=== PATIENT | female | born 1940 | race Caucasian/White ===

== ENCOUNTER 2019-11-01 14:00 | Emergency (ER) | payer MEDICARE, SELFPAY ==
[2019-11-01 14:19] VITALS: BP 149/77; PULSE 108; RESP 16; TEMP 36.4; O2SAT 97
--- NOTE | 2019-11-01 14:33 | ED.GENADULT ---
HPI - General Adult General Chief complaint: Urogenital-Female Stated complaint: other Time Seen by Provider: 11/01/19 14:33 Source: patient and RN notes reviewed Mode of arrival: ambulatory Limitations: no limitations History of Present Illness HPI narrative: 78-year-old female presents with urinary complaints and being fatigue for 1 day. Dysuria consist of frequency and urgency.? Mary says she urinated 6 times this morning from 02am-08am. No treatment.? Denies fever or chills. No significant pelvic pain. No vaginal discharge.? No concerns for STDs. Exacerbating factors urinating.? Denies hematuria or vaginal bleeding. Hysterectomy.? No flank pain. Denies nausea, vomiting, and abdominal pain.? Tolerating liquids well.? Remains active. The patient reports she have not been diagnosed with COVID-19. The patient reports she is not waiting for the results of a COVID-19 lab test. The patient reports she do not have fever, chills, weakness, or myalgia. The patient reports she do not have a new or worsening cough or shortness of breath. Denies chest pain. The patient reports she do not have any rhinorrhea, congestion, sore throat, and diarrhea. Tolerating po intake well. Denies concerns for COVID-19 or exposures been home with limited outdoor exposure except for essential household needs and return home. At this time, patient is not suspected of having COVID-19. Complains of LT hip-leg pain and a raised area to LT lateral-dorsal foot for the past 14 days. No treatment. Activity helps with pain. No recent injuries. Denies radiation of pain. No numbness or tingling or bleeding. No swelling. No loss of mobility. Exacerbating factor consists of sitting or lying around too long. Denies recent travel or long car rides. History of DVT or PE. No chest pain or dyspnea. Some parts of this dictation were generated by voice recognition software and may contain typographical and/or grammatical inaccuracies. Related Data Home Medications Medication Instructions Recorded Confirmed amlodipine [Norvasc] 10 mg PO DAILY 11/01/19 11/01/19 aspirin 81 mg PO DAILY 11/01/19 11/01/19 isosorbide mononitrate 30 mg PO DAILY 11/01/19 11/01/19 lorazepam [Ativan] 1 mg PO TID 11/01/19 11/01/19 omeprazole magnesium [Prilosec OTC] 20 mg PO DAILY 11/01/19 11/01/19 quinapril [Accupril] 40 mg PO DAILY 11/01/19 11/01/19 rivaroxaban [Xarelto] 20 mg PO DAILY 11/01/19 11/01/19 simvastatin [Zocor] 20 mg PO DAILY 11/01/19 11/01/19 Allergies Allergy/AdvReac Type Severity Reaction Status Date / Time Penicillins Allergy Unknown Unknown Verified 11/01/19 14:32 Review of Systems Review of Systems: Narrative: CONSTITUTIONAL: Denies fever, chills, sweats. EYES: Denies visual changes, redness, discharge. ENT: Denies rhinorrhea, congestion, sore throat, otalgia. CARDIOVASCULAR: Denies chest pain, palpitations, edema. RESPIRATORY: Denies dyspnea, wheezing, cough. GASTROINTESTINAL: Denies abdominal pain, nausea, vomiting, diarrhea. GENITOURINARY: Complains of dysuria (frequency and urgency). Denies hematuria, abnormal discharge. SKIN: Denies rash or itching. MUSCULOSKELETAL: Denies acute back pain or myalgia. Complains of LT hip-leg pain and raised area to LT dorsal-lateral foot. NEUROLOGIC: Denies numbness or focal weakness. PSYCHIATRIC: Denies anxiety or depression. All systems reviewed & are unremarkable except as noted in HPI and below. [facility] Past Medical History Medical History (Updated 11/01/19 @ 14:57 by YFN [place]) Anxiety Hypercholesteremia Hypertension UTI (urinary tract infection) Surgical History Surgical History (Updated 11/01/19 @ 14:58 by YFN [place]) History of foot surgery RT History of hernia surgery 07/12 (abdominal X5) History of hysterectomy History of knee surgery RT Family History Family History (Updated 11/01/19 @ 14:58 by YFN [place]) Mother Diabetes mellitus Hypertension
== END 2019-11-01 15:08 | disposition home or self-care (01) ==
PROVIDERS: Emergency Provider Nurse Practitioner Family; PCP Family Medicine
DX: R30.0 Dysuria (principal); I10 Essential (primary) hypertension; E78.00 Pure hypercholesterolemia, unspecified; F41.9 Anxiety disorder, unspecified; Z79.82 Long term (current) use of aspirin; Z79.01 Long term (current) use of anticoagulants
CPT/HCPCS: 81003; 87086; 87088; 99213; G0463

== ENCOUNTER 2020-10-06 22:49 | Emergency (ER) | payer MEDICARE, SELFPAY ==
[2020-10-06 23:04] VITALS: BP 167/94; PULSE 91; RESP 18; TEMP 36.3; O2SAT 97
--- NOTE | 2020-10-06 23:10 | ECG_ITS ---
Measurements Intervals [place] Rate: 92 P: MD: 0 QRS: 33 QRSD: 109 T: 34 QT: 353 QTc: 438 Interpretive Statements ATRIAL FIBRILLATION LOW QRS VOLTAGE IN PRECORDIAL LEADS INCOMPLETE RIGHT BUNDLE BRANCH BLOCK NONSPECIFIC ST & T-WAVE ABNORMALITY- LATERAL LEADS ABNORMAL ECG Electronically Signed On 10-07-2020 6:39:08 CDT by Navjot Huang D.O.
[2020-10-07 00:23] LABS: Add Urine Microscopic? YES; Appearance Urine Turbid (Clear); Bilirubin Urine Negative (Negative); Blood Urine 1+ (Negative); Color Urine Amber (Yellow); Glucose Urine UA Negative (Negative); Ketones Urine Negative (Negative); Leukocyte Esterase Ur 2+ LEU/UL (Negative); Nitrate Urine Positive (Negative); Protein Urine 2+ mg/dL (Negative); RBC Urine 21-50 /hpf (0-2); Specific Grav Ur 1.013 (1.001-1.035); Squamous Epithelial Cell Urine Many /hpf (Few); WBC Clumps Urine Present /HPF; WBC Urine >75 /hpf
[2020-10-07 00:43] VITALS: PULSE 75
[2020-10-07] MEDS: CEPHALEXIN 500 MG CAPSULE PO (00:59)
[2020-10-07 01:28] LABS: Basophils Percent Auto 0.3 % (0.2-1.2); Eosinophils Absolute Auto 0.1 K/mm3 (0-0.3); Eosinophils Percent Auto 0.5 % (0-4.4); Hematocrit 39.8 % (37.0-47.0); Hemoglobin 12.8 g/dL (12.0-15.0); Immature Granulocyte Absolute 0.06 K/mm3 (0.00-0.031); Immature Granulocyte Percent A 0.5 % (0-0.5); Lymphocytes Absolute Auto 1.49 K/mm3 (0.9-3.2); Lymphocytes Percent Auto 13.5 % (18.3-44.2); Mean Corpuscular HGB Conc 32.2 g/dl (32-36); Mean Corpuscular Hemoglobin 27.8 pg (26-34); Mean Corpuscular Volume 86.3 fl (80-100); Mean Platelet Volume 10.3 fl (7.4-10.4); Monocytes Absolute Auto 0.6 K/mm3 (0.1-0.6); Monocytes Percent Auto 5.2 % (2.6-8.5); Neutrophils Absolute Auto 8.8 K/mm3 (1.3-6.7); Platelet Count Result 316 k/mm3 (150-375); Red Blood Count 4.61 M/mm3 (4.2-5.4); Red Cell Distribution Width 14.5 % (11.5-14.5); White Blood Count 11.1 K/mm3 (4.5-10.0)
[2020-10-07 01:34] LABS: Alanine Aminotransferase 17 U/L (4-35); Anion Gap 9 mmol/L (8-16); Aspartate Amino Transferase 27 U/L (14-36); Bilirubin,Total 0.5 mg/dL (0.2-1.3); Blood Urea Nitrogen 7 mg/dL (7-17); Carbon Dioxide 24 mmol/L (22-30); Chloride 99 mmol/L (98-107); Estimated CRCL calculation 62 ml/min; Estimated Glomerular Filt Rate > 60; Glucose 133 mg/dL (65-105); Potassium 3.7 mmol/L (3.4-5.0); Sodium 132 mmol/L (137-145)
[2020-10-07 01:35] LABS: Albumin Level 4.6 g/dL (3.5-5.1); Alkaline Phosphatase 92 U/L (38-126)
[2020-10-07 01:47] LABS: Troponin I < 0.012 ng/mL (0.000-0.034)
--- NOTE | 2020-10-07 01:47 | ED.GENADULT ---
HPI - General Adult General Chief complaint: Unspecified Stated complaint: left arm pain, possible fever Time Seen by Provider: 10/07/20 00:30 History of Present Illness HPI narrative: Patient is a 79-year-old female who presents the emergency department with chief complaint of right upper extremity numbness. The patient states she had some pain in her neck and then had some paresthesias in her right arm. The patient states that subsequently improved and just has a little bit of an aching in her right side of her neck. The patient states that she also has had some dysuria and reports that it hurts whenever she urinates Related Data Home Medications Medication Instructions Recorded Confirmed amlodipine [Norvasc] 10 mg PO DAILY 11/01/19 02/28/20 aspirin 81 mg PO DAILY 11/01/19 02/28/20 isosorbide mononitrate 30 mg PO DAILY 11/01/19 02/28/20 rivaroxaban [Xarelto] 20 mg PO DAILY 11/01/19 02/28/20 simvastatin [Zocor] 20 mg PO DAILY 11/01/19 02/28/20 cholecalciferol (vitamin D3) 25 25 mcg PO DAILY 02/28/20 02/28/20 mcg (1,000 unit) tablet Allergies Allergy/AdvReac Type Severity Reaction Status Date / Time Penicillins Allergy Unknown Unknown Verified 02/28/20 14:26 [facility] Past Medical History Medical History Anxiety Hypercholesteremia Hypertension UTI (urinary tract infection) Surgical History Surgical History History of foot surgery RT History of hernia surgery 07/12 (abdominal X5) History of hysterectomy History of knee surgery RT Family History Family History Mother Diabetes mellitus Hypertension Family history of cardiovascular disease Father Family history of lung cancer Social History Social History Smoking status: Never smoker Second hand tobacco smoke exposure: No Alcohol intake: former Substance use: never Gender identity (if verbalized by the patient): Female Course Vital Signs Vital signs: Vital Signs Temperature 36.3 C L 10/06/20 23:04 Pulse Rate 91 10/06/20 23:04 Respiratory Rate 18 10/06/20 23:04 Blood Pressure 167/94 H 10/06/20 23:04 Pulse Oximetry 97 10/06/20 23:04 Temperature 36.3 C L 10/06/20 23:04 Pulse Rate 75 10/07/20 01:53 Respiratory Rate 18 10/07/20 01:53 Blood Pressure 153/85 H 10/07/20 01:53 Pulse Oximetry 100 10/07/20 01:53 Medical Decision Making Vital Signs Vital Signs: Vital Signs Temperature 36.3 C L 10/06/20 23:04 Pulse Rate 91 10/06/20 23:04 Respiratory Rate 18 10/06/20 23:04 Blood Pressure 167/94 H 10/06/20 23:04 Pulse Oximetry 97 10/06/20 23:04 Temperature 36.3 C L 10/06/20 23:04 Pulse Rate 75 10/07/20 01:53 Respiratory Rate 18 10/07/20 01:53 Blood Pressure 153/85 H 10/07/20 01:53 Pulse Oximetry 100 10/07/20 01:53 Lab Data Result diagrams: 10/07/20 01:05 10/07/20 01:08 Labs: Lab Results 10/07/20 10/07/20 10/07/20 Range/Units 00:09 01:05 01:08 WBC 11.1 H (4.5-10.0) K/mm3 RBC 4.61 (4.2-5.4) M/mm3 Hgb 12.8 (12.0-15.0) g/dL Hct 39.8 (37.0-47.0) % MCV 86.3 (80-100) fl MCH 27.8 (26-34) pg MCHC 32.2 (32-36) g/dl RDW 14.5 (11.5-14.5) % Plt Count 316 (150-375) k/mm3 MPV 10.3 (7.4-10.4) fl Immature Gran % (Auto) 0.5 (0-0.5) % Neut % (Auto) 80.0 H (45.5-73.1) % Lymph % (Auto) 13.5 L (18.3-44.2) % [place] % (Auto) 5.2 (2.6-8.5) % Eos % (Auto) 0.5 (0-4.4) % Baso % (Auto) 0.3 (0.2-1.2) % Lymph # (Auto) 1.49 (0.9-3.2) K/mm3 [place] # (Auto) 0.6 (0.1-0.6) K/mm3 Eos # (Auto) 0.1 (0-0.3) K/mm3 Baso # (Auto) 0.0 (0.0-0.1) K/mm3 Abs Immat Gran (auto) 0.06 H (0.00-0.031) K/mm3 Absolute Neuts (auto) 8.8 H
[2020-10-07 01:53] VITALS: BP 153/85; PULSE 75; RESP 18; O2SAT 100
[2020-10-07 02:13] VITALS: BP 152/97
== END 2020-10-07 02:27 | disposition home or self-care (01) ==
PROVIDERS: Emergency Provider Emergency Medicine; PCP Family Medicine
DX: N39.0 Urinary tract infection, site not specified (principal); M54.12 Radiculopathy, cervical region; E78.00 Pure hypercholesterolemia, unspecified; I10 Essential (primary) hypertension; Z79.01 Long term (current) use of anticoagulants; Z79.82 Long term (current) use of aspirin
CPT/HCPCS: 36415; 80053; 81001; 84484; 85025; 87077; 87086; 87088; 93005; 99284; A9270

== ENCOUNTER → 2020-10-24 11:38 | Outpatient (CLI) | payer MEDICARE, SELFPAY ==
--- NOTE | ~2020-10-24 | XR_ITS ---
EXAMINATION: XR cervical spine 4-5V EXAM DATE: 10/24/2020 11:57 INDICATION: M54.2 - Cervicalgia, arm pain. TECHNIQUE: Cervical spine frontal, lateral, lateral swimmers, and open-mouth odontoid projections. There is no prior study for comparison. FINDINGS: Moderate to severe disc disease C5-C6, moderate at the C4-5 and C6-7 levels. There is 2 mm anterolisthesis C3 on C4 and C4 on C5. Straightening of normal cervical lordosis could be positional or spasm. The odontoid process is intact. The lateral masses of C1 line up with C2. Prevertebral so ft tissue and pre-dens space are within normal limits. Severe mid cervical facet arthropathy and also evidence of significant lower cervical uncovertebral joint arthropathy. There is mild cervical levos coliosis. Lung apices are clear. IMPRESSION: Advanced cervical spondylosis. Reviewed, dictated and finalized at location B.
== END ==
PROVIDERS: PCP Family Medicine; Visit Provider Family Medicine
DX: M47.892 Other spondylosis, cervical region (principal)
CPT/HCPCS: 72050

== ENCOUNTER 2021-01-01 12:30 | Outpatient (RCR) | payer MEDICARE, SELFPAY ==
--- NOTE | 2020-10-29 17:24 | PTOPEVAL ---
PHYSICAL THERAPY EVALUATION AND PLAN OF CARE Thank you for referring Mary So to [facility].? The patient is scheduled to be seen for therapy? 2x/week for 4 weeks. Please review, sign, date and return this plan of care JAMES. I agree with and certify that the following plan of care is medically necessary. Referring Physician Date Attending Provider: Osiel Donald PA-C Evaluation Outpatient Past Medical History Cardiovascular History Hx Hypercholesterolemia Yes Hx Hypertension Yes Genitourinary History Hx Urinary Tract Infection Yes Reproductive History Hx Post Menopausal Yes Psychosocial History Hx Anxiety Yes Diagnosis cervical pain with right radiculopathy Onset 1 month Subjective Information Mary is here today with c/o Query Text:As Reported By Patient/ neck pain with right arm Family numbness and tingling. Worst symptoms are in the arm and go around the shoulder. She reports that prednisone helps to reduce symptoms but when her prescription of predisone is gone, the symptoms come back. The symptoms are very disrupting. Self Report Pain Assessment Right Spine, Cervical Reported Pain Level 4 Pain Description Numbness,Tingling Pain Radiation Right Arm Pain Frequency Acute,Continuous Lowest Pain Intensity 0 Greatest Pain Intensity 6 Pain Aggravating Factors Other Pain Aggravating Factors Other Pain Aggravating Factors laying on side Pain Score Pain Score 4: Self Report Interventions Used Interventions Used By Clinicians Exercise,Mobilization,Manual Therapy Techniques Pain Relief Interventions Used By Inactivity/Rest,Medication Patient Cervical and Lumbar ROM Cervical ROM Cervical Flexion (0-60) 50 Query Text:Active in Degrees Cervical Extension (0-70) 40 Query Text:Active in Degrees Cervical Rotation Right (0-90) 50 Query Text:Active in Degrees Cervical Rotation Left (0-90) 65 Query Text:Active in Degrees Upper Extremity Range of Motion General Upper Extremity Range of Motion Reason Not Measured WNL/Left,WNL/Right Upper Extremity Muscle Strength Testing Scapular/Shoulder Right Scapular Retraction - Rhomboid 3+ Fair + Scapular Retraction - Middle Trapezius 3+ Fair + Scapular Retraction - Lower Trapezius 3+ Fair + Shoulder Flexion Strength 5 Normal Shoulder Extension Strength 5 Normal Shou
--- NOTE | 2020-11-07 09:29 | PCPTNOTE ---
Patient cancelled & rescheduled today appointment for a later time.
--- NOTE | 2020-11-07 10:36 | PCPTNOTE ---
Patient called & cancelled scheduled appointment this date due to not feeling well.
--- NOTE | 2020-11-19 08:19 | PCPTNOTE ---
Patient called & cancelled scheduled appointment this date due to not feeling well.
--- NOTE | 2020-11-27 11:42 | PTOPEVAL ---
PHYSICAL THERAPY PROGRESS REPORT AND PLAN OF CARE UPDATE Thank you for referring Mary So to [facility].? The patient is scheduled to be seen for therapy? 1x/week for 4 weeks. Please review, sign, date and return this plan of care JAMES. I agree with and certify that the following plan of care is medically necessary. Referring Physician Date Attending Provider: Osiel Donald, BONIFACIO Discharge Diagnosis cervical pain with right radiculopathy Onset 2 month Subjective Information Reports that she does not have Query Text:As Reported By Patient/ the pain like she did Family although she continues to have pins and needles on occasion. Reports she is taking tylenol morning and night. Self Report Pain Assessment Right Spine, Cervical Reported Pain Level 2 Pain Description Tingling Pain Radiation Right Arm Pain Frequency Acute,Continuous Lowest Pain Intensity 0 Greatest Pain Intensity 6 Pain Aggravating Factors Other Pain Aggravating Factors Other Pain Aggravating Factors laying on side Pain Score Pain Score 2: Self Report Interventions Used Interventions Used By Clinicians Exercise,Mobilization,Manual Therapy Techniques Pain Relief Interventions Used By Inactivity/Rest,Medication Patient Cervical and Lumbar ROM Cervical ROM Cervical Flexion (0-60) 55 Query Text:Active in Degrees Cervical Extension (0-70) 45 Query Text:Active in Degrees Cervical Rotation Right (0-90) 62 Query Text:Active in Degrees Cervical Rotation Left (0-90) 65 Query Text:Active in Degrees Upper Extremity Range of Motion General Upper Extremity Range of Motion Reason Not Measured WNL/Left,WNL/Right Upper Extremity Muscle Strength Testing Scapular/Shoulder Right Scapular Retraction - Rhomboid 3+ Fair + Scapular Retraction - Middle Trapezius 3+ Fair + Scapular Retraction - Lower Trapezius 3+ Fair + Shoulder Flexion Strength 5 Normal Shoulder Extension Strength 5 Normal Shoulder Abduction Strength 5 Normal Shoulder Medial Rotation Strength 5 Normal Shoulder Lateral Rotation Strength 5 Normal Posture Posture Sitting Position Head/C-Spine Posture C-Spine Flattened Thoracic Spine Posture Increased Kyphosis Lumbar Spine Posture Flattened Shoulder Posture (L) Rounded,(R) Rounded Scapula Posture (L) Protracted,(R) Protracted Palpation Assessment Palpation Palpation improving muscle tension with decreased tenderness to
--- NOTE | 2021-01-01 13:15 | PTOPEVAL ---
PHYSICAL THERAPY DISCHARGE NOTE Thank you for referring Mary So to [facility].? Please review, sign, date and return this plan of care JAMES. I agree with and certify that the following plan of care is medically necessary. Referring Physician Date Attending Provider: Osiel Donald PA-C Discharge Diagnosis cervical pain with right radiculopathy Onset 2 month Subjective Information Reports she has had no pain Query Text:As Reported By Patient/ all week. One time there were Family a few pins and needles but she moved her hand and they went away. Pain Score 0: Self Report Cervical and Lumbar ROM Cervical ROM Cervical Flexion (0-60) 55 Query Text:Active in Degrees Cervical Extension (0-70) 45 Query Text:Active in Degrees Cervical Rotation Right (0-90) 65 Query Text:Active in Degrees Cervical Rotation Left (0-90) 65 Query Text:Active in Degrees Upper Extremity Range of Motion General Upper Extremity Range of Motion Reason Not Measured WNL/Left,WNL/Right Upper Extremity Muscle Strength Testing Scapular/Shoulder Right Scapular Retraction - Rhomboid 4- Good - Scapular Retraction - Middle Trapezius 4- Good - Scapular Retraction - Lower Trapezius 4- Good - Shoulder Flexion Strength 5 Normal Shoulder Extension Strength 5 Normal Shoulder Abduction Strength 5 Normal Shoulder Medial Rotation Strength 5 Normal Shoulder Lateral Rotation Strength 5 Normal Posture Posture Sitting Position Head/C-Spine Posture Neutral Position Thoracic Spine Posture Increased Kyphosis Lumbar Spine Posture Neutral Shoulder Posture (R) Rounded Scapula Posture (L) Protracted,(R) Protracted Palpation Assessment Palpation Palpation improving muscle tension with decreased tenderness to palpation of right cervical musculature; right upper trapezius significantly improved in tissue quality; 04/2021: normalized tissue General Exercise General Exercises Exercise Location cervical Exercise Type Active,Resistive,Stretching Exercise Description -sitting upper trapezius Query Text:Record Sets, Reps, stretch Resistance, and Position -supine serratus punches x15 -hooklying alternating shoulder flexion x15 -sitting bilateral scapular retraction red band x15
== END 2021-01-02 16:23 | disposition home or self-care (01) ==
LOC: ANHPT 12:30
PROVIDERS: PCP Family Medicine; Visit Provider Physician Assistant
DX: M54.12 Radiculopathy, cervical region (principal); M54.2 Cervicalgia
CPT/HCPCS: 97110; 97140; 97162

== ENCOUNTER → 2021-09-17 09:38 | Outpatient (CLI) | payer MEDICARE, SELFPAY ==
--- NOTE | ~2021-09-17 | XR_ITS ---
EXAMINATION: XR sacroiliac joints min 3V DATE: 09/17/2021 10:55 INDICATION: Low back pain and posterior left hip pain TECHNIQUE: AP and left and right oblique views of the sacroiliac joints were obtained. COMPARISON: Sacrum and coccyx radiographs dated 09/17/[address] abdomen and pelvis dated 04/25/2015 FINDINGS: Bone alignment is normal. Mild osteoarthritis at the bilateral hip and sacroiliac joints. No erosions to suggest inflammatory sacroiliitis. Moderate lower lumbar spondylosis. Phleboliths in the right he mipelvis. IMPRESSION: 1. Mild bilateral sacroiliac osteoarthritis. Reviewed, dictated and finalized at location B.
--- NOTE | ~2021-09-17 | XR_ITS ---
XR sacrum coccyx min 2V DATE: 09/17/2021 10:55 INDICATION: Low back pain TECHNIQUE: AP, angled AP and lateral views COMPARISON: None FINDINGS: Diffuse osteopenia. The pubic symphysis and sacroiliac joints are intact. No fracture or bone destruction of the sacrum is evident. Prominent degenerative disc disease of the lower lumbar and lumbosacral spine. Distal abdominal aortic calcification without aneurysm. IMPRESSION: Multilevel prominent degenerative disc disease of the lumbar spine Osteopenia Reviewed, dictated and finalized at location A.
== END ==
PROVIDERS: PCP Family Medicine; Visit Provider Physician Assistant Medical
DX: M25.552 Pain in left hip (principal); M53.3 Sacrococcygeal disorders, not elsewhere classified; M85.88 Other specified disorders of bone density and structure, other site; M51.36 Other intervertebral disc degeneration, lumbar region
CPT/HCPCS: 72202; 72220

== ENCOUNTER 2021-09-21 13:30 | Outpatient (RCR) | payer MEDICARE, SELFPAY ==
--- NOTE | 2021-09-01 15:42 | PTOPEVAL ---
Thank you for referring Mary So to [facility].? The patient is scheduled to be seen for therapy?2 x/week for 6 weeks. Please review, sign, date and return this plan of care JAMES. I agree with and certify that the following plan of care is medically necessary. Referring Physician Date Attending Provider: Yari Gutierrez PA-C Diagnosis neck pain with radiculopathy right UE Onset chronic Additional Evaluation Detail xray: Advanced cervical spondylosis Subjective Information Reports numbness/tingling, Query Text:As Reported By Patient/ cold from right hand, shoulder Family and neck region. Her symptoms are random and intermittent. c/o decreased endurance since her hernia surgeries 2 yrs ago. 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 She has increased symptoms with sleeping on right UE, ADL's, prolonged sitting. She c/o intermittent muscle spasms of UE's,but no spasms today. She does not perform her HEP from her previous therapy. Her hobbies consistent of going to her [employer] activities. Also c/o left LB pain. Pain Assessment Right Arm(s) Reported Pain Level 0 Pain Description Phantom,Radiating,Tightness, Tingling Pain Frequency Intermittent Lowest Pain Intensity 0 Greatest Pain Intensity 10 Pain Aggravating Factors ADL's,Exercise/Activity, Prolonged Position Cervical and Lumbar ROM Cervical ROM Cervical Flexion (0-60) 65 Degrees Cervical Extension (0-70) 65 Degrees Cervical Lateral Flexion Right (0-50) 40 Degrees Cervical Lateral Flexion Left (0-50) 30 Degrees Cervical Rotation Right (0-90) 55 Degrees Cervical Rotation Left (0-90) 60 Degrees Cervical ROM Comments slight pain with left rotation , ext and lateral flex Upper Extremity Range of Motion General Upper Extremity Range of Motion Reason Not Measured WNL/Left,WNL/Right Cervical and Lumbar Muscle Testing Cervical Muscle Testing Cervical Flexion 5 Normal Cervical Extension 5 Normal Cervical Lateral Flexion Right 5 Normal Cervical Lateral Flexion Left 5 Normal Upper Extremity Muscle Strength Testing General Upper Extremity Strength Gross
--- NOTE | 2021-09-15 15:23 | PCPTNOTE ---
Patient called & cancelled scheduled appointment this date due to low back pain & is going to the Dr tomorrow.
--- NOTE | 2021-09-21 15:14 | PTOPEVAL ---
Physical Therapy Progress Note/ Discharge Summary Thank you for referring Mary So to [facility].?She was referred to therapy due to chronic neck pain with right UE radiculopathy. She has been seen for 6 therapy from 09/01/21 to 09/21/21. As a result of skilled therapy services she reports improved UE symptoms and improve tolerance with daily activities. She reports improved tolerance with sleeping and sitting. She demonstrates improved tissue restrictions, improved scapular stability and improved UE symptoms. neck disability index: 34% impaired at eval to 10% impaired at update. Assessment:Mary has reached maximal potential with skilled therapy services at this time. She reports improved symptoms and limitations. She has met to partially met her therapy goals. She demonstrates indep and compliance with her HEP. Will DC skilled therapy services at this time. Please review, sign, date and return this discharge summary JAMES. I agree with and certify that the following plan of care is medically necessary. Referring Physician Date Attending Provider: Yari Gutierrez PA-C Diagnosis neck pain with radiculopathy right UE Onset chronic Additional Evaluation Detail xray: Advanced cervical spondylosis Subjective Information Reports improve pain anb Query Text:As Reported By Patient/ symptoms since starting Family therapy. She has intermittent numbness/tingling of right hand and UE. Her symptoms are random and intermittent. Denies any activities which increase her neck/arm symptoms. Denies any issues with sleeping. She is performs at least some part of her HEP daily. She is more aware of her posture when seated and sitting more in midline position. Pain Assessment Right Arm(s) Reported Pain Level 0 Pain Description Numbness,Radiating,Tingling Pain Frequency Continuous Lowest Pain Intensity 0 Greatest Pain Intensity 5 Cervical and Lumbar ROM Cervical ROM Cervical Flexion (0-60) 70 Degrees Cervical Extension (0-70) 65 Degrees Cervical Lateral Flexion Right (0-50) 40 Degrees Cervical Lateral Flexion Left (0-50) 35 Degrees Cervical Rotation Right (0-90) 55 Degrees Cervical Rotation Left (0-90) 60Degrees Cervical ROM 75% of Normal Cervical ROM Comments no pain with left rotation, ext and lateral flex Upper Extremity Muscle Strength Testing Gross Upper Extremity Strength Comments efe middle and lower trap stability: 2
== END 2021-09-23 08:41 | disposition home or self-care (01) ==
LOC: ANHPT 13:30
PROVIDERS: PCP Family Medicine; Visit Provider Physician Assistant
DX: M54.12 Radiculopathy, cervical region (principal); M54.2 Cervicalgia
CPT/HCPCS: 97110; 97162; 97530

== ENCOUNTER 2022-01-02 11:23 | Emergency (ER) | payer MEDICARE, SELFPAY ==
[2022-01-02 11:33] VITALS: BP 136/88; PULSE 95; RESP 20; TEMP 36.8; O2SAT 97
--- NOTE | 2022-01-02 11:34 | ED.FEMALEGU ---
HPI - Female Genitourinary General Chief complaint: Urogenital-Female Stated complaint: uti Time Seen by Provider: 01/02/22 11:34 Source: patient, RN notes reviewed and old records reviewed Mode of arrival: ambulatory Limitations: no limitations History of Present Illness HPI Narrative: 81-year-old female presents to the [facility] with complaints of urgency and burning with urination. Reports that she has a history of UTIs. When she was evaluated several months ago by her [employer] provider was told not to drink caffeine. Patient had 2 large Cokes yesterday and was up all night. Denies any fevers, nausea, vomiting. Denies chest pain or abdominal pain. MD elicited complaint: UTI Pertinent past history: recurrent UTIs Related Data Home Medications Medication Instructions Recorded Confirmed amlodipine 10 mg tablet (Norvasc) 10 mg PO DAILY 11/01/19 01/02/22 aspirin 81 mg tablet,delayed 81 mg PO DAILY 11/01/19 01/02/22 release isosorbide mononitrate 30 mg 30 mg PO DAILY 11/01/19 01/02/22 tablet,extended release 24 hr rivaroxaban 20 mg tablet (Xarelto) 20 mg PO DAILY 11/01/19 01/02/22 simvastatin 20 mg tablet (Zocor) 20 mg PO DAILY 11/01/19 01/02/22 cholecalciferol (vitamin D3) 25 25 mcg PO DAILY 02/28/20 01/02/22 mcg (1,000 unit) tablet acetaminophen 325 mg tablet 325 mg PO Q6H PRN Fever Or Pain 03/17/21 01/02/22 Allergies Allergy/AdvReac Type Severity Reaction Status Date / Time Penicillins Allergy Unknown Unknown Verified 01/02/22 11:33 Review of Systems Review of Systems: All systems reviewed & are unremarkable except as noted in HPI and below Constitutional: Constitutional: Reports no additional constitutional complaints, Denies chills and Denies fatigue Eyes: Eyes: Reports no additional eye complaints ENT: Reports system reviewed and no additional complaints, except as documented Cardiovascular: Cardiovascular: Reports no additional cardiovascular complaints Respiratory: Respiratory: Reports no additional respiratory complaints Gastrointestinal: Gastrointestinal: Reports no additional gastrointestinal complaints, Denies abdominal pain, Denies diarrhea, Denies nausea and Denies vomiting Genitourinary: Genitourinary: Reports as per HPI (Urinary frequency), Denies hematuria, Reports dysuria, Denies flank pain and Denies vaginal discharge Musculoskeletal: Musculoskeletal: Reports no additional musculoskeletal complaints and Denies back pain Integumentary/Breasts: Skin/Breast: Reports system reviewed and no additional complaints, except as docu Neurologic: Reports system reviewed and no additional complaints, except as documented Psychiatric: Psychiatric: Reports no additional psychiatric complaints Endocrine: Endocrine: Denies fatigue Allergic/Immunologic: Allergic/Immunologic: Reports no additional allergic/immunologic complaints PMFSH Past Medical History Medical History Anxiety Cervical paraspinal muscle spasm Hypercholesteremia Hypertension Left hip pain Rash Right arm pain UTI (urinary tract infection) Surgical History Surgical History History of foot surgery RT History of hernia surgery 07/12 (abdominal X5) History of hysterectomy History of knee surgery RT Family History Family History Mother Diabetes mellitus Hypertension Family history of cardiovascular disease Father Family history of lung cancer Social History Social History Second hand tobacco smoke exposure: No Alcohol intake: former Substance use: never Substance use type: does not use Gender identity (if verbalized by the patient): Female Comments At the time of my signature, I reviewed and agree with the nursing past medical, surgical, social, and family history.
[2022-01-02 11:35] VITALS: BP 136/88; PULSE 95; RESP 20; TEMP 36.8; O2SAT 97
== END 2022-01-02 12:25 | disposition home or self-care (01) ==
PROVIDERS: Emergency Provider Nurse Practitioner; PCP Family Medicine
DX: N39.0 Urinary tract infection, site not specified (principal); E78.00 Pure hypercholesterolemia, unspecified; I10 Essential (primary) hypertension; Z79.82 Long term (current) use of aspirin; F41.9 Anxiety disorder, unspecified
CPT/HCPCS: 81003; 87077; 87086; 87186; 99213; G0463

== ENCOUNTER 2022-05-14 09:18 | Inpatient (IN) | payer OTHER, SELFPAY ==
[2022-05-14] VITALS (22 sets, daily range): BP systolic 117–142; BP diastolic 55–87; PULSE 60–96; RESP 14–25; TEMP 36.6–37; O2SAT 94–100
--- NOTE | ~2022-05-14 | CT_ITS ---
CT Abdomen and Pelvis with contrast. History: Abdominal pain. Spiral CT of the abdomen and pelvis was performed after the administration of intravenous contrast. 1 00 cc of Omnipaque 350 was administered intravenously without complication. Dose reduction technique was used on this scan by utilizing automated exposure control and iterative reconstruction technique. The dose-length product (DLP) was 719.80 mGy-cm. COMPARISON: 04/25/2015 Findings: Scans through the lung bases demonstrate mild atelectatic change. Small hepatic cysts noted. The liver, spleen, pancreas, and adrenal glands are otherwise within brian l limits. Cholecystectomy clips noted. Areas of bilateral renal cortical scarring are noted. No evide nce of aortic aneurysm. No lymphadenopathy is seen. There is no evidence of bowel obstruction. There is a complex inflammatory masslike lesion in the rig ht lower quadrant measuring approximately 4.5 x 3.5 cm in extent, with surrounding inflammatory olson e. Terminal ileum is essentially unremarkable. Images through the pelvis were performed. Urinary bladder unremarkable. Small amount of pelvic ascite s is seen. Patient is post hysterectomy. Impression: 4.5 x 3.5 cm complex phlegmon versus abscess in the right lower quadrant at the expected site of the appendix. Findings most likely represent complicated acute appendicitis. No free air. Small amount of pelvic ascites. Reviewed, dictated and finalized at [facility]. [employer] Impression: 4.5 x 3.5 cm complex phlegmon versus abscess in the right lower quadrant at the expected site of the appendix. Findings most likely represent complicated acut e appendicitis. No free air. Small amount of pelvic ascites.
--- NOTE | 2022-05-14 09:43 | ED.ABDPAIN ---
HPI - Abdominal Pain General Chief Complaint: Abdominal Pain <Cat Rios PA-C - Last Filed: 05/14/22 13:23> Stated Complaint: right side pain <BONIFACIO Foss Last Filed: 05/14/22 13:23> Time Seen by Provider: 05/14/22 09:31 <Cat Rios PA-C - Last Filed: 05/14/22 13:23> Source: patient <BONIFACIO Foss Last Filed: 05/14/22 13:23> Mode of arrival: ambulatory <BONIFACIO Foss Last Filed: 05/14/22 13:23> Limitations: no limitations <BONIFACIO Foss Last Filed: 05/14/22 13:23> History of Present Illness HPI narrative: This is an 81-year-old female that presents to the emergency department for right-sided abdominal pain. Ongoing over the last 2 days. Reports the pain is dull/achy. It is intermittently sharp in nature. It is worse with movement at times. She has not taken anything for pain yet today. Reports some constipation. Denies fever, vomiting, dysuria, hematuria, or hematochezia. <Cat Rios PA-C - Last Filed: 05/14/22 13:23> Related Data Home Medications: Home Medications Medication Instructions Recorded Confirmed amlodipine 10 mg tablet (Norvasc) 10 mg PO DAILY 11/01/19 05/14/22 aspirin 81 mg tablet,delayed 81 mg PO DAILY 11/01/19 05/14/22 release isosorbide mononitrate 30 mg 30 mg PO DAILY 11/01/19 05/14/22 tablet,extended release 24 hr rivaroxaban 20 mg tablet (Xarelto) 20 mg PO QACDINNER 11/01/19 05/14/22 cholecalciferol (vitamin D3) 25 50 mcg PO DAILY 02/28/20 05/14/22 mcg (1,000 unit) tablet acetaminophen 325 mg tablet 650 mg PO Q6H PRN Fever Or Pain 03/17/21 05/14/22 lorazepam 1 mg tablet 1 mg PO TID anxiety 05/14/22 05/14/22 omeprazole 20 mg capsule,delayed 20 mg PO QAM 05/14/22 05/14/22 release quinapril 40 mg tablet 40 mg PO DAILY 05/14/22 05/14/22 simvastatin 20 mg tablet 20 mg PO HS 05/14/22 05/14/22 <Cat Rios PA-C - Last Filed: 05/14/22 13:23> Allergies/Adverse Reactions: Allergies Allergy/AdvReac Type Severity Reaction Status Date / Time nitrofurantoin Allergy Intermediate Itching Verified 05/14/22 09:29 [From Macrobid] Penicillins Allergy Unknown Unknown Verified 05/14/22 09:29 <Cat Rios PA-C - Last Filed: 05/14/22 13:23> Review of Systems Review of Systems: CONSTITUTIONAL: Denies fever GASTROINTESTINAL: Reports abdominal pain. Denies nausea, vomiting, or diarrhea. GENITOURINARY: Denies dysuria or hematuria. <Cat Rios PA-C - Last Filed: 05/14/22 13:23> All systems reviewed & are unremarkable except as noted in HPI and below <Cat Rios PA-C - Last Filed: 05/14/22 13:23> [facility] Past Medical History Medical History: Medical History (Updated 05/15/22 @ 00:24 by Connie Nj PA-C) Anxiety Chronic anticoagulation Chronic hyponatremia Granulosa cell tumor Hypercholesteremia Hypertension Paroxysmal atrial fibrillation <Cat Rios PA-C - Last Filed: 05/14/22 13:23> Surgical History Surgical History: Surgical History (Updated 05/14/22 @ 13:44 by Connie Nj PA-C) History of arthroplasty of right knee (06/2014) History of bunionectomy of right great toe History of colonoscopy with polypectomy History of hernia repair History of hysterectomy <Cat Rios PA-C - Last Filed: 05/14/22 13:23> Family History Family History: Family History Mother Diabetes mellitus Hypertension Family history of cardiovascular disease Father Family history of lung cancer <Cat Rios PA-C - Last Filed: 05/14/22 13:23> Social History Social History: Social History (Updated 05/14/22 @ 13:44 by Connie Nj PA-C) Social History: Surrogate medical decision maker: Osielmonica So, spouse. Code status: Full code. Smoking status: Never smoker Second hand tobacco smoke exposure: No Alcohol intake: former
[2022-05-14 09:50] LABS: Basophils Percent Auto 0.3 % (0.2-1.2); Hematocrit 35.9 % (37.0-47.0); Hemoglobin 10.8 g/dL (12.0-15.0); Immature Granulocyte Absolute 0.04 K/mm3 (0.00-0.031); Immature Granulocyte Percent A 0.3 % (0-0.5); Lymphocytes Percent Auto 8.7 % (18.3-44.2); Mean Corpuscular HGB Conc 30.1 g/dl (32-36); Mean Corpuscular Hemoglobin 24.3 pg (26-34); Mean Corpuscular Volume 80.9 fl (80-100); Mean Platelet Volume 10.5 fl (7.4-10.4); Monocytes Percent Auto 7.3 % (2.6-8.5); Neutrophils Absolute Auto 11.5 K/mm3 (1.3-6.7); Neutrophils Percent Auto 83.4 % (45.5-73.1); Platelet Count Result 400 k/mm3 (150-375); Red Blood Count 4.44 M/mm3 (4.2-5.4); Red Cell Distribution Width 15.7 % (11.5-14.5); White Blood Count 13.8 K/mm3 (4.5-10.0)
[2022-05-14 10:21] LABS: Alanine Aminotransferase 19 U/L (6-35); Albumin Level 4.6 g/dL (3.5-5.1); Alkaline Phosphatase 79 U/L (38-126); Anion Gap 9 mmol/L (8-16); Aspartate Amino Transferase 32 U/L (14-36); Bilirubin,Total 1.3 mg/dL (0.2-1.3); Blood Urea Nitrogen 7 mg/dL (7-17); Calcium 8.8 mg/dL (8.4-10.2); Carbon Dioxide 22 mmol/L (22-30); Chloride 99 mmol/L (98-107); Estimated Glomerular Filt Rate > 60; Glucose 152 mg/dL (65-110); Lipase 34 U/L (23-300); Potassium 4.1 mmol/L (3.4-5.0); Sodium 130 mmol/L (137-145)
--- NOTE | 2022-05-14 11:41 | PC.NURSE ---
pt. to CT, Ua not obtained yet
[2022-05-14] MEDS: metroNIDAZOLE 500 MG/ISO 100ML 500 MG/100 ML BAG 100 MG IVPB (13:53)
[2022-05-14 13:57] LABS: Add Urine Microscopic? NO; Appearance Urine Clear (Clear); Bilirubin Urine Negative (Negative); Blood Urine Negative (Negative); Color Urine Light Yellow (Yellow); Glucose Urine UA Negative (Negative); Ketones Urine Negative (Negative); Leukocyte Esterase Ur Negative LEU/UL (Negative); Nitrate Urine Negative (Negative); Protein Urine Negative (Negative); Specific Grav Ur <= 1.005 (1.001-1.035); Urobilinogen Urine 0.2 mg/dL (<2.0)
[2022-05-14 14:18] LABS: Influenza A QL RT-PCR Negative (Negative); Influenza B QL RT-PCR Negative (Negative); SARS-CoV-2 RNA PCR Negative
--- NOTE | 2022-05-14 14:18 | ADMGEN ---
This patient, Mary So, was admitted to Medical Room 342-01. Patient/family oriented to hospital policies and general routines including ID bracelet, bed and alarms, visiting hours, pain management, procedures, bathroom and other care routines, personal items, smoking policy, room service/diet, and visiting hours. Information on how to activate the Rapid Response Team has been discussed. Patient/Family are encouraged to report perceived risks to care and to ask questions if they do not understand what they are told or what they should do.
--- NOTE | 2022-05-14 21:00 | PM.IMHP ---
H&P: HPI History of Present Illness Date/Time: 05/14/22 21:00 Chief Complaint: Abdominal pain. Narrative: This is a very pleasant 81-year-old female with history of multiple hernia repairs and hysterectomy, hypertension, hyperlipidemia, and anxiety who presented to the emergency department from home for evaluation of abdominal pain. A couple of days ago she was wakened from sleep with pain in the right hip/flank area which she describes as dull and aching. Initially she thought it was due to how she was laying in bed as she typically sleeps on her right side. However since that time the pain has persisted and at times it is sharp and stabbing in nature. It has since radiated into the right lower quadrant and somewhat into the periumbilical region. It is worse with movement and palpation. She has been taking acetaminophen with perhaps a little bit of help but nothing significant. Due to ongoing issue she came in today for evaluation. White blood cell count was elevated and a CT of the abdomen and pelvis showed a 4.5 x 3.5 centimeter complex phlegmon versus abscess in the right lower quadrant at the expected site of the appendix concerning for complicated acute appendicitis. She is being admitted in this setting for IV antibiotics and surgery consultation. At the time my evaluation she is resting and reports that her pain is manageable. She denies fever, chills, sweats, nausea, and vomiting. Review of Systems Review of Systems: Twelve systems were reviewed and are negative except for as per HPI. [facility] Past Medical History Medical History (Updated 05/15/22 @ 00:24 by Connie Nj PA-C) Anxiety Chronic anticoagulation Chronic hyponatremia Granulosa cell tumor Hypercholesteremia Hypertension Paroxysmal atrial fibrillation Surgical History Surgical History (Updated 05/14/22 @ 13:44 by Connie Nj PA-C) History of arthroplasty of right knee (06/2014) History of bunionectomy of right great toe History of colonoscopy with polypectomy History of hernia repair History of hysterectomy Family History Family History Mother Diabetes mellitus Hypertension Family history of cardiovascular disease Father Family history of lung cancer Social History Social History (Updated 05/14/22 @ 13:44 by Connie Nj PA-C) Social History: Surrogate medical decision maker: Osiel So, spouse. Code status: Full code. Smoking status: Never smoker Second hand tobacco smoke exposure: No Alcohol intake: former Substance use: never Substance use type: does not use Lack of Transportation: No Lack of Food: Never True Current Housing: I Have Housing Concerned About Future Housing: No Difficulty Paying Gas/Electric Bills: No Difficulty Paying for Meds: No Currently Unemployed: No Education: Decline to Answer Difficulty w/ Childcare or Family Care: No Spiritual care concerns: No Meds Home Medications and Allergies Home Medications Medication Instructions Recorded Confirmed Type amlodipine 10 mg tablet (Norvasc) 10 mg PO DAILY 11/01/19 05/14/22 History aspirin 81 mg tablet,delayed 81 mg PO DAILY 11/01/19 05/14/22 History release isosorbide mononitrate 30 mg 30 mg PO DAILY 11/01/19 05/14/22 History tablet,extended release 24 hr rivaroxaban 20 mg tablet (Xarelto) 20 mg PO QACDINNER 11/01/19 05/14/22 History cholecalciferol (vitamin D3) 25 50 mcg PO DAILY 02/28/20 05/14/22 History mcg (1,000 unit) tablet acetaminophen 325 mg tablet 650 mg PO Q6H PRN Fever Or Pain 03/17/21 05/14/22 History lorazepam 1 mg tablet 1 mg PO TID anxiety 05/14/22 05/14/22 History omeprazole 20 mg capsule,delayed 20 mg PO QAM 05/14/22 05/14/22 History release quinapril 40 mg tablet 40 mg PO DAILY 05/14/22 05/14/22 History simvastatin 20 mg tablet 20 mg PO HS 05/14/22 05/14/22 History Allergies Allergy/AdvReac Type
[2022-05-14] MEDS: ACETAMINOPHEN 325 MG TABLET 650 MG PO (22:51)
[2022-05-15] MEDS: LORazepam (*CRX) 1 MG TABLET PO ×4 (01:40→17:47)
[2022-05-15] MEDS: SODIUM CHLORIDE 0.9% IV 1,000 ML 80 ML IV CONT ×2 (01:40→17:46)
[2022-05-15] MEDS: metroNIDAZOLE 500 MG/ISO 100ML 500 MG/100 ML BAG 100 MG IVPB ×3 (01:42→17:47)
[2022-05-15 05:36] VITALS: BP 143/65; PULSE 76; RESP 18; TEMP 36.5; O2SAT 100
[2022-05-15 06:30] LABS: Hematocrit 31.3 % (37.0-47.0); Hemoglobin 9.8 g/dL (12.0-15.0); Mean Corpuscular HGB Conc 31.3 g/dl (32-36); Mean Corpuscular Hemoglobin 25.1 pg (26-34); Mean Corpuscular Volume 80.1 fl (80-100); Mean Platelet Volume 10.7 fl (7.4-10.4); Platelet Count Result 318 k/mm3 (150-375); Red Blood Count 3.91 M/mm3 (4.2-5.4); Red Cell Distribution Width 15.7 % (11.5-14.5); White Blood Count 13.9 K/mm3 (4.5-10.0)
[2022-05-15 06:38] LABS: Anion Gap 6 mmol/L (8-16); Blood Urea Nitrogen 7 mg/dL (7-17); Calcium 8.3 mg/dL (8.4-10.2); Carbon Dioxide 23 mmol/L (22-30); Chloride 96 mmol/L (98-107); Estimated Glomerular Filt Rate > 60; Glucose 113 mg/dL (65-110); Magnesium 1.9 mg/dL (1.6-2.3); Potassium 3.7 mmol/L (3.4-5.0); Sodium 125 mmol/L (137-145)
[2022-05-15] MEDS: lisinopriL 20 MG TABLET 40 MG PO (09:25)
[2022-05-15] MEDS: PANTOPRAZOLE 40 MG TABLET PO (09:25)
[2022-05-15] MEDS: ISOSORBIDE MONONITRATE 30 MG TAB.ER.24H PO (09:25)
[2022-05-15] MEDS: amLODIPine BESYLATE 5 MG TABLET 10 MG PO (09:26)
[2022-05-15 10:00] VITALS: PULSE 81; RESP 16; O2SAT 99
--- NOTE | 2022-05-15 12:23 | PM.CNGS ---
Assessment and Plan Assessment and plan (1) Perforated appendicitis: Code(s): K35.32 - Acute appendicitis with perforation, localized peritonitis, and gangrene, without abscess Status: Acute Assessment and Plan: I have reviewed the CT and discussed the findings with the patient. I also reviewed the CT with Dr. Stark with Interventional Radiology. There are phlegmonous changes and possible early abscess development in the expected position of the appendix, but there does not appear to be an organized fluid collection that could be percutaneously drained at this time. Patient has a complex medical and surgical history that would make surgery much more difficult. She is currently on Xarelto for atrial fibrillation and would be a very high bleeding risk with surgery. Also with her prior abdominal surgeries and hernia repair, there could be extensive scar tissue which would possibly require a much longer surgery and possibly an open operation. Attempting to treat with antibiotics at this time would be reasonable giving these increased risks. She does not have any signs of peritonitis at this time and appears to be comfortable with adequate pain control. Will continue IV antibiotics and hold anticoagulation. If she is showing any worsening signs then will have to consider surgical intervention. Could also consider repeat imaging in the next couple days and percutaneous drain placement if organized abscess does develop. (2) Chronic anticoagulation: Code(s): Z79.01 - [facility] (current) use of anticoagulants Status: Acute (3) Paroxysmal atrial fibrillation: Code(s): I48.0 - Paroxysmal atrial fibrillation Status: Acute (4) Hypertension: Code(s): I10 - Essential (primary) hypertension Status: Acute History of Present Illness Consult details Consult date: 05/15/22 Reason for consult: other (Perforated appendicitis) Narrative: This is an 81-year-old woman who I am asked to see for abdominal pain with perforated appendicitis. She began experiencing some right-sided abdominal pain about 3 or 4 days ago. She denies any fevers or chills. Pain was continuing to progress, therefore she presented to the emergency department. She states that she does have some occasional abdominal pains due to her prior surgeries, but like this. 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 She was treated at [facility] for these. She also had a large hernia that was repaired with a wide piece of mesh. The prior surgical records are not available at this time. Patient has a history atrial fibrillation and is on Xarelto. She states that she received a dose of this last night. Review of Systems Review of Systems: All systems reviewed & are unremarkable except as noted in HPI and below Constitutional: Constitutional: Denies chills and Denies fever(s) Eyes: Eyes: Denies change in vision ENT: Denies hearing loss, Denies neck pain and Denies sore throat Cardiovascular: Cardiovascular: Denies chest pain and Denies dyspnea Respiratory: Respiratory: Denies cough, Denies dyspnea and Denies wheezing Gastrointestinal: Gastrointestinal: Reports as per HPI Genitourinary: Genitourinary: Denies hematuria and Denies dysuria Musculoskeletal: Musculoskeletal: Denies arthralgias, Denies joint swelling and Denies neck pain Allergic/Immunologic: Allergic/Immunologic: Denies wheezing [facility] Past Medical History Medical History (Updated 05/15/22 @ 12:26 by Choco Ríos DO) Anxiety Chronic anticoagulation Chronic hyponatremia Granulosa cell tumor Hypercholesteremia Hypertension Paroxysmal atrial fibrillation Surgical History Surgical History (Updated 05/14/22 @ 13:44 by Connie Nj PA-C) History of arthroplasty of right knee (06/2014) History of bunionectomy of right great toe History of colonoscopy with polypectomy His
--- NOTE | 2022-05-15 13:06 | PM.IMPN ---
Progress Note: A&P Assessment and Plan (1) Intra-abdominal abscess: Code(s): K65.1 - Peritoneal abscess Status: Acute Assessment and Plan: CT shows a 4.5 x 3.5 centimeter complex phlegmon in the right lower quadrant near the appendix, suspected complex acute appendicitis. Patient has been seen in consultation by General surgery. No evidence of organized abscess at this time for percutaneous drainage. No surgical intervention given use of Xarelto and history of prior abdominal surgeries. Continue with close monitoring. continue IV ceftriaxone and metronidazole. Full liquid diet. Continue IV fluids. Analgesics available as needed. Xarelto on hold in the event surgical intervention is required (2) Appendicitis: Code(s): K37 - Unspecified appendicitis Status: Acute Assessment and Plan: Plan is as detailed above. (3) Chronic hyponatremia: Code(s): E87.1 - Hypo-osmolality and hyponatremia Status: Acute Assessment and Plan: Sodium with slight decline from baseline to 125 today. Possibly related to SIADH from pain. Evaluate urine electrolytes. Consider fluid restriction based on results. Recheck sodium this afternoon (4) Hyperglycemia: Code(s): R73.9 - Hyperglycemia, unspecified Status: Acute Assessment and Plan: Blood sugars slightly elevated on presentation at 152. Hemoglobin A1c was 6.0%. No need for further monitoring. (5) Paroxysmal atrial fibrillation: Code(s): I48.0 - Paroxysmal atrial fibrillation Status: Acute Assessment and Plan: Currently in a sinus rhythm. Rate is well controlled. 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 (7) Hypertension: Code(s): I10 - Essential (primary) hypertension Status: Acute Assessment and Plan: Blood pressures were reviewed and they are stable. Continue lisinopril and amlodipine. Monitor blood pressure trends (8) Generalized anxiety disorder: Code(s): F41.1 - Generalized anxiety disorder Status: Acute Assessment and Plan: Continue lorazepam. Subjective Date/time seen: 05/15/22 13:06 Interval history: Date of service: 05/15/22 Mary So is an 81 year old female with a history of atrial fibrillation on systemic anticoagulation, chronic hyponatremia, hypertension, and anxiety who is seen in follow up for perforated appendicitis. She is feeling fairly well today. She states that her abdomen is sore but not necessarily painful. She denies cramping or bloating. She is tolerating clear liquids. She has loose yellow stool today. Denies nausea, vomiting, fever, or chills. Denies urinary symptoms. No shortness breath, cough, chest pain. Review of Systems Review of Systems: All systems reviewed & are unremarkable except as noted in HPI and below Exam Narrative: General: Well-nourished, well-appearing 81-year-old female, sitting up in bed, comfortable, NARD Neuro: awake, alert and oriented x4, speech clear, no focal neuro deficits noted HEENMT: normocephalic, atraumatic, EOMI, sclerae anicteric, moist oral mucosa Respiratory: clear to auscultation bilaterally, nonlabored breathing Cardio: regular rate, regular rhythm with S1-S2 Abdomen: nondistended, normoactive bowel sounds, soft, minimally tender to palpation of right lower quadrant Extremities: no edema, erythema, or tenderness to palpation, DP pulses 2+ bilaterally Skin: no rashes or lesions, warm and dry Psych: appropriate mood and affect, judgment and insight intact Objective Data Vital Signs Vital Signs: Vital Signs - 24 hr 05/14/22 13:19 05/14/22 13:30 05/14/22 13:31 Temperature Pulse Rate Respiratory Rate 21 H 25 H 17 Blood Pressure 133/72 Pulse Oximetry 96 96 94
[2022-05-15 13:22] LABS: Creatinine Urine 120.2 mg/dL; Sodium Urine Random 24 meq/L
[2022-05-15 14:00] VITALS: BP 143/72; PULSE 81; RESP 16; TEMP 37; O2SAT 99
[2022-05-15 14:02] LABS: Sodium 124 mmol/L (137-145)
[2022-05-15 20:44] VITALS: BP 149/61; PULSE 91; RESP 20; TEMP 36.5; O2SAT 98
[2022-05-15] MEDS: ACETAMINOPHEN 325 MG TABLET 650 MG PO (20:50)
[2022-05-15] MEDS: SIMVASTATIN 20 MG TABLET PO (20:51)
[2022-05-15 21:31] LABS: Sodium 127 mmol/L (137-145)
[2022-05-16] MEDS: metroNIDAZOLE 500 MG/ISO 100ML 500 MG/100 ML BAG 100 MG IVPB ×3 (01:35→17:13)
[2022-05-16 04:50] VITALS: BP 154/84; PULSE 71; RESP 20; TEMP 36.5; O2SAT 100
[2022-05-16 05:46] LABS: Hemoglobin 9.6 g/dL (12.0-15.0); Mean Corpuscular Hemoglobin 24.9 pg (26-34); Mean Corpuscular Volume 80.3 fl (80-100); Mean Platelet Volume 10.4 fl (7.4-10.4); Platelet Count Result 328 k/mm3 (150-375); Red Blood Count 3.86 M/mm3 (4.2-5.4)
[2022-05-16 05:55] LABS: Anion Gap 8 mmol/L (8-16); Blood Urea Nitrogen 6 mg/dL (7-17); Calcium 8.4 mg/dL (8.4-10.2); Carbon Dioxide 21 mmol/L (22-30); Chloride 98 mmol/L (98-107); Estimated Glomerular Filt Rate > 60; Glucose 112 mg/dL (65-110); Potassium 3.5 mmol/L (3.4-5.0); Sodium 127 mmol/L (137-145)
[2022-05-16] MEDS: ISOSORBIDE MONONITRATE 30 MG TAB.ER.24H PO (09:11)
[2022-05-16] MEDS: LORazepam (*CRX) 1 MG TABLET PO ×3 (09:11→17:13)
[2022-05-16] MEDS: lisinopriL 20 MG TABLET 40 MG PO (09:12)
[2022-05-16] MEDS: PANTOPRAZOLE 40 MG TABLET PO (09:12)
[2022-05-16] MEDS: amLODIPine BESYLATE 5 MG TABLET 10 MG PO (09:13)
[2022-05-16] MEDS: SODIUM CHLORIDE 0.9% IV 1,000 ML 80 ML IV CONT (09:23)
--- NOTE | 2022-05-16 14:06 | PM.PNGS ---
Progress Note: A&P Assessment and Plan (1) Perforated appendicitis: Code(s): K35.32 - Acute appendicitis with perforation, localized peritonitis, and gangrene, without abscess Status: Acute Assessment and Plan: Slowly improving. Continue IV antibiotics Advance to regular diet Possibly home tomorrow if continuing to improve (2) Chronic anticoagulation: Code(s): Z79.01 - jail (current) use of anticoagulants Status: Acute (3) Paroxysmal atrial fibrillation: Code(s): I48.0 - Paroxysmal atrial fibrillation Status: Acute Subjective Subjective Date/Time Seen: 05/16/22 14:06 Interval history: Pain improving. No fevers. Tolerating full liquids. Passing flatus. Exam GI: Inspection: non-distended GI Palp: Yes Soft to palpation, Yes Tenderness to palpation present (GI) (mild RLQ), No Guarding due to palpation present (GI) and No Rebound tenderness present Objective Data Vital Signs Vital Signs: Vital Signs - 24 hr 05/15/22 20:44 05/16/22 04:50 Temperature 36.5 C 36.5 C Pulse Rate 91 71 Respiratory Rate 20 20 Blood Pressure 149/61 H 154/84 H Pulse Oximetry 98 100 Intake/Output Intake/Output: Intake & Output 05/13/22 05/14/22 05/15/22 05/16/22 23:59 23:59 23:59 23:59 Intake Total 690 2430 1681 Output Total 300 1025 Balance 390 2430 656 Meds/Results Medications: Active Medications Generic Name Dose Route Start Last Admin Trade Name Freq PRN Reason Stop Dose Admin Acetaminophen 650 mg 05/15/22 00:16 05/15/22 20:50 Acetaminophen 325 Mg Tablet PO 650 mg Q6H PRN Administration Mild Pain (1-3) or Fever Amlodipine Besylate 10 mg 05/15/22 09:00 05/16/22 09:13 Amlodipine Besylate 5 Mg Tablet PO 10 mg DAILY UVALDO Administration Ceftriaxone Sodium/Dextrose 1 gm in 50 mls @ 100 mls/hr 05/15/22 12:00 05/16/22 11:44 Rocephin 1 Gm/D5w 50 Ml IVPB 100 mls/hr Q24H UVALDO Administration Metronidazole 500 mg in 100 mls @ 100 mls/hr 05/15/22 01:00 05/16/22 11:34 Flagyl 500 Mg/Iso Soln 100 Ml IVPB Infused Q8H UVALDO Infusion Sodium Chloride 1,000 mls @ 80 mls/hr 05/15/22 00:30 05/16/22 09:23 Normal Saline Iv IV CONT 80 mls/hr .[id number] UVALDO Administration Isosorbide Mononitrate 30 mg 05/15/22 09:00 05/16/22 09:11 Isosorbide Mononitrate 30 Mg Tab.Er.24h PO 30 mg DAILY UVALDO Administration Lisinopril 40 mg 05/15/22 09:00 05/16/22 09:12 Lisinopril 20 Mg Tablet PO 40 mg QAM UVALDO Administration Lorazepam 1 mg 05/15/22 00:20 05/16/22 12:50 Lorazepam (*Crx) 1 Mg Tablet PO 1 mg TID UVALDO Administration Pantoprazole Sodium 40 mg 05/15/22 09:00 05/16/22 09:12 Pantoprazole 40 Mg Tablet PO 40 mg QAM UVALDO Administration Simvastatin 20 mg 05/15/22 21:00 05/15/22 20:51 Simvastatin 20 Mg Tablet PO 20 mg HS UVALDO Administration Radiology Results: ITS Impressions Abdomen/Pelvis CT 05/14/22 11:33 Impression: 4.5 x 3.5 cm complex phlegmon versus abscess in the right lower quadrant at the expected site of the appendix. Findings most likely represent complicated acute appendicitis. No free air. Small amount of pelvic ascites. Labs Labs: Laboratory Results - last 24 hr 05/14/22 05/15/22 05/16/22 13:01 20:45 05:22 WBC 12.0 H RBC 3.86 L Hgb 9.6 L Hct 31.0 L MCV 80.3 MCH 24.9 L MCHC 31.0 L RDW 16.0 H Plt Count 328 MPV 10.4 PT Cancelled INR Cancelled APTT Cancelled Sodium 127 L Potassium Chloride Carbon Dioxide Anion Gap BUN Creatinine Estim Creat Clear Calc Estimated GFR Glucose Calcium 05/16/22 05:22 WBC RBC Hgb Hct MCV MCH MCHC RDW Plt Count MPV PT INR APTT Sodium 127 L Potassium 3.5 Chloride 98 Carbon Dioxide 21 L Anion Gap 8 BUN 6 L Creatinine 0.50 L Estim Creat Clear Calc Not Reportable Estimated GFR > 60 Gl
--- NOTE | 2022-05-16 15:18 | PM.IMPN ---
Progress Note: A&P Assessment and Plan (1) Intra-abdominal abscess: Code(s): K65.1 - Peritoneal abscess Status: Acute Assessment and Plan: CT shows a 4.5 x 3.5 centimeter complex phlegmon in the right lower quadrant near the appendix, suspected complex acute appendicitis. Patient has been seen in consultation by General surgery. No evidence of organized abscess at this time for percutaneous drainage. No surgical intervention given use of Xarelto and history of prior abdominal surgeries. Continue with close monitoring. continue IV ceftriaxone and metronidazole. Advanced to regular diet. Will discontinue IV fluids as patient is tolerating p.o. intake. Analgesics available as needed. Xarelto remains on hold in the event surgical intervention is required, however hopefully home tomorrow if continued improvement. (2) Appendicitis: Code(s): K37 - Unspecified appendicitis Status: Acute Assessment and Plan: Plan is as detailed above. (3) Chronic hyponatremia: Code(s): E87.1 - Hypo-osmolality and hyponatremia Status: Acute Assessment and Plan: Sodium declined from based to 124 this admission. Possibly related to SIADH from pain. Urine sodium 24. Sodium improved with fluid restriction diet to 127 today. Continue fluid restriction and monitor sodium levels closely. (4) Hyperglycemia: Code(s): R73.9 - Hyperglycemia, unspecified Status: Acute Assessment and Plan: Blood sugars slightly elevated on presentation at 152. Hemoglobin A1c was 6.0%. No need for further monitoring. (5) Paroxysmal atrial fibrillation: Code(s): I48.0 - Paroxysmal atrial fibrillation Status: Acute Assessment and Plan: Currently in a sinus rhythm. Rate is well controlled. (6) Chronic anticoagulation: Code(s): Z79.01 - half-way (current) use of anticoagulants Status: Acute Assessment and Plan: Hold Xarelto in case she requires a procedure. (7) Hypertension: Code(s): I10 - Essential (primary) hypertension Status: Acute Assessment and Plan: Blood pressures were reviewed and they are stable. Continue lisinopril and amlodipine. Monitor blood pressure trends (8) Generalized anxiety disorder: Code(s): F41.1 - Generalized anxiety disorder Status: Acute Assessment and Plan: Continue lorazepam. Subjective Date/time seen: 05/16/22 15:18 Interval history: Date of service: 05/16/22 Mary So is an 81 year old female with a history of atrial fibrillation on systemic anticoagulation, chronic hyponatremia, hypertension, and anxiety who is seen in follow up for perforated appendicitis. She is doing much better today. She states she feels ?100% better. ?. She has no abdominal pain. She is tolerating a liquid diet. Passing flatus. No bowel movement. Denies fever or chills. She is saddened about being hospitalized for [place] and missing her family gathering. Review of Systems Review of Systems: All systems reviewed & are unremarkable except as noted in HPI and below Exam Narrative: General: well-nourished, well-appearing 81-year-old female, sitting up in bed, comfortable, NARD Neuro: awake, alert and oriented x4, speech clear, no focal neuro deficits noted HEENMT: normocephalic, atraumatic, EOMI, sclerae anicteric, moist oral mucosa Respiratory: clear to auscultation bilaterally, nonlabored breathing Cardio: regular rate, regular rhythm with S1-S2 Abdomen: nondistended, normoactive bowel sounds, soft, nontender to palpation Extremities: no edema, erythema, or tenderness to palpation, DP pulses 2+ bilaterally Skin: no rashes or lesions, warm and dry Psych: appropriate mood and affect, judgment and insight intact Objective Data Vital Signs Vital Signs: Vital Signs - 24 hr 05/15/22 20:44 05/16/22 04:50 Temperature 97.7 F 97.7 F Pulse Rate 91 71 Respirator
[2022-05-16 15:20] VITALS: BP 120/60; PULSE 88; RESP 18; TEMP 36.8; O2SAT 96
[2022-05-16] MEDS: ACETAMINOPHEN 325 MG TABLET 650 MG PO (20:18)
[2022-05-16] MEDS: SIMVASTATIN 20 MG TABLET PO (20:18)
[2022-05-16 20:32] VITALS: BP 138/85; PULSE 78; RESP 20; TEMP 36.5; O2SAT 97
[2022-05-17] MEDS: metroNIDAZOLE 500 MG/ISO 100ML 500 MG/100 ML BAG 100 MG IVPB ×2 (00:06→10:35)
[2022-05-17 05:24] VITALS: BP 133/58; PULSE 90; RESP 18; TEMP 36.6; O2SAT 97
[2022-05-17 06:09] LABS: Hematocrit 28.8 % (37.0-47.0); Hemoglobin 9.1 g/dL (12.0-15.0); Mean Corpuscular HGB Conc 31.6 g/dl (32-36); Mean Corpuscular Hemoglobin 24.7 pg (26-34); Mean Corpuscular Volume 78.3 fl (80-100); Mean Platelet Volume 10.4 fl (7.4-10.4); Platelet Count Result 365 k/mm3 (150-375); Red Blood Count 3.68 M/mm3 (4.2-5.4); Red Cell Distribution Width 15.9 % (11.5-14.5); White Blood Count 10.4 K/mm3 (4.5-10.0)
[2022-05-17 06:21] LABS: Anion Gap 7 mmol/L (8-16); Blood Urea Nitrogen 6 mg/dL (7-17); Calcium 8.3 mg/dL (8.4-10.2); Carbon Dioxide 22 mmol/L (22-30); Chloride 99 mmol/L (98-107); Estimated Glomerular Filt Rate > 60; Glucose 108 mg/dL (65-110); Potassium 3.9 mmol/L (3.4-5.0); Sodium 128 mmol/L (137-145)
[2022-05-17] MEDS: PANTOPRAZOLE 40 MG TABLET PO (09:13)
[2022-05-17] MEDS: ISOSORBIDE MONONITRATE 30 MG TAB.ER.24H PO (09:13)
[2022-05-17] MEDS: amLODIPine BESYLATE 5 MG TABLET 10 MG PO (09:13)
[2022-05-17] MEDS: LORazepam (*CRX) 1 MG TABLET PO ×2 (09:13→12:43)
[2022-05-17] MEDS: lisinopriL 20 MG TABLET 40 MG PO (09:14)
--- NOTE | 2022-05-17 12:21 | PM.PNGS ---
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 No fevers. Tolerating solid diet. Bowels moving and slightly loose. Exam GI: Inspection: non-distended GI Palp: Yes Soft to palpation, No Tenderness to palpation present (GI), No Guarding due to palpation present (GI) and No Rebound tenderness present Objective Data Vital Signs Vital Signs: Vital Signs - 24 hr 05/16/22 15:20 05/16/22 20:32 05/17/22 05:24 Temperature 36.8 C 36.5 C 36.6 C Pulse Rate 88 78 90 Respiratory Rate 18 20 18 Blood Pressure 120/60 138/85 133/58 L Pulse Oximetry 96 97 97 Intake/Output Intake/Output: Intake & Output 05/14/22 05/15/22 05/16/22 05/17/22 23:59 23:59 23:59 23:59 Intake Total 690 2430 2851 830 Output Total 300 1325 700 Balance 390 2430 1526 130 Meds/Results Medications: Active Medications Generic Name Dose Route Start Last Admin Trade Name Freq PRN Reason Stop Dose Admin Acetaminophen 650 mg 05/15/22 00:16 05/16/22 20:18 Acetaminophen 325 Mg Tablet PO 650 mg Q6H PRN Administration Mild Pain (1-3) or Fever Amlodipine Besylate 10 mg 05/15/22 09:00 05/17/22 09:13 Amlodipine Besylate 5 Mg Tablet PO 10 mg DAILY UVALDO Administration Ceftriaxone Sodium/Dextrose 1 gm in 50 mls @ 100 mls/hr 05/15/22 12:00 05/16/22 12:14 Rocephin 1 Gm/D5w 50 Ml IVPB Infused Q24H UVALDO Infusion Metronidazole 500 mg in 100 mls @ 100 mls/hr 05/15/22 01:00 05/17/22 11:35 Flagyl 500 Mg/Iso Soln 100 Ml IVPB Infused Q8H UVALDO Infusion Isosorbide Mononitrate 30 mg 05/15/22 09:00 05/17/22 09:13 Isosorbide Mononitrate 30 Mg Tab.Er.24h PO 30 mg DAILY UVALDO Administration Lisinopril 40 mg 05/15/22 09:00 05/17/22 09:14 Lisinopril 20 Mg Tablet PO 40 mg QAM UVALDO Administration Lorazepam 1 mg 05/15/22 00:20 05/17/22 09:13 Lorazepam (*Crx) 1 Mg Tablet PO 1 mg TID UVALDO Administration Pantoprazole Sodium 40 mg 05/15/22 09:00 05/17/22 09:13 Pantoprazole 40 Mg Tablet PO 40 mg QAM UVALDO Administration Simvastatin 20 mg 05/15/22 21:00 05/16/22 20:18 Simvastatin 20 Mg Tablet PO 20 mg HS UVALDO Administration Radiology Results: ITS Impressions Abdomen/Pelvis CT 05/14/22 11:33 Impression: 4.5 x 3.5 cm complex phlegmon versus abscess in the right lower quadrant at the expected site of the appendix. Findings most likely represent complicated acute appendicitis. No free air. Small amount of pelvic ascites. Labs Labs: Laboratory Results - last 24 hr 05/17/22 05/17/22 05:49 05:49 WBC 10.4 H RBC 3.68 L Hgb 9.1 L Hct 28.8 L MCV 78.3 L MCH 24.7 L MCHC 31.6 L RDW 15.9 H Plt Count 365 MPV 10.4 Sodium 128 L Potassium 3.9 Chloride 99 Carbon Dioxide 22 Anion Gap 7 L BUN 6 L Creatinine 0.50 L Estim Creat Clear Calc Not Reportable Estimated GFR > 60 Glucose 108 Calcium 8.3 L
--- NOTE | 2022-05-17 14:48 | P.DS_ITS ---
DS: Admitting Diagnosis Discharge Date 05/17/2022 Admitting Diagnosis Appendicitis DS: Discharge Diagnosis Discharge Diagnosis (1) Intra-abdominal abscess: Code(s): K65.1 - Peritoneal abscess Status: Acute Assessment and Plan: CT showed a 4.5 x 3.5 centimeter complex phlegmon in the right lower quadrant near the appendix, suspected complex acute appendicitis. Patient was seen in consultation by General surgery. No evidence of organized abscess for percutaneous drainage. No surgical intervention given use of Xarelto and history of prior abdominal surgeries. Received IV ceftriaxone and metronidazole and will continue p.o. Levaquin and Flagyl for 10 days as an outpatient. Blood cultures negative. Was able to advance to a regular diet which she will continue. Will follow-up with General surgery as an outpatient in 1 week (2) Appendicitis: Code(s): K37 - Unspecified appendicitis Status: Acute Assessment and Plan: Plan is as detailed above. (3) Chronic hyponatremia: Code(s): E87.1 - Hypo-osmolality and hyponatremia Status: Acute Assessment and Plan: Acute on chronic. Sodium declined from baseline to 124 this admission. Possibly related to SIADH from pain. Urine sodium 24. Sodium improved with fluid restriction diet to 128. Continue fluid restriction diet and repeat sodium levels as an outpatient in 3 days. (4) Hyperglycemia: Code(s): R73.9 - Hyperglycemia, unspecified Status: Acute Assessment and Plan: Blood sugars slightly elevated on presentation at 152. Hemoglobin A1c was 6.0%. No need for further monitoring. (5) Paroxysmal atrial fibrillation: Code(s): I48.0 - Paroxysmal atrial fibrillation Status: Acute Assessment and Plan: Currently in a sinus rhythm. Rate remained controlled. (6) Chronic anticoagulation: Code(s): Z79.01 - intermediate (current) use of anticoagulants Status: Acute Assessment and Plan: Xarelto was held in the event surgical intervention was required. Resumed at time of discharge (7) Hypertension: Code(s): I10 - Essential (primary) hypertension Status: Acute Assessment and Plan: Blood pressures were reviewed and they were stable. Continue lisinopril and amlodipine. Monitor blood pressure trends (8) Generalized anxiety disorder: Code(s): F41.1 - Generalized anxiety disorder Status: Acute Assessment and Plan: Continue lorazepam. DS: Summary Hospital Course Hospital Course: Date of admission: 05/14/2022 Date of discharge: 05/17/2022 Mary So is an 81 year old female with a history of atrial fibrillation on systemic anticoagulation, chronic hyponatremia, hypertension, and anxiety who presented to the emergency department on 05/14/2022 with complaints of right- sided abdominal pain ongoing for 2 da
--- NOTE | 2022-05-17 14:48 | PM.DS ---
DS: Admitting Diagnosis Discharge Date 05/17/2022 Admitting Diagnosis Appendicitis DS: Discharge Diagnosis Discharge Diagnosis (1) Intra-abdominal abscess: Code(s): K65.1 - Peritoneal abscess Status: Acute Assessment and Plan: CT showed a 4.5 x 3.5 centimeter complex phlegmon in the right lower quadrant near the appendix, suspected complex acute appendicitis. Patient was seen in consultation by General surgery. No evidence of organized abscess for percutaneous drainage. No surgical intervention given use of Xarelto and history of prior abdominal surgeries. Received IV ceftriaxone and metronidazole and will continue p.o. Levaquin and Flagyl for 10 days as an outpatient. Blood cultures negative. Was able to advance to a regular diet which she will continue. Will follow-up with General surgery as an outpatient in 1 week (2) Appendicitis: Code(s): K37 - Unspecified appendicitis Status: Acute Assessment and Plan: Plan is as detailed above. (3) Chronic hyponatremia: Code(s): E87.1 - Hypo-osmolality and hyponatremia Status: Acute Assessment and Plan: Acute on chronic. Sodium declined from baseline to 124 this admission. Possibly related to SIADH from pain. Urine sodium 24. Sodium improved with fluid restriction diet to 128. Continue fluid restriction diet and repeat sodium levels as an outpatient in 3 days. (4) Hyperglycemia: Code(s): R73.9 - Hyperglycemia, unspecified Status: Acute Assessment and Plan: Blood sugars slightly elevated on presentation at 152. Hemoglobin A1c was 6.0%. No need for further monitoring. (5) Paroxysmal atrial fibrillation: Code(s): I48.0 - Paroxysmal atrial fibrillation Status: Acute Assessment and Plan: Currently in a sinus rhythm. Rate remained controlled. 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 Resumed at time of discharge (7) Hypertension: Code(s): I10 - Essential (primary) hypertension Status: Acute Assessment and Plan: Blood pressures were reviewed and they were stable. Continue lisinopril and amlodipine. Monitor blood pressure trends (8) Generalized anxiety disorder: Code(s): F41.1 - Generalized anxiety disorder Status: Acute Assessment and Plan: Continue lorazepam. DS: Summary Hospital Course Hospital Course: Date of admission: 05/14/2022 Date of discharge: 05/17/2022 Mary So is an 81 year old female with a history of atrial fibrillation on systemic anticoagulation, chronic hyponatremia, hypertension, and anxiety who presented to the emergency department on 05/14/2022 with complaints of right-sided abdominal pain ongoing for 2 days. On presentation to the ED, her vital signs were stable, she was afebrile, WBC 13.8, platelets 400, CT of the abdomen/pelvis showed 4.5x3.5 cm complex phlegmon versus abscess in the right lower quadrant at the expected site of the appendix concerning for complicated acute appendicitis. She was admitted to the hospitalist service for further evaluation and management was seen in consultation by General surgery. Decision made to manage conservatively given patient's history of multiple prior abdominal surgeries and use of chronic anticoagulation. Patient received IV antibiotics and had symptomatic improvement. Diet was slowly advanced and patient eventually able to tolerate a regular diet. She will follow-up with General surgery as an outpatient in 2 weeks and consider repeat CT of the abdomen/pelvis at that time. She will continue Levaquin and Flagyl for 10 additional days. Xarelto was resumed. Hospital stay was complicated by acute on chronic hyponatremia with sodium declined to 124 during admission. Sodium levels improv
== END 2022-05-17 15:30 | disposition home or self-care (01) | DRG 372 ==
LOC: ANHED 11:48 → ANH3MED 13:19
PROVIDERS: Physician Assistant; Surgery; Admitting Provider Internal Medicine; Emergency Provider Emergency Medicine; PCP Family Medicine; Visit Provider Physician Assistant
DX: K35.33 Acute appendicitis with perforation, localized peritonitis, and gangrene, with abscess (principal); E87.1 Hypo-osmolality and hyponatremia; R73.9 Hyperglycemia, unspecified; I48.0 Paroxysmal atrial fibrillation; Z79.01 Long term (current) use of anticoagulants; F41.1 Generalized anxiety disorder; I10 Essential (primary) hypertension; Z20.822 Contact with and (suspected) exposure to COVID-19; Z79.82 Long term (current) use of aspirin; Z79.899 Other long term (current) drug therapy; Z88.0 Allergy status to penicillin; Z82.49 Family history of ischemic heart disease and other diseases of the circulatory system; Z83.3 Family history of diabetes mellitus
CPT/HCPCS: 36415; 51701; 74177; 80048; 80053; 81003; 82570; 83036; 83690; 83735; 84295; 84300; 84443; 85025; 85027; 87040; 87636; 96361; 96365; 96366; 96375; 99285; A9270; G0378; J0131; J0696; J7030; Q9967

== ENCOUNTER 2022-05-20 11:21 | Outpatient (CLI) | payer OTHER, SELFPAY ==
[2022-05-20 12:05] LABS: Sodium 132 mmol/L (137-145)
== END 2022-05-20 11:22 | disposition home or self-care (01) ==
LOC: ANHLAB 11:22
PROVIDERS: PCP Family Medicine; Visit Provider Physician Assistant
DX: E87.1 Hypo-osmolality and hyponatremia (principal)
CPT/HCPCS: 36415; 84295

== ENCOUNTER → 2022-06-11 08:41 | Outpatient (CLI) | payer OTHER, SELFPAY ==
--- NOTE | ~2022-06-11 | CT_ITS ---
EXAMINATION: CT abdomen pelvis w con DATE: 06/11/2022 09:19 INDICATION: Acute perforated appendicitis. Evaluate appendix following antibiotic treatment TECHNIQUE: Computed tomography (CT) of the abdomen and pelvis was performed with 100 CC Omnipaque 350 intravenous contrast. Automated exposure control and iterative reconstruction technique were employe d. Exam dose: 755.38 mGy-cm total exam DLP. COMPARISON: 05/14/2022 CT abdomen pelvis FINDINGS: There is mild atelectasis at the right lung base. Cardiomegaly. No pericardial or pleural effusion. Several hepatic cysts are noted, measuring up to 1.5 cm. Normal splenic size. No pancreatic mass lesi on or calcification or ductal dilatation. Status post cholecystectomy. No bile duct dilatation. Bilateral renal scarring, likely due to chronic pyelonephritis. No renal space occupying mass lesion or urinary tract calculus or hydroureteronephrosis. There is extensive calcification but normal caliber of the abdominal aorta. No intraperitoneal or ret roperitoneal or pelvic mass lesion or adenopathy or ascites. The urinary bladder is unremarkable. Status post hysterectomy. Diverticulosis of left and right colon; no CT evidence of diverticulitis. There is an approximately 2.3 x 2.8 cm thick-walled abscess in the right lower quadrant with some emery rounding inflammatory fat stranding and shotty nonenlarged lymph nodes. There is interval resolution of mild free fluid in the right paracolic gutter, right lower quadrant a nd pelvis. Degenerative spurring of the lower thoracic spine. Prominent degenerative disc disease at L3-4 and particularly L4-5 and and L5-S1. Bilateral hip osteoa rthritis. IMPRESSION: Thick-walled approximately 2.3 x 2.8 cm abscess in the appendiceal area with mild but di minished surrounding inflammation and resolution of free fluid since 05/14/2022 Reviewed, dictated and finalized at [facility]. Reviewed, dictated and finalized at [facility]. [employer] EDITOR IMPRESSION: Thick-walled approximately 2.3 x 2.8 cm abscess in the appendiceal area with mild but diminished surrounding inflammation and resolution of free fluid since 05/14/2022
[2022-06-11 09:07] LABS: Estimated Glomerular Filt Rate > 60
== END ==
PROVIDERS: PCP Family Medicine; Visit Provider Surgery
DX: K35.32 Acute appendicitis with perforation, localized peritonitis, and gangrene, without abscess (principal)
CPT/HCPCS: 74177; Q9967

== ENCOUNTER 2022-06-27 08:11 | Observation (INO) | payer OTHER, SELFPAY ==
[2022-06-27] VITALS (26 sets, daily range): BP systolic 99–144; BP diastolic 49–78; PULSE 60–98; RESP 14–27; TEMP 36.3–36.6; O2SAT 96–100; BMI 31.0
--- NOTE | ~2022-06-27 | CT_ITS ---
EXAMINATION: CTA chest PE abdomen pel DATE: 06/27/2022 10:24 INDICATION: Shortness of breath TECHNIQUE: Computed tomography angiography (CTA) of the chest was performed with 130 mL Omnipaque-350 intravenous contrast timed to evaluate the pulmonary arteries. Subsequent postcontrast images of the abdomen and pelvis are obtained. Coronal maximum intensity projection 3D-reconstructions were create d by the technologist. The dose-length product (DLP) was 1024.10 mGy-cm. Automated exposure control a nd iterative reconstruction technique were employed. COMPARISON: 06/11/2022 FINDINGS: CTA CHEST: The pulmonary arteries are well-opacified. No pulmonary embolism is identified. There is m ild emphysema. Dependent atelectasis is noted. No pleural effusion or pneumothorax. No pathologically enlarged thoracic lymph nodes are identified. The heart size is normal. A lipoma is noted in the rig ht subscapularis muscle. There is moderate thoracic spondylosis. ABDOMEN/PELVIS CT: The gallbladder is surgically absent. Cysts of the liver measure up to 1.4 cm in t he right hepatic lobe. The spleen, pancreas, and adrenal glands are normal. There are areas of cortic al scarring in the kidneys. There is calcified atherosclerosis of the aorta and many of the other art eries. No pathologically enlarged abdominal or pelvic lymph nodes are identified. There is a 2.7 x 2. 2 cm abscess at the expected site of the appendix without significant change. No free intraperitoneal gas or evidence of bowel obstruction. There is moderate lumbar spondylosis. IMPRESSION: 1. No pulmonary embolus or acute cardiopulmonary abnormality. 2. Stable 2.7 cm abscess at the expected location of the appendix. Reviewed, dictated and finalized at location A. MAKER
--- NOTE | ~2022-06-27 | XR_ITS ---
EXAMINATION: XR chest 2V DATE: 06/27/2022 09:20 INDICATION: Weakness TECHNIQUE: PA and lateral views of the chest are obtained. COMPARISON: 03/29/2011 FINDINGS: The lungs are free of acute opacities. No pleural effusion or pneumothorax. The cardiomedia stinal silhouette is normal. There is moderate thoracic spondylosis. Surgical clips in the right uppe r quadrant are likely from prior cholecystectomy. IMPRESSION: 1. No acute cardiopulmonary abnormality. Reviewed, dictated and finalized at location A. CENTER ASSOCIATE
--- NOTE | 2022-06-27 08:37 | ECG_ITS ---
Measurements Intervals [place] Rate: 70 P: WI: 0 QRS: 33 QRSD: 105 T: 5 QT: 397 QTc: 431 Interpretive Statements ATRIAL FIBRILLATION INCOMPLETE RIGHT BUNDLE BRANCH BLOCK [90+ ms QRS DURATION, TERMINAL R IN V1/V2, 40+ ms S IN I/aVL/V4/V5/V6] NONSPECIFIC ST & T-WAVE ABNORMALITY ABNORMAL RHYTHM ECG COMPARED TO ECG 10/06/2020 23:14:54 T-WAVE ABNORMALITY NOW PRESENT Electronically Signed On 06-27-2022 11:33:48 WINDOW TRIMMER APPRENTICE by Casey Lozano M.D.
--- NOTE | 2022-06-27 08:40 | ED.GENADULT ---
HPI - General Adult General Chief complaint: Unspecified Stated complaint: multiple complaints Time Seen by Provider: 06/27/22 08:21 Source: patient and RN notes reviewed Mode of arrival: ambulatory Limitations: no limitations History of Present Illness HPI narrative: This is an 81 year old female with history of anxiety, hyponatremia, recent appendicitis with perforation who presents for evaluation of weakness, nausea, shakiness. She was found to have acute appendicits with perforation and abscess in April. She was admitted to hospital and evaluated by Dr. Ríos. She was treated with IV antibiotics and she was eventually discharged home. She has been following with Dr. Ríos as an outpatient, and she was last seen on 06/15/22. She was started on bactrim and flagyl to continue her abscess treatment. She is scheduled for another CT abdomen and pelvis to assess for resolution of her abscess at the end of June. She reports nausea, weakness, and shakiness since her diagnosis. She reports she is extremely anxious. She also reports intermittent abdominal pain . She denies fever. She states she is tired of not feeling well so she came to ER. Related Data Home Medications Medication Instructions Recorded Confirmed amlodipine 10 mg tablet (Norvasc) 10 mg PO DAILY 11/01/19 06/27/22 aspirin 81 mg tablet,delayed 81 mg PO DAILY 11/01/19 06/27/22 release isosorbide mononitrate 30 mg 30 mg PO DAILY 11/01/19 06/27/22 tablet,extended release 24 hr rivaroxaban 20 mg tablet (Xarelto) 20 mg PO QACDINNER 11/01/19 06/27/22 cholecalciferol (vitamin D3) 25 50 mcg PO DAILY 02/28/20 06/27/22 mcg (1,000 unit) tablet acetaminophen 325 mg tablet 650 mg PO Q6H PRN Fever Or Pain 03/17/21 06/27/22 simvastatin 20 mg tablet 20 mg PO HS 05/14/22 06/27/22 Bifidobacterium infantis 4 mg 4 mg PO DAILY 06/27/22 06/27/22 capsule (Align) Allergies Allergy/AdvReac Type Severity Reaction Status Date / Time nitrofurantoin Allergy Intermediate Itching Verified 06/18/22 09:31 [From Macrobid] Penicillins Allergy Unknown Unknown Verified 06/18/22 09:31 Review of Systems Constitutional: Constitutional: Reports fatigue and Reports weakness Cardiovascular: Cardiovascular: Denies syncope, Denies rapid heart rate, Denies irregular heart rhythm, Denies leg edema and Reports dyspnea on exertion Respiratory: Respiratory: Denies chest congestion, Denies hemoptysis, Denies excessive phlegm production and Reports dyspnea Gastrointestinal: Gastrointestinal: Reports abdominal pain, Denies hematochezia, Denies diarrhea, Reports nausea and Denies vomiting Genitourinary: Genitourinary: Denies hematuria and Denies dysuria Musculoskeletal: Musculoskeletal: Denies joint swelling, Denies loss of height and Denies muscle weakness Neurologic: Denies syncope, Denies focal weakness and Denies weakness PMFSH Past Medical History Medical History Anxiety Chronic anticoagulation Chronic hyponatremia Granulosa cell tumor Hypercholesteremia Hypertension Paroxysmal atrial fibrillation Surgical History Surgical History History of arthroplasty of right knee (06/2014) History of bunionectomy of right great toe History of colonoscopy with polypectomy History of hernia repair Double History of hysterectomy S/P cholecystectomy Family History Family History Mother Diabetes mellitus Hypertension Family history of cardiovascular disease Father Family history of lung cancer Social History Social History Social History: She has four children. 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 Surrogate medical decision maker: Osiel Judah, spouse. Code status: Full code. Smoking status: Never smoker Second hand tobacco
[2022-06-27 09:00] LABS: Basophils Percent Auto 0.3 % (0.2-1.2); Eosinophils Percent Auto 0.4 % (0-4.4); Hematocrit 34.1 % (37.0-47.0); Hemoglobin 10.9 g/dL (12.0-15.0); Immature Granulocyte Absolute 0.02 K/mm3 (0.00-0.031); Immature Granulocyte Percent A 0.3 % (0-0.5); Lymphocytes Absolute Auto 1.12 K/mm3 (0.9-3.2); Lymphocytes Percent Auto 15.1 % (18.3-44.2); Mean Corpuscular Hemoglobin 24.4 pg (26-34); Mean Corpuscular Volume 76.5 fl (80-100); Mean Platelet Volume 10.2 fl (7.4-10.4); Monocytes Absolute Auto 0.5 K/mm3 (0.1-0.6); Monocytes Percent Auto 6.3 % (2.6-8.5); Neutrophils Absolute Auto 5.8 K/mm3 (1.3-6.7); Neutrophils Percent Auto 77.6 % (45.5-73.1); Platelet Count Result 433 k/mm3 (150-375); Red Blood Count 4.46 M/mm3 (4.2-5.4); Red Cell Distribution Width 16.6 % (11.5-14.5); White Blood Count 7.4 K/mm3 (4.5-10.0)
[2022-06-27 09:10] LABS: INR 1.6; Prothrombin Time 18.6 Seconds (11.1-14.7)
[2022-06-27 09:11] LABS: Partial Thromboplastin Time 30.8 SECONDS (22.3-36.8)
[2022-06-27 09:13] LABS: Alanine Aminotransferase 18 U/L (6-35); Albumin Level 4.1 g/dL (3.5-5.1); Alkaline Phosphatase 85 U/L (38-126); Anion Gap 10 mmol/L (8-16); Aspartate Amino Transferase 28 U/L (14-36); Bilirubin,Total 0.5 mg/dL (0.2-1.3); Blood Urea Nitrogen 5 mg/dL (7-17); Calcium 9.1 mg/dL (8.4-10.2); Carbon Dioxide 19 mmol/L (22-30); Chloride 94 mmol/L (98-107); Estimated CRCL calculation 58 ml/min; Estimated Glomerular Filt Rate > 60; Glucose 141 mg/dL (65-110); Lipase 64 U/L (23-300); Potassium 3.9 mmol/L (3.4-5.0); Sodium 123 mmol/L (137-145)
[2022-06-27 09:21] LABS: NT Pro B Type Natriuretic Pept 595 pg/mL (19.9-100); Troponin I < 0.012 ng/mL (0.000-0.034)
[2022-06-27] MEDS: PANTOPRAZOLE SODIUM IV 40 MG VIAL IV PUSH (09:23)
[2022-06-27] MEDS: ONDANSETRON INJ 4 MG/2 ML VIAL IV PUSH (09:23)
[2022-06-27] MEDS: SODIUM CHLORIDE 0.9% IV 1,000 ML 999 ML IV CONT (09:25)
[2022-06-27 09:47] LABS: D Dimer 0.52 ug/mL (<0.48)
[2022-06-27 10:29] LABS: SARS-CoV-2 RNA PCR Negative
[2022-06-27 11:18] LABS: Appearance Urine Clear (Clear); Bilirubin Urine Negative (Negative); Blood Urine Negative (Negative); Color Urine Yellow (Yellow); Glucose Urine UA Negative (Negative); Ketones Urine Negative (Negative); Leukocyte Esterase Ur Negative LEU/UL (Negative); Nitrate Urine Negative (Negative); Protein Urine Negative (Negative); Urobilinogen Urine 0.2 mg/dL (<2.0)
[2022-06-27 11:28] LABS: Add Urine Microscopic? NO
[2022-06-27] MEDS: metroNIDAZOLE 500 MG/ISO 100ML 500 MG/100 ML BAG 100 MG IVPB ×2 (12:08→20:58)
--- NOTE | 2022-06-27 12:33 | PM.IMHP ---
H&P: HPI History of Present Illness Date/Time: 06/27/22 12:33 Chief Complaint: nausea Narrative: This is a 81-year-old female patient who had been discharged from this hospital on 05/17/2022 with a 4.5 x 3.5 cm complex phlegmon of the right lower quadrant near the appendix suspected complex acute appendicitis. She was seen by surgery at that time and no surgical intervention was needed. She was also on p.o. Levaquin and Flagyl. Her blood cultures were negative. She has since then followed up with surgery outpatient bruce. The patient stated that she still does not feel well. She has been feeling weak, fatigued, nauseated, body aches and Headaches. Last night she thought that she had a tactile fever and that her blood pressure was elevated as well. She has had a poor appetite. Although she tells me that she has been drinking lots of water as her antibiotic prescription bottle suggested that she drink plenty of water. Her sodium level was 123 today with a baseline somewhere around 127-128. Today the patient's blood pressure is 135/78 her pulse is 98. She does have a history of atrial fibrillation but she is rate controlled. O2 saturations are 98%. She is afebrile today. Her H&H is 10.9 and 34.1. D-dimer was elevated to 0.52. Chest abdominal pelvis CTA no pulmonary embolism or acute cardiopulmonary abnormality. Stable 2.7 cm abscess at the expected location of the appendix. Chest x-ray was read as no acute cardiopulmonary abnormality. The patient was given Zofran, Protonix, IV fluids and Flagyl. The patient is being admitted to observation status on the date of service of 06/27/2022. Review of Systems Review of Systems: See HPI All systems reviewed & are unremarkable except as noted in HPI and below Constitutional: Constitutional: Reports as per HPI and Reports no additional constitutional complaints Eyes: Eyes: Reports as per HPI and Reports no additional eye complaints ENT: Reports system reviewed and no additional complaints, except as documented and Reports Normal hearing present Cardiovascular: Cardiovascular: Reports no additional cardiovascular complaints Respiratory: Respiratory: Reports no additional respiratory complaints and Reports no additional respiratory complaints Gastrointestinal: Gastrointestinal: Reports as per HPI and Reports no additional gastrointestinal complaints Musculoskeletal: Musculoskeletal: Reports no additional musculoskeletal complaints Integumentary/Breasts: Skin/Breast: Reports system reviewed and no additional complaints, except as docu and Reports as per HPI Neurologic: Reports system reviewed and no additional complaints, except as documented, Reports as per HPI and Reports Normal hearing present Psychiatric: Psychiatric: Reports no additional psychiatric complaints and Reports as per HPI Endocrine: Endocrine: Reports no additional endocrine complaints Hematologic/Lymphatic: Hematologic/Lymphatic: Reports no additional hematologic/lymphatic complaints Allergic/Immunologic: Allergic/Immunologic: Reports no additional allergic/immunologic complaints PMFSH Past Medical History Medical History Anxiety Chronic anticoagulation Chronic hyponatremia Granulosa cell tumor Hypercholesteremia Hypertension Paroxysmal atrial fibrillation Surgical History Surgical History (Updated 06/27/22 @ 13:11 by Awa Tapia NP) History of arthroplasty of right knee (06/2014) History of bunionectomy of right great toe History of colonoscopy with polypectomy History of hernia repair Double History of hysterectomy S/P cholecystectomy Family History Family History Mother Diabetes mellitus Hypertension Family history of cardiovascular disease Father Family history of lung cancer Social History Social History (Updated 06/27/22 @ 13:12 by Awa Tapia,
--- NOTE | 2022-06-27 15:56 | ADMGEN ---
This patient, Mary So, was admitted to 3 Med Surg Room 302-01 @ 1340. Patient/family oriented to hospital policies and general routines including ID bracelet, bed and alarms, visiting hours, pain management, procedures, bathroom and other care routines, personal items, smoking policy, room service/diet, and visiting hours. Information on how to activate the Rapid Response Team has been discussed. Patient/Family are encouraged to report perceived risks to care and to ask questions if they do not understand what they are told or what they should do.
[2022-06-27] MEDS: LORazepam (*CRX) 1 MG TABLET PO (17:30)
[2022-06-27] MEDS: SODIUM CHLORIDE 0.9% IV 1,000 ML 125 ML IV CONT (17:43)
[2022-06-27] MEDS: RIVAROXABAN 20 MG TABLET PO (17:46)
[2022-06-27] MEDS: SIMVASTATIN 20 MG TABLET PO (20:53)
[2022-06-27] MEDS: FAMOTIDINE 20 MG/2 ML VIAL IV PUSH (20:53)
[2022-06-28] MEDS: metroNIDAZOLE 500 MG/ISO 100ML 500 MG/100 ML BAG 100 MG IVPB ×2 (05:16→13:14)
[2022-06-28] MEDS: SODIUM CHLORIDE 0.9% IV 1,000 ML 125 ML IV CONT (05:17)
[2022-06-28 05:53] VITALS: BP 141/58; PULSE 70; RESP 14; TEMP 36.4; O2SAT 97
[2022-06-28 06:30] LABS: Basophils Percent Auto 0.6 % (0.2-1.2); Eosinophils Absolute Auto 0.2 K/mm3 (0-0.3); Eosinophils Percent Auto 2.4 % (0-4.4); Hematocrit 31.8 % (37.0-47.0); Hemoglobin 9.9 g/dL (12.0-15.0); Immature Granulocyte Absolute 0.02 K/mm3 (0.00-0.031); Immature Granulocyte Percent A 0.3 % (0-0.5); Lymphocytes Absolute Auto 2.04 K/mm3 (0.9-3.2); Lymphocytes Percent Auto 28.9 % (18.3-44.2); Mean Corpuscular HGB Conc 31.1 g/dl (32-36); Mean Corpuscular Hemoglobin 24.6 pg (26-34); Mean Corpuscular Volume 78.9 fl (80-100); Mean Platelet Volume 10.7 fl (7.4-10.4); Monocytes Absolute Auto 0.6 K/mm3 (0.1-0.6); Monocytes Percent Auto 8.3 % (2.6-8.5); Neutrophils Absolute Auto 4.2 K/mm3 (1.3-6.7); Neutrophils Percent Auto 59.5 % (45.5-73.1); Platelet Count Result 368 k/mm3 (150-375); Red Blood Count 4.03 M/mm3 (4.2-5.4); Red Cell Distribution Width 17.1 % (11.5-14.5); White Blood Count 7.1 K/mm3 (4.5-10.0)
[2022-06-28 06:48] LABS: Alanine Aminotransferase 16 U/L (6-35); Albumin Level 3.8 g/dL (3.5-5.1); Alkaline Phosphatase 71 U/L (38-126); Anion Gap 7 mmol/L (8-16); Aspartate Amino Transferase 27 U/L (14-36); Bilirubin,Total 0.5 mg/dL (0.2-1.3); Blood Urea Nitrogen 4 mg/dL (7-17); Calcium 8.6 mg/dL (8.4-10.2); Carbon Dioxide 21 mmol/L (22-30); Chloride 98 mmol/L (98-107); Estimated CRCL calculation 68 ml/min; Estimated Glomerular Filt Rate > 60; Glucose 108 mg/dL (65-110); Potassium 3.9 mmol/L (3.4-5.0); Sodium 126 mmol/L (137-145)
[2022-06-28] MEDS: lisinopriL 20 MG TABLET 40 MG PO (09:04)
[2022-06-28] MEDS: busPIRone HCL 10 MG TABLET PO ×2 (09:05→12:09)
[2022-06-28] MEDS: CHOLECALCIFEROL 1,000 UNITS TABLET 2000 UNITS PO (09:05)
[2022-06-28] MEDS: amLODIPine BESYLATE 5 MG TABLET 10 MG PO (09:05)
[2022-06-28] MEDS: ISOSORBIDE MONONITRATE 30 MG TAB.ER.24H PO (09:05)
[2022-06-28] MEDS: ASPIRIN 81 MG ENTERIC TABLET PO (09:05)
[2022-06-28] MEDS: FAMOTIDINE 20 MG/2 ML VIAL IV PUSH (09:06)
[2022-06-28] MEDS: LORazepam (*CRX) 1 MG TABLET PO ×2 (09:06→12:09)
--- NOTE | 2022-06-28 13:01 | PM.CNGS ---
Assessment and Plan Assessment and plan (1) Perforated appendicitis: Code(s): K35.32 - Acute appendicitis with perforation, localized peritonitis, and gangrene, without abscess Status: Acute Assessment and Plan: I reviewed her CT and there have been no significant changes since her outpatient CT on 06/11/2022. The inflammation appears to be improving. She has a normal white blood count. She does not appear to need to be in the hospital related to her appendicitis. Reason for hospitalization is likely only related to her hyponatremia. Since the antibiotics seem to be causing the persistent nausea and possibly worsening the hyponatremia, I would recommend discontinuing antibiotics on discharge. Will plan to follow-up with patient as previously scheduled and get 1 more follow-up CT. If abscess is persisting, then it may be of benefit to plan to proceed with laparoscopic appendectomy. If abscess completely resolves, then given her other increased risks with the chronic anticoagulation and multiple abdominal surgeries, she could be watched expectantly with observation and non-operative treatment. Patient already has a follow-up CT scheduled for 07/16/2022. I will call patient with CT results and discuss further treatment from there. (2) Chronic hyponatremia: Code(s): E87.1 - Hypo-osmolality and hyponatremia Status: Acute (3) Chronic anticoagulation: Code(s): Z79.01 - assisted (current) use of anticoagulants Status: Acute (4) Paroxysmal atrial fibrillation: Code(s): I48.0 - Paroxysmal atrial fibrillation Status: Acute History of Present Illness Consult details Consult date: 06/28/22 Reason for consult: other (Appendicitis) Narrative: this is an 81-year-old woman who I have been following for acute appendicitis since late April. She presented with acute appendicitis that appeared likely perforated but she was high risk for urgent surgery given long-term anticoagulation and multiple previous abdominal surgeries. She was treated with antibiotics and improved. A follow-up CT was obtained on 06/11/2022 and this showed a 2.3 cm x 2.8 cm residual abscess in the appendiceal area. This appeared significantly improved her previous CT on 05/14/2022. She was treated with another round of antibiotics as an outpatient. Over the past week she has had increasing nausea and weakness possibly related to the 2nd round of antibiotics. She was also having increasing anxiety and decided to come to the emergency department yesterday. A CT chest/ abdomen /pelvis was obtained which showed stable 2.7 cm abscess in the expected location of the appendix. She was noted to be significantly hyponatremic and was admitted for further medical treatment. She has no abdominal pain and denies any fevers. She states that her nausea has significantly improved since coming into the emergency department. She is tolerating a regular diet. Review of Systems Review of Systems: All systems reviewed & are unremarkable except as noted in HPI and below Constitutional: Constitutional: Denies chills and Denies fever(s) Eyes: Eyes: Denies change in vision ENT: Denies hearing loss, Denies neck pain and Denies sore throat Cardiovascular: Cardiovascular: Denies chest pain and Denies dyspnea Respiratory: Respiratory: Denies cough, Denies dyspnea and Denies wheezing Gastrointestinal: Gastrointestinal: Reports as per HPI Genitourinary: Genitourinary: Denies hematuria and Denies dysuria Musculoskeletal: Musculoskeletal: Denies arthralgias, Denies joint swelling and Denies neck pain Allergic/Immunologic: Allergic/Immunologic: Denies wheezing [facility] Past Medical History Medical History Anxiety Chronic anticoagulation Chronic hyponatremia Granulosa cell tumor Hypercholesteremia Hypertension Paroxysmal atrial fibrillation Surgical History Surgical History (Rev
[2022-06-28 14:00] VITALS: BP 136/54; PULSE 86; RESP 16; TEMP 36.4; O2SAT 97
[2022-06-28 14:13] LABS: Sodium 131 mmol/L (137-145)
--- NOTE | 2022-06-28 15:08 | PM.DS ---
DS: Admitting Diagnosis Discharge Date 06/28/2022 Admitting Diagnosis hyponatremia DS: Discharge Diagnosis Discharge Diagnosis (1) Perforated appendicitis: Code(s): K35.32 - Acute appendicitis with perforation, localized peritonitis, and gangrene, without abscess Status: Acute Assessment and Plan: Patient was hospitalized in April appendiceal abscess for which she has been managed by General surgery on outpatient antibiotics, most currently on Bactrim and Flagyl. CT scan with no significant changes from outpatient CT on 06/11/2022. She was evaluated by General surgery this admission and her oral antibiotics have been discontinued. She will continue with outpatient follow-up and she has a repeat CT scan scheduled for 07/16/2022. (2) Hyponatremia: Code(s): E87.1 - Hypo-osmolality and hyponatremia Status: Acute Assessment and Plan: Acute on chronic. Sodium 123 on admission. Improved at appropriate rate with implementation of fluid restriction diet. Sodium 131 at time of discharge. Patient will continue with fluid restriction and have repeat sodium levels in 3 days. (3) Paroxysmal atrial fibrillation: Code(s): I48.0 - Paroxysmal atrial fibrillation Status: Acute Assessment and Plan: Rate controlled. Continue Xarelto for stroke prophylaxis (4) Benign hypertension: Code(s): I10 - Essential (primary) hypertension Status: Acute Assessment and Plan: Blood pressures remained stable. Continue home lisinopril and amlodipine (5) Generalized anxiety disorder: Code(s): F41.1 - Generalized anxiety disorder Status: Acute Assessment and Plan: Continue home lorazepam and buspirone DS: Summary Hospital Course Hospital Course: date of admission: 06/27/2022 date of discharge: 06/28/2022 Mary So is an 81-year-old female with a history of paroxysmal atrial fibrillation on chronic anticoagulation, chronic hyponatremia, hypertension, hypercholesterolemia, anxiety, and appendicitis managed on oral antibiotics who presented to the emergency department on 06/27/2022 with complaints of nausea and shakiness. She was recently started on Bactrim and Flagyl for continue management of appendicitis and felt that she did not tolerate these medications. Upon presentation to the ED, her vital signs were stable, she was afebrile, white blood cell count was 7.4, sodium 123, additional laboratory workup unremarkable, and CT of the abdomen/ pelvis showed stable appearing 2.7 cm abscess of the appendix. she was admitted to the hospitalist service for further evaluation and management and was seen in consultation by General surgery. Please see above for further details. Her sodium levels improved with a fluid restriction diet which the patient will continue as an outpatient. She will repeat sodium levels outpatient in 3 days to ensure resolution. Her antibiotics were discontinued per General surgery recommendations as her CT was unchanged with improved appearance of inflammation inpatient in no signs/ symptoms of acute infection. It was felt that her Bactrim could be worsening her sodium levels, therefore antibiotics were discontinued. She will follow-up with General surgery as an outpatient and she has a CT scan scheduled for 07/16/2022. patient was discharged in hemodynamically stable condition on 06/28/2022. She will follow-up with Dr. Ríos as an outpatient as well as her primary care provider. Time Spent with Patient Time attestation: Total time spent providing and/or coordinating discharge services: 45 minutes Time spent: Greater than 30 minutes Exam Narrative: General: well-nourished, well-appearing 81-year-old female, sitting up in bed, comfortable, NARD Neuro: awake, alert and oriented x4, speech clear, no focal neuro deficits noted HEENMT: normocephalic, atraumatic, EOMI, sclerae anicteric, moist oral mucosa Respiratory:
== END 2022-06-28 16:00 | disposition home or self-care (01) ==
LOC: ANHED 09:06 → ANH3MEDSUR 13:18
PROVIDERS: Admitting Provider Family Medicine; Emergency Provider General Practice; PCP Family Medicine; Visit Provider Physician Assistant
DX: K35.32 Acute appendicitis with perforation, localized peritonitis, and gangrene, without abscess (principal); E87.1 Hypo-osmolality and hyponatremia; I48.0 Paroxysmal atrial fibrillation; I10 Essential (primary) hypertension; F41.1 Generalized anxiety disorder; E78.5 Hyperlipidemia, unspecified; K21.9 Gastro-esophageal reflux disease without esophagitis; R53.1 Weakness; R10.9 Unspecified abdominal pain; R41.9 Unspecified symptoms and signs involving cognitive functions and awareness; R06.02 Shortness of breath; Z20.822 Contact with and (suspected) exposure to COVID-19; R94.31 Abnormal electrocardiogram [ECG] [EKG]; I45.10 Unspecified right bundle-branch block; Z79.82 Long term (current) use of aspirin; Z79.01 Long term (current) use of anticoagulants; Z79.1 Long term (current) use of non-steroidal anti-inflammatories (NSAID); Z79.899 Other long term (current) drug therapy; Z82.49 Family history of ischemic heart disease and other diseases of the circulatory system
CPT/HCPCS: 36415; 71046; 71275; 74177; 80053; 81003; 83690; 83880; 84295; 84484; 85025; 85380; 85610; 85730; 93005; 96361; 96365; 96366; 96367; 96375; 96376; 99285; A9270; C9113; G0378; J0696; J2405; J7030; Q9967; U0003; U0005

== ENCOUNTER 2022-07-01 10:24 | Outpatient (CLI) | payer OTHER, SELFPAY ==
[2022-07-01 11:03] LABS: Sodium 129 mmol/L (137-145)
== END 2022-07-01 10:25 | disposition home or self-care (01) ==
PROVIDERS: PCP Family Medicine; Referring Provider Surgery; Visit Provider Physician Assistant
DX: E87.1 Hypo-osmolality and hyponatremia (principal)
CPT/HCPCS: 36415; 84295

== ENCOUNTER 2022-07-09 10:28 | Outpatient (CLI) | payer OTHER, SELFPAY ==
[2022-07-09 12:14] LABS: Basophils Absolute Auto 0.1 K/mm3 (0.0-0.1); Basophils Percent Auto 0.8 % (0.2-1.2); Eosinophils Absolute Auto 0.2 K/mm3 (0-0.3); Eosinophils Percent Auto 2.3 % (0-4.4); Hematocrit 35.3 % (37.0-47.0); Hemoglobin 10.9 g/dL (12.0-15.0); Immature Granulocyte Absolute 0.04 K/mm3 (0.00-0.031); Immature Granulocyte Percent A 0.4 % (0-0.5); Lymphocytes Absolute Auto 2.07 K/mm3 (0.9-3.2); Lymphocytes Percent Auto 22.5 % (18.3-44.2); Mean Corpuscular HGB Conc 30.9 g/dl (32-36); Mean Corpuscular Hemoglobin 24.4 pg (26-34); Mean Platelet Volume 11.2 fl (7.4-10.4); Monocytes Absolute Auto 0.7 K/mm3 (0.1-0.6); Monocytes Percent Auto 7.8 % (2.6-8.5); Neutrophils Absolute Auto 6.1 K/mm3 (1.3-6.7); Neutrophils Percent Auto 66.2 % (45.5-73.1); Platelet Count Result 298 k/mm3 (150-375); Red Blood Count 4.47 M/mm3 (4.2-5.4); White Blood Count 9.2 K/mm3 (4.5-10.0)
[2022-07-09 12:32] LABS: Potassium 3.9 mmol/L (3.4-5.0)
[2022-07-09 12:34] LABS: Alanine Aminotransferase 17 U/L (6-35); Albumin Level 4.5 g/dL (3.5-5.1); Alkaline Phosphatase 77 U/L (38-126); Anion Gap 11 mmol/L (8-16); Aspartate Amino Transferase 28 U/L (14-36); Bilirubin,Total 0.6 mg/dL (0.2-1.3); Blood Urea Nitrogen 10 mg/dL (7-17); Calcium 9.2 mg/dL (8.4-10.2); Carbon Dioxide 21 mmol/L (22-30); Chloride 100 mmol/L (98-107); Estimated Glomerular Filt Rate > 60; Glucose 116 mg/dL (65-110); Sodium 132 mmol/L (137-145)
== END 2022-07-09 10:29 | disposition home or self-care (01) ==
LOC: ANHLAB 10:29
PROVIDERS: PCP Family Medicine; Visit Provider Physician Assistant Medical
DX: E78.2 Mixed hyperlipidemia (principal); K65.1 Peritoneal abscess
CPT/HCPCS: 36415; 80053; 85025

== ENCOUNTER → 2022-07-16 09:13 | Outpatient (CLI) | payer OTHER, SELFPAY ==
--- NOTE | ~2022-07-16 | CT_ITS ---
EXAMINATION: CT abdomen pelvis w con DATE: 07/16/2022 09:46 INDICATION: Acute appendicitis with perforation TECHNIQUE: Computed tomography (CT) of the abdomen and pelvis was performed with 100 mL Omnipaque-350 intravenous contrast. Automated exposure control and iterative reconstruction technique were employe d. The dose-length product was 739.71 mGy-cm. COMPARISON: 06/27/2022 FINDINGS: Eventration of the right hemidiaphragm with mild right basilar atelectasis. Borderline heart size wit h biatrial enlargement. Atherosclerotic coronary artery calcifications and aortic valve calcification . No pericardial or pleural effusion. Again seen are a few hepatic cysts the largest measuring 1.7 cm . 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 7 mm nodular excrescence along the lateral surface of the right hepatic lobe which is unchan ged since 05/14/2022. Gallbladder is nonvisualized and likely surgically absent. 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 Spleen is normal. Pancreas and bilateral adrenal glands are normal. Small region of cortical scarring at both kidneys likely sequela of prior infection or in farction. Decrease in size of a previously 2.8 x 2.3 cm, currently 1.6 x 1.5 cm loculated fluid colle ction along side the tip the cecum consistent with improving abscess related to an earlier ruptured a ppendicitis. The amount of associated inflammatory stranding, now relatively mild, has also decreased since the prior study. There is moderate colonic diverticulosis with a sigmoid predominance. There is no adjacent inflammatory change to suggest diverticulitis. No bowel obstruction. Postoperative ch blossom along the anterior abdominal wall. Bladder is normal. The uterus and bilateral ovaries are not i dentified and have likely been surgically resected. Minimal ascites without peripheral enhancement in the deep pelvis. No free intraperitoneal gas. No pathologically enlarged abdominal or pelvic lymphad enopathy. Mild lumbar dextrocurvature with moderate to severe spondylosis. Moderate left and mild to moderate right hip osteoarthritis. IMPRESSION: 1. Interval decrease in size and decrease in associated inflammatory stranding of a previously 2.8 x 2.3, currently 1.6 x 1.5 cm paracecal abscess at the site of a prior ruptured appendicitis. 2. Indeterminate 7 mm nodular soft tissue density along the capsule of the right hepatic lobe which r aises some concern for peritoneal metastatic disease given reported prior treated hepatic metastasis of ovarian origin. 3. Diverticulosis. Reviewed, dictated and finalized at location A. NG ASSOCIATE IMPRESSION: 1. Interval decrease in size and decrease in associated inflammatory stranding of a previously 2.8 x 2.3, currently 1.6 x 1.5 cm paracecal abscess at the site of a prior ruptured appendicitis. 2. Indeterminate 7 mm nodular soft tissue density along the capsule of the righ t hepatic lobe which raises some concern for peritoneal metastatic disease give n reported prior treated hepatic metastasis of ovarian origin. 3. Diverticulosis.
[2022-07-16 09:30] LABS: Estimated Glomerular Filt Rate > 60
== END ==
PROVIDERS: PCP Family Medicine; Visit Provider Surgery
DX: K35.32 Acute appendicitis with perforation, localized peritonitis, and gangrene, without abscess (principal); K57.30 Diverticulosis of large intestine without perforation or abscess without bleeding
CPT/HCPCS: 74177; Q9967

== ENCOUNTER 2022-07-21 13:46 | Outpatient (CLI) | payer OTHER, SELFPAY ==
[2022-07-21 14:20] LABS: Anion Gap 10 mmol/L (8-16); Blood Urea Nitrogen 9 mg/dL (7-17); Calcium 9.6 mg/dL (8.4-10.2); Carbon Dioxide 23 mmol/L (22-30); Chloride 99 mmol/L (98-107); Estimated Glomerular Filt Rate > 60; Glucose 107 mg/dL (65-110); Potassium 3.8 mmol/L (3.4-5.0); Sodium 132 mmol/L (137-145)
== END 2022-07-21 13:47 | disposition home or self-care (01) ==
LOC: ANHLAB 13:47
PROVIDERS: PCP Family Medicine; Visit Provider Physician Assistant Medical
DX: E87.1 Hypo-osmolality and hyponatremia (principal)
CPT/HCPCS: 36415; 80048

== ENCOUNTER 2022-07-28 13:14 | Outpatient (CLI) | payer OTHER, SELFPAY ==
[2022-07-28 13:46] LABS: Anion Gap 11 mmol/L (8-16); Blood Urea Nitrogen 9 mg/dL (7-17); Calcium 9.4 mg/dL (8.4-10.2); Carbon Dioxide 22 mmol/L (22-30); Chloride 101 mmol/L (98-107); Estimated Glomerular Filt Rate > 60; Glucose 124 mg/dL (65-110); Potassium 4.7 mmol/L (3.4-5.0); Sodium 134 mmol/L (137-145)
== END 2022-07-28 13:15 | disposition home or self-care (01) ==
LOC: ANHLAB 13:15
PROVIDERS: PCP Family Medicine; Visit Provider Physician Assistant Medical
DX: E87.1 Hypo-osmolality and hyponatremia (principal)
CPT/HCPCS: 36415; 80048

== ENCOUNTER 2022-09-03 13:41 | Outpatient (CLI) | payer OTHER, SELFPAY ==
[2022-09-03 14:15] LABS: Anion Gap 10 mmol/L (8-16); Blood Urea Nitrogen 13 mg/dL (7-17); Calcium 9.1 mg/dL (8.4-10.2); Carbon Dioxide 22 mmol/L (22-30); Chloride 101 mmol/L (98-107); Estimated Glomerular Filt Rate > 60; Glucose 113 mg/dL (65-110); Potassium 4.1 mmol/L (3.4-5.0); Sodium 133 mmol/L (137-145)
== END 2022-09-03 13:42 | disposition home or self-care (01) ==
PROVIDERS: PCP Family Medicine; Visit Provider Family Medicine
DX: E87.1 Hypo-osmolality and hyponatremia (principal)
CPT/HCPCS: 36415; 80048

== ENCOUNTER → 2022-10-21 10:39 | Outpatient (CLI) | payer OTHER, SELFPAY ==
--- NOTE | ~2022-10-21 | MR_ITS ---
MRI of the cervical spine Clinical History: Spondylosis Technique: Axial T2-weighted and gradient images, and sagittal T1-weighted, T2-weighted, and STIR tayla ges were acquired. Findings: No fracture identified. There is mild reversal of the normal cervical lordosis. There is 3 mm anterolisthesis of C4 over C5. There is advanced degenerative disc narrowing at C4-C5, C5-C6, and C6-C7. No suspicious bone marrow signal abnormality seen. At C2-C3, there is no disc bulge or herniation. No spinal canal stenosis or cord compression. There i s right neural foraminal narrowing, related to right facet arthropathy. Left neural foramen preserved . At C3-C4, there is no disc bulge or herniation. No spinal canal stenosis or cord compression. There i s bilateral facet arthropathy with bilateral neural foraminal narrowing. At C4-C5, there is disc osteophyte complex resulting in mild canal stenosis and mild ventral cord com pression. There is right neural foraminal narrowing. Right facet arthropathy. Left neural foramen is probably preserved. At C5-C6, disc osteophyte complex results in moderate to severe canal stenosis and cord compression. There is bilateral neural foraminal narrowing. At C6-C7, disc osteophyte complex results in moderate canal stenosis and cord compression. There is s evere bilateral neural foraminal narrowing. No abnormal signal seen in the spinal cord. Paravertebral soft tissues are unremarkable. 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 There is severe bilateral neural foraminal narrowing at these level s as well. Mild canal stenosis and cord compression at C4-C5, related to disc osteophyte complex. 3 mm anterolisthesis of C4 over C5. Reviewed, dictated and finalized at [facility]. Impression: Moderate to severe canal stenosis and cord compression at C5-C6 and C6-C7, rela taryn to large disc osteophyte complexes at these levels. There is severe bilater al neural foraminal narrowing at these levels as well. Mild canal stenosis and cord compression at C4-C5, related to disc osteophyte c omplex. 3 mm anterolisthesis of C4 over C5.
== END ==
PROVIDERS: PCP Family Medicine; Visit Provider Family Medicine
DX: M47.812 Spondylosis without myelopathy or radiculopathy, cervical region (principal)
CPT/HCPCS: 72141

== ENCOUNTER 2023-02-04 11:29 | Emergency (ER) | payer OTHER, SELFPAY ==
[2023-02-04 11:41] VITALS: BP 137/78; PULSE 76; RESP 16; TEMP 36.4; O2SAT 98
--- NOTE | 2023-02-04 12:02 | ED.FEMALEGU ---
HPI - Female Genitourinary General Chief complaint: Urogenital-Female Stated complaint: UTI SYMPTOMS Time Seen by Provider: 02/04/23 12:02 Source: patient, RN notes reviewed and old records reviewed Mode of arrival: ambulatory Limitations: no limitations History of Present Illness HPI Narrative: 82 year old female presents to [facility] care with complaints of urinary urgency and frequency through the night symptoms started. Patient reports that she voided probably 10 times during the night but has no burning with urination Patient reports that she does have history of previous UTI's. Patient has not taken any OTC medications for her symptoms. MD elicited complaint: dysuria and UTI Pertinent past history: other (past UTI's) Onset (ago): day(s) (last night) Location of symptoms: low back (right) Severity scale (1-10): 3 Quality of pain: dull Vaginal discharge: none Vaginal bleeding: none Related Data Home Medications Medication Instructions Recorded Confirmed amlodipine 10 mg tablet (Norvasc) 10 mg PO DAILY 11/01/19 02/04/23 aspirin 81 mg tablet,delayed 81 mg PO DAILY 11/01/19 02/04/23 release isosorbide mononitrate 30 mg 30 mg PO DAILY 11/01/19 02/04/23 tablet,extended release 24 hr rivaroxaban 20 mg tablet (Xarelto) 20 mg PO QACDINNER 11/01/19 02/04/23 cholecalciferol (vitamin D3) 25 50 mcg PO DAILY 02/28/20 02/04/23 mcg (1,000 unit) tablet acetaminophen 325 mg tablet 650 mg PO Q6H PRN Fever Or Pain 03/17/21 02/04/23 simvastatin 20 mg tablet 20 mg PO HS 05/14/22 02/04/23 Bifidobacterium infantis 4 mg 4 mg PO DAILY 06/27/22 02/04/23 capsule (Align) Allergies Allergy/AdvReac Type Severity Reaction Status Date / Time nitrofurantoin Allergy Intermediate Itching Verified 02/04/23 11:35 [From Macrobid] Penicillins Allergy Unknown Unknown Verified 02/04/23 11:35 Review of Systems Review of Systems: CONSTITUTIONAL: Denies fever, chills, or sweats. CARDIOVASCULAR: Denies chest pain, palpitations, or edema. RESPIRATORY: Denies cough or dyspnea. GASTROINTESTINAL: Denies abdominal pain, nausea, vomiting, or diarrhea. GENITOURINARY: Reports no burning with urination but frequency, urgency. Denies flank pain or hematuria, states some right lower back pain SKIN: Denies rash or itching. MUSCULOSKELETAL: right lower back pain or myalgia. 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 Kamille Rico, [facility] Paroxysmal atrial fibrillation Surgical History Surgical History History of arthroplasty of right knee (06/2014) History of bunionectomy of right great toe History of colonoscopy with polypectomy History of hernia repair Double History of hysterectomy S/P cholecystectomy Family History Family History Mother Diabetes mellitus Hypertension Family history of cardiovascular disease Father Family history of lung cancer Social History Social History Social History: She has four children. 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 Surrogate medical decision maker: Osiel So, spouse. Code status: Full code. Smoking status: Never smoker Second hand tobacco smoke exposure: No Alcohol intake: never Substance use: never Substance use type: does not use Lack of Transportation: No Lack of Food: Never True Current Housing: I Have Housing Concerned About Future Housing: No Difficulty Paying Gas/Electric Bills: No Difficulty Paying for Meds: No Curre
== END 2023-02-04 12:16 | disposition home or self-care (01) ==
PROVIDERS: Emergency Provider Registered Nurse; PCP Family Medicine
DX: N39.0 Urinary tract infection, site not specified (principal); M47.812 Spondylosis without myelopathy or radiculopathy, cervical region; E78.00 Pure hypercholesterolemia, unspecified; I10 Essential (primary) hypertension; I48.0 Paroxysmal atrial fibrillation; Z86.16 Personal history of COVID-19; Z79.01 Long term (current) use of anticoagulants; Z79.82 Long term (current) use of aspirin
CPT/HCPCS: 81003; 87077; 87086; 87186; 99213; G0463

== ENCOUNTER 2023-04-29 10:14 | Inpatient (IN) | payer OTHER, SELFPAY ==
[2023-04-29] VITALS (20 sets, daily range): BP systolic 110–133; BP diastolic 50–68; PULSE 67–91; RESP 14–29; TEMP 35.9–36.7; O2SAT 95–100; BMI 28.2
--- NOTE | ~2023-04-29 | US_ITS ---
EXAMINATION: US biopsy abd retroperitoneal DATE: 05/02/2023 15:35 INDICATION: Right lower quadrant peritoneal mass. TECHNIQUE: The procedure including the risks, benefits, and alternatives was discussed with the patie nt. Risks discussed included bleeding and infection. The patient understood the risks and agreed to p roceed. The skin overlying the right lower quadrant of the abdomen was prepped and draped in usual st erile fashion. Anesthetic was administered with 1% lidocaine subcutaneously. An 18 gauge core biops y needle was then used to obtain 4 core biopsy specimens under continuous sonographic guidance. The e ntry site was cleaned and dressed. There were no immediate complications. FINDINGS: Ultrasound images demonstrate the needle in a 6 cm mass in right lower quadrant.. IMPRESSION: 1. Ultrasound-guided core needle biopsy of a 6 cm right lower quadrant peritoneal mass. Reviewed, dictated and finalized at location A. CAL EQUIPMENT REPAIR TECHNICIAN IMPRESSION: 1. Ultrasound-guided core needle biopsy of a 6 cm right lower quadrant peritone al mass.
--- NOTE | ~2023-04-29 | CT_ITS ---
CT of the Abdomen and Pelvis: Indication: Abdominal pain Technique: 2.5 mm axial scans were obtained through the abdomen and pelvis following intravenous adm inistration of 100 cc of Omnipaque 350. Dose reduction technique was used on this scan by utilizing a utomated exposure control and iterative reconstruction technique. The dose-length product (DLP) was 4 61.89 mGy-cm. COMPARISON: 07/16/2022 Findings: Scans through the lung bases are unremarkable. There is an ill-defined hypodense lesion in the upper right hepatic lobe measuring approximately 3.4 cm in diameter (axial image 26). There is a smaller, similar lesion more posteriorly, measuring 2.4 c m in diameter (axial image 28). There is a question of tiny hypodense lesion in the left hepatic lobe (axial image 47). There is a simple cyst at the inferior right hepatic lobe. The spleen, pancreas, and adrenal glands are within normal limits. Cortical scarring of the right low er pole of the kidney noted. Small left renal angiomyolipoma and left renal cortical scarring noted. Gallbladder absent. There are atherosclerotic calcifications of the aorta. No lymphadenopathy. There is a large, somewhat inflammatory appearing masslike lesion in the right lower quadrant, measur ing approximately 8.3 x 7.2 cm in extent. There is extending surrounding inflammatory change with ass ociated reactive thickening of the adjacent ascending colon and terminal ileum. No flower bowel obstru ction identified. There is small amount of fluid extending along the right paracolic gutter to the in frahepatic region. Images through the pelvis were performed. Urinary bladder unremarkable. Small amount of mildly hyperd ense pelvic free fluid present. No adnexal mass evident. Impression: 8.3 x 7.2 cm somewhat inflammatory masslike lesion in the right lower quadrant. Diagnostic considerat ions include a large phlegmon related to underlying infectious/inflammatory process (such as appendic itis), versus neoplastic lesion. Process appears to be separate from the terminal ileum, although the re is reactive wall thickening of the terminal ileum and ascending colon. Subtle, ill-defined hypodense lesions in the upper right hepatic lobe, and possible tiny lesion left hepatic lobe. Diagnostic considerations include abscess versus neoplasm/metastatic disease. Small amount of mildly hyperdense free fluid in the pelvis. Correlate for hemorrhagic ascites. Reviewed, dictated and finalized at location M. DATA SOFTWARE ENGINEER Impression: 8.3 x 7.2 cm somewhat inflammatory masslike lesion in the right lower quadrant. Diagnostic considerations include a large phlegmon related to underlying infec tious/inflammatory process (such as appendicitis), versus neoplastic lesion. Pr ocess appears to be separate from the terminal ileum, although there is reactiv e wall thickening of the terminal ileum and ascending colon. Subtle, ill-defined hypodense lesions in the upper right hepatic lobe, and poss ible tiny lesion left hepatic lobe. Diagnostic considerations include abscess v ersus neoplasm/metastatic disease. Small amount of mildly hyperdense free fluid in the pelvis. Correlate for hemor rhagic ascites.
[2023-04-29 11:38] LABS: Basophils Percent Auto 0.1 % (0.2-1.2); Hematocrit 33.3 % (37.0-47.0); Hemoglobin 9.9 g/dL (12.0-15.0); Immature Granulocyte Absolute 0.08 K/mm3 (0.00-0.031); Immature Granulocyte Percent A 0.5 % (0-0.5); Lymphocytes Absolute Auto 1.27 K/mm3 (0.9-3.2); Lymphocytes Percent Auto 7.8 % (18.3-44.2); Mean Corpuscular HGB Conc 29.7 g/dl (32-36); Mean Corpuscular Hemoglobin 22.9 pg (26-34); Mean Corpuscular Volume 76.9 fl (80-100); Mean Platelet Volume 10.2 fl (7.4-10.4); Monocytes Absolute Auto 1.4 K/mm3 (0.1-0.6); Monocytes Percent Auto 8.4 % (2.6-8.5); Neutrophils Absolute Auto 13.5 K/mm3 (1.3-6.7); Neutrophils Percent Auto 83.2 % (45.5-73.1); Platelet Count Result 326 k/mm3 (150-375); Red Blood Count 4.33 M/mm3 (4.2-5.4); White Blood Count 16.3 K/mm3 (4.5-10.0)
[2023-04-29 11:49] LABS: Alanine Aminotransferase 14 U/L (6-35); Albumin Level 4.1 g/dL (3.5-5.1); Alkaline Phosphatase 83 U/L (38-126); Anion Gap 8 mmol/L (8-16); Aspartate Amino Transferase 23 U/L (14-36); Bilirubin,Total 1.4 mg/dL (0.2-1.3); Blood Urea Nitrogen 10 mg/dL (7-17); Carbon Dioxide 24 mmol/L (22-30); Chloride 96 mmol/L (98-107); Estimated CRCL calculation 47 ml/min; Estimated Glomerular Filt Rate > 60; Glucose 134 mg/dL (65-110); Lipase 29 U/L (23-300); Potassium 4.3 mmol/L (3.4-5.0); Sodium 128 mmol/L (137-145)
--- NOTE | 2023-04-29 12:01 | ED.GENADULT ---
HPI - General Adult General Chief complaint: Abdominal Pain Stated complaint: abd pain Time Seen by Provider: 04/29/23 11:29 History of Present Illness HPI narrative: 82-year-old female presents to the emergency department for evaluation of right lower quadrant pain. Patient reports last year she had appendicitis that was treated medically without surgery. Patient states this pain feels similar to that. Patient states the pain began worsening over last 2 days and has been disturbing her sleep. Patient declined any medications for pain control in the ED. Related Data Home Medications Medication Instructions Recorded Confirmed amlodipine 10 mg tablet (Norvasc) 10 mg PO DAILY 11/01/19 04/29/23 aspirin 81 mg tablet,delayed 81 mg PO HS 11/01/19 04/29/23 release isosorbide mononitrate 30 mg 30 mg PO DAILY 11/01/19 04/29/23 tablet,extended release 24 hr rivaroxaban 20 mg tablet (Xarelto) 20 mg PO QACDINNER 11/01/19 04/29/23 cholecalciferol (vitamin D3) 25 50 mcg PO DAILY 02/28/20 04/29/23 mcg (1,000 unit) tablet simvastatin 20 mg tablet 20 mg PO HS 05/14/22 04/29/23 lorazepam 1 mg tablet 1 mg PO Q8H anxiety 04/29/23 04/29/23 Allergies Allergy/AdvReac Type Severity Reaction Status Date / Time nitrofurantoin Allergy Intermediate Itching Verified 04/29/23 16:46 [From Macrobid] Penicillins Allergy Unknown Unknown Verified 04/29/23 16:46 Review of Systems Review of Systems: All systems reviewed & are unremarkable except as noted in HPI and below PMFSH Past Medical History Medical History Anxiety Cervical spondylosis Chronic anticoagulation Chronic hyponatremia COVID-19 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 Kamille Rico, [facility] Paroxysmal atrial fibrillation Surgical History Surgical History History of arthroplasty of right knee (06/2014) History of bunionectomy of right great toe History of colonoscopy with polypectomy History of hernia repair Double History of hysterectomy S/P cholecystectomy Family History Family History Mother Diabetes mellitus Hypertension Family history of cardiovascular disease Father Family history of lung cancer Social History Social History Social History: She has four children. 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 Surrogate medical decision maker: Osiel oS, spouse. Code status: Full code. Smoking status: Never smoker Second hand tobacco smoke exposure: No Alcohol intake: never Substance use: never Substance use type: does not use Lack of Transportation: No Lack of Food: Never True Current Housing: I Have Housing Concerned About Future Housing: No Difficulty Paying Gas/Electric Bills: No Difficulty Paying for Meds: No Currently Unemployed: No Education: Decline to Answer Difficulty w/ Childcare or Family Care: No Living arrangements: with family Occupation/Education: retired Spiritual care concerns: No Exam Narrative: APPEARANCE: Well appearing, no pain, no distress, well-nourished. HEAD: normocephalic, atraumatic. EYES: PERRLA/EOMI, conjunctivae clear. NOSE: Normal no drainage EARS:TMS clear with good light reflex. THROAT: Pharynx clear, no exudate. NECK: Supple. No adenopathy, no masses. RESPIRATORY: Airway patent, respirations nonlabored. Clear to auscultation bilaterally, no rales, rhonchi, wheezing. CARDIOVASCULAR: Regular rate and rhythm without murmurs rubs or gallops. ABDOMINAL: right lower quadrant tenderness to palpation MUSCULOSKELETAL: Moves all extremities. Strength/ROM intact, No edema, No calf tenderness. NEURO: Alert. Cranial nerves II through XII intact. grossly intact
[2023-04-29] MEDS: metroNIDAZOLE 500 MG/ISO 100ML 500 MG/100 ML BAG 100 MG IVPB ×2 (13:54→23:12)
[2023-04-29] MEDS: levoFLOXacin 750 MG/D5W 150 ML 750 MG/150 ML BAG 100 MG IVPB (14:48)
--- NOTE | 2023-04-29 14:55 | PC.NURSE ---
patient requesting home medications to be restarted. spoke with JONG Spann and new orders received
[2023-04-29] MEDS: LORazepam (*CRX) 1 MG TABLET PO ×2 (14:58→23:09)
[2023-04-29 15:40] LABS: Appearance Urine Cloudy (Clear); Bacteria Urine 1+ /hpf; Bilirubin Urine Negative (Negative); Blood Urine Negative (Negative); Color Urine Dark Yellow (Yellow); Glucose Urine UA Negative (Negative); Ketones Urine 1+ mg/dL (Negative); Leukocyte Esterase Ur Negative LEU/UL (Negative); Need Manual Microscopic Reviewed; Nitrate Urine Negative (Negative); Non Pathogenic Casts 0-2; Protein Urine 1+ mg/dL (Negative); Squamous Epithelial Cell Urine Many /hpf (Few); WBC Urine 21-50 /hpf
[2023-04-29 15:53] LABS: Add Urine Microscopic? YES
--- NOTE | 2023-04-29 16:45 | ADMGEN ---
This patient, Mary So, was admitted to Virtual Bed 3rd Floor-2. Patient/family oriented to hospital policies and general routines including ID bracelet, bed and alarms, visiting hours, pain management, procedures, bathroom and other care routines, personal items, smoking policy, room service/diet, and visiting hours. Information on how to activate the Rapid Response Team has been discussed. Patient/Family are encouraged to report perceived risks to care and to ask questions if they do not understand what they are told or what they should do.
[2023-04-29] MEDS: SODIUM CHLORIDE 0.9% IV 1,000 ML 125 ML IV CONT (17:06)
--- NOTE | 2023-04-29 20:19 | PM.IMHP ---
H&P: HPI History of Present Illness Date/Time: 04/29/23 20:19 Chief Complaint: RLQ pain Narrative: This is an 82-year-old female with past medical history significant for hypertension, paroxysmal atrial fibrillation rate controlled anticoagulated, dyslipidemia, chronic hyponatremia. Patient was unable to contribute to history taking. Patient presents to the emergency room due to right lower quadrant pain. A CT abdomen and pelvis concerning for phlegmon. A urinalysis showed numerous WBCs. CT of the Abdomen and Pelvis: Indication: Abdominal pain Technique:? 2.5 mm axial scans were obtained through the abdomen and pelvis following intravenous administration of 100 cc of Omnipaque 350. Dose reduction technique was used on this scan by utilizing automated exposure control and iterative reconstruction technique. The dose-length product (DLP) was 461.89 mGy-cm. COMPARISON: 07/16/2022 Findings:? Scans through the lung bases are unremarkable. There is an ill-defined hypodense lesion in the upper right hepatic lobe measuring approximately 3.4 cm in diameter (axial image 26). There is a smaller, similar lesion more posteriorly, measuring 2.4 cm in diameter (axial image 28). There is a question of tiny hypodense lesion in the left hepatic lobe (axial image 47). There is a simple cyst at the inferior right hepatic lobe. The spleen, pancreas, and adrenal glands are within normal limits. Cortical scarring of the right lower pole of the kidney noted. Small left renal angiomyolipoma and left renal cortical scarring noted. Gallbladder absent. There are atherosclerotic calcifications of the aorta.? No lymphadenopathy. There is a large, somewhat inflammatory appearing masslike lesion in the right lower quadrant, measuring approximately 8.3 x 7.2 cm in extent. There is extending surrounding inflammatory change with associated reactive thickening of the adjacent ascending colon and terminal ileum. No flower bowel obstruction identified. There is small amount of fluid extending along the right paracolic gutter to the infrahepatic region. Images through the pelvis were performed. Urinary bladder unremarkable. Small amount of mildly hyperdense pelvic free fluid present. No adnexal mass evident. Impression: 8.3 x 7.2 cm somewhat inflammatory masslike lesion in the right lower quadrant. Diagnostic considerations include a large phlegmon related to underlying infectious/inflammatory process (such as appendicitis), versus neoplastic lesion. Process appears to be separate from the terminal ileum, although there is reactive wall thickening of the terminal ileum and ascending colon. Subtle, ill-defined hypodense lesions in the upper right hepatic lobe, and possible tiny lesion left hepatic lobe. Diagnostic considerations include abscess versus neoplasm/metastatic disease. Small amount of mildly hyperdense free fluid in the pelvis. Correlate for hemorrhagic ascites. 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 Kamille Rico, [facility] Paroxysmal atrial fibrillation Surgical History Surgical History History of arthroplasty of right knee (06/2014) History of bunionectomy of right great toe History of colonoscopy with polypectomy History of hernia repair Double History of hysterectomy S/P cholecystectomy Family History Family History Mother Diabetes mellitus Hypertension Family history of cardiovascular disease Father Family history of lung cancer Social Hist
[2023-04-29] MEDS: ASPIRIN 81 MG ENTERIC TABLET PO (23:09)
[2023-04-29] MEDS: SIMVASTATIN 20 MG TABLET PO (23:10)
[2023-04-30] MEDS: SODIUM CHLORIDE 0.9% IV 1,000 ML 125 ML IV CONT (01:33)
[2023-04-30] MEDS: metroNIDAZOLE 500 MG/ISO 100ML 500 MG/100 ML BAG 100 MG IVPB ×4 (04:42→21:13)
[2023-04-30 05:30] VITALS: BP 147/79; PULSE 81; RESP 16; TEMP 35.8; O2SAT 95
[2023-04-30 07:38] LABS: Hematocrit 27.5 % (37.0-47.0); Hemoglobin 8.3 g/dL (12.0-15.0); Mean Corpuscular HGB Conc 30.2 g/dl (32-36); Mean Corpuscular Hemoglobin 23.2 pg (26-34); Mean Platelet Volume 10.9 fl (7.4-10.4); Platelet Count Result 288 k/mm3 (150-375); Red Blood Count 3.57 M/mm3 (4.2-5.4); Red Cell Distribution Width 15.9 % (11.5-14.5); White Blood Count 13.1 K/mm3 (4.5-10.0)
[2023-04-30] MEDS: LORazepam (*CRX) 1 MG TABLET PO ×3 (07:48→21:14)
[2023-04-30 07:53] LABS: INR 1.7; Prothrombin Time 20.7 Seconds (11.1-14.7)
[2023-04-30 08:00] LABS: Anion Gap 8 mmol/L (8-16); Blood Urea Nitrogen 12 mg/dL (7-17); Calcium 8.2 mg/dL (8.4-10.2); Carbon Dioxide 18 mmol/L (22-30); Chloride 102 mmol/L (98-107); Estimated CRCL calculation 64 ml/min; Estimated Glomerular Filt Rate > 60; Glucose 113 mg/dL (65-110); Potassium 3.8 mmol/L (3.4-5.0); Sodium 128 mmol/L (137-145)
[2023-04-30 08:09] LABS: Partial Thromboplastin Time 35.8 SECONDS (22.3-36.8)
[2023-04-30] MEDS: ISOSORBIDE MONONITRATE 30 MG TAB.ER.24H PO (08:35)
[2023-04-30] MEDS: PANTOPRAZOLE 40 MG TABLET PO (08:35)
[2023-04-30] MEDS: lisinopriL 20 MG TABLET 40 MG PO (08:35)
[2023-04-30] MEDS: amLODIPine BESYLATE 5 MG TABLET 10 MG PO (08:35)
[2023-04-30] MEDS: CHOLECALCIFEROL 1,000 UNITS TABLET 2000 UNITS PO (08:35)
--- NOTE | 2023-04-30 12:05 | PM.CNGS ---
Assessment and Plan Assessment and plan (1) Right lower quadrant abdominal mass: Code(s): R19.03 - Right lower quadrant abdominal swelling, mass and lump Status: Acute Assessment and Plan: I reviewed the CT with Dr. Calderon in Radiology. The patient has a complex mass in the right lower quadrant. There may be some fluid component to this and maybe some soft tissue densities as well. Is difficult to tell from this imaging whether this is infectious, inflammatory, or malignant in nature. Patient does have to areas on the liver that could be infectious or malignant in nature as well. Will continue IV antibiotics at this time. Patient is on long-term anticoagulation and this is being held at this time. Will re-evaluate CT with Interventional Radiology on Tuesday and determine if ultrasound-guided biopsy or drain placement could be attempted. The patient is not showing any signs of obstruction or perforation at this time therefore emergent surgery does not appear to be necessary. Will continue to follow closely with any change in abdominal exam status. Clear liquids will be ordered at this time and then she will be NPO Tuesday for possible IR procedure. (2) Abnormal CT of the abdomen: Code(s): R93.5 - Abnormal findings on diagnostic imaging of other abdominal regions, including retroperitoneum Status: Acute (3) Chronic anticoagulation: Code(s): Z79.01 - senior care (current) use of anticoagulants Status: Acute Assessment and Plan: Xarelto on hold. Monitor PT/INR. (4) Hypertension: Code(s): I10 - Essential (primary) hypertension Status: Acute (5) Atrial fibrillation and flutter: Code(s): I48.91 - Unspecified atrial fibrillation; I48.92 - Unspecified atrial flutter Status: Acute (6) History of malignant neoplasm of ovary: Code(s): Z85.43 - Personal history of malignant neoplasm of ovary Status: Acute History of Present Illness Consult details Consult date: 04/30/23 Reason for consult: other (Right lower quadrant abdominal pain) Requesting physician: Ron Cifuentes MD Narrative: This is an 82-year-old woman who I am asked to see for possible appendicitis verses right lower quadrant mass. She presented to the emergency department with worsening right lower quadrant pain for the past 3 days. She has a history of similar symptoms about 1 year ago and was admitted for acute appendicitis. She has had multiple major abdominal surgeries and is on chronic anticoagulation, therefore the appendicitis was treated with antibiotics initially. She improved with antibiotic treatment and did not require surgery. She had been doing well since then up until 3 days ago. She states that she started having worsening constant pain in the right side of her abdomen. She denies any fevers or chills. She denies any change in bowel habits. In the emergency department she was noted to have an elevated white blood count and CT showed an 8.3 x 7.2 cm inflammatory masslike lesion in the right lower quadrant. Patient has an extensive past abdominal surgical history and most of the treatment has been done at outside facilities. She has had a history of granulosa cell tumor that required laparotomy, extensive adhesiolysis, and removal of pelvic mass with debulking in 2017 at [facility] in [place]. The patient believes she had another major abdominal surgery at [facility] a couple years after that. She has been following her surgical oncologist at [facility] since but does not recall the last time she saw him. Review of Systems Review of Systems: All systems reviewed & are unremarkable except as noted in HPI and below Constitutional: Constitutional: Denies chills, Denies fever(s) and Denies weight loss Eyes: Eyes: Denies change in vision ENT: Denies hearing loss, Denies neck pain and Denies sore throat Cardiov
[2023-04-30] MEDS: SODIUM CHLORIDE 0.9% IV 1,000 ML 100 ML IV CONT (12:21)
--- NOTE | 2023-04-30 12:49 | PM.IMPN ---
Progress Note: A&P Assessment and Plan (1) Intraperitoneal abscess: Code(s): K65.1 - Peritoneal abscess Status: Acute Assessment and Plan: patient presented to the hospital with abdominal pain. CT abdomen pelvis showed a 8.3 x 7.27 inflammatory masslike lesion in the right lower quadrant. Inflammatory versus infection versus neoplasm. There also lesions in the right upper hepatic lobe. Started on IV Levaquin and Flagyl. General surgery consulted. General surgery going to re-evaluate in 2 days for possible IR biopsy and or drain placement. Patient started on clear liquids. Will be NPO on Tuesday (2) UTI (urinary tract infection): Code(s): N39.0 - Urinary tract infection, site not specified Status: Acute Assessment and Plan: UA showing 3-5 rbc's, 21-50 wbc's, 1+ bacteria and many squamous epithelial cells. Continue antibiotics Await cultures (3) Chronic anticoagulation: Code(s): Z79.01 - buttermaker (current) use of anticoagulants Status: Acute Assessment and Plan: Hold apixaban for possible surgery (4) Paroxysmal atrial fibrillation: Code(s): I48.0 - Paroxysmal atrial fibrillation Status: Acute Assessment and Plan: Rate controlled (5) YOKO (generalized anxiety disorder): Code(s): F41.1 - Generalized anxiety disorder Status: Acute Assessment and Plan: Stable. She takes lorazepam 3 times daily at home. (6) GERD without esophagitis: Code(s): K21.9 - Gastro-esophageal reflux disease without esophagitis Status: Acute Assessment and Plan: PPI Subjective Date/time seen: 04/30/23 12:49 Interval history: Patient doing well today. She has a lot of anxiety right now about possible surgery. answered all patient's questions the best my ability. She still has some mild right lower quadrant abdominal pain. She denies any nausea vomiting, changes in bowel habits such is diarrhea, constipation or changes in stool caliber, no melena or hematochezia. Patient going to be re-evaluated in 2 days for possible biopsy and/or drain placement. Exam Narrative: GENERAL: Comfortable, no acute distress HENMT: moist mucous membranes EYES: EOM intact b/l NECK: no lymphadenopathy RESPIRATORY: clear to auscultation CARDIO: RRR GI: soft, Right lower quadrant mild tenderness, bowel sounds present SKIN: no rashes EXTREMITIES: no edema, redness or tenderness Objective Data Vital Signs Vital Signs: Vital Signs - 24 hr 04/29/23 12:50 04/29/23 13:07 04/29/23 13:15 Temperature Pulse Rate 77 72 Respiratory Rate 17 23 H Blood Pressure Pulse Oximetry 100 96 98 Oxygen Delivery 04/29/23 13:30 04/29/23 13:49 04/29/23 13:56 Temperature Pulse Rate 71 73 75 Respiratory Rate 24 H 15 24 H Blood Pressure 123/63 Pulse Oximetry 98 96 96 Oxygen Delivery 04/29/23 14:00 04/29/23 14:01 04/29/23 14:15 Temperature Pulse Rate 74 77 71 Respiratory Rate 25 H 27 H 20 Blood Pressure 119/53 L Pulse Oximetry 96 95 95 Oxygen Delivery 04/29/23 14:16 04/29/23 14:48 04/29/23 15:00 Temperature Pulse Rate 70 76 77 Respiratory Rate 25 H 19 23 H Blood Pressure 121/68 Pulse Oximetry 95 97 99 Oxygen Delivery 04/29/23 15:17 04/29/23 15:30 04/29/23 15:47 Temperature Pulse Rate 90 67 71 Respiratory Rate 25 H 26 H 26 H Blood Pressure Pulse Oximetry 98 97 Oxygen Delivery 04/29/23 16:04 04/29/23 17:55 04/29/23 16:35 Temperature 96.6 F L Pulse Rate 73 89 Respiratory Rate 29 H 14 Blood Pressure 110/50 L 133/62 Pulse Oximetry 97 99 Oxygen Delivery Room Air 04/29/23 20:30 04/29/23 21:12 04/30/23 05:30 Temperature 97.4 F L 96.4 F L Pulse Rate 76 81 Respiratory Rate 16 16 Blood Pressure 127/64 147/79 H Pulse Oximetry 95 95 Oxygen Delivery Room Air 04/30/23 08:00 Temperature Pulse Rate
[2023-04-30 14:00] VITALS: BP 126/59; PULSE 77; RESP 16; TEMP 36.5; O2SAT 95
[2023-04-30] MEDS: ASPIRIN 81 MG ENTERIC TABLET PO (21:13)
[2023-04-30] MEDS: SIMVASTATIN 20 MG TABLET PO (21:14)
[2023-04-30 22:00] VITALS: BP 162/87; PULSE 80; RESP 18; TEMP 36.9; O2SAT 96
[2023-05-01] MEDS: SODIUM CHLORIDE 0.9% IV 1,000 ML 100 ML IV CONT ×2 (00:36→23:48)
[2023-05-01] MEDS: metroNIDAZOLE 500 MG/ISO 100ML 500 MG/100 ML BAG 100 MG IVPB ×3 (02:45→23:49)
[2023-05-01 05:10] VITALS: BP 161/93; PULSE 87; RESP 16; TEMP 36.1; O2SAT 98
[2023-05-01 07:01] LABS: Hematocrit 26.9 % (37.0-47.0); Hemoglobin 8.2 g/dL (12.0-15.0); Mean Corpuscular HGB Conc 30.5 g/dl (32-36); Mean Corpuscular Hemoglobin 23.3 pg (26-34); Mean Corpuscular Volume 76.4 fl (80-100); Mean Platelet Volume 10.6 fl (7.4-10.4); Platelet Count Result 291 k/mm3 (150-375); Red Blood Count 3.52 M/mm3 (4.2-5.4); Red Cell Distribution Width 16.2 % (11.5-14.5); White Blood Count 9.2 K/mm3 (4.5-10.0)
[2023-05-01 07:11] LABS: Anion Gap 7 mmol/L (8-16); Blood Urea Nitrogen 9 mg/dL (7-17); Calcium 8.2 mg/dL (8.4-10.2); Carbon Dioxide 18 mmol/L (22-30); Chloride 103 mmol/L (98-107); Estimated CRCL calculation 67 ml/min; Estimated Glomerular Filt Rate > 60; Glucose 110 mg/dL (65-110); Potassium 3.4 mmol/L (3.4-5.0); Sodium 128 mmol/L (137-145)
[2023-05-01 07:15] LABS: INR 1.5; Prothrombin Time 18.7 Seconds (11.1-14.7)
[2023-05-01 07:16] LABS: Partial Thromboplastin Time 37.9 SECONDS (22.3-36.8)
[2023-05-01] MEDS: LORazepam (*CRX) 1 MG TABLET PO ×3 (08:54→21:25)
[2023-05-01] MEDS: amLODIPine BESYLATE 5 MG TABLET 10 MG PO (08:54)
[2023-05-01] MEDS: CHOLECALCIFEROL 1,000 UNITS TABLET 2000 UNITS PO (08:54)
[2023-05-01] MEDS: ISOSORBIDE MONONITRATE 30 MG TAB.ER.24H PO (08:54)
[2023-05-01] MEDS: PANTOPRAZOLE 40 MG TABLET PO (08:55)
[2023-05-01] MEDS: lisinopriL 20 MG TABLET 40 MG PO (08:55)
--- NOTE | 2023-05-01 11:54 | PM.IMPN ---
Progress Note: A&P Assessment and Plan (1) Intraperitoneal abscess: Code(s): K65.1 - Peritoneal abscess Status: Acute Assessment and Plan: patient presented to the hospital with abdominal pain. CT abdomen pelvis showed a 8.3 x 7.27 inflammatory masslike lesion in the right lower quadrant. Inflammatory versus infection versus neoplasm. There also lesions in the right upper hepatic lobe. Started on IV Levaquin and Flagyl. General surgery consulted. General surgery going to re-evaluate on Tuesday for possible IR biopsy and or drain placement. Patient started on clear liquids. Will be NPO on Tuesday (2) UTI (urinary tract infection): Code(s): N39.0 - Urinary tract infection, site not specified Status: Acute Assessment and Plan: UA showing 3-5 rbc's, 21-50 wbc's, 1+ bacteria and many squamous epithelial cells. Urine culture with no growth. Antibiotics continued for intraperitoneal abscess. (3) Chronic anticoagulation: Code(s): Z79.01 - correction (current) use of anticoagulants Status: Acute Assessment and Plan: Hold apixaban for possible surgery (4) Paroxysmal atrial fibrillation: Code(s): I48.0 - Paroxysmal atrial fibrillation Status: Acute Assessment and Plan: Rate controlled (5) YOKO (generalized anxiety disorder): Code(s): F41.1 - Generalized anxiety disorder Status: Acute Assessment and Plan: Stable. She takes lorazepam 3 times daily at home. (6) GERD without esophagitis: Code(s): K21.9 - Gastro-esophageal reflux disease without esophagitis Status: Acute Assessment and Plan: PPI Subjective Date/time seen: 05/01/23 11:54 Interval history: Patient doing well today. She did have an episode last night where she was confused and did know where she was. patient likely had issue with hospital-acquired psychosis. She is alert orient x4 today. Her abdominal pain is improved. Mild tenderness to palpation. She denies any nausea vomiting. Requested for advancing her diet but will let surgeon decide diet for the patient. Exam Narrative: GENERAL: Comfortable, no acute distress HENMT: moist mucous membranes EYES: EOM intact b/l NECK: no lymphadenopathy RESPIRATORY: clear to auscultation CARDIO: RRR GI: soft, Right lower quadrant mild tenderness, bowel sounds present SKIN: no rashes EXTREMITIES: no edema, redness or tenderness Objective Data Vital Signs Vital Signs: Vital Signs - 24 hr 04/30/23 14:00 04/30/23 22:00 04/30/23 20:00 Temperature 97.7 F 98.4 F Pulse Rate 77 80 Respiratory Rate 16 18 Blood Pressure 126/59 L 162/87 H Pulse Oximetry 95 96 Oxygen Delivery Room Air 05/01/23 05:10 Temperature 96.9 F L Pulse Rate 87 Respiratory Rate 16 Blood Pressure 161/93 H Pulse Oximetry 98 Oxygen Delivery Intake/Output Intake/Output: Intake & Output 04/28/23 04/29/23 04/30/23 05/01/23 23:59 23:59 23:59 23:59 Intake Total 250 3740 780 Balance 250 3740 780 Meds/Results Medications: Active Medications Generic Name Dose Route Start Last Admin Trade Name Freq PRN Reason Stop Dose Admin Acetaminophen 650 mg 04/29/23 13:41 Acetaminophen 325 Mg Tablet PO Q4H PRN Mild Pain (1-3) or Fever Amlodipine Besylate 10 mg 04/30/23 09:00 05/01/23 08:54 Amlodipine Besylate 5 Mg Tablet PO 10 mg DAILY UVALDO Administration Aspirin 81 mg 04/30/23 21:00 04/30/23 21:13 Aspirin 81 Mg Enteric Tablet PO 81 mg HS UVALDO Administration Levofloxacin/Dextrose 750 mg in 150 mls @ 100 mls/hr 05/01/23 12:00 Levaquin 750 Mg/D5w 150 Ml IVPB Q48H UVALDO Metronidazole 500 mg in 100 mls @ 100 mls/hr 04/29/23 21:00 05/01/23 03:45 Flagyl 500 Mg/Iso Soln 100 Ml IVPB Infused Q6H UVALDO Infusion Sodium Chloride 1,000 mls @ 100 mls/hr 04/29/23 13:45 05/01/23 06:21 Normal Saline I
--- NOTE | 2023-05-01 12:13 | PM.PNGS ---
Progress Note: A&P Assessment and Plan (1) Right lower quadrant abdominal mass: Code(s): R19.03 - Right lower quadrant abdominal swelling, mass and lump Status: Acute Assessment and Plan: Continuing to improve with IV antibiotics and clear liquid diet. Xarelto being held. Will discuss with Interventional Radiology tomorrow about possible image guided drain placement or biopsy. 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 Confused overnight but otherwise no issues. Passing flatus. No fevers. Exam GI: Inspection: non-distended GI Palp: Yes Soft to palpation, Yes Tenderness to palpation present (GI) (mild RLQ), No Guarding due to palpation present (GI) and Yes Palpable mass present (RLQ) Objective Data Vital Signs Vital Signs: Vital Signs - 24 hr 04/30/23 14:00 04/30/23 22:00 04/30/23 20:00 Temperature 36.5 C 36.9 C Pulse Rate 77 80 Respiratory Rate 16 18 Blood Pressure 126/59 L 162/87 H Pulse Oximetry 95 96 Oxygen Delivery Room Air 05/01/23 05:10 Temperature 36.1 C L Pulse Rate 87 Respiratory Rate 16 Blood Pressure 161/93 H Pulse Oximetry 98 Oxygen Delivery Intake/Output Intake/Output: Intake & Output 04/28/23 04/29/23 04/30/23 05/01/23 23:59 23:59 23:59 23:59 Intake Total 250 3740 780 Balance 250 3740 780 Meds/Results Medications: Active Medications Generic Name Dose Route Start Last Admin Trade Name Freq PRN Reason Stop Dose Admin Acetaminophen 650 mg 04/29/23 13:41 Acetaminophen 325 Mg Tablet PO Q4H PRN Mild Pain (1-3) or Fever Amlodipine Besylate 10 mg 04/30/23 09:00 05/01/23 08:54 Amlodipine Besylate 5 Mg Tablet PO 10 mg DAILY UVALDO Administration Aspirin 81 mg 04/30/23 21:00 04/30/23 21:13 Aspirin 81 Mg Enteric Tablet PO 81 mg HS UVALDO Administration Levofloxacin/Dextrose 750 mg in 150 mls @ 100 mls/hr 05/01/23 12:00 Levaquin 750 Mg/D5w 150 Ml IVPB Q48H UVALDO Metronidazole 500 mg in 100 mls @ 100 mls/hr 04/29/23 21:00 05/01/23 03:45 Flagyl 500 Mg/Iso Soln 100 Ml IVPB Infused Q6H UVALDO Infusion Sodium Chloride 1,000 mls @ 100 mls/hr 04/29/23 13:45 05/01/23 06:21 Normal Saline Iv IV CONT Not Given .Q10H VUALDO Isosorbide Mononitrate 30 mg 04/30/23 09:00 05/01/23 08:54 Isosorbide Mononitrate 30 Mg Tab.Er.24h PO 30 mg DAILY UVALDO Administration Lisinopril 40 mg 04/30/23 09:00 05/01/23 08:55 Lisinopril 20 Mg Tablet PO 40 mg DAILY UVALDO Administration Lorazepam 1 mg 04/30/23 06:00 05/01/23 08:54 Lorazepam (*Crx) 1 Mg Tablet PO 1 mg Q8HR UVALDO Administration Pantoprazole Sodium 40 mg 04/30/23 09:00 05/01/23 08:55 Pantoprazole 40 Mg Tablet PO 05/30/23 08:59 40 mg QAM UVALDO Administration Simvastatin 20 mg 04/30/23 21:00 04/30/23 21:14 Simvastatin 20 Mg Tablet PO 20 mg HS UVALDO Administration Vitamin D 2,000 units 04/30/23 09:00 05/01/23 08:54 Cholecalciferol 1,000 Units Tablet PO 2,000 units DAILY UVALDO Administration Radiology Results: ITS Impressions Abdomen/Pelvis CT 04/29/23 13:07 Impression: 8.3 x 7.2 cm somewhat inflammatory masslike lesion in the right lower quadrant. Diagnostic considerations include a large phlegmon related to underlying infectious/inflammatory process (such as appendicitis), versus neoplastic lesion. Process appears to be separate from the terminal ileum, although there is reactive wall thickening of the terminal ileum and ascending co
[2023-05-01 14:00] VITALS: BP 118/62; PULSE 78; RESP 20; TEMP 36.4; O2SAT 98
[2023-05-01] MEDS: levoFLOXacin 750 MG/D5W 150 ML 750 MG/150 ML BAG 100 MG IVPB (16:06)
--- NOTE | 2023-05-01 17:10 | PC.NURSE ---
Pt had IV access in LAC. Pt lt arm became edematous overnight. Site not reddened, but pt c/o pain to LFA/LH. Pulled IV and notified PA. Multiple RNs looked for access, but unable to obtain. Notified PA who gave order for midline. When midline placed, notified pharmacy to adjust IV abx. Adjusted pt ativan to her request of with PA approval.
[2023-05-01 21:05] VITALS: BP 171/75; PULSE 83; RESP 20; TEMP 36.3; O2SAT 96
[2023-05-01] MEDS: ASPIRIN 81 MG ENTERIC TABLET PO (21:25)
[2023-05-01] MEDS: SALINE LOCK FLUSH 10 ML IV PUSH (21:25)
[2023-05-01] MEDS: SIMVASTATIN 20 MG TABLET PO (21:25)
[2023-05-02 04:45] VITALS: BP 178/81; PULSE 75; RESP 24; TEMP 35.8; O2SAT 96
[2023-05-02] MEDS: metroNIDAZOLE 500 MG/ISO 100ML 500 MG/100 ML BAG 100 MG IVPB ×4 (05:46→23:56)
[2023-05-02] MEDS: SALINE LOCK FLUSH 10 ML IV PUSH ×3 (05:47→23:57)
[2023-05-02] MEDS: levoFLOXacin 750 MG/D5W 150 ML 750 MG/150 ML BAG 100 MG IVPB (08:45)
[2023-05-02] MEDS: LORazepam (*CRX) 1 MG TABLET PO ×3 (08:50→20:56)
[2023-05-02] MEDS: lisinopriL 20 MG TABLET 40 MG PO (08:51)
[2023-05-02] MEDS: ISOSORBIDE MONONITRATE 30 MG TAB.ER.24H PO (08:51)
[2023-05-02] MEDS: amLODIPine BESYLATE 5 MG TABLET 10 MG PO (08:51)
[2023-05-02] MEDS: CHOLECALCIFEROL 1,000 UNITS TABLET 2000 UNITS PO (08:52)
[2023-05-02] MEDS: PANTOPRAZOLE 40 MG TABLET PO (08:52)
--- NOTE | 2023-05-02 10:57 | PM.PNGS ---
Progress Note: A&P Assessment and Plan (1) Right lower quadrant abdominal mass: Code(s): R19.03 - Right lower quadrant abdominal swelling, mass and lump Status: Acute Assessment and Plan: I discussed imaging with Dr. Hardwick in Radiology. RLQ area appears to be mostly mass and not abscess. This, along with hx of ovarian neoplasm and CT findings in liver, are concerning for malignancy which may secondarily be leading to appendicitis. Her WBC and symptoms have improved with antibiotics. She ultimately needs to be seen by Surg/Onc or ELECTION CLERK/Onc to have this further evaluated. Could consider biopsy here, but will need to discuss with specialist first. Patient has been following Dr. Rico at [facility], call has been placed but waiting to hear back. 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 No fevers. Exam GI: Inspection: non-distended GI Palp: Yes Soft to palpation, Yes Tenderness to palpation present (GI) (mild RLQ), No Guarding due to palpation present (GI) and Yes Palpable mass present (RLQ) Objective Data Vital Signs Vital Signs: Vital Signs - 24 hr 05/01/23 14:00 05/01/23 20:00 05/01/23 21:05 Temperature 36.4 C L 36.3 C L Pulse Rate 78 83 Respiratory Rate 20 20 Blood Pressure 118/62 171/75 H Pulse Oximetry 98 96 Oxygen Delivery Room Air 05/02/23 04:45 Temperature 35.8 C L Pulse Rate 75 Respiratory Rate 24 H Blood Pressure 178/81 H Pulse Oximetry 96 Oxygen Delivery Intake/Output Intake/Output: Intake & Output 04/29/23 04/30/23 05/01/23 05/02/23 23:59 23:59 23:59 23:59 Intake Total 250 3740 2990 400 Balance 250 3740 2990 400 Meds/Results Medications: Active Medications Generic Name Dose Route Start Last Admin Trade Name Freq PRN Reason Stop Dose Admin Acetaminophen 650 mg 04/29/23 13:41 Acetaminophen 325 Mg Tablet PO Q4H PRN Mild Pain (1-3) or Fever Amlodipine Besylate 10 mg 04/30/23 09:00 05/02/23 08:51 Amlodipine Besylate 5 Mg Tablet PO 10 mg DAILY UVALDO Administration Aspirin 81 mg 04/30/23 21:00 05/01/23 21:25 Aspirin 81 Mg Enteric Tablet PO 81 mg HS UVALDO Administration Levofloxacin/Dextrose 750 mg in 150 mls @ 100 mls/hr 05/01/23 15:40 05/01/23 17:36 Levaquin 750 Mg/D5w 150 Ml IVPB Infused QAM UVALDO Infusion Metronidazole 500 mg in 100 mls @ 100 mls/hr 05/01/23 18:00 05/02/23 06:46 Flagyl 500 Mg/Iso Soln 100 Ml IVPB Infused Q6H UVALDO Infusion Isosorbide Mononitrate 30 mg 04/30/23 09:00 05/02/23 08:51 Isosorbide Mononitrate 30 Mg Tab.Er.24h PO 30 mg DAILY UVALDO Administration Lisinopril 40 mg 04/30/23 09:00 05/02/23 08:51 Lisinopril 20 Mg Tablet PO 40 mg DAILY UVALDO Administration Lorazepam 1 mg 05/01/23 21:00 05/02/23 08:50 Lorazepam (*Crx) 1 Mg Tablet PO 1 mg 08,14,21 UVALDO Administration Pantoprazole Sodium 40 mg 04/30/23 09:00 05/02/23 08:52 Pantoprazole 40 Mg Tablet PO 05/30/23 08:59 40 mg QAM UVALDO Administration Simvastatin 20 mg 04/30/23 21:00 05/01/23 21:25 Simvastatin 20 Mg Tablet PO 20 mg HS UVALDO Administration Sodium Chloride 10 ml 05/01/23 22:00 05/02/23 05:47 Saline Lock Flush IV PUSH 10 ml Q8HR UVALDO Administration Sodium Chloride 10 ml 05/01/23 16:03 Saline Lock Flush IV PUSH PRN PRN Flush Sodium Chloride 20 ml 05/01/23 16:03 Saline Lock Flush IV PUSH PRN PRN after blood draws Vitamin D 2,000 units 04/30/23 09:00 05/02/23 08:52 C
[2023-05-02 12:51] VITALS: BMI 31.0
--- NOTE | 2023-05-02 13:48 | PM.IMPN ---
Progress Note: A&P Assessment and Plan (1) Intraperitoneal abscess: Code(s): K65.1 - Peritoneal abscess Status: Acute Assessment and Plan: patient presented to the hospital with abdominal pain. CT abdomen pelvis showed a 8.3 x 7.27 inflammatory masslike lesion in the right lower quadrant. Inflammatory versus infection versus neoplasm. There also lesions in the right upper hepatic lobe. Started on IV Levaquin and Flagyl. General surgery consulted. General surgery going to re-evaluate on Tuesday for possible IR biopsy and or drain placement. Patient underwent percutaneous biopsy today and plan to follow-up with specialist at [facility] that she has seen in the past for her ovarian cancer. Diet advanced following procedure. Blood culture with Gram-positive cocci in 1 bottle. Suspect it is contaminant. (2) UTI (urinary tract infection): Code(s): N39.0 - Urinary tract infection, site not specified Status: Acute Assessment and Plan: UA showing 3-5 rbc's, 21-50 wbc's, 1+ bacteria and many squamous epithelial cells. Urine culture with no growth. Antibiotics continued for intraperitoneal abscess. 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 She takes lorazepam 3 times daily at home. (6) GERD without esophagitis: Code(s): K21.9 - Gastro-esophageal reflux disease without esophagitis Status: Acute Assessment and Plan: PPI Subjective Date/time seen: 05/02/23 13:48 Interval history: Patient very anxious today. patient is to undergo biopsy today. Per General surgery the plan is to follow-up with outpatient entrepreneurial finance professor Onc with biopsy results. Patient's diet will be advanced after procedure. Patient does not complain of much pain but does have some discomfort when palpating on the right lower quadrant. States that she is very anxious. Exam Narrative: GENERAL: Comfortable, no acute distress HENMT: moist mucous membranes EYES: EOM intact b/l NECK: no lymphadenopathy RESPIRATORY: clear to auscultation CARDIO: RRR GI: soft, Right lower quadrant mild tenderness, bowel sounds present SKIN: no rashes EXTREMITIES: no edema, redness or tenderness Objective Data Vital Signs Vital Signs: Vital Signs - 24 hr 05/01/23 14:00 05/01/23 20:00 05/01/23 21:05 Temperature 97.5 F L 97.3 F L Pulse Rate 78 83 Respiratory Rate 20 20 Blood Pressure 118/62 171/75 H Pulse Oximetry 98 96 Oxygen Delivery Room Air 05/02/23 04:45 Temperature 96.5 F L Pulse Rate 75 Respiratory Rate 24 H Blood Pressure 178/81 H Pulse Oximetry 96 Oxygen Delivery Intake/Output Intake/Output: Intake & Output 04/29/23 04/30/23 05/01/23 05/02/23 23:59 23:59 23:59 23:59 Intake Total 250 3740 2990 550 Balance 250 3740 2990 550 Meds/Results Medications: Active Medications Generic Name Dose Route Start Last Admin Trade Name Freq PRN Reason Stop Dose Admin Acetaminophen 650 mg 04/29/23 13:41 Acetaminophen 325 Mg Tablet PO Q4H PRN Mild Pain (1-3) or Fever Amlodipine Besylate 10 mg 04/30/23 09:00 05/02/23 08:51 Amlodipine Besylate 5 Mg Tablet PO 10 mg DAILY UVALDO Administration Aspirin 81 mg 04/30/23 21:00 05/01/23 21:25 Aspirin 81 Mg Enteric Tablet PO 81 mg HS UVALDO Administration Levofloxacin/Dextrose 750 mg in 150 mls @ 100 mls/hr 05/01/23 15:40 05/02/23 10:15 Levaquin 750 Mg/D5w 150 Ml IVPB Infused QAM UVALDO Infusion Metronidazole 500 mg in 10
[2023-05-02 14:00] VITALS: BP 137/63; PULSE 74; RESP 20; TEMP 36.4; O2SAT 98
[2023-05-02 20:51] VITALS: BP 125/80; PULSE 76; RESP 16; TEMP 36.7; O2SAT 97
[2023-05-02] MEDS: SIMVASTATIN 20 MG TABLET PO (20:56)
[2023-05-02] MEDS: ASPIRIN 81 MG ENTERIC TABLET PO (20:56)
[2023-05-03] MEDS: metroNIDAZOLE 500 MG/ISO 100ML 500 MG/100 ML BAG 100 MG IVPB ×2 (05:44→12:17)
[2023-05-03] MEDS: SALINE LOCK FLUSH 10 ML IV PUSH (05:45)
[2023-05-03 05:55] VITALS: BP 151/82; PULSE 78; RESP 28; TEMP 36; O2SAT 94
[2023-05-03 06:05] LABS: Hematocrit 27.1 % (37.0-47.0); Hemoglobin 8.2 g/dL (12.0-15.0); Mean Corpuscular HGB Conc 30.3 g/dl (32-36); Mean Corpuscular Hemoglobin 23.3 pg (26-34); Mean Platelet Volume 10.1 fl (7.4-10.4); Platelet Count Result 341 k/mm3 (150-375); Red Blood Count 3.52 M/mm3 (4.2-5.4); Red Cell Distribution Width 16.4 % (11.5-14.5); White Blood Count 7.3 K/mm3 (4.5-10.0)
[2023-05-03 06:17] LABS: INR 1.3; Prothrombin Time 16.7 Seconds (11.1-14.7)
[2023-05-03 06:18] LABS: Partial Thromboplastin Time 33.9 SECONDS (22.3-36.8)
[2023-05-03 06:32] LABS: Anion Gap 7 mmol/L (8-16); Blood Urea Nitrogen 5 mg/dL (7-17); Calcium 8.5 mg/dL (8.4-10.2); Carbon Dioxide 20 mmol/L (22-30); Chloride 102 mmol/L (98-107); Estimated CRCL calculation 67 ml/min; Estimated Glomerular Filt Rate > 60; Glucose 106 mg/dL (65-110); Potassium 3.6 mmol/L (3.4-5.0); Sodium 129 mmol/L (137-145)
[2023-05-03] MEDS: levoFLOXacin 750 MG/D5W 150 ML 750 MG/150 ML BAG 100 MG IVPB (09:42)
[2023-05-03] MEDS: CHOLECALCIFEROL 1,000 UNITS TABLET 2000 UNITS PO (09:43)
[2023-05-03] MEDS: lisinopriL 20 MG TABLET 40 MG PO (09:43)
[2023-05-03] MEDS: ISOSORBIDE MONONITRATE 30 MG TAB.ER.24H PO (09:43)
[2023-05-03] MEDS: amLODIPine BESYLATE 5 MG TABLET 10 MG PO (09:43)
[2023-05-03] MEDS: LORazepam (*CRX) 1 MG TABLET PO ×2 (09:43→13:30)
[2023-05-03] MEDS: ACETAMINOPHEN 325 MG TABLET 650 MG PO (09:44)
[2023-05-03] MEDS: PANTOPRAZOLE 40 MG TABLET PO (09:44)
--- NOTE | 2023-05-03 12:07 | PM.PNGS ---
Progress Note: A&P Assessment and Plan (1) Right lower quadrant abdominal mass: Code(s): R19.03 - Right lower quadrant abdominal swelling, mass and lump Status: Acute Assessment and Plan: s/p percutaneous biopsy of RLQ mass 05/02/2023. Will determine if referral to Dr. Rico is necessary based on results. OK to discharge home today. Resume Xarelto tomorrow. Will send on Levaquin and Flagyl for 10 more days. Will call patient with biopsy results. (2) Abnormal CT of the abdomen: Code(s): R93.5 - Abnormal findings on diagnostic imaging of other abdominal regions, including retroperitoneum Status: Acute (3) History of malignant neoplasm of ovary: Code(s): Z85.43 - Personal history of malignant neoplasm of ovary Status: Acute (4) Chronic anticoagulation: Code(s): Z79.01 - group home (current) use of anticoagulants Status: Acute Subjective Subjective Date/Time Seen: 05/03/23 12:07 Interval history: Tolerated procedure yesterday. Tolerating diet. Minimal pain. Exam GI: Inspection: non-distended GI Palp: Yes Soft to palpation, Yes Tenderness to palpation present (GI) (mild RLQ), No Guarding due to palpation present (GI) and Yes Palpable mass present (RLQ) Objective Data Vital Signs Vital Signs: Vital Signs - 24 hr 05/02/23 14:00 05/02/23 20:51 05/03/23 05:55 Temperature 36.4 C 36.7 C 36.0 C L Pulse Rate 74 76 78 Respiratory Rate 20 16 28 H Blood Pressure 137/63 125/80 151/82 H Pulse Oximetry 98 97 94 Intake/Output Intake/Output: Intake & Output 04/30/23 05/01/23 05/02/23 05/03/23 23:59 23:59 23:59 23:59 Intake Total 3740 2990 990 398 Balance 3740 2990 990 398 Meds/Results Medications: Active Medications Generic Name Dose Route Start Last Admin Trade Name Freq PRN Reason Stop Dose Admin Acetaminophen 650 mg 04/29/23 13:41 05/03/23 09:44 Acetaminophen 325 Mg Tablet PO 650 mg Q4H PRN Administration Mild Pain (1-3) or Fever Amlodipine Besylate 10 mg 04/30/23 09:00 05/03/23 09:43 Amlodipine Besylate 5 Mg Tablet PO 10 mg DAILY UVALDO Administration Aspirin 81 mg 04/30/23 21:00 05/02/23 20:56 Aspirin 81 Mg Enteric Tablet PO 81 mg HS UVALDO Administration Levofloxacin/Dextrose 750 mg in 150 mls @ 100 mls/hr 05/01/23 15:40 05/03/23 11:12 Levaquin 750 Mg/D5w 150 Ml IVPB Infused QAM UVALDO Infusion Metronidazole 500 mg in 100 mls @ 100 mls/hr 05/01/23 18:00 05/03/23 05:44 Flagyl 500 Mg/Iso Soln 100 Ml IVPB 100 mls/hr Q6H UVALDO Administration Isosorbide Mononitrate 30 mg 04/30/23 09:00 05/03/23 09:43 Isosorbide Mononitrate 30 Mg Tab.Er.24h PO 30 mg DAILY UVALDO Administration Lisinopril 40 mg 04/30/23 09:00 05/03/23 09:43 Lisinopril 20 Mg Tablet PO 40 mg DAILY UVALDO Administration Lorazepam 1 mg 05/01/23 21:00 05/03/23 09:43 Lorazepam (*Crx) 1 Mg Tablet PO 1 mg 08,14,21 UVALDO Administration Pantoprazole Sodium 40 mg 04/30/23 09:00 05/03/23 09:44 Pantoprazole 40 Mg Tablet PO 05/30/23 08:59 40 mg QAM UVALDO Administration Simvastatin 20 mg 04/30/23 21:00 05/02/23 20:56 Simvastatin 20 Mg Tablet PO 20 mg HS UVALDO Administration Sodium Chloride 10 ml 05/01/23 22:00 05/03/23 05:45 Saline Lock Flush IV PUSH 10 ml Q8HR UVALDO Administration Sodium Chloride 10 ml 05/01/23 16:03 Saline Lock Flush IV PUSH PRN PRN Flush Sodium Chloride 20 ml 05/01/23 16:03 Saline Lock Flush IV PUSH PRN PRN after blood draws Vitamin D 2,000 units 04/30/23 09:00 05/03/23 09:43 Cholecalciferol 1,000 Units Tablet PO 2,000 units DAILY UVALDO Administration Radiology Results: ITS Impressions Abdomen/Pelvis CT 04/29/23 13:07 Impression: 8.3 x 7.2 cm somewhat inflammatory masslike lesion in the right lower quadrant. Diagnostic considerations include a large phlegmon related to underlying infectious/inflammatory process
--- NOTE | 2023-05-03 12:33 | PM.DS ---
DS: Admitting Diagnosis Discharge Date 05/03/23 Admitting Diagnosis Right lower quadrant pain, abdominal mass versus infection versus inflammation. DS: Discharge Diagnosis Discharge Diagnosis (1) Intraperitoneal abscess: Code(s): K65.1 - Peritoneal abscess Status: Acute (2) UTI (urinary tract infection): Code(s): N39.0 - Urinary tract infection, site not specified Status: Acute (3) Chronic anticoagulation: Code(s): Z79.01 - assisted (current) use of anticoagulants Status: Acute (4) Paroxysmal atrial fibrillation: Code(s): I48.0 - Paroxysmal atrial fibrillation Status: Acute (5) YOKO (generalized anxiety disorder): Code(s): F41.1 - Generalized anxiety disorder Status: Acute (6) GERD without esophagitis: Code(s): K21.9 - Gastro-esophageal reflux disease without esophagitis Status: Acute DS: Summary Hospital Course Hospital Course: This is an 82-year-old female with past medical history of hypertension, AFib rate controlled, hyperlipidemia, chronic hyponatremia and history of several abdominal surgeries that presents to the ED on 04/29/2023 due to right lower quadrant pain. CT abdomen pelvis revealing an 8.3 x 7.2 cm somewhat inflammatory masslike lesion in the right lower quadrant underlying infectious/ inflammatory process such as appendicitis versus neoplastic lesion, ill-defined hypodense lesions in the upper right hepatic lobe consider abscess versus neoplasm/ metastatic disease. General surgery consulted. General surgery did evaluation and planned to review imaging with IR then make a plan for either drain placement or biopsy. She was started on IV antibiotics to cover for possible abdominal infections. Patient's white blood cell count and pain improved with treatment. On 05/02/2023 General surgery met with IR and it was believed that imaging likely showed mass rather than abscess. Patient underwent percutaneous biopsy on 05/02/2023. Patient's diet was advanced and she tolerated it well. On 05/03/2023 patient stated that she had very little pain and was tolerating her diet well. She had normal bowel movement that morning. Her labs and vital signs are stable and she is medically clear for discharge at this time. Time Spent with Patient Time attestation: Total time spent providing and/or coordinating discharge services: Exam Narrative: GENERAL: Comfortable, no acute distress HENMT: moist mucous membranes EYES: EOM intact b/l NECK: no lymphadenopathy RESPIRATORY: clear to auscultation CARDIO: RRR GI: soft, nontender, bowel sounds present SKIN: no rashes EXTREMITIES: no edema, redness or tenderness DS: Data Data Completed and Pending Pending studies at discharge: Pending at discharge 05/02/23 15:32 Surgical [PTH] Routine Labs on day of discharge: Labs from last 24 hours 05/03/23 05:59 WBC 7.3 RBC 3.52 L Hgb 8.2 L Hct 27.1 L MCV 77.0 L MCH 23.3 L MCHC 30.3 L RDW 16.4 H Plt Count 341 MPV 10.1 PT 16.7 H INR 1.3 APTT 33.9 Sodium 129 L Potassium 3.6 Chloride 102 Carbon Dioxide 20 L Anion Gap 7 L BUN 5 L Creatinine 0.50 L Estim Creat Clear Calc 67 Estimated GFR > 60 Glucose 106 Calcium 8.5 Preliminary micro results at discharge 04/29/23 13:52 Blood Culture - Preliminary Blood Gram positive cocci cluster is 04/29/23 13:52 Blood Culture - Preliminary Blood Discharge Plan Discharge Attending physician on discharge: Julio Ruano Consulting providers: Choco Ríos Discharging Clinician: Fang Ureña Patient Disposition: Home, Self-Care Activity: unlimited Diet: as tolerated and regular Discharge Instructions: Follow-up with General surgery regarding biopsy results. They will contact you if referral is needed to Dr. Rico at [facility]. Levaquin and metronidazole antibiotic for 10 days. Can resume Xarelto tomorrow. Tylenol p.r.n. for
== END 2023-05-03 14:44 | disposition home or self-care (01) | DRG 358 ==
LOC: ANHED 11:35 → ANH3MEDSUR 15:15
PROVIDERS: Admitting Provider Internal Medicine; Emergency Provider Emergency Medicine; PCP Surgery; Visit Provider Internal Medicine Critical Care Medicine
DX: K65.1 Peritoneal abscess (principal); E78.5 Hyperlipidemia, unspecified; F41.1 Generalized anxiety disorder; I48.0 Paroxysmal atrial fibrillation; I10 Essential (primary) hypertension; K21.9 Gastro-esophageal reflux disease without esophagitis; R41.0 Disorientation, unspecified; Z79.82 Long term (current) use of aspirin; Z79.01 Long term (current) use of anticoagulants; Z88.0 Allergy status to penicillin; Z86.16 Personal history of COVID-19; Z96.651 Presence of right artificial knee joint; Z90.49 Acquired absence of other specified parts of digestive tract; Z90.710 Acquired absence of both cervix and uterus; Z85.43 Personal history of malignant neoplasm of ovary
CPT/HCPCS: 36415; 36569; 49180; 74177; 76942; 80048; 80053; 81001; 83690; 85025; 85027; 85610; 85730; 87040; 87086; 87147; 87181; 87186; 88305; 88342; 96361; 96365; 96366; 96367; 99285; A9270; C1751; G0378; J1836; J1956; J7030; Q9967

== ENCOUNTER 2023-06-01 09:01 | Outpatient (CLI) | payer OTHER, SELFPAY ==
--- NOTE | ~2023-06-01 | CT_ITS ---
EXAMINATION: CT abdomen pelvis w con DATE: 06/01/2023 09:30 INDICATION: Acute appendicitis with perforation TECHNIQUE: Computed tomography (CT) of the abdomen and pelvis was performed with 100 CC Omnipaque 350 intravenous contrast. Automated exposure control and iterative reconstruction technique were employe d. Exam dose: 454.35 mGy-cm total exam DLP. COMPARISON: 04/29/2023 CT abdomen pelvis FINDINGS: Minimal atelectasis at the right lung base. Cardiomegaly. No pericardial or pleural effusio n. 7 mm and 15 mm lower right hepatic cysts. 6 mm hepatic dome probable cyst. There are multiple incompletely circumscribed space occupying mass lesions of the liver as large as 3 .7 cm or greater dimension, raising suspicion of hepatic metastatic disease. Normal splenic size. No splenic space-occupying mass lesion. No pancreatic mass lesion, calcification or ductal dilatation. The gallbladder is absent. No bile duct dilatation is detected. Normal morphology of the adrenal glands. Bilateral renal scarring likely due to chronic bilateral pyelonephritis. No urinary tract calculus or hydroureteronephrosis. There is prominent atherosclerotic calcification but normal caliber of the abdominal aorta. No intrap eritoneal or retroperitoneal or pelvic mass lesion or adenopathy or ascites is noted. There is considerably diminished inflammatory change and hypoattenuating mass density in the right lo wer quadrant since 04/29/2023, with approximately 2.4 x 3.1 cm residual cystic appearing area Diverticulosis of left and right colon. No bowel obstruction or intraperitoneal free air is detected. Status post hysterectomy. Degenerative changes of the thoracic and lumbar spine and bilateral hip osteoarthritis. No suspicious osteolytic or osteoblastic lesions. IMPRESSION: Interval improvement of right lower quadrant inflammatory changes since 04/29/2023 Multiple indeterminate hepatic masses, raising concern for possible metastasis Hepatic cysts Bilateral chronic pyelonephritis Diverticulosis of the colon Status post cholecystectomy Status post hysterectomy Reviewed, dictated and finalized at [facility]. Reviewed, dictated and finalized at [facility]. [employer]
== END 2023-06-01 09:02 | disposition home or self-care (01) ==
LOC: ANHIMG 09:04
PROVIDERS: PCP Family Medicine; Visit Provider Surgery
DX: K35.32 Acute appendicitis with perforation, localized peritonitis, and gangrene, without abscess (principal); Z90.49 Acquired absence of other specified parts of digestive tract; K57.30 Diverticulosis of large intestine without perforation or abscess without bleeding; K76.89 Other specified diseases of liver
CPT/HCPCS: 74177; Q9967

== ENCOUNTER 2023-06-17 06:15 | Outpatient (CLI) | payer OTHER, SELFPAY ==
[2023-06-10 09:23] VITALS: BMI 28.6
--- NOTE | 2023-06-10 09:36 | PC.NURSE ---
Pre Radiology instructions Report to the outpatient leah singh on date _06/17/23____ at time __7:30AM for procedure Time: _9:30AM___ YOU MAY BE MONITORED AT HOSPITAL FOR UP TO 4 HOURS AFTER YOUR PROCEDURE. A visitor will be allowed to accompany the patient into the hospital. You and your visitor will be asked to self-screen and do not enter if you have any COVID symptoms. A mask is OPTIONAL within the hospital. Patients are to have no food or drink 6 hours prior to procedure time Driving will be restricted after the procedure, you must have a person to drive you home. Labs will be drawn in preop area and once reviewed, you will be taken to radiology area for procedure. When the procedure is completed, you will be taken to outpatient where you will be monitored for several hours. You may have one visitor in this area. Other than holding anti-coagulants, patient may take other medication(s) as scheduled. Prior to your appointment date patients are instructed to hold anti-coagulants after discussing with ordering provider to stop. If unable to discontinue anti-coagulants please notify radiologist. ? No aspirin or warfarin (Coumadin) for 7 days prior to the procedure. ? No clopidogrel (Plavix), ticagrelor (Brilinta), prasugrel (Effient) or dabigatran (Pradaxa) for 5 days prior to the procedure. ? No rivaroxaban (Xarelto), apixaban (Eliquis), dipyridamole (Aggrenox or Persantine) or cilostazol (Pletal) for 2 days prior to the procedure. Medications to discontinue per physician: __HOLD XERALTO 2 DAYS PRE-PROCEDURE- LAST DOSE 06/14/23. HOLD ASPIRIN 7 DAYS PRE-PROCEDURE- LAST DOSE 06/09/23._ Please leave all valuables, including medications, at home the day of procedure. The hospital will not accept responsibility for valuables. Wear comfortable, loose fitting clothing.? Follow any additional instructions given to you from ordering provider. Telephone instructions given to ____PATIENT and asked if any additional questions and then verbalized understanding. Patient advised to call scheduling provider office or registration scheduling [phone] if any additional questions.
[2023-06-17] VITALS (10 sets, daily range): BP systolic 121–131; BP diastolic 52–67; PULSE 65–84; RESP 14–17; TEMP 36.4; O2SAT 98
--- NOTE | ~2023-06-17 | US_ITS ---
EXAMINATION: US bx liver DATE: 06/17/2023 10:35 INDICATION: Hepatomegaly with a few indeterminate hepatic masses TECHNIQUE: The procedure including the risks and benefits was discussed with the patient. Risks discu ssed included bleeding and infection. The patient understood the risks and agreed to proceed. The sk in overlying the left hepatic lobe was prepped and draped in usual sterile fashion. Anesthetic was a dministered with 1% lidocaine subcutaneously. An 18 gauge core biopsy needle was advanced under cont inuous ultrasound observation to the lesion of interest. 4 core biopsy specimens were obtained. The needle was removed and the entry site was cleaned and dressed. Post procedure ultrasound demonstrat ed no hemorrhage. FINDINGS: Ultrasound images demonstrate a few hypoechoic hepatic lesions including a 2.5 cm mass whic h bulges the liver capsule at the lateral segment of the left hepatic lobe. Subsequent images demonst rate the biopsy needle advanced into this mass in the lateral left hepatic lobe. IMPRESSION: 1. Successful Ultrasound-guided biopsy of a 2.5 cm mass at the lateral segment of the left hepatic lo be. Reviewed, dictated and finalized at location A. S REP IMPRESSION: 1. Successful Ultrasound-guided biopsy of a 2.5 cm mass at the lateral segment of the left hepatic lobe.
[2023-06-17 08:46] LABS: Mean Platelet Volume 9.8 fl (7.4-10.4); Platelet Count Result 304 k/mm3 (150-375)
[2023-06-17 08:58] LABS: Prothrombin Time 13.9 Seconds (11.1-14.7)
== END 2023-06-17 14:30 | disposition home or self-care (01) ==
PROVIDERS: PCP Family Medicine; Referring Provider Surgery; Visit Provider Radiology Diagnostic Radiology
PROC: BF45ZZZ Ultrasonography of Liver (ICD-10-PCS; CPT 47000; principal; 2023-06-17 09:30)
DX: R16.0 Hepatomegaly, not elsewhere classified (principal)
CPT/HCPCS: 36415; 47000; 85049; 85610; 88307; 88312; 88342

== ENCOUNTER 2023-10-03 13:07 | Outpatient (CLI) | payer OTHER, SELFPAY ==
[2023-10-03 19:37] LABS: Appearance Urine Turbid (Clear); Bacteria Urine 4+ /hpf; Bilirubin Urine Negative (Negative); Blood Urine 1+ (Negative); Color Urine Yellow (Yellow); Glucose Urine UA Negative (Negative); Ketones Urine Negative (Negative); Leukocyte Esterase Ur 3+ LEU/UL (Negative); Need Manual Microscopic Reviewed; Nitrate Urine Positive (Negative); Protein Urine 1+ mg/dL (Negative); RBC Urine 21-50 /hpf (0-2); Specific Grav Ur 1.015 (1.001-1.035); Squamous Epithelial Cell Urine Many /hpf (Few); WBC Urine >100 /hpf (0-3)
[2023-10-03 19:43] LABS: Add Urine Microscopic? YES
== END 2023-10-03 13:08 | disposition home or self-care (01) ==
PROVIDERS: PCP Family Medicine; Visit Provider Family Medicine
DX: R30.0 Dysuria (principal)
CPT/HCPCS: 81001; 87077; 87086; 87088; 87186

== ENCOUNTER 2023-11-21 13:49 | Outpatient (RCR) | payer OTHER, SELFPAY ==
[2023-10-21 12:39] LABS: CA-125 30 U/mL (<35)
[2023-10-24 08:24] LABS: Reference Lab Test Name Inhibin A
[2023-10-24 08:25] LABS: Reference Lab Test Result 182
[2023-11-02 14:29] LABS: Reference Lab Test Result 366
[2023-11-23 04:58] LABS: CA-125 19 U/mL (<35)
[2023-11-25 08:23] LABS: Reference Lab Test Name Inhibin A
[2023-11-25 08:26] LABS: Reference Lab Test Result 114
[2023-12-06 13:42] LABS: Reference Lab Test Result 271 pg/mL
== END 2024-01-18 23:59 | disposition home or self-care (01) ==
LOC: ANHGOSHLAB 13:49
PROVIDERS: PCP Family Medicine
DX: C56.2 Malignant neoplasm of left ovary (principal)
CPT/HCPCS: 36415; 83520; 86304; 86336

== ENCOUNTER 2023-12-10 17:57 | Emergency (ER) | payer OTHER, SELFPAY ==
[2023-12-10 18:02] VITALS: BP 175/80; PULSE 74; RESP 16; TEMP 36.6; O2SAT 100
--- NOTE | 2023-12-10 18:18 | ED.GENADULT ---
HPI - General Adult General Chief complaint: Unspecified Stated complaint: LEG NUMBNESS/LIGHT HEADED Time Seen by Provider: 12/10/23 18:18 Source: patient, RN notes reviewed and old records reviewed Mode of arrival: ambulatory Limitations: no limitations History of Present Illness HPI narrative: patient presents today accompanied by her . Patient reports that yesterday during the day she was feeling unwell. She reports that she had some sensation of her left leg falling asleep after sitting on the couch in the same position for a long period of time. She reports that this has been happening quite a bit lately. States that she has tried to change her habit of how she sits on the couch, but has been unable to do so. She does report that she has a history of anxiety, and began to get very nervous about her leg falling asleep, because she did tell her daughter she would try to change her habit the past she sits on the couch. Throughout the day yesterday she did notice some episodes of dizziness and lightheadedness, unable to name exactly what precipitated these. She states that she when out to lunch with her friends, felt fine at that time. Then when out to dinner with her and was feeling fine then as well. She spoke to her daughter today and told her of her symptoms yesterday, patient reports that she became very nervous when her daughter asked her about her blood pressure. States that she has been thinking about her blood pressure all day long and feels as though she has worked herself into a tizzy . She reports that at this time she feels much better than she did earlier in the day today. Says that she would just like some reassurance. She denies dizziness or numbness at this time. Related Data Home Medications Medication Instructions Recorded Confirmed amlodipine 10 mg tablet (Norvasc) 10 mg PO QAM 11/01/19 12/10/23 aspirin 81 mg tablet,delayed 81 mg PO HS 11/01/19 12/10/23 release isosorbide mononitrate 30 mg 30 mg PO QAM 11/01/19 12/10/23 tablet,extended release 24 hr rivaroxaban 20 mg tablet (Xarelto) 20 mg PO QACDINNER 11/01/19 12/10/23 cholecalciferol (vitamin D3) 25 50 mcg PO DAILY 02/28/20 12/10/23 mcg (1,000 unit) tablet acetaminophen 500 mg capsule 500 mg PO Q6H PRN Pain 06/10/23 12/10/23 lisinopril 40 mg tablet 40 mg PO QAM 06/10/23 12/10/23 simvastatin 10 mg tablet 10 mg PO DAILY 12/10/23 12/10/23 Allergies Allergy/AdvReac Type Severity Reaction Status Date / Time nitrofurantoin Allergy Intermediate Itching Verified 12/10/23 18:07 [From Macrobid] Penicillins Allergy Unknown Unknown Verified 12/10/23 18:07 Review of Systems Review of Systems: All systems reviewed & are unremarkable except as noted in HPI and below Constitutional: Constitutional: Reports no additional constitutional complaints ENT: Reports system reviewed and no additional complaints, except as documented Cardiovascular: Cardiovascular: Reports no additional cardiovascular complaints Respiratory: Respiratory: Reports no additional respiratory complaints Gastrointestinal: Gastrointestinal: Reports no additional gastrointestinal complaints [facility] Past Medical History Medical History Anxiety Cervical spondylosis Chronic anticoagulation Chronic hyponatremia COVID-19 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 Kamille Rico, U Paroxysmal atrial fibrillation Surgical History Surgical History History of arthroplasty of right knee (06/2014) History of bunionectomy of right great toe History of colonoscopy with polypectomy History of hernia repair Double History of hysterectomy S/P cholecystectomy Family History Family History Kaushal
[2023-12-10 18:20] VITALS: BP 132/84
== END 2023-12-10 18:44 | disposition home or self-care (01) ==
PROVIDERS: Emergency Provider Nurse Practitioner Family; PCP Family Medicine
DX: F41.9 Anxiety disorder, unspecified (principal); I10 Essential (primary) hypertension; M47.812 Spondylosis without myelopathy or radiculopathy, cervical region; E78.00 Pure hypercholesterolemia, unspecified; I48.0 Paroxysmal atrial fibrillation; Z85.43 Personal history of malignant neoplasm of ovary; Z85.028 Personal history of other malignant neoplasm of stomach; Z85.05 Personal history of malignant neoplasm of liver
CPT/HCPCS: 99211; G0463

== ENCOUNTER 2024-03-29 14:33 | Emergency (ER) | payer OTHER, SELFPAY ==
[2024-03-29 14:57] VITALS: BP 135/67; PULSE 67; RESP 16; TEMP 35.9; O2SAT 100
--- NOTE | 2024-03-29 14:58 | ED.FEMALEGU ---
HPI - Female Genitourinary General Chief complaint: Urogenital-Female Stated complaint: uti symptoms Time Seen by Provider: 03/29/24 15:00 Source: patient, RN notes reviewed and old records reviewed Mode of arrival: ambulatory Limitations: no limitations History of Present Illness HPI Narrative: 83-year-old female presents to the [facility] with urgency, burning with urination also reports frequency that started last night. Denies fevers, back pain, CVA tenderness, abdominal pain. Onset (ago): day(s) (1) Related Data Home Medications Medication Instructions Recorded Confirmed amlodipine 10 mg tablet (Norvasc) 10 mg PO QAM 11/01/19 03/29/24 aspirin 81 mg tablet,delayed 81 mg PO HS 11/01/19 03/29/24 release isosorbide mononitrate 30 mg 30 mg PO QAM 11/01/19 03/29/24 tablet,extended release 24 hr rivaroxaban 20 mg tablet (Xarelto) 20 mg PO QACDINNER 11/01/19 03/29/24 cholecalciferol (vitamin D3) 25 50 mcg PO DAILY 02/28/20 03/29/24 mcg (1,000 unit) tablet acetaminophen 500 mg capsule 500 mg PO Q6H PRN Pain 06/10/23 03/29/24 simvastatin 10 mg tablet 10 mg PO DAILY 12/10/23 03/29/24 Allergies Allergy/AdvReac Type Severity Reaction Status Date / Time nitrofurantoin Allergy Intermediate Itching Verified 03/29/24 14:50 [From Macrobid] Penicillins Allergy Unknown Unknown Verified 03/29/24 14:50 Review of Systems Review of Systems: All systems reviewed & are unremarkable except as noted in HPI and below Constitutional: Constitutional: Reports no additional constitutional complaints ENT: Reports system reviewed and no additional complaints, except as documented Cardiovascular: Cardiovascular: Reports no additional cardiovascular complaints, Denies chest pain and Denies dyspnea Respiratory: Respiratory: Reports no additional respiratory complaints, Denies chest congestion, Denies cough and Denies dyspnea Gastrointestinal: Gastrointestinal: Reports no additional gastrointestinal complaints, Denies abdominal pain, Denies nausea and Denies vomiting Genitourinary: Genitourinary: Reports as per HPI Musculoskeletal: Musculoskeletal: Reports no additional musculoskeletal complaints Integumentary/Breasts: Skin/Breast: Reports system reviewed and no additional complaints, except as docu PMFSH Past Medical History Medical History Anxiety Cervical spondylosis Chronic anticoagulation Chronic hyponatremia COVID-19 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 Kamille Rico, U Paroxysmal atrial fibrillation Surgical History Surgical History History of arthroplasty of right knee (06/2014) History of bunionectomy of right great toe History of colonoscopy with polypectomy History of hernia repair Double History of hysterectomy S/P cholecystectomy Family History Family History Mother Diabetes mellitus Hypertension Family history of cardiovascular disease Father Family history of lung cancer Social History Social History Social History: She has four children. She worked for a fluid [employer] and is retired now. Surrogate medical decision maker: Osiel So, spouse. Code status: Full code. Smoking status: Never smoker Second hand tobacco smoke exposure: No Alcohol intake: never Substance use: never Substance use type: does not use Do You Feel Safe in your Home?: Yes Lack of Transportation: No Lack of Food: Never True Current Housing: I Have Housing Concerned About Future Housing: No Difficulty Paying Gas/Electric Bills: No Difficulty Paying for Meds: No Currently Unemployed: No Education: Decline to Answer Difficulty w/ Childcare or Family Care: No Living arrangements: with family Occupation/Education: retired Spiritual care concerns: No Comments At the time of my signature, I reviewed and agree with the nursing past medical, surgical, social, and family history. There is no relevant family history pertinent to the patient complaint. Exam Const: General: cooperative, healthy appearing, comfortable, no acute distress, well developed, alert and well nourished Nutritional Appearance: well nourished Orientation/consciousness: patient oriented x3 Limitations: no limitations HENMT: Head: normal to inspection Ears: hearing grossly normal bilaterally and external ears normal Face/Nose/Sinus: Normal external nose present, normal facial exam and face symmetric Face and sinus: normal facial exam and face symmetric Eyes: General: appearance normal, both eyes and all related structures Alignment and Position: alignment normal Periorbital: periorbital findings normal Neck: Neck: normal visual inspection, full ROM, no lymphadenopathy and no meningeal signs Chest: Chest palpation & inspection: normal inspection of the chest Resp: Effort & Inspection: normal respiratory effort and able to speak in complete sentences Cardio: Rate: regular rate Skin: General skin exam: normal color and no rashes or lesions noted Lesions: no lesions Rashes: no rashes Wounds: no wounds Neuro: General: patient oriented x3, gait normal, tone normal, moves all extremities and no meningeal signs Cognition (Neuro): normal cognition Speech: normal speech Gait exam (Neuro): Normal gait present Extrem: General: normal to inspection, full ROM, capillary refill normal and normal gait Psych: Appearance: grossly normal and well kempt Mental Status: mental status grossly normal Speech and movement: Normal speech and movement present and Clear speech present Affect: normal affect Attitude: cooperative Course Course Level of Care: Express Care Visit Vital Signs Vital signs: Vital Signs Temperature 96.7 F L 03/29/24 14:57 Pulse Rate 67 03/29/24 14:57 Respiratory Rate 16 03/29/24 14:57 Blood Pressure 135/67 03/29/24 14:57 Pulse Oximetry 100 03/29/24 14:57 Temperature 96.7 F L 03/29/24 14:57 Pulse Rate 67 03/29/24 14:57 Respiratory Rate 16 03/29/24 14:57 Blood Pressure 135/67 03/29/24 14:57 Pulse Oximetry 100 03/29/24 14:57 Reviewed MDM - Female Genitourinary MDM Narrative Medical decision making narrative: Patient sitting comfortably in exam. Nontoxic vitals stable. Patient with concerns for a UTI, symptoms started last night Urine had positive leukocytes, nitrites and blood. Reviewed previous microbiology. Multiple drug resistance as well as patient is allergic to Macrobid and penicillin. Does not want to take any medications that and in Floxin. Discussed with patient is extremely important to contact her cancer doctor and urologist Patient appropriate for outpatient treatment and follow-up Discharge instructions reviewed with patient, as well as provided in writing per nursing staff. The instructions also include specific and strict return/GO TO THE ER as well as f/u information. All questions have been answered, and the patient deny any further questions with discharge and discharge plan. Some parts of this dictation were generated by voice recognition software and may contain typographical and/or grammatical inaccuracies. Differential Diagnosis Differential diagnosis: Likely urinary tract infection and cystitis Lab Data Labs: Lab Results 03/29/24 Range/Units 15:03 POC Urine Color Yellow POC Urine Clarity Cloudy POC Urine pH 6.5 POC Ur Specif Pender 1.025 POC Urine Protein Trace (Negative) POC Ur Glucose (UA) Negative (Negative) POC Urine Ketones Negative (Negative) POC Urine Blood Trace (Negative) POC Urine Nitrite Positive (Negative) POC Urine Bilirubin Negative (Negative) POC Urine Urobilinogen 0.2 POC U Leukocyte Esteras 3+ (Negative) Reviewed Critical Care Time Critical Care Time Critical Care Time: No Discharge Plan Discharge Clinical Impression: UTI (urinary tract infection) Qualifiers: Urinary tract infection type: acute cystitis Hematuria presence: with hematuria Qualified Code(s): N30.01 - Acute cystitis with hematuria Patient Disposition: Home, Self-Care Condition: Stable Instructions: Antibiotic Form, Urinary Tract Infection in Women (ED) Additional Instructions: Increased water intake Take Tylenol as needed for pain Take antibiotic as prescribed Today your urine dip showed a probability of a UTI. You have been prescribed an antibiotic. Your urine will be sent to our lab for a culture. If at that time a bacteria grows that is not covered by the antibiotic prescribed you will be notified. Follow-up with primary care Follow-up with your cancer doctor, let them know that you are on an antibiotic. For new or worsening symptoms go directly to the emergency room Patient Language: Sami Prescriptions: New cefuroxime axetil 500 mg tablet 500 mg PO BID Qty: 10 0RF No Action simvastatin 10 mg tablet 10 mg PO DAILY isosorbide mononitrate 30 mg Tablet Extended Release 24 Hr 30 mg PO QAM aspirin 81 mg Tablet,Delayed Release (Dr/Ec) 81 mg PO HS amlodipine [Norvasc] 10 mg Tablet 10 mg PO QAM Xarelto 20 mg Tablet 20 mg PO QACDINNER Hold Instructions: Resume on 05/04/23. OK to resume Xarelto on Tuesday cholecalciferol (vitamin D3) 25 mcg (1,000 unit) tablet 50 mcg PO DAILY omeprazole 20 mg capsule,delayed release(DR/EC) 20 mg PO QAM Qty: 90 1RF mecobalamin (vitamin B12) 1,000 mcg tablet,chewable 1,000 mcg PO DAILY Qty: 30 0RF letrozole 2.5 mg tablet 2.5 mg PO DAILY Qty: 30 0RF acetaminophen 500 mg Capsule 500 mg PO Q6H PRN (Reason: Pain) buspirone 15 mg tablet 15 mg PO .COMPLEX PRN (Reason: anxiety) Qty: 270 0RF Rx Instructions: 15 mg orally PRN; two to three times orally; lisinopril 40 mg tablet 40 mg PO QAM Qty: 90 2RF Follow-up/Referrals: Charlette Lentz MD [Primary Care Provider] - 2 Weeks ([facility] follow-up) Time of Disposition: 15:19
[2024-03-29 15:10] LABS: EDUAAPPEAR Cloudy; EDUABILI Negative (Negative); EDUABLOOD Trace (Negative); EDUACOLOR1 Yellow; EDUAGLUCOSE Negative (Negative); EDUAKETONE Negative (Negative); EDUALEUKO 3+ (Negative); EDUANITRATE Positive (Negative); EDUAPH 6.5; EDUAPROTEIN Trace (Negative); EDUASPGRAVITY 1.025; EDUAUROBILI 0.2
== END 2024-03-29 15:27 | disposition home or self-care (01) ==
PROVIDERS: Emergency Provider Nurse Practitioner; PCP Family Medicine
DX: N30.01 Acute cystitis with hematuria (principal); B96.1 Klebsiella pneumoniae [K. pneumoniae] as the cause of diseases classified elsewhere; I10 Essential (primary) hypertension; I48.0 Paroxysmal atrial fibrillation; E78.00 Pure hypercholesterolemia, unspecified; Z85.43 Personal history of malignant neoplasm of ovary; Z85.028 Personal history of other malignant neoplasm of stomach; Z85.05 Personal history of malignant neoplasm of liver; Z79.82 Long term (current) use of aspirin; Z79.01 Long term (current) use of anticoagulants; Z96.651 Presence of right artificial knee joint
CPT/HCPCS: 81003; 87077; 87086; 87186; 99213; G0463

== ENCOUNTER 2024-04-04 13:56 | Outpatient (RCR) | payer OTHER, SELFPAY ==
[2024-04-05 13:53] LABS: CA-125 16 U/mL (<35)
== END 2024-07-03 23:59 | disposition home or self-care (01) ==
LOC: ANHGOSHLAB 13:56
PROVIDERS: PCP Family Medicine
DX: C56.2 Malignant neoplasm of left ovary (principal)
CPT/HCPCS: 36415; 86304

== ENCOUNTER 2024-04-16 13:17 | Outpatient (CLI) | payer OTHER, SELFPAY | END 2024-04-16 13:18 | disposition home or self-care (01) | LOC: ANHGOSHLAB 13:19 | PROVIDERS: PCP Family Medicine | DX: C56.2 Malignant neoplasm of left ovary (principal); C80.0 Disseminated malignant neoplasm, unspecified | CPT/HCPCS: 36415; 83520; 86336 ==

== ENCOUNTER 2024-07-02 14:09 | Outpatient (CLI) | payer OTHER, SELFPAY ==
--- OUTSIDE RECORDS SUMMARY | 2024-07-02 14:24 | XMS_ITS | Encounter Summary ---
Author Organization [facility] Healthcare Address [address] [place] [address] Care Team Providers Care Stores Laborer Name Role Phone Charlette Lentz MD Primary Care Provider [phone] Encounter Details Date Type Department Care Team (Late st Contact Info) Description 06/22/2024 Telephone [facility] Cardiology [address] [place] [address] Casey Lozano MD [address] [place] [id number] Social History Tobacco Use Types Packs/Day Years Used Date Smoking Tobacco: Never Smokeless Tobacco: Never Alcohol Use Standard Drinks/Week Comments Yes 0 (1 standard drink = 0.6 oz pur e alcohol) Comments No Sex and Gender Information Value Date Recorded Sex Assigned at Not on file Legal Sex Female 1:53 PM RELOCATION SPECIALIST Gender Identity Female 10/03/2023 12:43 PM CDT Sexual Orientation Straight 10/03/2023 12 :43 PM CDT documented as of this encounter Miscellaneous Notes * Telephone Encounter - Gloria Ruffin MA - 06/25/2024 9:27 AM CST Done CATION SPECIALIST * Telephone Encounter - Erica Vasquez - 06/22/2024 4:14 PM CST Patient requesting refill for Xarelto 20 mg with 90 day supply. Please send to [facility]. Thank you. Contact: CATION SPECIALIST documented in this encounter Plan of Treatment Not on file documented as of this encounter Visit Diagnoses Not on filedocumented in this encounter Care Teams Stores Laborer Relationship Specialty Start Date End Date Charlette Lentz MD PCP - General Family Medicine 06/16/21 documented as of this encounter
--- OUTSIDE RECORDS SUMMARY | 2024-07-02 14:24 | XMS_ITS | Clinical Summary ---
Author Organization [facility] Address [address] [place] [address] Care Team Providers Care Soda Jerker Name Role Phone Charlette Lentz MD Primary Care Provider [phone] Allergies Active Allergy Reactions Criticality Noted Date Comments Penicillins Other (See comments),Unknown Reaction: UNKNOWN CHILDHOOD, , Medications aspirin 81 mg enteric coated tabletIndicatio ns:prevention of thrombosis Take 1 tablet (81 mg total) by mouth daily Active cholecalciferol (VITAMIN D-3) 1,000 unit tablet Take 1 tablet (1,000 Units total) by mouth daily Active LORazepam (ATIVAN) 1 mg tablet Take 1 tablet (1 mg total) by mouth 3 (three) times a day as needed for anxiety Active omeprazole (PriLOSEC) 20 mg capsule Take 1 capsule (20 mg total) by mouth daily Active phenazopyridine (PYRIDIUM) 200 mg tablet Take 1 tablet (200 mg total) by mouth 3 (three) times a day as needed 12/31/19 20 Active cyanocobalamin (Vitamin B-12) 500 mcg tablet Take 1 tablet (500 mcg total) by mouth daily Active lisinopriL (PRINIVIL,ZESTR IL) 40 mg tablet 08/24/19 23 Active Bifidobacterium infantis (ALIGN) 4 mg capsule 1 capsule (4 mg total) Active acetaminophen (TYLENOL) 325 mg tablet Take 2 tablets (650 mg total) by mouth every 6 (six) hours as needed for pain Active hydrocortisone 2.5 % cream Apply topically 2 (two) times a day Mix ketoconazole 2% cream 1:1 with hydrocortisone 2.5% cream and use twice a day on the rash in the skin folds. 30 g 6 07/12/19 24 Active Additional Information Patient not taking.Reported on 06/19/2024 letrozole (FEMARA) 2.5 mg tablet Take 1 tablet (2.5 mg total) by mouth daily Active amLODIPine (NORVASC) 10 mg tablet TAKE 1 TABLET BY MOUTH EVERY DAY 90 tablet 2 09/28/19 24 Active Additional Information Patient taking differently: 5 mg oral Daily, Reported on 06/19/2024 simvastatin (ZOCOR) 10 mg tablet Take 1 tablet (10 mg total) by mouth nightly 90 tablet 03/30/20 24 Active isosorbide mononitrate ER (IMDUR) 30 mg 24 hr tablet Take 1 tablet (30 mg total) by mouth daily 90 tablet 04/27/20 24 Active busPIRone (BUSPAR) 15 mg tabletIndicatio ns:Generalized Anxiety Disorder Take 1 tablet (15 mg total) by mouth 3 (three) times a day Active rivaroxaban (Xarelto) 20 mg tablet Take 1 tablet (20 mg total) by mouth daily 90 tablet 2 06/25/19 25 Active rivaroxaban (Xarelto) 20 mg tablet Take 1 tablet (20 mg total) by mouth daily 90 tablet 2 03/16/20 24 025 Discontin ued(Reord er) Active Problems Problem Noted Date Diagnosed Date H/O cardiomyopathy 09/09/2023 Chronic anticoagulation 08/25/2022 Palpitations 08/25/2022 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 She remains on Imdur because of chest pain syndrome which was nitrate responsive. 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 She is chronically anticoagulated with Xarelto which she should continue. Assessment & Plan (06/16/2020 5:37 PM LOBSTER MAN): Rate controlled and anticoagulated. No change in therapy. Assessment & Plan (06/11/2019 9:41 AM LOBSTER MAN): Rate controlled and anticoagulated. Previous Holter has shown that her rate control is good. Assessment & Plan (06/16/2018 10:31 AM LOBSTER MAN): Rate controlled and anticoagulated. Continue current medications. Assessment & Plan (06/17/2017 12:06 PM LOBSTER MAN): Rate controlled and anticoagulated. For insurance reasons, will switch to Xarelto. Mixed hyperlipidemia 03/31/2012 Overview (08/25/2016): Hyperlipidemia Assessment & Plan (06/16/2021 2:48 PM LOBSTER MAN): Lipids are well controlled on simvastatin 20 mg daily. No change. Assessment & Plan (06/16/2020 5:38 PM LOBSTER MAN): On chronic lipid lowering therapy with good control. No changes made. Assessment & Plan (06/11/2019 9:41 AM LOBSTER MAN): On chronic lipid lowering therapy with good control. No changes made. LDL is 53 today. Assessment & Plan (06/17/2017 12:06 PM LOBSTER MAN): On chronic lipid lowering therapy with good control. No changes made. Coronary artery disease invo lving sokaogon coronary artery of sokaogon heart without angina pectoris 03/31/2012 Overview (08/27/2016): Coronary atherosclerosis of sokaogon coronary artery Assessment & Plan (06/11/2019 9:41 AM LOBSTER MAN): Mild and asymptomatic. Continue low-dose aspirin. Assessment & Plan (06/17/2017 12:07 PM LOBSTER MAN): Minor luminal irregularities noted at cardiac catheterization in 2010, done at the time of her episode of stress cardiomyopathy Benign hypertension 03/31/2012 Overview (08/27/2016): Hypertension, benign Assessment & Plan (06/16/2021 2:48 PM LOBSTER MAN): Blood pressure is well controlled with Accupril 40 mg daily and amlodipine 10 mg daily which she should continue Assessment & Plan (06/16/2020 5:37 PM LOBSTER MAN): Blood pressure is adequately controlled on current regimen. No change was made. Assessment & Plan (06/11/2019 9:41 AM LOBSTER MAN): Blood pressure is adequately controlled on current regimen. No change was made. Assessment & Plan (06/16/2018 10:33 AM LOBSTER MAN): Blood pressure is well controlled. No change. Mild edema is consistent with her being on amlodipine. I reassured her that this is benign. Assessment & Plan (06/17/2017 12:06 PM LOBSTER MAN): Blood pressure is adequately controlled on current regimen. No change was made. 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 Encounters Date Type Department Care Team Description 06/22/2024 Telephone [facility] [address] [place] [address] Casey Lozano MD 06/19/2024 3:00 PM LOBSTER MAN Office Visit [facility] [address] [place] [address] Casey Lozano MD Benign hypertension (Primary Dx); Paroxysmal atrial fibrillation (CMS/HCC) (HCC); Coronary artery disease involving sokaogon coronary artery of sokaogon heart without angina pectoris; H/O cardiomyopathy; Mixed hyperlipidemia; Chronic anticoagulation from Last 3 Months Immunizations Name Administration Dates Next Due Influenza, Trivalent, High D ose, Split, Preservative Free, Intramuscular 02/17/2018 Pneumococcal Polysaccharide PPV23 07/23/2015 Surgical History Surgery Date Site/Laterality Comments HYSTERECTOMY HERNIA REPAIR FOOT SURGERY BLADDER SURGERY KNEE ARTHROPLASTY Right CATARACT EXTRACTION CARDIAC CATHETERIZATION Medical History Medical History Date Comments Malignant neoplasm of ovary (HCC) Anxiety disorder Hyperlipidemia Paroxysmal atrial fibrillation (CMS/HCC) (HCC) Coronary artery disease High risk medication use UTI (urinary tract infection) Family History Medical History Relation Name Comments Lung cancer Father 2 Cancer, lung; C ause of : Cancer, lung Coronary artery disease Mother 2 Isreal nary Artery Disease; Cause of : Coronary Artery Disease Heart attack Mother 2 Myocardial Infa rction; Relation Name Status Comments Father 1 (Age 82) Father 2 Mother 1 (Age 80) Mother 2 Social History Tobacco Use Types Packs/Day Years Used Date Smoking Tobacco: Never Smokeless Tobacco: Never Alcohol Use Standard Drinks/Week Comments Yes 0 (1 standard drink = 0.6 oz pur e alcohol) Comments No Sex and Gender Information Value Date Recorded Sex Assigned at Not on file Legal Sex Female 1:53 PM LOBSTER MAN Gender Identity Female 10/03/2023 12:43 PM CDT Sexual Orientation Straight 10/03/2023 12 :43 PM CDT Obstetrics History Last Filed Vital Signs Vital Sign Reading Time Taken Comments Blood Pressure 116/52 06/19/2024 3:22 PM LOBSTER MAN Pulse 70 06/19/2024 3:22 PM LOBSTER MAN Temperature 36.7 C (98.1 F) 12/06/2018 4:00 PM CDT Respiratory Rate 20 12/06/2018 4:00 PM CDT Oxygen Saturation 95% 06/19/2024 3:22 PM LOBSTER MAN Inhaled Oxygen Concentration - - Weight 68 kg (150 lb) 06/19/2024 3:22 PM LOBSTER MAN Height 157.5 cm (5' 2 ) 06/19/2024 3:22 PM LOBSTER MAN Body Mass Index 27.44 06/19/2024 3:22 PM LOBSTER MAN Plan of Treatment Health Maintenance Due Date Last Done Comments Depression Screening 1938 Fall Risk Assessment 1940 Osteoporosis Screening-Bone Density Scan 1938 Hepatitis B Screening 1956 Zoster Vaccine (1 of 2) 1957 Well Visit 65+ 11/06/2003 DTaP/Tdap/Td Vaccine (1 - Tdap) 09/11/2016 7, 09/20/2006 Influenza Vaccine (#1) 2024 1, 02/05/2020, 02/08/2019, Additional history exists Pneumococcal vaccine 65+ Completed 017, 07/23/2015, 05/23/2005 Insurance [facility] Care Teams Soda Jerker Relationship Specialty Start Date End Date Charlette Lentz MD PCP - General Family Medicine 06/16/21
--- OUTSIDE RECORDS SUMMARY | 2024-07-02 14:24 | XMS_ITS | Encounter Summary ---
Author Organization [facility] Address [address] [place] [address] Care Team Providers Care Client Technical Support Associate Name Role Phone Lexie Lynn RN Unavailable Unavailable Charlette Lentz MD Primary Care Provider [phone] Encounter Details Date Type Department Care Team (Late st Contact Info) Description 07/02/2024 Orders Only [facility] - MARKETING PERFORMANCE ANALYST [address] [place] [address] Marlo Jeter MD [address] [place], [place] [id number] 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 Never 07/28/2023 Q2: How many drinks containi ng alcohol do you have on a typical day when you are drinking? Patient does not drink Q3: How often do you have si x or more drinks on one occasion? Never 07/28/2023 Sex and Gender Information Value Date Recorded Sex Assigned at Not on file Gender Identity Not on file Sexual Orientation Not on file documented as of this encounter Functional Status Functional Status Response Date of Assess ment Is person deaf or have serious hearing difficult y? No 03/03/2021 Is person blind or have serious difficulty seein g? No 03/03/2021 Does person have serious dif ficulty walking/climbing stairs? Yes 03/03/2021 Does person have difficulty dressing/bathing? No 03/03/2021 Does person have difficulty doing errands alone? No 03/03/2021 Cognitive Status Response Date of Assessm ent Does person have difficulty concentrating/remembering/making decisions? 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
--- OUTSIDE RECORDS SUMMARY | 2024-07-02 14:24 | XMS_ITS | Clinical Summary ---
Author Organization [facility] Address [address] [place] [address] Care Team Providers Care Rider Ticket Worker Name Role Phone Unavailable Primary Care Provider Unavailabl e Social History Tobacco Use Types Packs/Day Years Used Date Smoking Tobacco: Never Assessed Comments Unknown Sex and Gender Information Value Date Recorded Sex Assigned at Not on file Legal Sex Female 7:32 PM CDT Gender Identity Not on file Sexual Orientation Not on file Plan of Treatment Health Maintenance Due Date Last Done Comments DTaP, Tdap and Td Vaccines ( 1 - Tdap) 1957 Zoster Vaccines (1 of 2) 1988 Pneumococcal Vaccine: 65+ Ye ars (1 of 1 - PCV) 11/06/2003 RSV Immunization or 60+ Years (1 - 1-dose 75+ series) 2013 COVID-19 Vaccine (2023-2 5 season) 2024 Influenza Adult (#1) 2024 Meningococcal B Vaccine Aged Out No l onger eligible based on patient's age to complete this topic Meningococcal Vaccine Aged Out No dov jose eligible based on patient's age to complete this topic RSV Immunizations Under 20 Months Aged Out No longer eligible based on patient's age to complete this topic
--- OUTSIDE RECORDS SUMMARY | 2024-07-02 14:24 | XMS_ITS | Encounter Summary ---
Author Organization [facility] Address [address] [place] [address] Care Team Providers Care Cookie Mixer Helper Name Role Phone Lexie Lynn RN Unavailable Unavailable Charlette Lentz MD Primary Care Provider [phone] Encounter Details Date Type Department Care Team (Late st Contact Info) Description 08/31/2023 Telephone [facility] - CROWN POUNCER [address] [facility] [address] [facility] [address] [place] [address] Marlo Jeter MD [address] [facility] [address] [place], [place] [id number] [phone] Social History Tobacco Use Types Packs/Day Years [...] st Contact Info) Description 07/09/2024 11:00 AM ALTERATION SPECIALIST Office Visit [facility] - CROWN POUNCER [address] [facility] [address] [place] [address] Marlo Jeter MD [address] [place] [address] documented as of this encounter Visit Diagnoses Not on filedocumented in this encounter Care Teams Cookie Mixer Helper Relationship Specialty Start Date End Date Charlette Lentz MD [address] [place] [address] PCP - General 04/01/22 Lexie Lynn, RN Registered Nurse 12/16/16 documented as of this encounter
--- OUTSIDE RECORDS SUMMARY | 2024-07-02 14:24 | XMS_ITS | Referral Summary ---
Author Organization [facility] Address [address] [place] [address] Care Team Providers Care In Flight Refueling System Repairer Name Role Phone Lexie Lynn RN Unavailable Unavailable Charlette Lentz MD Primary Care Provider [phone] [facility],non-owned Affiliates and Associated Physician Practices is amultiple site organization consisting of ambulatory clinics and hospital sitesin [place], [place], [place] and [place]. This disclosure is being madepursuant to the Care Everywhere program and may not contain all information available regarding this patient. Last updated 18.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); Carcinomatosis (HCC); Use of letrozole (Femara) 06/20/2024 Telephone [facility] - PATTERN DATA OPERATOR [address], [address] [place] [address] Marlo Jeter MD Med Question 04/11/2024 Telephone [facility] - PATTERN DATA OPERATOR [address] [place] [address] Kelsey Diaz RN Follow-up; Future Appointment 04/11/2024 Orders Only [facility] - PATTERN DATA OPERATOR [address] [place] [phone] Marlo Jeter MD 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 PCN. Reaction when child. Medications * Be aware that medications may not be up to date on this document. Alwaysverify current medications with the patient. Medication Sig Dispensed Refills Start Date End Date Status amLODIPine (NORVASC) 10 MG tablet Take 1 (one) tablet by mouth once daily 3 03/12/2015 Active isosorbide mononitrate CR 24hr (IMDUR) 30 MG tablet Take 1 (one) tablet by mouth once daily 4 05/12/2015 Active LORazepam (ATIVAN) 1 MG tablet Take 1 (one) tablet by mouth every 12 hours as needed 5 05/12/2015 Active omeprazole (PRILOSEC) 20 MG capsule Take 1 (one) capsule by mouth daily before breakfast 3 05/06/2015 Active simvastatin (ZOCOR) 20 MG tablet Take 1 (one) tablet by mouth at bedtime 2 03/26/2015 Active Cholecalciferol (VITAMIN D) 2000 UNITS capsule Take 1 (one) capsule by mouth once daily Daily. Active Aspirin (ASPIR-81 PO) Take by mouth at bedtime Active XARELTO 20 MG tablet Take 1 (one) tablet by mouth daily with food 3 02/01/2018 Active clobetasol (TEMOVATE) 0.05 % ointment Apply to affected area 2 times daily 60 g 1 08/18/2020 Active Additional Information Patient not taking.Reported on 12/01/2023 cyanocobalamin (VITAMIN B-12) 500 MCG tablet Take 1 (one) tablet by mouth once daily Active lisinopril (Prinivil; Zestril) 40 MG tablet Take 1 (one) tablet by mouth once daily 04/25/2023 Active Probiotic Product (Align) 4 MG 4 mg Active busPIRone (Buspar) 10 MG tablet Take 1 (one) tablet by mouth 3 times daily Active oxyCODONE, immediate release, (Roxicodone) 5 MG tabletIndications:G ranulosa cell tumor Take 1 (one) tablet by mouth every 6 hours as needed 12 tablet 07/30/2023 Active Additional Information Patient not taking.Reported on 12/01/2023 pantoprazole EC (Protonix) 40 MG tablet Take 1 (one) tablet by mouth once daily for 30 days 30 tablet 07/30/2023 Active letrozole (Femara) 2.5 MG tablet Take 1 (one) tablet by mouth once daily 90 tablet 4 09/05/2023 Active CRANBERRY PO Active psyllium (Metamucil) 58.6 % powder Take 1 (one) packet by mouth 3 times daily as needed for Constipation Active Active Problems Problem Noted Date Diagnosed Date 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 (FLUZONE HIGH-DOSE QUADRIVALENT; 65Y+), 0.7 ML (HD-IIV4) 02/05/2020,02/08/2019,02/17/2018 PNEUMOCOCCAL PPSV23 07/23/2015 Social History Tobacco Use Types Packs/Day Years Used Date Smoking Tobacco: Never Smokeless Tobacco: Never Tobacco Cessation:Counseling Given: Not Answered Alcohol Use Standard Drinks/Week Comments Yes 0 [...] on file Sexual Orientation Not on file Last Filed Vital Signs Vital Sign Reading Time Taken Comments Blood Pressure 134/76 04/09/2024 1:14 PM LICENSED AUDIOLOGIST Pulse 77 02/08/2024 10:34 AM CDT Temperature 36.1 C (97 F) 02/08/2024 10:34 AM CDT Respiratory Rate 16 07/30/2023 8:03 AM LICENSED AUDIOLOGIST Oxygen Saturation 98% 02/08/2024 10:34 AM CDT Inhaled Oxygen Concentration - - Weight 64.5 kg (142 lb 3.2 oz) 04/09/2024 1:14 P M LICENSED AUDIOLOGIST Height 157.5 cm (5' 2 ) 04/09/2024 1:14 PM LICENSED AUDIOLOGIST Body Mass Index 26.01 04/09/2024 1:14 PM LICENSED AUDIOLOGIST Functional Status Functional Status Response Date of [...] person have difficulty concentrating/remembering/making decisions? No 03/03/2021 Plan of Treatment Upcoming Encounters Date Type Department Care Team (Late st Contact Info) Description 07/09/2024 11:00 AM LICENSED AUDIOLOGIST Office Visit [facility] - PATTERN DATA OPERATOR [address] [place] [address] Marlo Jeter MD [address] [place] [address] Medical Devices Implanted Type Area Obstetrics/Gynecology Nurse Device Identifier Shelf Expiration Date Model / Serial / Lot Mesh Srg Ventralight St Sepra Echo Implanted:Qty: 1 on 07/13/2019 by Omer Ponce MD at 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 04/16/2024 Narrative 04/16/2024 Ordered by an unspecified provider. Scanned Document LAB - THERAPEUTIC DR FULLER MONITORING ORDERABLES * CT CHEST ABDOMEN PELVIS W CONT (04/03/2024 2:06 PM LICENSED AUDIOLOGIST) Anatomical Region Laterality Modality Chest, Abdomen, Pelvis Computed Tomography 04/03/2024 2:37 PM LICENSED AUDIOLOGIST Impressions 04/03/2024 2:49 PM LICENSED AUDIOLOGIST IMPRESSION: 1. 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 2. Multiple liver metastases appear decreased in size from prior. 3. Cirrhosis. 4. Unchanged 1.4 cm indeterminate lesion in the left lower pole kidney. > Interpreting Provider: Madhuri Richardson MD on 04/03/2024 2:49 PM Narrative 04/03/2024 2:49 PM LICENSED AUDIOLOGIST PROCEDURE: CT CHEST ABDOMEN PELVIS W CONT DATE/TIME OF EXAM: 04/03/2024 2:06 PM CLINICAL INFORMATION: None relevant/not provided if blank. Indication: C56.2: Malignant neoplasm of left ovary (HCC) C80.0: Disseminated malignant neoplasm, unspecified (HCC) Additional History: COMPARISON: None. TECHNIQUE: CT of the chest, abdomen and pelvis was performed following intravenous contrast utilizing standard protocol. CT dose reduction technique was used, including Automated Exposure Control. CONTRAST: IOPAMIDOL 76 % IV SOLN:100 mL FINDINGS: Chest: LUNGS: There is a right upper lobe bronchus directly from the trachea. No new or enlarging pulmonary nodules. No focal consolidation, pneumothorax, or pleural effusion. HEART/VESSELS: Heart size is enlarged. Great vessels are normal in caliber. No pericardial effusion. MEDIASTINUM/FRANCISCO: No enlarged lymph nodes. CHEST WALL/LOWER NECK: A lipoma in the right subscapularis muscle is again seen. BONES: No concerning focal lesion. Abdomen and pelvis: LIVER: Multiple liver masses are again seen. For reference, a mass in the liver dome measures 3.1 x 3.3 cm, previously 4.0 x 3.6 cm. A lesion in hepatic segment 2 previously measured 1.8 cm, now 0.8 cm. There are multiple additional lesions. There are no new lesions. There is liver surface nodularity. GALLBLADDER: Absent. BILE DUCTS: Nondilated. PANCREAS: Within normal limits. SPLEEN: Within normal limits. ADRENALS: Within normal limits. KIDNEYS/URETERS: There are areas of scarring in both kidneys. Unchanged 1.4 cm indeterminate low-attenuation focus in the left lower pole kidney. PELVIC ORGANS: The uterus is absent. The bladder is somewhat irregularly shaped. A cystic lesion along the left pelvic sidewall measures 2.6 x 2.6 cm, previously 2.0 x 1.9 cm. There is soft tissue nodularity adjacent to this, which is unchanged. There is increased cystic mass along the right pelvic sidewall, best seen on series 5, image 107. BOWEL: There are multiple pericolonic soft tissue nodules. A soft tissue mass surrounds the cecum and terminal ileum. This extends into the anterior abdominal wall. The mass measures approximately 9.9 x 6.5 cm, previously 9.7 x 6.3 cm. Adjacent nodules have increased in size. For reference, a nodule in the right paracolic gutter on series 5, image 75 measures 2.0 x 3.1 cm, not definitely seen previously. There are multiple additional. There is no bowel obstruction. PERITONEUM/RETROPERITONEUM: No ascites. No free air. VESSELS: Atherosclerosis. ABDOMINAL WALL: Soft tissue masses extend into the anterior abdominal wall of the right lower quadrant and at the midline. There is a right lower quadrant hernia containing noninflamed none obstructed small bowel and fluid. BONES: Bilateral hip arthritis. 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 Degenerative disc disease and facet arthritis. Procedure Note Madhuri Richardson MD - 04/03/2024 PROCEDURE: CT CHEST ABDOMEN PELVIS W CONT DATE/TIME OF EXAM: 04/03/2024 2:06 PM CLINICAL INFORMATION: None relevant/not provided if blank. Indication: C56.2: Malignant neoplasm of left ovary (HCC) C80.0: Disseminated malignant neoplasm, unspecified (HCC) Additional History: COMPARISON: None. TECHNIQUE: CT of the chest, abdomen and pelvis was performed following intravenous contrast utilizing standard protocol. CT dose reduction technique was used, including Automated ExposureControl. CONTRAST: IOPAMIDOL 76 % IV SOLN:100 mL FINDINGS: Chest: LUNGS: There is a right upper lobe bronchus directly from the trachea.No new or enlarging pulmonary nodules. No focal consolidation,pneumothorax, or pleural effusion. HEART/VESSELS: Heart size is enlarged. Great vessels are normal incaliber. No pericardial effusion. MEDIASTINUM/FRANCISCO: No enlarged lymph nodes. CHEST WALL/LOWER NECK: A lipoma in the right subscapularis muscle isagain seen. BONES: No concerning focal lesion. Abdomen and pelvis: LIVER: Multiple liver masses are again seen. For reference, a mass inthe liver dome measures 3.1 x 3.3 cm, previously 4.0 x 3.6 cm. A lesion in hepatic segment 2 previously measured 1.8 cm, now 0.8 cm. There are multiple additional lesions. There are no new lesions. There is liver surface nodularity. GALLBLADDER: Absent. BILE DUCTS: Nondilated. PANCREAS: Within normal limits. SPLEEN: Within normal limits. ADRENALS: Within normal limits. KIDNEYS/URETERS: There are areas of scarring in both kidneys. Unchanged1.4 cm indeterminate low-attenuation focus in the left lower pole kidney. PELVIC ORGANS: The uterus is absent. The bladder is somewhat irregularly shaped. A cystic lesion along the left pelvic sidewall measures 2.6 x2.6 cm, previously 2.0 x 1.9 cm. There is soft tissue nodularity adjacent to this, which is unchanged. There is increased cystic mass along the right pelvic sidewall, best seen on series 5, image 107. BOWEL: There are multiple pericolonic soft tissue nodules. A soft tissue mass surrounds the cecum and terminal ileum. This extends into theanterior abdominal wall. The mass measures approximately 9.9 x 6.5 cm, previously 9.7 x 6.3 cm. Adjacent nodules have increased in size. For reference, a nodule in the right paracolic gutter on series 5, image 75 measures 2.0x 3.1 cm, not definitely seen previously. There are multiple additional. There is no bowel obstruction. PERITONEUM/RETROPERITONEUM: No ascites. No free air. VESSELS: Atherosclerosis. ABDOMINAL WALL: Soft tissue masses extend into the anterior abdominalwall of the right lower quadrant and at the midline. There is a right lower quadrant hernia containing noninflamed none obstructed small bowel and fluid. BONES: Bilateral hip arthritis. 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 Degenerative disc disease and facet arthritis. IMPRESSION: 1. Overall increase in peritoneal carcinomatosis with increase in sizeand number of pericolonic nodules. 2. Multiple liver metastases appear decreased in size from prior. 3. Cirrhosis. 4. Unchanged 1.4 cm indeterminate lesion in the left lower pole kidney. > Interpreting Provider: Madhuri Richardson MD on 04/03/2024 2:49 PM Marlo Jeter MD CT ORDERABLES * (ABNORMAL) CREATININE - POCT INTERFACED (04/03/2024 1:47 PM LICENSED AUDIOLOGIST) Creatinine POCT 0.66(L) 0.70 - 1.20 mg/dL 04/03/2024 1:58 PM LICENSED AUDIOLOGIST [facility] eGFR 86(L) >=90 mL/min/1.7 3 m2 04/03/2024 1:58 PM LICENSED AUDIOLOGIST [facility] Blood BLOOD SPECIMEN / Unknown 04/03/2024 1:47 PM LICENSED AUDIOLOGIST 04/03/2024 1:58 PM LICENSED AUDIOLOGIST Charlette Lentz MD LAB - POINT OF CARE ORDERABLES Performing Organization Address City/State/[facility] Co de Phone Number [facility] [address] [place], [place] [id number] from Last 3 Months Advance Directives Documents on File Type Date Recorded Patient Manager Heavy Equipment Expl anation Advance Directives and Livin g Will 07/22/2015 12:00 AM * Full Code (Latest Code Status on File) Date Activated Date Inactivated Comments 07/28/2023 12:29 PM 07/30/2023 11:43 AM * Full Code Date Activated Date Inactivated Comments 03/03/2021 9:56 AM 03/05/2021 2:31 PM * Full Code Date Activated Date Inactivated Comments 07/13/2019 4:21 PM 07/15/2019 4:56 PM * Full Code Date Activated Date Inactivated Comments 12/16/2016 1:40 PM 12/20/2016 6:00 PM Care Teams In Flight Refueling System Repairer Relationship Specialty Start Date End Date Charlette Lentz MD [address] [place] [address] PCP - General 04/01/22 Lexie Lynn, RN Registered Nurse 12/16/16
--- OUTSIDE RECORDS SUMMARY | 2024-07-02 14:24 | XMS_ITS | Patient Health Summary ---
Author Organization [facility] Address [address] [place] [address] Care Team Providers Care Public Records Officer Name Role Phone Lexie Lynn RN Unavailable Unavailable Charlette Lentz MD Primary Care Provider [phone] Note from [facility],non-owned Affiliates and Associated Physician Practices is amultiple site organization consisting of ambulatory clinics and hospital sitesin [place], [place], [place] and [place]. This disclosure is being madepursuant to the Care Everywhere program and may not contain all information available regarding this patient. Last updated 18.[facility] Allergies * Penicillins(? PCN. Reaction when child.) Medications * Be aware that medications may not be up to date on this document. Alwaysverify current medications with the patient. * amLODIPine (NORVASC) 10 MG tablet(Started 03/12/2015) Take 1 (one) tablet by mouth once daily 3 refills left * isosorbide mononitrate CR 24hr (IMDUR) 30 MG tablet(Started 05/12/2015) Take 1 (one) tablet by mouth once daily 4 refills left * LORazepam (ATIVAN) 1 MG tablet(Started 05/12/2015) Take 1 (one) tablet by mouth every 12 hours as needed 5 refills left * omeprazole (PRILOSEC) 20 MG capsule(Started 05/06/2015) Take 1 (one) capsule by mouth daily before breakfast 3 refills left * simvastatin (ZOCOR) 20 MG tablet(Started 03/26/2015) Take 1 (one) tablet by mouth at bedtime 2 refills left * Cholecalciferol (VITAMIN D) 2000 UNITS capsule Take 1 (one) capsule by mouth once daily Daily. * Aspirin (ASPIR-81 PO) Take by mouth at bedtime * XARELTO 20 MG tablet(Started 02/01/2018) Take 1 (one) tablet by mouth daily with food 3 refills left * clobetasol (TEMOVATE) 0.05 % ointment(Started 08/18/2020) Apply to affected area 2 times daily 1 refill by 08/18/2021 * cyanocobalamin (VITAMIN B-12) 500 MCG tablet Take 1 (one) tablet by mouth once daily * lisinopril (Prinivil; Zestril) 40 MG tablet(Started 04/25/2023) Take 1 (one) tablet by mouth once daily * Probiotic Product (Align) 4 MG 4 mg * busPIRone (Buspar) 10 MG tablet Take 1 (one) tablet by mouth 3 times daily * oxyCODONE, immediate release, (Roxicodone) 5 MG tablet(Started 07/30/2023) Take 1 (one) tablet by mouth every 6 hours as needed * pantoprazole EC (Protonix) 40 MG tablet(Started 07/30/2023) Take 1 (one) tablet by mouth once daily for 30 days * letrozole (Femara) 2.5 MG tablet(Started 09/05/2023) Take 1 (one) tablet by mouth once daily 4 refills by 09/04/2024 * CRANBERRY PO * psyllium (Metamucil) 58.6 % powder Take 1 (one) packet by mouth 3 times daily as needed for Constipation Active Problems Problem Noted Date Diagnosed Date 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 (FLUZONE HIGH-DOSE QUADRIVALENT; 65Y+), 0.7 ML (HD-IIV4)(Given 02/05/2020, 02/08/2019, 02/17/2018) * PNEUMOCOCCAL PPSV23(Given 07/23/2015) Social History Tobacco Use Types Packs/Day Years [...] Comments Blood Pressure 134/76 04/09/2024 1:14 PM SITE OPERATIONS MANAGER Pulse 77 02/08/2024 10:34 AM CDT Temperature 36.1 C (97 F) 02/08/2024 10:34 AM CDT Respiratory Rate 16 07/30/2023 8:03 AM SITE OPERATIONS MANAGER Oxygen Saturation 98% 02/08/2024 10:34 AM CDT Inhaled Oxygen Concentration - - Weight 64.5 kg (142 lb 3.2 oz) 04/09/2024 1:14 P M SITE OPERATIONS MANAGER Height 157.5 cm (5' 2 ) 04/09/2024 1:14 PM SITE OPERATIONS MANAGER Body Mass Index 26.01 04/09/2024 1:14 PM SITE OPERATIONS MANAGER Medical Devices Implanted Type Area Scaleman Device Identifier Shelf Expiration Date Model / Serial / Lot Mesh Srg Ventralight St Sepra Echo Implanted:Qty: 1 on 07/13/2019 by Omer Ponce MD at [facility] Abdomen [employer] 03/19/2020 [id number] / / [id number] Procedures * LAB RESULTS ORDER(Performed 04/16/2024) * LAB RESULTS ORDER(Performed 04/04/2024) * CT CHEST ABDOMEN PELVIS W CONT(Performed 04/03/2024) 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), Carcinomatosis (HCC) * CREATININE - POCT INTERFACED(Performed 04/03/2024) * CT CHEST ABDOMEN PELVIS W CONT(Performed 11/28/2023) Performed for Carcinomatosis (HCC), 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) * CREATININE - POCT INTERFACED(Performed 11/28/2023) * CANCER ANTIGEN (CA)125 BLOOD(Performed 09/01/2023) Performed for Carcinomatosis (HCC), 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) * INHIBIN B(Performed 09/01/2023) Performed for Carcinomatosis (HCC), 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) * INHIBIN A(Performed 09/01/2023) Performed for Carcinomatosis (HCC), 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) * CT CHEST ABDOMEN PELVIS W CONT(Performed 08/22/2023) Performed for Carcinomatosis (HCC) * PHOSPHORUS BLOOD(Performed 07/30/2023) * MAGNESIUM BLOOD(Performed 07/30/2023) * BASIC METABOLIC PANEL (CALCIUM TOTAL)(Performed 07/30/2023) * CBC W/O DIFFERENTIAL(Performed 07/30/2023) * BASIC METABOLIC PANEL (CALCIUM TOTAL)(Performed 07/29/2023) * PHOSPHORUS BLOOD(Performed 07/29/2023) * MAGNESIUM BLOOD(Performed 07/29/2023) * BASIC METABOLIC PANEL (CALCIUM TOTAL)(Performed 07/29/2023) * CBC W/O DIFFERENTIAL(Performed 07/29/2023) * PATHOLOGY TISSUE(Performed 07/28/2023) Performed for Intra-abdominal tumor * ARTERIAL LINE NOTE(Performed 07/28/2023) * PERIPHERAL IV NOTE(Performed 07/28/2023) * ENDOTRACHEAL TUBE NOTE(Performed 07/28/2023) * DC EXPLORATORY OF ABDOMEN(Performed 07/28/2023) Performed for Intra-abdominal tumor * NEURAXIAL BLOCK(Performed 07/28/2023) * TYPE + SCREEN PANEL(Performed 07/28/2023) Performed for Pre-op evaluation * TYPE + SCREEN PANEL(Performed 07/20/2023) Performed for Pre-op evaluation * COMPREHENSIVE METABOLIC PANEL(Performed 07/20/2023) Performed for Intra-abdominal tumor * CBC W AUTO DIFFERENTIAL(Performed 07/20/2023) Performed for Intra-abdominal tumor * XR CHEST 2VW(Performed 07/20/2023) Performed for Intra-abdominal tumor * EKG 12-LEAD(Performed 07/20/2023) Performed for Intra-abdominal tumor * CT ABDOMEN PELVIS W CONTRAST(Performed 03/22/2022) Performed for Granulosa cell tumor * CREATININE - POCT INTERFACED(Performed 03/22/2022) * NEURAXIAL BLOCK(Performed 06/23/2021) * PHOSPHORUS BLOOD(Performed 03/05/2021) * MAGNESIUM BLOOD(Performed 03/05/2021) * CBC W AUTO DIFFERENTIAL(Performed 03/05/2021) * BASIC METABOLIC PANEL (CALCIUM TOTAL)(Performed 03/05/2021) * PHOSPHORUS BLOOD(Performed 03/04/2021) * MAGNESIUM BLOOD(Performed 03/04/2021) * CBC W AUTO DIFFERENTIAL(Performed 03/04/2021) * BASIC METABOLIC PANEL (CALCIUM TOTAL)(Performed 03/04/2021) * PATHOLOGY TISSUE(Performed 03/03/2021) Performed for Granulosa cell tumor * ENDOTRACHEAL TUBE NOTE(Performed 03/03/2021) * EXCISION MASS OR TUMOR ABDOMINAL WALL(Performed 03/03/2021) Performed for Granulosa cell tumor * NEURAXIAL BLOCK(Performed 03/03/2021) * TYPE + SCREEN PANEL(Performed 03/03/2021) * SARS-COV-2 (COVID-19) IN HOUSE(Performed 02/27/2021) Performed for Preop examination * COMPREHENSIVE METABOLIC PANEL(Performed 02/17/2021) Performed for Granulosa cell tumor * CBC W AUTO DIFFERENTIAL(Performed 02/17/2021) Performed for Granulosa cell tumor * XR CHEST 2VW(Performed 02/17/2021) Performed for Granulosa cell tumor * EKG 12-LEAD(Performed 02/17/2021) Performed for Granulosa cell tumor * CT ABDOMEN PELVIS W CONTRAST(Performed 01/28/2021) Performed for Granulosa cell tumor * CREATININE - POCT INTERFACED(Performed 01/28/2021) * CT ABDOMEN PELVIS W CONTRAST(Performed 11/17/2020) Performed for Granulosa cell tumor * CREATININE - POCT INTERFACED(Performed 11/17/2020) * CT ABDOMEN PELVIS W CONTRAST(Performed 08/06/2020) Performed for Granulosa cell tumor, Liver metastasis * CULTURE URINE(Performed 12/31/2019) Performed for Urinary tract infection without hematuria, site unspecified * CARDIAC RHYTHM STRIP ORDER(Performed 07/16/2019) * APHERESIS/TRANSFUSION ORDER(Performed 07/16/2019) * PHOSPHORUS BLOOD(Performed 07/15/2019) Performed for Granulosa cell tumor * MAGNESIUM BLOOD(Performed 07/15/2019) Performed for Granulosa cell tumor * CBC W AUTO DIFFERENTIAL(Performed 07/15/2019) Performed for Granulosa cell tumor * BASIC METABOLIC PANEL (CALCIUM TOTAL)(Performed 07/15/2019) Performed for Granulosa cell tumor * PHOSPHORUS BLOOD(Performed 07/14/2019) Performed for Granulosa cell tumor * MAGNESIUM BLOOD(Performed 07/14/2019) Performed for Granulosa cell tumor * CBC W AUTO DIFFERENTIAL(Performed 07/14/2019) Performed for Granulosa cell tumor * BASIC METABOLIC PANEL (CALCIUM TOTAL)(Performed 07/14/2019) Performed for Granulosa cell tumor * PT-INR(Performed 07/13/2019) Performed for Preop examination * ROBOTIC ASSISTED REPAIR VENTRAL/UMBILICAL/INCISIONAL HERNIA(Performed 07/13/2019) Performed for Diagnosis unknown * XR CHEST 2VW(Performed 07/03/2019) Performed for Incisional hernia, without obstruction or gangrene, Atrial fibrillation, unspecified type (HCC), Current use of half-way anticoagulation * TYPE + SCREEN PANEL(Performed 07/03/2019) Performed for Incisional hernia, without obstruction or gangrene, Atrial fibrillation, unspecified type (HCC), Current use of half-way anticoagulation * PT-INR(Performed 07/03/2019) Performed for Pre-op testing * COMPREHENSIVE METABOLIC PANEL(Performed 07/03/2019) Performed for Incisional hernia, without obstruction or gangrene, Atrial fibrillation, unspecified type (HCC), Current use of half-way anticoagulation * CBC W AUTO DIFFERENTIAL(Performed 07/03/2019) Performed for Incisional hernia, without obstruction or gangrene, Atrial fibrillation, unspecified type (HCC), Current use of emt intermediate anticoagulation * CT ABDOMEN PELVIS W CONTRAST(Performed 05/28/2019) Performed for Granulosa cell tumor, Liver metastases * CREATININE BLOOD - POCT (IP) [facility](Performed 05/28/2019) Performed for Liver metastases * MAMMOGRAM(Performed 04/16/2019) * CULTURE URINE(Performed 11/27/2018) Performed for Dysuria * URINALYSIS - POINT OF CARE (AMB) [facility](Performed 11/27/2018) Performed for Dysuria * CULTURE URINE(Performed 07/31/2018) * CT ABDOMEN PELVIS W CONTRAST(Performed 05/29/2018) Performed for Metastasis to liver (HCC), Granulosa cell tumor, malignant, unspecified laterality (HCC) * CREATININE BLOOD - POCT (IP) [facility](Performed 05/29/2018) Performed for Metastasis to liver (HCC) * URINALYSIS W/MICROSCOPIC REFLEX TO CULTURE(Performed 01/12/2018) Performed for History of acute cystitis, Granulosa cell tumor of ovary, unspecified laterality, Urinary tract infection without hematuria, site unspecified * CULTURE URINE(Performed 01/12/2018) * CULTURE URINE REFLEXED(Performed 01/12/2018) * CT ABDOMEN PELVIS W CONTRAST(Performed 05/04/2017) * CREATININE BLOOD - POCT (IP) [facility](Performed 05/04/2017) * CARDIAC RHYTHM STRIP ORDER(Performed 12/21/2016) * BASIC METABOLIC PANEL (CALCIUM TOTAL)(Performed 12/20/2016) * CBC W AUTO DIFFERENTIAL(Performed 12/20/2016) * URINALYSIS REFLEX MICROSCOPIC REFLEX CULTURE(Performed 12/19/2016) * CULTURE URINE(Performed 12/19/2016) * BASIC METABOLIC PANEL (CALCIUM TOTAL)(Performed 12/19/2016) * CBC W AUTO DIFFERENTIAL(Performed 12/19/2016) * XR ABDOMEN KUB(Performed 12/18/2016) Performed for Granulosa cell tumor of ovary, unspecified laterality * BASIC METABOLIC PANEL (CALCIUM TOTAL)(Performed 12/18/2016) * CBC W AUTO DIFFERENTIAL(Performed 12/18/2016) * CREATININE URINE RANDOM(Performed 12/17/2016) * SODIUM URINE RANDOM(Performed 12/17/2016) * PHOSPHORUS BLOOD(Performed 12/17/2016) * MAGNESIUM BLOOD(Performed 12/17/2016) * COMPREHENSIVE METABOLIC PANEL(Performed 12/17/2016) * CBC W AUTO DIFFERENTIAL(Performed 12/17/2016) * CULTURE URINE(Performed 12/16/2016) Performed for Preop examination * PATHOLOGY TISSUE EXAM (STL)(Performed 12/16/2016) Performed for Granulosa cell tumor of ovary, unspecified laterality, Diagnosis unknown * CYTOLOGY NON-FISH BAIT PICKER PANEL (STL)(Performed 12/16/2016) Performed for Granulosa cell tumor of ovary, unspecified laterality, Diagnosis unknown * ENDOTRACHEAL TUBE NOTE(Performed 12/16/2016) * PERIPHERAL IV NOTE(Performed 12/16/2016) * SUTURE LARGE INTESTINE (COLORRHAPHY) FOR DIVERTICULUM, WOUND, INJURY, OR RUPTURE; WITH COLOSTOMY(Performed 12/16/2016) Performed for Granulosa cell tumor of ovary, unspecified laterality, Diagnosis unknown * LAPAROSCOPY DIAGNOSTIC(Performed 12/16/2016) Performed for Granulosa cell tumor of ovary, unspecified laterality, Diagnosis unknown * LYSIS ADHESIONS(Performed 12/16/2016) Performed for Granulosa cell tumor of ovary, unspecified laterality, Diagnosis unknown * LAPAROTOMY EXPLORATORY(Performed 12/16/2016) Performed for Granulosa cell tumor of ovary, unspecified laterality, Diagnosis unknown * BLOOD TYPE VERIFICATION(Performed 12/16/2016) * TYPE + SCREEN PANEL(Performed 12/16/2016) Performed for Preop examination * URINE MICROSCOPIC ONLY(Performed 12/16/2016) Performed for Preop examination * INHIBIN B(Performed 12/16/2016) Performed for Preop examination * INHIBIN A(Performed 12/16/2016) Performed for Preop examination * CANCER ANTIGEN (CA)125 BLOOD(Performed 12/16/2016) Performed for Preop examination * URINALYSIS REFLEX TO MICROSCOPIC NO CULTURE(Performed 12/16/2016) Performed for Preop examination * PT PTT PANEL(Performed 12/16/2016) Performed for Preop examination * COMPREHENSIVE METABOLIC PANEL(Performed 12/16/2016) Performed for Preop examination * CBC W/O DIFFERENTIAL(Performed 12/16/2016) Performed for Preop examination * LAB HISTORICAL RESULTS-ONBASE(Performed 12/16/2016) * LAB HISTORICAL RESULTS-ONBASE(Performed 12/16/2016) * PATHOLOGY/GENETICS HISTORICAL-ONBASE(Performed 12/16/2016) * CT ABDOMEN PELVIS W CONTRAST(Performed 11/12/2016) * CREATININE BLOOD - POCT (IP) [facility](Performed 11/12/2016) * INHIBIN A(Performed 11/08/2016) * CT ABDOMEN PELVIS W CONTRAST(Performed 08/09/2016) * CREATININE BLOOD - POCT (IP) [facility](Performed 08/09/2016) * INHIBIN A(Performed 07/19/2016) * COMPREHENSIVE METABOLIC PANEL(Performed 02/09/2016) * CBC W/O DIFFERENTIAL(Performed 02/09/2016) * CT ABDOMEN PELVIS W CONTRAST(Performed 02/09/2016) * CREATININE BLOOD - POCT (IP) [facility](Performed 02/09/2016) * CBC W AUTO DIFFERENTIAL(Performed 07/26/2015) * CBC W AUTO DIFFERENTIAL(Performed 07/26/2015) * PHOSPHORUS BLOOD(Performed 07/26/2015) * MAGNESIUM BLOOD(Performed 07/26/2015) * BASIC METABOLIC PANEL (CALCIUM TOTAL)(Performed 07/26/2015) * PHOSPHORUS BLOOD(Performed 07/25/2015) * MAGNESIUM BLOOD(Performed 07/25/2015) * BASIC METABOLIC PANEL (CALCIUM TOTAL)(Performed 07/25/2015) * CBC W AUTO DIFFERENTIAL(Performed 07/25/2015) * CBC W AUTO DIFFERENTIAL(Performed 07/25/2015) * XR CHEST 1VW PORTABLE(Performed 07/24/2015) * PHOSPHORUS BLOOD(Performed 07/24/2015) * MAGNESIUM BLOOD(Performed 07/24/2015) * BASIC METABOLIC PANEL (CALCIUM TOTAL)(Performed 07/24/2015) * CBC W AUTO DIFFERENTIAL(Performed 07/24/2015) * CBC W AUTO DIFFERENTIAL(Performed 07/24/2015) * BASIC METABOLIC PANEL (CALCIUM TOTAL)(Performed 07/23/2015) * XR CHEST 1VW PORTABLE(Performed 07/23/2015) * BASIC METABOLIC PANEL (CALCIUM TOTAL)(Performed 07/23/2015) * CBC W AUTO DIFFERENTIAL(Performed 07/23/2015) * CBC W AUTO DIFFERENTIAL(Performed 07/23/2015) * CBC W AUTO DIFFERENTIAL(Performed 07/22/2015) * CBC W AUTO DIFFERENTIAL(Performed 07/22/2015) * XR CHEST 1VW PORTABLE(Performed 07/22/2015) * PATHOLOGY TISSUE(Performed 07/22/2015) * BLOOD GASES ART COMPLETE [facility] OR(Performed 07/22/2015) * CROSSMATCH RBC LEUKOREDUCED(Performed 07/22/2015) * TYPE + SCREEN PANEL(Performed 07/22/2015) * COMPREHENSIVE METABOLIC PANEL(Performed 07/07/2015) * CBC W/O DIFFERENTIAL(Performed 07/07/2015) * ESOPHAGOGASTRODUODENOSCOPY (EGD) /ESOPHAGOSCOPY WITH ULTRASOUND (EUS) (Performed 06/27/2015) Performed for Diagnosis unknown * UPPER ENDOSCOPIC ULTRASOUND(Performed 06/27/2015) * PET CT SKULL TO MID THIGH(Performed 06/13/2015) 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) * PATHOLOGY/CYTOLOGY REPORT ORDER(Performed 05/28/2015) * ENDOSCOPY ORDER(Performed 05/05/2015) * INHIBIN A(Performed 07/23/2013) * INHIBIN A(Performed 01/25/2013) * LAB HISTORICAL RESULTS-ONBASE(Performed 07/04/2012) * INHIBIN A(Performed 07/20/2011) * LAB HISTORICAL RESULTS-ONBASE(Performed 07/20/2011) * PATHOLOGY/GENETICS HISTORICAL-ONBASE(Performed 04/27/2010) * INHIBIN A(Performed 10/08/2009) * LAB HISTORICAL RESULTS-ONBASE(Performed 08/28/2009) * LAB HISTORICAL RESULTS-ONBASE(Performed 07/10/2009) * INHIBIN A(Performed 03/24/2009) * INHIBIN A(Performed 03/24/2009) * GROSS + MICRO EXAM(Performed 01/26/2006) * FROZEN SECTION(Performed 07/09/2003) * CYTOLOGY NON-FISH BAIT PICKER PANEL(Performed 07/09/2003) Results * LAB RESULTS ORDER (04/16/2024) Only the most recent of2 resultswithin the time period is included. 04/16/2024 Narrative 04/16/2024 Ordered by an unspecified provider. Scanned Document LAB - THERAPEUTIC DR UG MONITORING ORDERABLES * CT CHEST ABDOMEN PELVIS W CONT (04/03/2024 2:06 PM SITE OPERATIONS MANAGER) Only the most recent of3 resultswithin the time period is included. Anatomical Region Laterality Modality Chest, Abdomen, Pelvis Computed Tomography 04/03/2024 2:37 PM SITE OPERATIONS MANAGER Impressions 04/03/2024 2:49 PM SITE OPERATIONS MANAGER IMPRESSION: 1. 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 2. Multiple liver metastases appear decreased in size from prior. 3. Cirrhosis. 4. Unchanged 1.4 cm indeterminate lesion in the left lower pole kidney. > Interpreting Provider: Madhuri Richardson MD on 04/03/2024 2:49 PM Narrative 04/03/2024 2:49 PM SITE OPERATIONS MANAGER PROCEDURE: CT CHEST ABDOMEN PELVIS W CONT [...] CREATININE - POCT INTERFACED (04/03/2024 1:47 PM SITE OPERATIONS MANAGER) Only the most recent of5 resultswithin the time period is included. Creatinine POCT 0.66(L) 0.70 - 1.20 mg/dL 04/03/2024 1:58 PM SITE OPERATIONS MANAGER [facility] eGFR 86(L) >=90 mL/min/1.7 3 m2 04/03/2024 1:58 PM SITE OPERATIONS MANAGER [facility] Blood BLOOD SPECIMEN / Unknown 04/03/2024 1:47 PM SITE OPERATIONS MANAGER 04/03/2024 1:58 PM SITE OPERATIONS MANAGER Charlette Lentz MD LAB - POINT OF CARE ORDERABLES [facility] [address] [place] [address] * INHIBIN A (09/01/2023 1:06 PM CDT) Only the most recent of10 resultswithin the time period is included. Pathologist [facility] Inhibin A 370 pg/mL [facility] Comment: Reference Ranges for Inhibin A: Females Premenopausal: <98.0 pg/mL Postmenopausal: <2.1 pg/mL Males <2.0 pg/mL This test was performed using the [place] Chemiluminescent Inhibin-A method that has been cleared by the FDA strictly for in vitro use as an aid in the diagnosis and monitoring of various hormonal reproductive disorders. The Inhibin-A test should not be used as a diagnostic procedure for granulosa cell tumors or hydatidiform moles without confirmation of the diagnosis by another established product or procedure. Values obtained with different assay methods or kits cannot be used interchangeably. Test Performed at: [facility] [address] [place] [address] NASIM DONATO MD,PHD,CRISTY Blood BLOOD SPECIMEN / Unknown 09/01/2023 1:06 PM CDT 09/01/2023 1:06 PM CDT Marlo Jeter MD LAB - CHEMISTRY [facility] Organization Address City/State/ZIP Co de Phone Number [place] [phone] [place] [address] * INHIBIN B (09/01/2023 1:06 PM CDT) Only the most recent of2 resultswithin the time period is included. Pathologist [facility] Inhibin B >1200 pg/mL [facility] Comment: Pre-memopausal <153 Post-menopausal <10 Values obtained from different assay methods cannot be used interchangeably. Inhibin B levels, regardless of value, should not be interpreted as absolute evidence of the presence or absence of disease. This test was developed and its analytical performance characteristics have been determined by [employer]. It has not been cleared or approved by FDA. This assay has been validated pursuant to the CLIA regulations and is used for clinical purposes. Test Performed at: [facility] [address] [place] [address] NASIM DONATO MD,PHD,CRISTY Blood BLOOD SPECIMEN / Unknown 09/01/2023 1:06 PM CDT 09/01/2023 1:06 PM CDT Marlo Jeter MD LAB - SEROLOGY ORDER SEGUN Performing Organization Address [facility] Co de Phone Number [facility] [phone] [place] [address] * CANCER ANTIGEN (CA)125 BLOOD (09/01/2023 1:06 PM CDT) Only the most recent of2 resultswithin the time period is included. [facility] CA 125 34 <35 U/mL [facility] Comment: This test was performed using the [employer] Chemiluminescent method. Values obtained from different assay methods cannot be used interchangeably. CA 125 levels, regardless of value, should not be interpreted as absolute evidence of the presence or absence of disease. REPORT COMMENT: FASTING:NO Test Performed at: [facility] [id number] [place] [address] NAS MALIK MD Blood BLOOD SPECIMEN / Unknown 09/01/2023 1:06 PM CDT 09/01/2023 1:06 PM CDT Marlo Jeter MD LAB - CHEMISTRY ORDE RABEDMUNDO Performing Organization Address [facility] Co de Phone Number [facility] [phone] [place] [address] * (ABNORMAL) CBC W/O DIFFERENTIAL (07/30/2023 1:14 AM SITE OPERATIONS MANAGER) Only the most recent of5 resultswithin the time period is included. [facility] WBC 7.7 4.0 - 10.7 x10E9/L 07/30/2023 1:49 AM [facility] RBC Count 3.49(L) 3.90 - 5.20 x10E12/L 07/30/2023 1:49 AM [facility] Hemoglobin 8.2(L) 11.9 - 15.8 g/dL 07/30/2023 1:49 AM [facility] Hematocrit 26.5(L) 34.8 - 46.1 % 07/30/2023 1:49 AM [facility] MCV 75.9(L) 80.0 - 98.0 fL 07/30/2023 1:49 AM [facility] MCH 23.5(L) 26.7 - 33.6 pg 07/30/2023 1:49 AM [facility] MCHC 30.9(L) 31.7 - 36.3 g/dL 07/30/2023 1:49 AM [facility] RDW-CV 18.8(H) 11.3 - 14.8 % 07/30/2023 1:49 AM [facility] Platelet Count 323 150 - 420 x10E9/L 07/30/2023 1:49 AM [facility] MPV 9.8 7.8 - 11.4 fL 07/30/2023 1:49 AM [facility] Blood BLOOD SPECIMEN / Unknown Lab Venipuncture / Unknown 07/30/2023 1:14 AM SITE OPERATIONS MANAGER 07/30/2023 1:38 AM SITE OPERATIONS MANAGER Mason Rico MD LAB - HEMATOLOGY ORD ERABLES [address] [phone] [phone] * (ABNORMAL) BASIC METABOLIC PANEL (CALCIUM TOTAL) (07/30/2023 1:14 AM SITE OPERATIONS MANAGER) Only the most recent of15 resultswithin the time period is included. BUN 10 7 - 26 mg/dL 07/30/2023 2:03 AM [facility] Creatinine 0.54(L) 0.56 - 0.96 mg/dL 07/30/2023 2:03 AM [facility] Sodium 131(L) 136 - 145 mmol/L 07/30/2023 2:03 AM [facility] Potassium 4.0 3.5 - 4.5 mmol/L 07/30/2023 2:03 AM [facility] Chloride 107 98 - 107 mmol/L 07/30/2023 2:03 AM [facility] CO2 18(L) 22 - 29 mmol/L 07/30/2023 2:03 AM [facility] Glucose 106 70 - 115 mg/dL 07/30/2023 2:03 AM [facility] Calcium 8.8 8.4 - 10.2 mg/dL 07/30/2023 2:03 AM [facility] Anion Gap 6 6 - 16 07/30/2023 2:03 AM [facility] BUN/Creatinine Ratio 19 7 - 23 07/30/2023 2:03 AM [facility] Osmolality Calculated 271(L) 275 - 295 mOsm/kg 07/30/2023 2:03 AM [facility] eGFR by CKD-EPI >90 >=90 mL/min/1.7 3 m2 07/30/2023 2:03 AM [facility] Blood BLOOD SPECIMEN / Unknown Lab Venipuncture / Unknown 07/30/2023 1:14 AM SITE OPERATIONS MANAGER 07/30/2023 1:38 AM SITE OPERATIONS MANAGER Mason Rico MD LAB - CHEMISTRY NATALIA BOWSER Performing Organization Address City/[facility]/ZIP Co de Phone Number [address] [phone], [facility] [phone] * (ABNORMAL) PHOSPHORUS BLOOD (07/30/2023 1:14 AM SITE OPERATIONS MANAGER) Only the most recent of10 resultswithin the time period is included. Phosphorus 2.4(L) 2.9 - 5.1 mg/dL 07/30/2023 2:03 AM [facility] Blood BLOOD SPECIMEN / Unknown Lab Venipuncture / Unknown 07/30/2023 1:14 AM SITE OPERATIONS MANAGER 07/30/2023 1:38 AM SITE OPERATIONS MANAGER Mason Rico MD LAB - CHEMISTRY NATALIA BOWSER [address] [address], [place] [phone] * MAGNESIUM BLOOD (07/30/2023 1:14 AM SITE OPERATIONS MANAGER) Only the most recent of10 resultswithin the time period is included. Magnesium 1.7 1.6 - 2.6 mg/dL 07/30/2023 2:03 AM [facility] Blood BLOOD SPECIMEN / Unknown Lab Venipuncture / Unknown 07/30/2023 1:14 AM SITE OPERATIONS MANAGER 07/30/2023 1:38 AM SITE OPERATIONS MANAGER Mason Rico MD LAB - CHEMISTRY NATALIA BOWSER [facility] [address] [place] [address], [facility] [phone] * PATHOLOGY TISSUE (07/28/2023 10:55 AM SITE OPERATIONS MANAGER) Only the most recent of3 resultswithin the time period is included. Case Report Surgical Pathology Report Case: [id number] Authorizing Provider: Mason Rico MD Collected: 07/28/2023 10:55 AM Ordering Location: [facility] Received: 07/28/2023 12:46 PM Pathologist: Charo Santos MD Specimens: A) - Soft Tissue Mass, Intra abdominal Mass B) - Tumor, Carcinoma Tumor 4 5:05 PM [facility] Final Diagnosis Soft tissue, intra-abdominal/perit jackson mass, biopsy (A): - Granulosa cell tumor, recurrent Soft tissue, peritoneal tumor, biopsy (B): - Granulosa cell tumor, recurrent 4 5:05 PM [facility] Microscopic Description and Comment Frozen section diagnosis is confirmed. 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 Operative procedure: Exploratory laparotomy, biopsy of intraabdominal tumor, abdominal closure. 4 5:05 PM [facility] Intraoperative Consultation A) intraabdominal mass is a 1.5 x 1.0 x 0.6 cm pink-corey soft tissue fragment. The specimen is serially sectioned and entirely submitted for frozen evaluation as FSA1. FSA1, intraabdominal mass, biopsy: -Malignant, compatible with granulosa cell tumor by Marjorie Amin MD 4 5:05 PM [facility] Gross Description The requisition and specimen(s) are identified with the patient's name Mary So and received in formalin from intraoperative consultation, specimen A , is previously sampled consistent with the intraoperative note. The frozen section remnant of FSA1 is respectively submitted in cassette A1. Received in formalin, specimen B is a 3.0 x 2.2 x 0.6 cm aggregate of pink-red friable partially cauterized tissue fragments. The larger fragments are serially sectioned to show homogenous corey-white smooth cut surface. The specimen is entirely submitted in cassette B1-B3. IKD 4 5:05 PM [facility] Addendum 1 A request for CA profile comprehensive testing was received 08/22/23 for patient Mary So from Dr. Marlo Jeter. The test is to be performed on tissue from case [id number]. The case report, slides, and blocks for the cited accession were retrieved from the archives. The pathologist whose signature appears below reviewed the original pathology report, examined candidate H&E slides, and selected the block (B1) appropriate to the specifications of the ordered molecular analysis. The tissue was forwarded to [facility] where the subject molecular tests will be performed. 4 5:05 PM [facility] Addendum electronically signed by Cat Oliver MD on 08/22/2023 at 5:05 PM Pathologist Location at [facility] 4 5:05 PM [facility] Disclaimer The performance characteristics of all immunohistochemical and indirect immunofluorescence stains (if any) cited in this report were determined by the Histopathology Laboratory of [facility]. Some of these tests were developed by our own laboratory and have not been cleared or approved by the US Food and Drug Administration. The FDA does not require this test to go through premarket FDA review. These tests are used for clinical purposes. They should not be regarded as investigational or for research. This laboratory is certified under the Clinical Laboratory Improvement Amendments (CLIA) as qualified to perform high complexity clinical laboratory testing. This case has been personally reviewed and interpreted by the attending (teaching) pathologist. 4 5:05 PM [facility] Embedded Images 4 5:05 PM T [facility] Biopsy, Excision SOFT TISSUE MASS / Unknown 07/28/2023 10:55 AM SITE OPERATIONS MANAGER 07/28/2023 12:46 PM SITE OPERATIONS MANAGER Comment:Pre-op diagnosis: INTRA-ABDOMINAL TUMOR Biopsy, Excision TUMOR TISSUE SPECIMEN / Unknown 07/28/2023 11:14 AM SITE OPERATIONS MANAGER 07/28/2023 12:46 PM SITE OPERATIONS MANAGER Comment:Pre-op diagnosis: INTRA-ABDOMINAL TUMOR Mason Rico MD LAB - PATHOLOGY/CYTO LOGY ORDERABLES Performing Organization Address City/State/[facility] Co de Phone Number [facility] [address] [phone] * ARTERIAL LINE PERFORMABLE (07/28/2023 10:39 AM SITE OPERATIONS MANAGER) Narrative Ranjan Kaur DO - 07/28/2023 10:39 AM SITE OPERATIONS MANAGER Ranjan Kaur DO 07/28/2023 10:39 AM Arterial Line Placement Procedure Note Patient Location: OR. Procedure: Arterial Line (15735). Procedure Section Indications: continuous blood pressure monitoring. Consent: informed consent was obtained for the procedure, including sedation. Skin Prep: Chloraprep. Orientation: Left. Site: radial. Site Identification: ultrasound guided with sterile sleeve and gel. Sterile Technique: small sterile fenestrated drape, sterile gloves, mask and cap. Gauge: 20. Seldinger Technique Used? Yes Number of Attempts: 3. Line Secured with: Tegaderm. Procedure Tolerance: performed while patient under general anesthesia. Staff Section Anesthesia Provider: Ranjan Kaur DO, Performed the procedure Provider #1: Roberta Bingham MD. Shraddha Lombardi MD GENERAL ANESTHES IA ORDERABLES * IV PLACEMENT PERFORMABLE (07/28/2023 10:38 AM SITE OPERATIONS MANAGER) Ranjan Motta DO - 07/28/2023 10:38 AM SITE OPERATIONS MANAGER Ranjan Kaur DO 07/28/2023 10:38 AM Peripheral IV Line Placement: Patient Location: OR Procedure: IV start (82328). Procedure Section: Skin Prep: alcohol. Orientation: left Location: antecubital Catheter Gauge: 18 Number of Attempts: 1. Procedure Tolerance: performed while patient under general anesthesia. Procedure Start Time: 07/28/2023 9:54 AM. Staff Section Anesthesia Provider: Shraddha Lombardi MD, Performed the procedure Shraddha Lombardi MD GENERAL ANESTHES IA ORDERABLES * ETT LINE PERFORMABLE (07/28/2023 10:37 AM SITE OPERATIONS MANAGER) Ranjan Motta DO - 07/28/2023 10:37 AM SITE OPERATIONS MANAGER Ranjan Kaur DO 07/28/2023 10:38 AM Endotracheal Tube Placement: Patient Location: OR. Intubation Event Date/Time: 07/28/2023 10:02 AM Procedure: intubation ([id number]). Procedure Section: Sedation: under general anesthesia. Indications for Airway Management: anesthesia Procedure pretreatments used? No Induction: standard IV Patient Position: sniffing Mask Ventilation: easy with oral airway. Blade Type: Evie Blade Size: 4 Laryngoscopy View: grade 1 (full cords) Tube: endotracheal tube Placement: oral Tube type: cuff - inflated Tube Size (MM): 7 Depth of Insertion (CM): 22 Measured From: lips Cuff volume (mL): 8 Cuff Inflated With: air Number of Attempts: 1. Placement Verified By: direct visualization Tube secured with: adhesive tape. Dentition unchanged? Yes Difficult Airway? No. Procedure Start Time: 07/28/2023 10:02 AM. Staff Section Anesthesia Provider: Shraddha Lombardi MD Provider #1: Ranjan Kaur DO, Performed the procedure. Shraddha Lombardi MD GENERAL ANESTHES IA ORDERABLES * EPIDURAL BLOCK PERF (07/28/2023 10:16 AM SITE OPERATIONS MANAGER) Esau Ayala MD - 07/28/2023 10:16 AM SITE OPERATIONS MANAGER Esau Davis MD 07/28/2023 10:20 AM Neuraxial Block Note Pre-Procedure: Procedure Name: Neuraxial Block Patient Location: Holding Area Indications: at surgeon's request and postop pain management Pre-Anesthetic Checklist: Patient identified, IV Checked, Risks and benefits discussed, Surgical consent verified, Monitors and equipment, Site examined, Pre-op evaluation done, Time-out performed, Informed consent obtained, Questions answered/anesthesia questions answered and Allergies reviewed Anticoagulation/ Anti-thrombosis status confirmed? Yes Supplemental O2: nasal cannula Monitors: BP, continuous pluse ox and EKG Patient Condition: awake Patient Sedated? Yes Sedation Type: mild Sedation Agents: fentaNYL (PF) (SUBLIMAZE) injection - Intravenous 50 mcg - 07/28/2023 8:51:00 AM Procedure: Block Type: Epidural Prep: Chloraprep Sterile Field: mask, cap/hat, sterile established and sterile gloves Approach: right paramedian Skin was localized? Yes Skin localized with: lidocaine (XYLOCAINE) 1 % injection - Infiltration 3 mL - 07/28/2023 8:52:00 AM Epidural Block: Is this procedure for postop pain? Yes Reason: anticipated postoperative pain Diagnosis: see diagnosis Needle Type: Tuohy Needle gauge: 18 G Placement Site: Other - please comment (T8) Loss of Resistance: 6 saline Catheter threaded to (cm): 11 Catheter length at skin (cm): 11 CSF Aspirated from catheter: No Blood Aspirated: No Test Dose: lidocaine 1.5% with 1-200,000 epinephrine mL at 07/28/2023 9:02 AM Test Dose Response: No Epidural Local Anesthetic Used? No Degree of difficulty: moderate Procedure Tolerance: tolerated well Motor Blockade: No Position post procedure: head of bed elevated 30 degrees Vital Signs: Vital signs monitored and stable throughout. See anesthesia record for details. Start Time: 07/28/2023 8:51 AM End Time: 07/28/2023 9:07 AM Total Time: 16 Staff: Anesthesia Provider: Esau Davis MD Provider #1: Ethel Marie MD - performed the procedure Shraddha Lombardi MD GENERAL ANESTHES IA ORDERABLES * TYPE + SCREEN PANEL (07/28/2023 8:20 AM SITE OPERATIONS MANAGER) Only the most recent of6 resultswithin the time period is included. Antibody Screen NEG 9:08 AM SITE OPERATIONS MANAGER [facility] ABO Rh A POS 07/28/2023 9:08 AM [facility] Blood Bank BLOOD SPECIMEN / Unknown Venipuncture / Unknown 07/28/2023 8:20 AM SITE OPERATIONS MANAGER 07/28/2023 8:26 AM SITE OPERATIONS MANAGER Stacy Yarbrough WAREHOUSE ENGINEER-DATA ENTRY SPECIALIST LAB - BLO OD BANK ORDERABLES [facility] [address] [place] [address], [facility] [phone] * (ABNORMAL) CBC W/ DIFFERENTIAL (07/20/2023 3:25 PM SITE OPERATIONS MANAGER) Only the most recent of21 resultswithin the time period is included. WBC 9.2 4.0 - 10.7 x10E9/L 07/20/2023 4:10 PM [facility] RBC Count 4.02 3.90 - 5.20 x10E12/L 07/20/2023 4:10 PM [facility] Hemoglobin 9.4(L) 11.9 - 15.8 g/dL 07/20/2023 4:10 PM [facility] Hematocrit 30.1(L) 34.8 - 46.1 % 07/20/2023 4:10 PM [facility] MCV 74.9(L) 80.0 - 98.0 fL 07/20/2023 4:10 PM [facility] MCH 23.4(L) 26.7 - 33.6 pg 07/20/2023 4:10 PM [facility] MCHC 31.2(L) 31.7 - 36.3 g/dL 07/20/2023 4:10 PM [facility] RDW-CV 19.1(H) 11.3 - 14.8 % 07/20/2023 4:10 PM [facility] Platelet Count 411 150 - 420 x10E9/L 07/20/2023 4:10 PM [facility] MPV 10.1 7.8 - 11.4 fL 07/20/2023 4:10 PM [facility] Neutrophil % 70.4 41.0 - 74.0 % 07/20/2023 4:10 PM [facility] Lymphocyte % 21.2 17.0 - 47.0 % 07/20/2023 4:10 PM [facility] Monocyte % 7.6 3.0 - 11.0 % 07/20/2023 4:10 PM [facility] Eosinophil % 0.3 0.0 - 7.0 % 07/20/2023 4:10 PM [facility] Basophil % 0.2 0.0 - 1.6 % 07/20/2023 4:10 PM [facility] Immature Granulocytes % 0.3 0.0 - 1.0 % 07/20/2023 4:10 PM [facility] Neutrophil Absolute 6.45 1.60 - 7.50 x10E9/L 07/20/2023 4:10 PM [facility] Lymphocyte Absolute 1.94 1.00 - 4.40 x10E9/L 07/20/2023 4:10 PM [facility] Monocyte Absolute 0.70 0.15 - 1.00 x10E9/L 07/20/2023 4:10 PM [facility] Eosinophil Absolute 0.03 0.00 - 0.60 x10E9/L 07/20/2023 4:10 PM [facility] Basophil Absolute 0.02 0.00 - 0.13 x10E9/L 07/20/2023 4:10 PM [facility] Blood BLOOD SPECIMEN / Unknown Lab Venipuncture / Unknown 07/20/2023 3:25 PM SITE OPERATIONS MANAGER 07/20/2023 4:[address] [facility] Mason Rico MD LAB - HEMATOLOGY ORD ERABLES [facility] [address] [place] [address], [facility] [phone] * (ABNORMAL) COMPREHENSIVE METABOLIC PANEL (07/20/2023 3:[address] [facility]) Only the most recent of7 resultswithin the time period is included. BUN 9 7 - 26 mg/dL 07/20/2023 4:23 PM [facility] Creatinine 0.59 0.56 - 0.96 mg/dL 07/20/2023 4:23 PM [facility] Sodium 135(L) 136 - 145 mmol/L 07/20/2023 4:23 PM [facility] Potassium 4.3 3.5 - 4.5 mmol/L 07/20/2023 4:23 PM [facility] Chloride 101 98 - 107 mmol/L 07/20/2023 4:23 PM [facility] CO2 21(L) 22 - 29 mmol/L 07/20/2023 4:23 PM [facility] Glucose 113 70 - 115 mg/dL 07/20/2023 4:23 PM [facility] Calcium 9.9 8.4 - 10.2 mg/dL 07/20/2023 4:23 PM [facility] Protein Total 7.4 6.0 - 8.3 g/dL 07/20/2023 4:23 PM [facility] Albumin 3.7 3.4 - 5.0 g/dL 07/20/2023 4:23 PM [facility] Bilirubin Total 0.5 0.2 - 1.2 mg/dL 07/20/2023 4:23 PM [facility] Alkaline Phosphatase 84 40 - 150 U/L 07/20/2023 4:23 PM [facility] ALT 6 5 - 55 U/L 07/20/2023 4:23 PM [facility] AST 21 5 - 34 U/L 07/20/2023 4:23 PM [facility] Anion Gap 13 6 - 16 07/20/2023 4:23 PM [facility] BUN/Creatinine Ratio 15 7 - 23 07/20/2023 4:23 PM [facility] Osmolality Calculated 279 275 - 295 mOsm/kg 07/20/2023 4:23 PM [facility] Albumin/Globulin Ratio 1.0(L) 1.1 - 2.3 07/20/2023 4:23 PM [facility] eGFR by CKD-EPI 89(L) >=90 mL/min/1.7 3 m2 07/20/2023 4:23 PM [facility] Blood BLOOD SPECIMEN / Unknown Lab Venipuncture / Unknown 07/20/2023 3:25 PM SITE OPERATIONS MANAGER 07/20/2023 4:01 PM SITE OPERATIONS MANAGER Mason Rico MD LAB - CHEMISTRY NATALIA BOWSER [facility] [place] [address], [facility] [phone] * XR CHEST 2VW (07/20/2023 2:59 PM SITE OPERATIONS MANAGER) Only the most recent of3 resultswithin the time period is included. Anatomical Region Laterality Modality Chest Radiographic Nelly ging 07/21/2023 11:0 5 AM SITE OPERATIONS MANAGER Narrative 07/22/2023 7:16 AM SITE OPERATIONS MANAGER PROCEDURE: XR CHEST 2VW, DATE/TIME OF EXAM: 07/20/2023 3:00 PM, LOCATION [facility] INDICATION: D49.89: Intra-abdominal tumor COMPARISON: None. TECHNIQUE: Frontal and lateral radiograph of the chest. FINDINGS/IMPRESSION: Mild bibasilar atelectatic changes. There is no focal consolidation, pleural effusion, or pneumothorax. The cardiac silhouette is a stable. There is atherosclerotic calcification of the aorta. The visible bony thorax is intact. Cholecystectomy clips. Report dictated by Andrew Jarvis MD, (Grocery Packer). Gustavo Jackson MD have personally reviewed and interpreted this examination/study. > Interpreting Provider: Gustavo Enriquez MD on 07/22/2023 7:16 AM Procedure Note Gustavo Enriquez MD - 07/22/2023 PROCEDURE: XR CHEST 2VW, DATE/TIME OF EXAM: 07/20/2023 3:00 PM, LOCATION [facility] INDICATION: D49.89: Intra-abdominal tumor COMPARISON: None. TECHNIQUE: Frontal and lateral radiograph of the chest. FINDINGS/IMPRESSION: Mild bibasilar atelectatic changes. There is no focal consolidation, pleural effusion, or pneumothorax. The cardiac silhouette is a stable. There is atherosclerotic calcification of the aorta. The visible bony thorax is intact. Cholecystectomy clips. Report dictated by Andrew Jarvis MD, (Grocery Packer). Gustavo Jackson MD have personally reviewed and interpreted this examination/study. > Interpreting Provider: Gustavo Enriquez MD on 07/22/2023 7:16 AM Mason Rico MD DIAGNOSTIC IMAGING O RDERABLES * EKG 12-LEAD (07/20/2023 1:12 PM SITE OPERATIONS MANAGER) Only the most recent of2 resultswithin the time period is included. Ventricular Rate 71 BPM [facility] QRS Duration ms 92 ms [facility] Q-T Interval ms 396 ms [facility] QTC Calculation (Bezet) 430 ms [facility] Calculated R [place]adin 23 degrees [facility] Calculated T [place]adin -105 degrees [facility] MUSE Interpretation EKG ATRIAL FIBRILLATION INCOMPLETE RIGHT BUNDLE BRANCH BLOCK SEPTAL INFARCT , AGE UNDETERMINED ABNORMAL ECG WHEN COMPARED WITH ECG OF 17-FEB-2021 10:17, SEPTAL INFARCT IS NOW PRESENT Confirmed by FRANCESCA YUAN [facility] ([id number]) on 07/24/2023 1:14:49 PM H MUSE 07/20/2023 1:12 PM SITE OPERATIONS MANAGER 07/24/2023 1:14 PM SITE OPERATIONS MANAGER Mason Rico MD ECG ORDERABLES [facility] M[facility] * CT ABDOMEN PELVIS W CONTRAST (03/22/2022 12:44 PM CDT) Only the most recent of10 resultswithin the time period is included. Anatomical Region Laterality Modality Abdomen, Pelvis Computed Tomogra phy 03/22/2022 1:05 PM CDT Impressions 03/22/2022 2:16 PM CDT Impression: 1.Development of a 1.5 cm hepatic dome lesion, concerning for recurrent disease. 2.Interval increase in size of a soft tissue lesion adjacent to the cecum, previously characterized as the appendix. The appendix is not definitely characterized on this examination, however may be anterior and superior to the cecum on sagittal images. This may represent a metastatic deposit/lymph node. A primary appendiceal lesion is considered less likely. 3.Previously noted hypoattenuating lesion adjacent to the right iliac artery, just distal to the bifurcation is no longer characterized. > Dictated by Quincy Mix D.O. (Grocery Packer) I, AVERY MACHUCA MD have personally reviewed and interpreted this examination/study. 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 TECHNIQUE: CT of the abdomen and pelvis was performed following the uneventful administration of 100 mL of Isovue 370 intravenous contrast according to standard protocol. Findings: Lower Chest: Mild bilateral dependent atelectasis is present in the visualized lung bases. The heart is mildly enlarged. Mild coronary artery disease is noted. No pericardial effusion is seen. Liver: There is a new ill-defined, mildly enhancing lesion in the subphrenic hepatic segment 8 (series 3, image 22; series 4, image 40). This lesion resides within the region of prior surgical resection, concerning for disease recurrence. There are multiple unchanged hypoattenuating lesions within the right hepatic lobe measuring up to 1.5 cm they represent cysts. The hepatic contour is smooth. The main portal vein is patent and nondilated. The hepatic veins are patent. Gallbladder and Bile Ducts: The gallbladder is surgically absent and the bile ducts are nondilated. Spleen: Numerous subcentimeter hypoattenuating observations are seen throughout the spleen, unchanged from several prior examinations dating back to 2020. However, these lesions have progressively increased in number from prior examinations dating back to 2016/2016. Pancreas: The pancreas is moderately atrophic. Adrenals: Normal. Kidneys: Cortical scarring is seen in the bilateral kidneys. No enhancing renal mass is noted. No hydronephrosis or nephrolithiasis is identified. No hydroureter is present. Gastrointestinal: The stomach and visualized loops of small bowel are unremarkable. Colonic diverticulosis without evidence of diverticulitis is seen. Normal appendix. Mesentery/Peritoneum/Retroperitoneum: The previously described soft tissue lesion adjacent to the cecum and previously thought to be the appendix has enlarged in size and now measures 2.1 x 1.7 x 1.4 cm in AP, TV, CC axis (series 3, image 91; series 4, image 39) and may represent a mesenteric lymph node versus metastatic deposit. The appendix is not clearly identified on this examination. There is a tubular air-filled structure seated anteriorly superior to the cecum (series 5 image 115), which may represent an appendix. The previously described hypoattenuating lesion anterior to the right psoas and adjacent to the right external iliac artery is no longer seen. Ventral hernia repair mesh is redemonstrated. Bladder: Normal. Reproductive Organs: The uterus is absent. Vasculature: Atherosclerotic calcification of the aorta and its branch vessels. Bones: Bone windows demonstrate no suspicious lytic or blastic lesions. The visible osseous structures are intact. Degenerative changes are seen in the spine. Soft tissues: Normal. Procedure Note Avery Machuca MD - 03/22/2022 PROCEDURE: CT ABDOMEN PELVIS W CONTRAST, DATE/TIME OF EXAM: 03/22/2022 12:45 PM, LOCATION [facility] INDICATION: 81-year-old female with history of metastatic granulosis cell tumor tothe liver (approximately 6 years prior) status post retroperitonealresection for recurrence (2020) COMPARISON: Multiple prior CTs of the abdomen and pelvis with contrast most recent dated 01/28/2021. TECHNIQUE: CT of the abdomen and pelvis was performed following the uneventful administration of 100 mL of Isovue 370 intravenous contrast according to standard protocol. Findings: Lower Chest: Mild bilateral dependent atelectasis is present in the visualized lung bases. The heart is mildly enlarged. Mild coronary artery disease isnoted. No pericardial effusion is seen. Liver: There is a new ill-defined, mildly enhancing lesion in the subphrenic hepatic segment 8 (series 3, image 22; series 4, image 40). This lesion resides within the region of prior surgical resection, concerning for disease recurrence. There are multiple unchanged hypoattenuating lesions within the right hepatic lobe measuring up to 1.5 cm they representcysts. The hepatic contour is smooth. The main portal vein is patent and nondilated. The hepatic veins are patent. Gallbladder and Bile Ducts: The gallbladder is surgically absent and the bile ducts are nondilated. Spleen: Numerous subcentimeter hypoattenuating observations are seen throughoutthe spleen, unchanged from several prior examinations dating back to 2020. However, these lesions have progressively increased in number from prior examinations dating back to 2015/2016. Pancreas: The pancreas is moderately atrophic. Adrenals: Normal. Kidneys: Cortical scarring is seen in the bilateral kidneys. No enhancing renalmass is noted. No hydronephrosis or nephrolithiasis is identified. No hydroureter is present. Gastrointestinal: The stomach and visualized loops of small bowel are unremarkable.Colonic diverticulosis without evidence of diverticulitis is seen. Normalappendix. Mesentery/Peritoneum/Retroperitoneum: The previously described soft tissue lesion adjacent to the cecum and previously thought to be the appendix has enlarged in size and nowmeasures 2.1 x 1.7 x 1.4 cm in AP, TV, CC axis (series 3, image 91; series 4,image 39) and may represent a mesenteric lymph node versus metastatic deposit. The appendix is not clearly identified on this examination. There is a tubular air-filled structure seated anteriorly superior to the cecum (series 5 image 115), which may represent an appendix. The previously described hypoattenuating lesion anterior to the rightpsoas and adjacent to the right external iliac artery is no longer seen.Ventral hernia repair mesh is redemonstrated. Bladder: Normal. Reproductive Organs: The uterus is absent. Vasculature: Atherosclerotic calcification of the aorta and its branch vessels. Bones: Bone windows demonstrate no suspicious lytic or blastic lesions. The visible osseous structures are intact. Degenerative changes are seen inthe spine. Soft tissues: Normal. Impression: 1.Development of a 1.5 cm hepatic dome lesion, concerning for recurrent disease. 2.Interval increase in size of a soft tissue lesion adjacent to thececum, previously characterized as the appendix. The appendix is not definitely characterized on this examination, however may be anterior and superiorto the cecum on sagittal images. This may represent a metastaticdeposit/lymph node. A primary appendiceal lesion is considered less likely. 3.Previously noted hypoattenuating lesion adjacent to the right iliac artery, just distal to the bifurcation is no longer characterized. > Dictated by Quincy Mix D.O. (Grocery [employer]acker) I, AVERY MACHUCA MD have personally reviewed and interpreted this examination/study. > Interpreting Provider: AVERY MACHUCA MD on 03/22/2022 2:16 PM Mason Rico MD CT ORDERABLES * Neuraxial Block (06/23/2021 11:56 AM SITE OPERATIONS MANAGER) Wesley Beasley MD - 06/23/2021 11:56 AM SITE OPERATIONS MANAGER Wesley Garcia MD 06/23/2021 11:58 AM Neuraxial Block Note Pre-Procedure: Procedure Name: Neuraxial Block Wesley Garcia MD GENERAL ANESTHESIA O ANA * ETT LINE PERFORMABLE (03/03/2021 8:35 AM CDT) Narrative Casey London Anes Asst - 03/03/2021 8:35 AM CDT Casey London Anes Asst 03/03/2021 8:38 AM Endotracheal Tube Placement: Patient Location: OR. Intubation Event Date/Time: 03/03/2021 7:49 AM Procedure: intubation (88387). Procedure Section: Sedation: under general anesthesia. Indications for Airway Management: anesthesia Procedure pretreatments used? No Induction: standard IV Patient Position: supine Mask Ventilation: easy with oral airway. Blade Type: Evie Blade Size: 3 Laryngoscopy View: grade 1 (full cords) Tube: endotracheal tube Placement: oral Tube type: cuff - inflated Tube Size (MM): 7 Depth of Insertion (CM): 20 Measured From: gums Cuff Inflated With: air Number of Attempts: 1. Placement Verified By: direct visualization, bilateral breath sounds, chest auscultation and CO2 monitor CXR Findings: ETT in proper place. Tube secured with: ETT putnam and adhesive tape. Dentition unchanged? Yes Difficult Airway? No. Procedure Start Time: 03/03/2021 7:49 AM. Procedure End Time: 03/03/2021 7:49 AM. Procedure Total Time: 0 minutes. Staff Section Anesthesia Provider: Casey London Anes Asst, Performed the procedure Wesley Garcia MD GENERAL ANESTHESIA O ANA * EPIDURAL BLOCK PERF (03/03/2021 7:37 AM CDT) Wesley Beasley MD - 03/03/2021 7:37 AM CDT Wesley Garcia MD 06/23/2021 11:58 AM Neuraxial Block Note Pre-Procedure: Procedure Name: Neuraxial Block Patient Location: Pre-op Indications: at surgeon's request, at patient's request, postop pain management, surgical anesthesia and procedure for pain Pre-Anesthetic Checklist: Patient identified, IV Checked, Risks and benefits discussed, Surgical consent verified, Monitors and equipment, Site examined, Pre-op evaluation done, Time-out performed, Informed consent obtained, Questions answered/anesthesia questions answered and Allergies reviewed Anticoagulation/ Anti-thrombosis status confirmed? Yes Monitors: BP, continuous pluse ox, EKG and End tidal CO2 Patient Condition: awake and sedated, meaningful contact maintained throughout procedure Patient Sedated? Yes Sedation Type: mild Sedation Agents: fentaNYL (PF) (SUBLIMAZE) injection, 50 mcg midazolam (VERSED) injection, 1 mg Procedure: Block Type: Epidural Prep: Chloraprep Sterile Field: mask, cap/hat, sterile established and sterile gloves Approach: midline Skin was localized? Yes Skin localized with: lidocaine (XYLOCAINE) 1 % injection, 3 mL Epidural Block: Is this procedure for postop pain? Yes Reason: anticipated abdominal pain Needle Type: Tuohy Needle gauge: 18 G Placement Site: Other - please comment (T9) Number of Attempts: 1 Loss of Resistance: saline Catheter threaded to (cm): 3 Catheter length at skin (cm): 10 CSF Aspirated from catheter: No Blood Aspirated: No Test Dose: lidocaine 1.5% with 1-200,000 epinephrine mL at 03/03/2021 7:30 AM Test Dose Response: No Epidural Local Anesthetic Used? No Events: other - please comment (initially blood back to the cather, aspiration was negative after catheter was withdrawn 1 cm.) Degree of difficulty: moderate Procedure Tolerance: tolerated well Sensory Level: T9 Motor Blockade: No Position post procedure: supine Start Time: 03/03/2021 7:22 AM End Time: 03/03/2021 7:30 AM Total Time: 8 Staff: Anesthesia Provider: Maura Dorsey MD Provider #1: Leonel Johnson MD Additional Notes: I was present the entire time and supervised the epidural catheter placement. For post op pain management. Maura Dorsey MD. Maura Dorsey MD GENERAL ANESTHESIA O RDERABLES * SARS-COV-2 (COVID-19) PRE-SURGICAL/PROCEDURE (02/27/2021 11:14 AM CDT) Pathologist [facility] COVID-19 PCR Not detected Not detected 02/27/2021 6:33 PM CDT [facility] Microbiology SPECIMEN FROM NASOPHARYNGEAL STRUCTURE / Unknown Collection / Unknown 02/27/2021 11:14 AM CDT 02/27/2021 11:20 AM CDT Narrative [facility] - 02/27/2021 6:33 PM CDT This nucleic acid amplification assay performance was validated by [facility]. This test has been authorized by the Food and Drug administration (FDA)under an Emergency Use Authorization (EUA). This test has been validated in accordance with the FDA's guidance document Policy for Diagnostic Testing in Laboratories Certified to perform High Complexity Testing under CLIA prior to Emergency Use Authorization for Coronavirus Disease-2019 during the Public Health Emergency issued on July 21, 2019. FDA independent review of this validation is pending. This test is only authorized for the duration of time the declaration that circumstances exist justifying the authorization of emergency use of in vitro diagnostic tests for detection of SARS-CoV-2 virus and/or diagnosis of COVID-19 infection under section 564(b)(1) of the Act, 21 U.S.C 360bbb-3 (b)(1), unless the authorization is terminated or revoked sooner. Fact Sheets for this EUA assay are available upon request. Mason Rico MD LAB - MICROBIOLOGY O RDERABLES [facility] [address] [phone] * CULTURE URINE (12/31/2019 11:53 AM CDT) Only the most recent of6 resultswithin the time period is included. Pathologist [facility] Culture [facility] Comment: CULTURE, URINE, ROUTINE Micro Number: [id number] Test Status: Final Specimen Source: URINE, CLEAN CATCH Specimen Quality: Adequate Result: Multiple organisms present, each less than 10,000 CFU/mL. These organisms, commonly found on external and internal genitalia, are considered to be colonizers. No further testing performed. Test Performed at: [facility] [address] [place] [phone] SHRADDHA OCONNOR DO,MPH Urine MID-STREAM URINE SPECIMEN / Unknown 12/31/2019 11:53 AM CDT 12/31/2019 12:15 PM CDT Jacobo Clement MD LAB - MICROBIOLOGY O RDERABLES [facility] [address] [place] [address] * CARDIAC RHYTHM STRIP ORDER (07/16/2019 11:11 PM SITE OPERATIONS MANAGER) Only the most recent of2 resultswithin the time period is included. Narrative 07/16/2019 11:11 PM SITE OPERATIONS MANAGER Ordered by an unspecified provider. Scanned Document CARDIAC SERVICES ORD ERABLES * APHERESIS/TRANSFUSION ORDER (07/16/2019 11:10 PM SITE OPERATIONS MANAGER) Narrative 07/16/2019 11:10 PM SITE OPERATIONS MANAGER Ordered by an unspecified provider. Scanned Document NURSING - VITAL SIGN S AND ASSESSMENT * PT-INR (07/13/2019 6:55 AM SITE OPERATIONS MANAGER) Only the most recent of2 resultswithin the time period is included. PT 13.2 12.1 - 14.8 sec 07/13/2019 7:10 AM SITE OPERATIONS MANAGER [facility] INR 1.1 0.9 - 1.1 07/13/2019 7:10 AM SITE OPERATIONS MANAGER [facility] Blood BLOOD SPECIMEN / Unknown Venipuncture / Unknown 07/13/2019 6:55 AM SITE OPERATIONS MANAGER 07/13/2019 6:57 AM SITE OPERATIONS MANAGER Narrative [facility] - 07/13/2019 7:10 AM SITE OPERATIONS MANAGER Conventional Warfarin Anticoagulant Therapy: INR Reference Range: 2.0-3.0 Intensive Warfarin Anticoagulant Therapy: INR Reference Range: 2.5-3.5 Sriram Shannon MD LAB - COAGULATION ORDERABLES Performing Organization Address City/[facility]/ZIP Co de Phone Number [facility] [address] [place] [address] * (ABNORMAL) CREATININE BLOOD - POCT (IP) [facility] (05/28/2019 11:51 AM SITE OPERATIONS MANAGER) Only the most recent of6 resultswithin the time period is included. Creatinine POCT 1.04 0.3 - 1.3 mg/dL [facility] eGFR POCT 54(A) 60 ml/min [facility] Blood BLOOD SPECIMEN / Unknown 05/28/2019 11:51 AM SITE OPERATIONS MANAGER Mason Rico MD LAB - POINT OF CARE ORDERABLES Performing Organization Address City/[facility]/ZIP Co de Phone Number [facility] [address] [place] [address], [facility] [phone] * MAMMOGRAM (04/16/2019) Anatomical Region Laterality Modality Other Historical Provider MD SCANNING ONLY * URINALYSIS - POINT OF CARE (AMB) [facility] (11/27/2018) Specific [place] UA 1.015 pH UA 6 WBC UA ++ Nitrite UA n Protein UA 30 Glucose UA n Ketones UA POCT n Urobilinogen UA n Bilirubin UA POCT n Blood Urine POCT about 250 Urine URINE / Unknown 11/27/2018 Jacobo Clement MD LAB - POINT OF CARE ORDERABLES * CULTURE URINE REFLEXED (01/12/2018 1:20 PM CDT) Pathologist [facility] Reflexive Urine Culture CULTURE INDICATED - RESULTS TO FOLLOW [facility] Comment: Test Performed at: [facility] [address] [place] [address] SHRADDHA OCONNOR DO,MPH 01/12/2018 1:20 PM CDT 01/12/2018 1:20 PM CDT Jacobo Clement MD LAB - MICROBIOLOGY O RDERABLES Performing Organization Address City/[facility]/ZIP Co de Phone Number [facility] [address] [place] [address] * (ABNORMAL) URINALYSIS W/MICROSCOPIC REFLEX TO CULTURE (01/12/2018 1:20 PM CDT) Color UA YELLOW YELLOW [facility] Appearance CLEAR CLEAR [facility] Specific [place] UA 1.008 1.001 - 1.035 [facility] pH UA 7.5 5.0 - 8.0 [facility] Glucose UA NEGATIVE NEGATIVE [facility] Bilirubin UA NEGATIVE NEGATIVE [facility] Ketone UA NEGATIVE NEGATIVE [facility] Blood UA NEGATIVE NEGATIVE [facility] Protein UA NEGATIVE NEGATIVE [facility] Nitrite NEGATIVE NEGATIVE [facility] Leukocyte Esterase 1+(A) NEGATIVE [facility] WBC UA 0-5 < OR = 5 /HPF [facility] RBC UA NONE SEEN < OR = 2 /HPF [facility] Epithelial Cell UA 0-5 < OR = 5 /HPF [facility] Bacteria UA NONE SEEN NONE SEEN /HPF [facility] Hyaline Casts NONE SEEN NONE SEEN /LPF [facility] Comment: Test Performed at: [facility] [address] [place] [address] SHRADDHA OCONNOR DO,MPH Urine URINE SPECIMEN OBTAINED BY CLEAN CATCH PROCEDURE / Unknown 01/12/2018 1:20 PM CDT 01/12/2018 1:20 PM CDT Jacobo Clement MD LAB - URINALYSIS ORD ERABLES [facility] [address] [place] [address] * (ABNORMAL) URINALYSIS ROUTINE W/REFLEX TO CULTURE (12/19/2016 5:29 PM CDT) Color UA Yellow Straw, Yellow, Dark Yellow 12/19/2016 5:49 PM CDT [facility] Clarity UA Cloudy 12/19/2016 5:49 PM CDT [facility] Specific Maybeury UA 1.013 1.005 - 1.030 12/19/2016 5:49 PM CDT [facility] pH UA 6.5 5.0 - 8.0 pH 12/19/2016 5:49 PM CDT [facility] Protein UA Negative Negative 12/19/2016 5:49 PM CDT [facility] Blood UA 1+(A) Negative 12/19/2016 5:49 PM CDT [facility] Leukocyte UA 3+(A) Negative 12/19/2016 5:49 PM CDT [facility] Nitrite UA Negative Negative 12/19/2016 5:49 PM CDT [facility] Glucose UA Negative Negative 12/19/2016 5:49 PM CDT [facility] Ketone UA 3+(A) Negative 12/19/2016 5:49 PM CDT [facility] Bilirubin UA Negative Negative 12/19/2016 5:49 PM CDT [facility] Urobilinogen UA 1.0 0.1 - 1.0 EU/dL 12/19/2016 5:49 PM CDT [facility] WBC UA Auto >100(A) 0-2, 2-5 # /hpf 12/19/2016 5:49 PM CDT [facility] RBC UA Auto 10-20(A) 0-2, 2-5 # /hpf 12/19/2016 5:49 PM CDT [facility] Epithelial Cell UA Auto 20-50(A) 0-2, 2-5 # /hpf 12/19/2016 5:49 PM CDT [facility] Bacteria UA Auto 2+(A) None seen 12/20/19 17 5:49 PM CDT [facility] Hyaline Casts UA Auto 2-5(A) 0 - 2 #/lpf 12/19/2016 5:49 PM CDT [facility] Reflex Status Culture to follow 12/19/2016 5:49 PM CDT [facility] Urine URINE SPECIMEN OBTAINED BY CLEAN CATCH PROCEDURE / Unknown Collection / Unknown 12/19/2016 5:29 PM CDT 12/19/2016 5:36 PM CDT Olivia Mckeon MD LAB - URINALYSIS ORD ERABLES Performing Organization Address City/State/[facility] Co de Phone Number [facility] [address] [place] [address] * XR ABDOMEN 1 VW (12/18/2016 4:20 AM CDT) Anatomical Region Laterality Modality Abdomen Radiographic Nelly ging 12/18/2016 7:02 AM CDT Narrative 12/18/2016 7:05 AM CDT EXAMINATION: Abdomen one view HISTORY: Nasogastric tube placement FINDINGS: A nasogastric tube terminates in the gastric antrum with the side-port in the gastric body. There are partially imaged mildly dilated loops of small and large bowel in the mid abdomen in a pattern most likely representing an ileus with skin tra in the left lower quadrant. Procedure Note Tiffanie Merino MD - 12/18/2016 EXAMINATION: Abdomen one view HISTORY: Nasogastric tube placement FINDINGS: A nasogastric tube terminates in the gastric antrum with the side-port in the gastric body. There are partially imaged mildly dilated loops of small and large bowel in the mid abdomen in a pattern most likely representing an ileus with skin tra in the left lower quadrant. Olivia Mckeon MD DIAGNOSTIC IMAGING O RDERABLES * SODIUM URINE RANDOM (12/17/2016 11:18 AM CDT) Sodium Urine 149 mmol/L 12/17/2016 12:02 PM CDT [facility] Urine URINE SPECIMEN OBTAINED BY CLEAN CATCH PROCEDURE / Unknown Collection / Unknown 12/17/2016 11:18 AM CDT 12/17/2016 11:34 AM CDT Maura Lobo MD LAB - URINE CHEMISTR Y ORDERABLES Performing Organization Address [facility] Co de Phone Number [facility] [address] [place] [address] * CREATININE URINE RANDOM (12/17/2016 11:18 AM CDT) Creatinine Urine 140 mg/dL 12/17/2016 12:02 PM CDT [facility] Urine URINE SPECIMEN OBTAINED BY CLEAN CATCH PROCEDURE / Unknown Collection / Unknown 12/17/2016 11:18 AM CDT 12/17/2016 11:34 AM CDT Maura Lobo MD LAB - URINE CHEMISTR Y ORDERABLES Performing Organization Address [facility] Co de Phone Number [facility] [address] [place] [phone] * GROSS + MICRO EXAM (STL) (12/16/2016 11:26 AM CDT) Case Report Surgical Pathology Report Case: [id number] Authorizing Provider: Jacobo Clement MD Collected: 12/16/2016 11:26 AM Ordering Location: [facility] Received: 12/16/2016 03:25 PM Pathologist: Mere Calderon MD Specimen: Tumor, Pelvic Tumor 12/20/2016 12:[address] [facility] Final Diagnosis 1. 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 Gross Description The specimen is received fixed in formalin in one container for gross and microscopic examination, labeled with the patient's name, Mary So, and pelvic tumor, and consists of two fragments of membranous soft, pink-corey tissue measuring 4 x 2.2 x 0.2 cm and 2.4 x 1.1 x 0.1 cm. Also received in the container are multiple free floating fragments of soft, pink-corey, fatty tissue with an aggregate measurement of 1.4 cm x 1.1 x 04 cm. Snubber sections of the membranous portion of the specimen are submitted as A1 through A3. Snubber sections of the fat are submitted as A4. IA/n 12/20/2016 12:[address] [facility] Microscopic Description Sections of the pelvic tumor show a cystic lesion composed of sheets of cells with pale cytoplasm and centrally located nuclei with granular chromatin and absent nucleoli. To confirm recurrent/metastatic granulosa cell tumor, immunostains with betancourt-keratin, calretinin, and inhibin are done. Inhibin and calretinin are positive. Pankeratin is negative. Findings are consistent with recurrent/metastatic granulosa cell tumor. IA/kf 12/20/2016 12:[address] [facility] Disclaimer All histochemical and/or immunohistochemical results are interpreted with controls that demonstrate appropriate staining reactions before reporting results. Note on use of immunocytochemistry reagents: This test was developed and its performance characteristic determined by [facility], Department of Laboratory Medicine. It has not been cleared or approved by the U.S. Food and Drug Administration (FDA). The FDA has determined that such clearance or approval is not necessary. The test is used for clinical purpose. It should not be regarded as investigational or for research. This laboratory is certified to perform high complexity testing. 12/20/2016 12:[address] [facility] Embedded Images 12/20/2016 12:[address] [facility] Pathology/Cytolo gy TUMOR TISSUE SPECIMEN / Unknown 12/16/2016 11:26 AM CDT 12/16/2016 3:25 PM CDT Jacboo Clement MD LAB - PATHOLOGY/CYTO LOGY ORDERABLES Performing Organization Address City/[facility]/ZIP Co de Phone Number [facility] [address] [place], [place] [phone] * CYTOLOGY NON-FISH BAIT PICKER PANEL (STL) (12/16/2016 10:18 AM CDT) Case Report Cytology Non Silver Wrapper Report Case: [id number] Authorizing Provider: Jacobo Clement MD Collected: 12/16/2016 10:18 AM Ordering Location: [facility] Received: 12/16/2016 03:32 PM Pathologist: Sandra Washington MD Specimen: Urine Cath, Urine 12/17/2016 2:49 PM CDT [facility] Final Diagnosis 1. Urine from catheter, smear and cell block: -- Benign urothelial cells admixed with numerous mixed inflammatory cells -- No diagnostic evidence of malignancy [place]/ 12/17/2016 2:49 PM CDT [facility] Gross Description Received is 35 mL of gold fluid. WA/ 12/17/2016 2:49 PM CDT [facility] Microscopic Description The smear and the cell block are cellular, and are comprised of predominantly neutrophils, admixed with rare lymphocytes and histiocytes. Rare urothelial cells, some with degenerative changes are seen. There is no diagnostic evidence of malignancy. SD/ 12/17/2016 2:49 PM CDT [facility] Embedded Images 12/17/2016 2:49 PM CDT [facility] Pathology/Cytolo gy URINE SPECIMEN COLLECTION, CATHETERIZED / Unknown 12/16/2016 10:18 AM CDT 12/16/2016 3:32 PM CDT Jacobo Clement MD LAB - PATHOLOGY/CYTO LOGY ORDERABLES Performing Organization Address City/[facility]/ZIP Co de Phone Number [facility] [address] [place], [place] [phone] * BLOOD TYPE VERIFICATION (12/16/2016 8:36 AM CDT) ABO A 12/16/2016 9:14 AM CDT [facility] Rh Type Positive 12/16/2016 9:14 AM CDT [facility] Blood Bank BLOOD SPECIMEN / Unknown Lab Venipuncture / Unknown 12/16/2016 8:36 AM CDT 12/16/2016 8:36 AM CDT Jacobo Clement MD LAB - BLOOD BANK ORD ERABLES [facility] [address] [place] [address], [facility] * (ABNORMAL) URINALYSIS ROUTINE AUTO (12/16/2016 7:33 AM CDT) Color UA Yellow Straw, Yellow, Dark Yellow 12/16/2016 2:18 PM CDT [facility] Clarity UA Turbid 12/16/2016 2:18 PM CDT [facility] Specific Maybe[place] UA 1.022 1.005 - 1.030 12/16/2016 2:18 PM CDT [facility] pH UA 6.0 5.0 - 8.0 pH 12/16/2016 2:18 PM CDT [facility] Protein UA 1+(A) Negative 12/16/2016 2:18 PM CDT [facility] Blood UA 2+(A) Negative 12/16/2016 2:18 PM CDT [facility] Leukocyte UA 3+(A) Negative 12/16/2016 2:18 PM CDT [facility] Nitrite UA Negative Negative 12/16/2016 2:18 PM CDT [facility] Glucose UA Negative Negative 12/16/2016 2:18 PM CDT [facility] Ketone UA 2+(A) Negative 12/16/2016 2:18 PM CDT [facility] Bilirubin UA Negative Negative 12/16/2016 2:18 PM CDT [facility] Urobilinogen UA 0.2 0.1 - 1.0 EU/dL 12/16/2016 2:18 PM CDT [facility] WBC UA Auto Reflex to manual(A) 0-2, 2-5 # /hpf 12/16/2016 2:18 PM CDT [facility] RBC UA Auto Reflex to manual(A) 0-2, 2-5 # /hpf 12/16/2016 2:18 PM CDT [facility] Epithelial Cell UA Auto Reflex to manual(A) 0-2, 2-5 # /hpf 12/16/2016 2:18 PM CDT [facility] Bacteria UA Auto Reflex to manual(A) None seen 12/16/2016 2:18 PM CDT [facility] Hyaline Casts UA Auto Reflex to manual(A) 0 - 2 #/lpf 12/16/2016 2:18 PM CDT [facility] Urine URINE SPECIMEN OBTAINED BY CLEAN CATCH PROCEDURE / Unknown Collection / Unknown 12/16/2016 7:33 AM CDT 12/16/2016 1:47 PM CDT Jacobo Clement MD LAB - URINALYSIS ORD ERABLES Performing Organization Address City/[facility]/ZIP Co de Phone Number [facility] [address] [place] [address] * (ABNORMAL) URINALYSIS MICROSCOPIC ONLY (12/16/2016 7:33 AM CDT) RBC UA 20-50(A) 0-2, 2-5 # /hpf 12/16/2016 2:53 PM CDT [facility] WBC UA >100(A) 0-2, 2-5 # /hpf 12/16/2016 2:53 PM CDT [facility] Bacteria UA 2+(A) None Seen 12/16/2016 2:53 PM CDT [facility] Epithelial Cell UA 0-2 0-2, 2-5 # /hpf 12/16/2016 2:53 PM CDT [facility] Hyaline Casts 0-2 0 - 2 # /lpf 12/16/2016 2:53 PM CDT [facility] Amorphous Phosphate Crystals 1+(A) None Seen 12/16/2016 2:53 PM CDT [facility] Urine URINE SPECIMEN OBTAINED BY CLEAN CATCH PROCEDURE / Unknown Collection / Unknown 12/16/2016 7:33 AM CDT 12/16/2016 1:47 PM CDT Jacobo Clement MD LAB - URINALYSIS ORD ERABLES [facility] [address] [place] [address] * PT PTT PANEL (12/16/2016 7:33 AM CDT) PT 10.9 9.5 - 11.6 sec 12/16/2016 10:07 AM CDT [facility] INR 1.1 0.9 - 1.1 12/16/2016 10:07 AM CDT [facility] PTT 22.5 21.0 - 32.0 sec 12/16/2016 10:07 AM CDT [facility] Blood BLOOD SPECIMEN / Unknown Venipuncture / Unknown 12/16/2016 7:33 AM CDT 12/16/2016 8:24 AM CDT Narrative [facility] - 12/16/2016 10:07 AM CDT Conventional Warfarin Anticoagulant Therapy: INR Reference Range: 2.0-3.0 Intensive Warfarin Anticoagulant Therapy: INR Reference Range: 2.5-3.5 Heparin Therapeutic Range for PTT: 47.7 - 68.6 seconds. Jacobo Clement MD LAB - COAGULATION OR DERABLES Performing Organization Address [facility] Co de Phone Number [facility] [address] [place] [id number] * PATHOLOGY/GENETICS HISTORICAL-ONBASE (12/16/2016) Only the most recent of2 resultswithin the time period is included. 12/16/2016 Historical Provider LAB - CHEMISTRY O RDERAASYA Performing Organization Address [facility] Co de Phone Number [facility] [address] * LAB HISTORICAL RESULTS-ONBASE (12/16/2016) Only the most recent of6 resultswithin the time period is included. 12/16/2016 Historical Provider LAB - CHEMISTRY O RDERAASYA Performing Organization Address [facility] Co de Phone Number [facility] [address] * XR CHEST 1VW PORTABLE (07/24/2015 5:53 AM SITE OPERATIONS MANAGER) Only the most recent of3 resultswithin the time period is included. Anatomical Region Laterality Modality Chest Other Impressions 07/24/2015 2:22 PM SITE OPERATIONS MANAGER Impression: There has been interval removal of the enteric tube. A small right apical pneumothorax is slightly decreased. There is bibasilar atelectasis/airspace disease, right greater than left, increased from the prior exam. There are small bilateral pleural effusions, unchanged. No left pneumothorax is seen. The cardiomediastinal silhouette is normal. Dictated by Donald Gautam MD (vice president for philanthropy) This report was approved by Omero Gautam on 07/24/2015 2:[address] MEY Jackson M.D. have personally reviewed and interpreted this examination/study. This report was electronically signed by MEY CALDERON M.D. on 07/24/2015 2:22 PM . Narrative 07/24/2015 2:22 PM SITE OPERATIONS MANAGER Exam: Portable Chest X-ray, 1 view Date: 07/24/2015 5:53 AM History: R apical pneumo f/u Comparison: 07/23/2015 Findings/ Procedure Note Ariela Calderon MD - 08/20/2017 Exam: Portable Chest X-ray, 1 view Date: 07/24/2015 5:53 AM History: R apical pneumo f/u Comparison: 07/23/2015 Findings/ IMPRESSION Impression: There has been interval removal of the enteric tube. A small right apical pneumothorax is slightly decreased. There isbibasilar atelectasis/airspace disease, right greater than left, increasedfrom the prior exam. There are small bilateral pleural effusions,unchanged. No left pneumothorax is seen. The cardiomediastinal silhouette is normal. Dictated by Donald Gautam MD (vice president for philanthropy) This report was approved by Omero Gautam on 07/24/2015 2:[address] MEY Jackson M.D. have personally reviewed and interpreted thisexamination/study. This report was electronically signed by MEY CALDERON M.D. on07/24/2015 2:22 PM . Mason Rico MD DIAGNOSTIC IMAGING O RDERABLES * (ABNORMAL) BLOOD GASES ART COMPLETE [facility] OR (07/22/2015 8:22 AM SITE OPERATIONS MANAGER) pH Arterial 7.38 7.35 - 7.45 [facility] pCO2 Arterial 36 35 - 45 mmHg [facility] pO2 Arterial 222(H) 71 - 95 mmHg [facility] HCO3 Arterial 20.4(L) 22.0 - 26.0 mmol/L [facility] TCO2 Arterial 21.5(L) 25.0 - 29.0 mmol/L [facility] Base Excess Arterial -4.1(L) -2.0 - 2.0 mmol/L [facility] Hemoglobin Arterial 12.3 12.0 - 15.5 g/dL [facility] Oxyhemoglobin Arterial 98.4 95.0 - 100.0 % [facility] Carboxyhemoglobin 0.3 0.0 - 3.0 % [facility] Methemoglobin 0.5 0.0 - 2.0 % [facility] Ionized Calcium Whole Blood 1.14 mmol/L [facility] Adjusted Ionized Calcium 1.13(L) 1.19 - 1.34 mmol/L [facility] Sodium Whole Blood 131(L) 135 - 145 mmol/L [facility] Potassium Whole Blood 3.9 3.5 - 5.5 mmol/L [facility] Chloride Whole Blood 102 101 - 111 mmol/L [facility] Glucose Whole Blood 115(H) 70 - 110 mg/dL [facility] Lactic Acid Whole Blood 1.1 0.5 - 3.4 mmol/L [facility] Blood specimen (specimen) 07/22/2015 8:22 AM SITE OPERATIONS MANAGER 07/22/2015 8:22 AM SITE OPERATIONS MANAGER Mason Rico MD LAB - BLOOD GASES OR DERABLES [address] [phone] * CROSSMATCH RBC LEUKOREDUCED (07/22/2015 7:29 AM SITE OPERATIONS MANAGER) Unit RBC-WBCD [id number] 3 returned [facility]LO[facility]ODU[facility] (BEAKER) Unit RBC-WBCD [id number] 1 returned [facility] (BEAKER) 07/22/2015 7:29 AM SITE OPERATIONS MANAGER 07/22/2015 7:29 AM SITE OPERATIONS MANAGER Narrative [facility] (BEAKER) - 07/22/2015 7:29 AM SITE OPERATIONS MANAGER # of Units->4 Mason Rico MD LAB - BLOOD BANK ORD ERABLES [facility]LO[facility]ANK PR[facility]CTS (BEAKER) * ENDOSCOPIC ULTRASOUND, UPPER (06/27/2015 11:07 AM SITE OPERATIONS MANAGER) Report Endoscopy POC _ Patient Name: Mary So Procedure Date: 06/27/2015 11:07 AM Date of : 1940 Admit Type: Outpatient Age: 74 Gender: Female Attending MD: Sriram Ambriz MD _ Procedure: Upper EUS Indications: Suspected mass in esophagus on CT scan Providers: Sriram Ambriz MD (Doctor), Rhiannon Elliott RN, Billy Guerrero, Adventure Therapist Referring MD: Giuseppe Urbina MD (Referring MD), Lalo Hart MD (Referring MD) Medicines: Monitored Anesthesia Care Complications: No immediate complications. _ Procedure: Pre-Anesthesia Assessment: - Prior to the procedure, a History and Physical was performed, and patient medications, allergies and sensitivities were reviewed. The patient's tolerance of previous anesthesia was reviewed. - The risks and benefits of the procedure and the sedation options and risks were discussed with the patient. All questions were answered and informed consent was obtained. - Patient identification and proposed procedure were verified prior to the procedure by the physician, the nurse and the roof truss machine tender. The procedure was verified in the endoscopy suite. - Pre-procedure physical examination revealed no contraindications to sedation. - ASA Grade Assessment: III - A patient with severe systemic disease. - After reviewing the risks and benefits, the patient was deemed in satisfactory condition to undergo the procedure. - The anesthesia plan was to use monitored anesthesia care (MAC). After obtaining informed consent, the endoscope was passed under direct vision. Throughout the procedure, the patient's blood pressure, pulse, and oxygen saturations were monitored continuously. The Endosonoscope was introduced through the mouth, and advanced to the second part of duodenum. The upper EUS was accomplished without difficulty. The patient tolerated the procedure well. Impression: - Normal esophagus. - Normal stomach. - Normal examined duodenum. - There was no sign of significant pathology in the esophagus. - No specimens collected. Findings: Endoscopic Finding : The examined esophagus was endoscopically normal. The entire examined stomach was endoscopically normal. The examined duodenum was endoscopically normal. Endosonographic Finding : There was no sign of significant endosonographic abnormality in the esophagus. No masses, no cysts and no wall thickening were identified. There were no paraesophageal masses or enlarged lymph nodes seen either. _ Recommendation: - follow-up with other treating physicians as scheduled Procedure Code(s): --- Professional --- 45836, Esophagogastroduoden oscopy, flexible, transoral; with endoscopic ultrasound examination limited to the esophagus, stomach or duodenum, and adjacent structures --- Technical --- 89072, Esophagogastroduoden oscopy, flexible, transoral; with endoscopic ultrasound examination limited to the esophagus, stomach or duodenum, and adjacent structures Diagnosis Code(s): --- Professional --- R93.3, Abnormal findings on diagnostic imaging of other parts of digestive tract --- Technical --- R93.3, Abnormal findings on diagnostic imaging of other parts of digestive tract CPT copyright 2014 [employer]. All rights reserved. The codes documented in this report are preliminary and upon gasoline tractor operator review may be revised to meet current compliance requirements. Attending Participation: I personally performed the entire procedure. Sriram Ambriz MD 06/27/2015 11:30:34 AM This report has been signed electronically. Number of Addenda: 0 Note Initiated On: 06/27/2015 11:07 AM [facility] 06/27/2015 11:0 7 AM SITE OPERATIONS MANAGER Sriram Ambriz MD GI PROCEDURE ORDERAB LES [facility] * PET CT SKULL TO MID THIGH (06/13/2015 11:04 AM SITE OPERATIONS MANAGER) Anatomical Region Laterality Modality Head, Lower Extremity Nuclear Me dicine 06/13/2015 11:1 0 AM SITE OPERATIONS MANAGER Impressions 06/13/2015 11:44 AM SITE OPERATIONS MANAGER No definite PET/CT evidence of malignancy. The reported mass above the liver and left thoracic mass are not apparent on this exam. However, evaluation is limited with this noncontrast CT. Recommend correlation with the prior CT. Narrative 06/13/2015 11:44 AM SITE OPERATIONS MANAGER Procedure: PET/CT study Referring physician: Dr. Hart HISTORY: 74-year-old female presenting with a 7 cm mass above the liver on the right and a left thoracic mass around the area of the esophagus on CT from an outside facility. 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 Evaluate for initial treatment strategy. TECHNIQUE: 11.5 mCi of F-18 FDG by IV in the right hand. PET/CT image acquisition from the base of the skull to upper thighs after approximately 61 minutes postinjection with a CT being low dose, noncontrast. No separate report for the CT was generated since it was used for attenuation correction and anatomic localization. Blood glucose level of the time of injection was 99 mg/DL. FINDINGS: No prior study is available for comparison. HEAD AND NECK: There is no abnormal FDG uptake. CHEST: A few subcentimeter mediastinal lymph nodes with mild FDG uptake, likely benign. There is no definite abnormal FDG avid mass in the region of the esophagus. However, evaluation is limited with this noncontrast CT. The lungs are clear with no evidence of pneumothorax or pleural effusion. Benign-appearing bilateral axillary nodes. ABDOMEN AND PELVIS: The liver, kidneys, adrenal glands, spleen and pancreas are grossly unremarkable. No definite abnormal FDG avid abdominal or pelvic lymph nodes. A small bowel containing ventral hernia is noted inferior to the umbilicus. Diverticulosis without evidence of diverticulitis. Mild atherosclerotic calcification within the aorta and iliac arteries. Benign-appearing bilateral inguinal nodes. For reference, SUV max of liver is 4.4. MUSCULOSKELETAL: Mild degenerative changes throughout the spine. There is no abnormal FDG avid lesion. Procedure Note Yasemin Escoto, DO - 06/13/2015 Procedure: PET/CT study Referring physician: Dr. Hart HISTORY: 74-year-old female presenting with a 7 cm mass above the liver on the right and a left thoracic mass around the area of the esophagus on CT from an outside facility. 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 Evaluate for initial treatment strategy. TECHNIQUE: 11.5 mCi of F-18 FDG by IV in the right hand. PET/CT image acquisition from the base of the skull to upper thighs after approximately 61 minutes postinjection with a CT being low dose, noncontrast. No separate report for the CT was generated since it was used for attenuation correction and anatomic localization. Blood glucose level of the time of injection was 99 mg/DL. FINDINGS: No prior study is available for comparison. HEAD AND NECK: There is no abnormal FDG uptake. CHEST: A few subcentimeter mediastinal lymph nodes with mild FDG uptake, likely benign. There is no definite abnormal FDG avid mass in the region of the esophagus. However, evaluation is limited with this noncontrast CT. The lungs are clear with no evidence of pneumothorax or pleural effusion. Benign-appearing bilateral axillary nodes. ABDOMEN AND PELVIS: The liver, kidneys, adrenal glands, spleen and pancreas are grossly unremarkable. No definite abnormal FDG avid abdominal or pelvic lymph nodes. A small bowel containing ventral hernia is noted inferior to the umbilicus. Diverticulosis without evidence of diverticulitis. Mild atherosclerotic calcification within the aorta and iliac arteries. Benign-appearing bilateral inguinal nodes. For reference, SUV max of liver is 4.4. MUSCULOSKELETAL: Mild degenerative changes throughout the spine. There is no abnormal FDG avid lesion. IMPRESSION No definite PET/CT evidence of malignancy. The reported mass above the liver and left thoracic mass are not apparent on this exam. However, evaluation is limited with this noncontrast CT. Recommend correlation with the prior CT. Lalo Hart MD NM ORDERABLES * PATHOLOGY/CYTOLOGY REPORT ORDER (05/28/2015) Provider Unknown LAB - PATHOLOGY/CYTO LOGY ORDERABLES * ENDOSCOPY ORDER (05/05/2015) Provider Unknown GI PROCEDURE ORDERAB LES * GROSS + MICRO EXAM (01/26/2006 2:34 PM CDT) Result CASE NUMBER [id number] Comment: ORDERING PHYSICIAN OMAIRA JEFFERSON SPECIMEN TYPE Colon Biopsy-sigmoid Date 01/26/2006 Physician Adrian Jefferson Gross Description The specimen is labeled with the patient's name, Mary So, and distal sigmoid. It consists of two 1 mm fragments of light corey tissue, all submitted in a single cassette. LW toy Microscopic Exam Sections show fragments of colonic mucosa with features of tubular adenoma. High grade dysplasia or malignancy is not seen. MC/db Diagnosis I. Distal sigmoid colon, biopsy -- Tubular adenoma MC/db Certified Welder db Pathologist Carol Calderon M.D. Snjimmie. 01/27/2006 1135 <1> CPT code 48924 MISCELLANEOUS SAMPLES / Unknown 01/26/2006 2:34 PM CDT 01/26/2006 2:34 PM CDT Historical Provider LAB - PATHOLOGY/C YTOLOGY ORDERABLES * FROZEN SECTION (07/09/2003 2:58 PM SITE OPERATIONS MANAGER) Result CASE NUMBER [id number] Comment: ORDERING PHYSICIAN MARGUERITE CLEMENT SPECIMEN TYPE Ovary with tube-left Date 07/09/2003 Physician Matthieu Clement Gross Description The specimen is received fresh from the O.R. labeled with the patient's name and left tube and ovary . The specimen consists of a 1,840 gram ovary and tube. The tube measures 11 x 0.4 cm. The ovary is somewhat triangular to irregular in shape and measures 18 cm. at the base, 25 cm. from bottom to the height x 9 cm. in width. The serosal surface is pink-corey, smooth and glistening. Serial sectioning through the mass shows solid tissue and multiple small cysts. The solid tissue is tracey yellow and shows areas of hemorrhage and necrosis. The cystic fluid is serosanguinous. Snubber sections through the heterogenous areas are submitted for FSA and FSB. Additional logistics service representative sections are submitted in cassettes C through J logistics service representative section of the fallopian tube are submitted in cassette K. IV/bk The next container is identified as liver biopsy and consists of cylindrical cores of yellowish tissue measuring 0.9 x 0.1 x 0.1 cm. The entire specimen is submitted in a single cassette labeled L. The next container is identified as vaginal adhesion and consists of a fragment of purplish tissue measuring 1.2 x 0.5 x 0.3 cm. It is sectioned and entirely submitted in cassette M. The next container is identified as right tube and ovary and consists of an ovary measuring 2 x 1 x 0.4 cm. with attached fallopian tube measuring 5 x 0.7 cm. with attached fragment of fibroadipose tissue measuring 5 x 3 x 1 cm. On sectioning through the ovary, the cut surface is uniformly tannish and smooth. The fallopian tube is grossly unremarkable. Snubber sections of the ovary and fallopian tube are submitted in cassette N. Cross section through the fragment of fibroadipose tissue doesn't reveal any lesions or nodules. Snubber sections are submitted in cassette O. The next container is identified as sigmoid adhesion and consists of an elongated fragment of tannish brown tissue measuring 6 cm. in length x 0.2 x 0.2 cm. It is entirely submitted in cassette P. The next container is identified as omentum and consists of bright yellowish fragment of adipose tissue measuring 37 x 14 cm. The specimen is serially sectioned and no lesion is identified. Snubber sections are submitted in cassettes Q and R. The next container is identified as ascites and consists of approximately 10 ml. of pinkish-red, non-translucent fluid. The specimen is entirely submitted for cell block preparation in cassette S. 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 The tumor is characterized by a proliferation of oval to slightly more angulated and spindled cells that have a pale nucleoplasm. The tumor cells show a longitudinal nuclear groove and ill defined and a scant amount of cytoplasm. These sections as well as numerous additional sections show a variety of patterns including an insular, trabecular and diffuse patterns, elongated ribbons and cords of tumor cells with intervening fibrous and edematous stroma. Cyst-like spaces lined by similar tumor cells is present as well. Mitotic activity is low. There are large areas of hemorrhage and areas of infarct-like necrosis. Focal areas with features of Call-Exner body formation is noted. The tumor cells are seen extending to the capsule without evidence of tumor implants on the ovarian surface either grossly or microscopically. Sections of the fallopian tube reveal no pathologic changes. A small paratubal hydatid cyst of Morgagni is noted. The liver tissue shows moderate degree of large droplet fatty metamorphosis and no evidence of tumor involvement. Patchy and rare foci of hepatocytonecrosis is noted. A few glycogen nuclei is seen as well. The central vein is unremarkable. Portal tracts for additional evaluation are not present. The `vaginal adhesion' shows mesothelial lined tissue with underlying adipose tissue and no evidence of tumor involvement. Focal fibrovascular adhesion formation is noted. The right ovary shows numerous corpora albicants and no pathologic changes. The right fallopian tube is likewise unremarkable. The sigmoid adhesion shows dense fibrovascular tissue and no evidence of tumor involvement. Sections of omentum are negative for malignancy. The ascitic fluid consists of numerous nests of mesothelial cells, some reactive and set within a background of fresh blood, malignant cells are not identified. GM/ Diagnosis FROZEN SECTION DIAGNOSIS I. Left tube and ovary FSA, FSB - Features of granulosa cell tumor (GM/RPT/) FINAL DIAGNOSIS I. Ovary, left, excision A. Adult granulosa cell tumor, FIGO stage 1a II. Fallopian tube, left, excision A. No pathologic diagnosis III. Liver, biopsy A. Fatty metamorphosis, moderate B. Negative for malignancy IV. Vaginal adhesion, biopsy A. Adhesion B. Negative for malignancy V. Right tube and ovary, excision A. No pathologic diagnosis . Sigmoid adhesion, biopsy A. Adhesion B. Negative for malignancy VII. Omentum, excision A. No pathologic diagnosis VIII. Ascitic fluid, cellblock A. Negative for malignant cells. B. Many mesothelial cells and blood present. GM/ Certified Welder [facility] Pathologist Anastasia Mckenzie M.D. Snomed. 07/11/2003 1305 <3> CPT code 21469 x2, 89242, 15742 x4, 72928, 75743 MISCELLANEOUS SAMPLES / Unknown 07/09/2003 2:58 PM SITE OPERATIONS MANAGER 07/09/2003 2:58 PM SITE OPERATIONS MANAGER Historical Provider LAB - PATHOLOGY/C YTOLOGY ORDERABLES * CYTOLOGY NON-FISH BAIT PICKER PANEL (07/09/2003 12:00 AM SITE OPERATIONS MANAGER) Result CASE NUMBER [id number] Comment: ORDERING PHYSICIAN MARGUERITE CLEMENT SPECIMEN TYPE Ascitic Fluid Date 07/11/[address] Clement Specimen Adequacy Satisfactory for evaluation. Cell Pathology single and small groups of benign mesothelial cells present, there is no evidence of malignancy. *Diagnosis negative for malignancy Snomed. 07/11/2003 1241 <1> Pathologist Carol Calderon M.D. CPT code 23416 MISCELLANEOUS SAMPLE S / Unknown 07/09/2003 07/10/2003 7:56 AM SITE OPERATIONS MANAGER Historical Provider LAB - PATHOLOGY/C YTOLOGY ORDERABLES Care Teams Public Records Officer Relationship Specialty Start Date End Date Charlette Lentz MD [address] [place] [address] PCP - General 04/01/22 Lexie Lynn, RN Registered Nurse 12/16/16
--- OUTSIDE RECORDS SUMMARY | 2024-07-02 14:24 | XMS_ITS | Continuity of Care Document ---
Author Organization [facility] Address [address] [place] [address] [place] [address] Phone Care Team Providers Care Pattern Puncher Name Role Phone Parveen Jamil CORDOBA Unavailable Unavailable Procedures Procedure Date Eye Exam Established Pt Visual Field Examination(s) SCODI, Posterior Segment Office/outpatient Visit, Est Special Eye Evaluation Visual Field Examination(s) Fundus Photography W/ Report Refraction QuantifEye/Optomap One Or More Rx Generated And Transmitted Office/outpatient Visit, Est Optic Nerve Head Eval No Script Special Eye Evaluation Visual Field Examination(s) Fundus Photography W/ Report QuantifEye Office/outpatient Visit, Est Visual Functional Status Assessed QuantifEye/Optomap Eye Promise Supplements Tax - Medical Advance Directives Directive Yes / No Effective Date File Name No Information Encounters Encounter Description Practice Location Reason(s) For Visit Diagnoses Date Provider Providers Copied on Encounter [facility], [address] [place] [address] [address], [place], [place], [id number], [place] tel:[phone] O[facility] No Information Parveen ADALID Negron. [address] [facility], [address], [address], . tel:[phone] Referring Provider: Rasta Johnson OD P, [address] [facility], [place], [address] . tel:[phone] Office/outpat ient Visit, [facility], [address] [place] [address] [address], [place], [place], [id number], tel:[phone] [facility] No Information Racquelfranciscoeny OD Rasta. [address] [facility], [place], [place], [address], [place]. tel:[phone] Referring Provider: Rasta Johnson OD P, [address] [facility], [place], [address] . tel:[phone] Office/outpat ient Visit, [facility], [address] [place] [address] [address], [place], [place], [id number], [place] tel:[phone] [facility] No Information Tadeoeny OD Rasta. [address] [place], [id number], [place]. tel:[phone] Referring Provider: Rasta Johnson OD P, [address] [place], [address] . tel:[phone] Office/outpat ient Visit, [facility], [address] [place] [address] [address], [place], [place], [address], [place] tel:[phone] [facility] No Information Tadeoeny OD Rasta. [address] [facility], [place], [place], [address], [place]. tel:[phone] Referring Provider: Rasta Johnson OD P, [address] [facility], [place], [address] . tel:[phone] Family History Family Member Type Diagnosis Age At Onset No Information Payers Payer name Insurance type Covered democrat ID Authoriza tion(s) [place] [id number] [place] Out Of [place] [id number] Social History Type Description Quantity Date Captured Comments Sex Female Smoking Status No Information Chief Complaint And Reason For Visit No Information Reason For Referral Reason For Referral No Information History Of Present Illness Encounter Date Complaint History Of Prese nt Illness No Information Functional Status Date Functional Assessmen t No Information Instructions Date Instruction Additional Infor mation No Information Assessments Type Assessment Date No Information Patient Care Teams Name Effective Dates (start - stop) Status Members No Information
--- OUTSIDE RECORDS SUMMARY | 2024-07-02 14:24 | XMS_ITS | Referral Summary ---
Author Organization [facility] D Address [address] [place] [address] Care Team Providers Care Supervising Airplane Pilot Name Role Phone Charlette Lentz MD Primary Care Provider [phone] Encounters Date Type Department Care Team Description 06/22/2024 Telephone [facility] Medical [facility] Cardiology [address] [place] [phone] Casey Lozano MD 06/19/2024 3:00 PM BITUMINOUS PAVING MACHINE OPERATOR Office Visit [facility] Medical [facility] Cardiology [address] [facility] [address] [place] [phone] Casey Lozano MD Benign hypertension (Primary Dx); Paroxysmal atrial fibrillation (CMS/HCC) (HCC); 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 [...] fibrillation Assessment & Plan (06/16/2021 2:47 PM BITUMINOUS PAVING MACHINE OPERATOR): Permanent atrial fibrillation, with controlled ventricular response despite no rate controlling therapy. She is chronically anticoagulated with Xarelto which she should continue. Assessment & Plan (06/16/2020 5:37 PM BITUMINOUS PAVING MACHINE OPERATOR): Rate controlled and anticoagulated. No change in therapy. Assessment & Plan (06/11/2019 9:41 AM BITUMINOUS PAVING MACHINE OPERATOR): Rate controlled and anticoagulated. Previous Holter has shown that her rate control is good. Assessment & Plan (06/16/2018 10:31 AM BITUMINOUS PAVING MACHINE OPERATOR): Rate controlled and anticoagulated. Continue current medications. Assessment & Plan (06/17/2017 12:06 PM BITUMINOUS PAVING MACHINE OPERATOR): Rate controlled and anticoagulated. For insurance reasons, will switch to Xarelto. Mixed hyperlipidemia 03/31/2012 Overview (08/25/2016): Hyperlipidemia Assessment & Plan (06/16/2021 2:48 PM BITUMINOUS PAVING MACHINE OPERATOR): Lipids are well controlled on simvastatin 20 mg daily. No change. Assessment & Plan (06/16/2020 5:38 PM BITUMINOUS PAVING MACHINE OPERATOR): On chronic lipid lowering therapy with good control. No changes made. Assessment & Plan (06/11/2019 9:41 AM BITUMINOUS PAVING MACHINE OPERATOR): On chronic lipid lowering therapy with good control. No changes made. LDL is 53 today. Assessment & Plan (06/17/2017 12:06 PM BITUMINOUS PAVING MACHINE OPERATOR): On chronic lipid lowering therapy with good control. No changes made. Coronary artery disease invo lving umkumiut coronary artery of umkumiut heart without angina pectoris 03/31/2012 Overview (08/27/2016): Coronary atherosclerosis of umkumiut coronary artery Assessment & Plan (06/11/2019 9:41 AM BITUMINOUS PAVING MACHINE OPERATOR): Mild and asymptomatic. Continue low-dose aspirin. Assessment & Plan (06/17/2017 12:07 PM BITUMINOUS PAVING MACHINE OPERATOR): Minor luminal irregularities noted at cardiac catheterization in 2010, done at the time of her episode of stress cardiomyopathy Benign hypertension 03/31/2012 Overview (08/27/2016): Hypertension, benign Assessment & Plan (06/16/2021 2:48 PM BITUMINOUS PAVING MACHINE OPERATOR): Blood pressure is well controlled with Accupril 40 mg daily and amlodipine 10 mg daily which she should continue Assessment & Plan (06/16/2020 5:37 PM BITUMINOUS PAVING MACHINE OPERATOR): Blood pressure is adequately controlled on current regimen. No change was made. Assessment & Plan (06/11/2019 9:41 AM BITUMINOUS PAVING MACHINE OPERATOR): Blood pressure is adequately controlled on current regimen. No change was made. Assessment & Plan (06/16/2018 10:33 AM BITUMINOUS PAVING MACHINE OPERATOR): Blood pressure is well controlled. No change. Mild edema is consistent with her being on amlodipine. I reassured her that this is benign. Assessment & Plan (06/17/2017 12:06 PM BITUMINOUS PAVING MACHINE OPERATOR): Blood pressure is adequately controlled on current regimen. No change was made. 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 Immunizations Name Administration Dates Next Due Influenza, Trivalent, High D ose, Split, Preservative Free, Intramuscular 02/17/2018 Pneumococcal Polysaccharide PPV23 07/23/2015 Social History Tobacco Use Types Packs/Day Years Used Date Smoking Tobacco: Never Smokeless Tobacco: Never Alcohol Use Standard Drinks/Week Comments Yes 0 (1 standard drink = 0.6 oz pur e alcohol) Comments No Sex and Gender Information Value Date Recorded Sex Assigned at Not on file Legal Sex Female 1:53 PM BITUMINOUS PAVING MACHINE OPERATOR Gender Identity Female 10/03/2023 12:43 PM CDT Sexual Orientation Straight 10/03/2023 12 :43 PM CDT Last Filed Vital Signs Vital Sign Reading Time Taken Comments Blood Pressure 116/52 06/19/2024 3:22 PM BITUMINOUS PAVING MACHINE OPERATOR Pulse 70 06/19/2024 3:22 PM BITUMINOUS PAVING MACHINE OPERATOR Temperature 36.7 C (98.1 F) 12/06/2018 4:00 PM CDT Respiratory Rate 20 12/06/2018 4:00 PM CDT Oxygen Saturation 95% 06/19/2024 3:22 PM BITUMINOUS PAVING MACHINE OPERATOR Inhaled Oxygen Concentration - - Weight 68 kg (150 lb) 06/19/2024 3:22 PM BITUMINOUS PAVING MACHINE OPERATOR Height 157.5 cm (5' 2 ) 06/19/2024 3:22 PM BITUMINOUS PAVING MACHINE OPERATOR Body Mass Index 27.44 06/19/2024 3:22 PM BITUMINOUS PAVING MACHINE OPERATOR Plan of Treatment Not on file Insurance [facility] [address] [place] [address] [facility] Member Subscriber Plan / Payer ([facility]/2022-Present) Name:Judah Mary A Relation to Subscriber:Self Name:Mary So Nathaly Payer ID:[id number] ([facility]) Type:MEDICARE RISK OTHER Address: [address] [place] [address] Care Teams Supervising Airplane Pilot Relationship Specialty Start Date End Date Charlette Lentz MD PCP - General Family Medicine 06/16/21
--- OUTSIDE RECORDS SUMMARY | 2024-07-02 14:24 | XMS_ITS | Clinical Summary ---
Author Organization [facility] [place] Address [address] [place] [address] Care Team Providers Care Rough And Truing Machine Operator Name Role Phone Lexie Lynn RN Unavailable Unavailable Charlette Lentz MD Primary Care Provider Source Comments [facility],non-owned Affiliates and Associated Physician Practices is amultiple site organization consisting of ambulatory clinics and hospital sitesin [place], [place], [place] and [place]. This disclosure is being madepursuant to the Care Everywhere program and may not contain all information available regarding this patient. 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); Carcinomatosis (HCC); Use of letrozole (Femara) 06/20/2024 Telephone [facility] - PLASTIC EXTRUSION OPERATOR [address], [address] [place] [phone] Marlo Jeter MD Med Question 04/11/2024 Telephone [facility] - PLASTIC EXTRUSION OPERATOR [address] [place] [address] Kelsey Diaz RN Follow-up; Future Appointment 04/11/2024 Orders Only [facility] - PLASTIC EXTRUSION OPERATOR [address] [place] [address] Marlo Jeter MD 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) ; Carcinomatosis (HCC); Use of letrozole (Femara) 04/09/2024 1:30 PM ZINC MINER Office Visit [facility] - PLASTIC EXTRUSION OPERATOR [address] [place] [address] Marlo Jeter MD 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); Use of letrozole (Femara) 04/09/2024 Travel 04/03/2024 1:41 PM ZINC MINER - 04/03/2024 11:59 PM ZINC MINER Hospital Encounter [facility] Health Imaging Services - CT Scan [address] [place] [id number] Charlette Lentz MD Discharge Disposition: Home or Self Care 04/02/2024 Telephone [facility] - PLASTIC EXTRUSION OPERATOR [address] [place] [address] Kelsey Diaz, RN Concerns 04/02/2024 Telephone [facility] - PLASTIC EXTRUSION OPERATOR [address] [place] [address] Kelsey Diaz RN Erroneous encounter-disregard 04/02/2024 Orders Only [facility] - PLASTIC EXTRUSION OPERATOR [address] [place] [address] Marlo Jeter MD 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 (FLUZONE HIGH-DOSE QUADRIVALENT; 65Y+), 0.7 ML (HD-IIV4) 02/05/2020,02/08/2019,02/17/2018 PNEUMOCOCCAL PPSV23 07/23/2015 Family History Medical History Relation Name Comments Lung Cancer Father SMOKER Heart Disease Mother Hypertension Mother Relation Name Status Comments Father Mother Social History Tobacco Use Types Packs/Day Years [...] Comments Blood Pressure 134/76 04/09/2024 1:14 PM ZINC MINER Pulse 77 02/08/2024 10:34 AM CDT Temperature 36.1 C (97 F) 02/08/2024 10:34 AM CDT Respiratory Rate 16 07/30/2023 8:03 AM ZINC MINER Oxygen Saturation 98% 02/08/2024 10:34 AM CDT Inhaled Oxygen Concentration - - Weight 64.5 kg (142 lb 3.2 oz) 04/09/2024 1:14 P M ZINC MINER Height 157.5 cm (5' 2 ) 04/09/2024 1:14 PM ZINC MINER Body Mass Index 26.01 04/09/2024 1:14 PM ZINC MINER Plan of Treatment Upcoming Encounters Date Type Department Care Team (Late st Contact Info) Description 07/09/2024 11:00 AM ZINC MINER Office Visit [facility] - PLASTIC EXTRUSION OPERATOR [address] [facility] [address] [place] [address] Marlo Jeter MD [address] [place] [address] Health Maintenance Due Date Last Done Comments BONE DENSITY TESTING 1938 DTAP/TDAP/TD VACCINES (1 - Tdap) 1957 ZOSTER VACCINE (1 of 2) 1988 HEPATITIS B VACCINE (1 of 3 - Risk 3-dose series) 1998 Respiratory Syncytial Virus (RSV) Vaccine Pt: or over 60 yrs (1 - 1-dose 75+ series) 2013 PNEUMOCOCCAL VACCINE 50+ (2 of 2 - PCV) 07/22/2016 07/23/2015 COVID-19 VACCINE ( season) 2024 03/05/2023, 03/01/2022, 10/03/2021, Additional history exists INFLUENZA VACCINE (#1) 2024 , 03/01/2022, 02/12/2021, Additional history exists DEPRESSION SCREENING 05/23/2024 MEDICARE AWV CALENDAR YEAR 2024 HIB VACCINE Aged Out No longer eligi ble based on patient's age to complete this topic HPV VACCINE Aged Out No longer eligi ble based on patient's age to complete this topic MENINGOCOCCAL (Group B) VACCINE Aged Out No longer eligible based on patient's age to complete this topic MENINGOCOCCAL VACCINE Aged Out No dov jose eligible based on patient's age to complete this topic Medical Devices Implanted Type Area Supervisor [employer] Device Identifier Shelf Expiration Date Model / Serial / Lot Mesh Srg Ventralight St Sepra Echo Implanted:Qty: 1 on 07/13/2019 by Omer Ponce MD at [facility] Abdomen [employer] 03/19/2020 [id number] / / [id number] Procedures Procedure Name Priority Date/Time Associated Diagnosis Comments LAB RESULTS ORDER 04/16/2024 LAB RESULTS ORDER 04/04/2024 CT CHEST ABDOMEN PELVIS W CONT Routine 04/03/2024 2:06 PM ZINC MINER 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 04/16/2024 Narrative 04/16/2024 Ordered by an unspecified provider. Scanned Document LAB - THERAPEUTIC DR JONNY MONITORING ORDERABLES * CT CHEST ABDOMEN PELVIS W CONT (04/03/2024 2:06 PM ZINC MINER) Anatomical Region Laterality Modality Chest, Abdomen, Pelvis Computed Tomography 04/03/2024 2:37 PM ZINC MINER Impressions 04/03/2024 2:49 PM ZINC MINER IMPRESSION: 1. 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 2. Multiple liver metastases appear decreased in size from prior. 3. Cirrhosis. 4. Unchanged 1.4 cm indeterminate lesion in the left lower pole kidney. > Interpreting Provider: Madhuri Richardson MD on 04/03/2024 2:49 PM Narrative 04/03/2024 2:49 PM ZINC MINER PROCEDURE: CT CHEST ABDOMEN PELVIS W CONT [...] CREATININE - POCT INTERFACED (04/03/2024 1:47 PM ZINC MINER) Creatinine POCT 0.66(L) 0.70 - 1.20 mg/dL 04/03/2024 1:[address] [facility] eGFR 86(L) >=90 mL/min/1.7 3 m2 04/03/2024 1:[address] [facility] Blood BLOOD SPECIMEN / Unknown 04/03/2024 1:47 PM ZINC MINER 04/03/2024 1:58 PM ZINC MINER Charlette Lentz MD LAB - POINT OF CARE ORDERABLES Performing Organization Address City/State/[facility] Co de Phone Number [facility] [address] [place] [address] from Last 3 Months Advance Directives Documents on File Type Date Recorded Patient Mandarin Chinese Teacher Expl anation Advance Directives and Livin g [...] 1:40 PM 12/20/2016 6:00 PM Care Teams Rough And Truing Machine Operator Relationship Specialty Start Date End Date Charlette Lentz MD [address] [place] [address] PCP - General 04/01/22 Lexie Lynn, RN Registered Nurse 12/16/16
[2024-07-03 11:54] LABS: CA-125 38 U/mL (<35)
== END 2024-07-02 14:10 | disposition home or self-care (01) ==
LOC: ANHGOSHLAB 14:11
PROVIDERS: PCP Family Medicine
DX: C56.2 Malignant neoplasm of left ovary (principal); C80.0 Disseminated malignant neoplasm, unspecified; Z79.811 Long term (current) use of aromatase inhibitors
CPT/HCPCS: 36415; 83520; 86304

== ENCOUNTER 2024-07-04 10:05 | Outpatient (CLI) | payer OTHER, SELFPAY ==
--- OUTSIDE RECORDS SUMMARY | 2024-07-04 11:04 | XMS_ITS | Clinical Summary ---
Author Organization [facility] Address [address] [place] [address] Care Team Providers Care Scientific Artist Name Role Phone Lexie Lynn RN Unavailable Unavailable Charlette Lentz MD Primary Care Provider [phone] Source Comments [facility],non-owned Affiliates and Associated Physician Practices is amultiple site organization consisting of ambulatory clinics and hospital sitesin [place], [place], [place] and [place]. This disclosure is being madepursuant to the Care Everywhere program and may not contain all information available regarding this patient. 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); Carcinomatosis (HCC); Use of letrozole (Femara) 06/20/2024 Telephone [facility] - MEASUREMENT PSYCHOLOGIST [address] [place] [address] Marlo Jeter MD Med Question 04/11/2024 Telephone [facility] - MEASUREMENT PSYCHOLOGIST [address] [place] [address] Kelsey Diaz RN Follow-up; Future Appointment 04/11/2024 Orders Only [facility] - MEASUREMENT PSYCHOLOGIST [address] [facility] [address] [place] [address] Marlo Jeter MD 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) ; Carcinomatosis (HCC); Use of letrozole (Femara) 04/09/2024 1:30 PM PSYCHIATRIC TECH Office Visit [facility] - MEASUREMENT PSYCHOLOGIST [address] [facility] [address] [place] [address] Marlo Jeter MD 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); Use of letrozole (Femara) 04/09/2024 Travel 04/03/2024 1:41 PM PSYCHIATRIC TECH - 04/03/2024 11:59 PM PSYCHIATRIC TECH Hospital Encounter [facility] Health Imaging Services - CT Scan [address] [facility] [address], [address] [place] [address] Charlette Lentz MD Discharge Disposition: Home or Self Care from Last 3 Months Immunizations Name Administration Dates Next Due Covid Backup Circle primary monoval ent 12+ yr 0.3mL Purple [...] Comments Blood Pressure 134/76 04/09/2024 1:14 PM PSYCHIATRIC TECH Pulse 77 02/08/2024 10:34 AM CDT Temperature 36.1 C (97 F) 02/08/2024 10:34 AM CDT Respiratory Rate 16 07/30/2023 8:03 AM PSYCHIATRIC TECH Oxygen Saturation 98% 02/08/2024 10:34 AM CDT Inhaled Oxygen Concentration - - Weight 64.5 kg (142 lb 3.2 oz) 04/09/2024 1:14 P M PSYCHIATRIC TECH Height 157.5 cm (5' 2 ) 04/09/2024 1:14 PM PSYCHIATRIC TECH Body Mass Index 26.01 04/09/2024 1:14 PM PSYCHIATRIC TECH Plan of Treatment Upcoming Encounters Date Type Department Care Team (Late st Contact Info) Description 07/09/2024 11:00 AM PSYCHIATRIC TECH Office Visit [facility] - MEASUREMENT PSYCHOLOGIST [address] [facility] [address] [place] [address] Marlo Jeter MD [address] [facility] [address] [place] [address] Health Maintenance Due Date Last Done Comments [...] this topic Medical Devices Implanted Type Area Scrub Tech Device Identifier Shelf Expiration Date Model / Serial / Lot Mesh Srg Ventralight St Sepra Echo Implanted:Qty: 1 on 07/13/2019 by Omer Ponce MD at [facility] Abdomen [employer] 03/19/2020 [id number] / / [id number] Procedures Procedure Name Priority Date/Time Associated Diagnosis Comments LAB RESULTS ORDER 04/16/2024 LAB RESULTS ORDER 04/04/2024 CT CHEST ABDOMEN PELVIS W CONT Routine 04/03/2024 2:06 PM PSYCHIATRIC TECH 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 04/16/2024 Narrative 04/16/2024 Ordered by an unspecified provider. Scanned Document LAB - THERAPEUTIC DR FULLER MONITORING ORDERABLES * CT CHEST ABDOMEN PELVIS W CONT (04/03/2024 2:06 PM PSYCHIATRIC TECH) Anatomical Region Laterality Modality Chest, Abdomen, Pelvis Computed Tomography 04/03/2024 2:37 PM PSYCHIATRIC TECH Impressions 04/03/2024 2:49 PM PSYCHIATRIC TECH IMPRESSION: 1. 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 2. Multiple liver metastases appear decreased in size from prior. 3. Cirrhosis. 4. Unchanged 1.4 cm indeterminate lesion in the left lower pole kidney. > Interpreting Provider: Madhuri Richardson MD on 04/03/2024 2:49 PM Narrative 04/03/2024 2:49 PM PSYCHIATRIC TECH PROCEDURE: CT CHEST ABDOMEN PELVIS W CONT [...] CREATININE - POCT INTERFACED (04/03/2024 1:47 PM PSYCHIATRIC TECH) Creatinine POCT 0.66(L) 0.70 - 1.20 mg/dL 04/03/2024 1:58 PM PSYCHIATRIC TECH [facility] eGFR 86(L) >=90 mL/min/1.7 3 m2 04/03/2024 1:58 PM PSYCHIATRIC TECH [facility] Blood BLOOD SPECIMEN / Unknown 04/03/2024 1:47 PM PSYCHIATRIC TECH 04/03/2024 1:58 PM PSYCHIATRIC TECH Charlette Lentz MD LAB - POINT OF CARE ORDERABLES Performing Organization Address City/State/[facility] Co de Phone Number [facility] [address] [place], [place] [id number] from Last 3 Months Advance Directives Documents on File Type Date Recorded Patient B2B Sales Representative Expl anation Advance Directives and Livin g [...] 1:40 PM 12/20/2016 6:00 PM Care Teams Scientific Artist Relationship Specialty Start Date End Date Charlette Lentz MD [address] [place] [address] PCP - General 04/01/22 Lexie Lynn, RN Registered Nurse 12/16/16
--- OUTSIDE RECORDS SUMMARY | 2024-07-04 11:04 | XMS_ITS | Referral Summary ---
Author Organization [facility] Address [address] [place] [address] Care Team Providers Care Med Spa Manager Name Role Phone Lexie Lynn RN Unavailable Unavailable Charlette Lentz MD Primary Care Provider [phone] Source Comments [facility],non-owned Affiliates and Associated Physician Practices is amultiple site organization consisting of ambulatory clinics and hospital sitesin [place], [place], [place] and [place]. This disclosure is being madepursuant to the Care Everywhere program and may not contain all information available regarding this patient. Last updated 18.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); Carcinomatosis (HCC); Use of letrozole (Femara) 06/20/2024 Telephone [facility] - STUD DAIRY CATTLE FARMER [address], [address] [place] [address] Marlo Jeter MD Med Question 04/11/2024 Telephone [facility] - STUD DAIRY CATTLE FARMER [address] [place] [address] Kelsey Diaz RN Follow-up; Future Appointment 04/11/2024 Orders Only [facility] - STUD DAIRY CATT[employer] [facility] [address] [place] [address] Marlo Jeter MD 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) ; Carcinomatosis (HCC); Use of letrozole (Femara) 04/09/2024 Travel 04/09/2024 1:30 PM [employer] Office Visit [facility] - STUD DAIRY CATTLE FARMER [address] [place] [address] Marlo Jeter MD 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); Use of letrozole (Femara) 04/03/2024 1:41 PM [employer] - 04/03/2024 11:59 PM [employer] Hospital Encounter [facility] - CT Scan [address] [facility], [address] [place] [address] Charlette Lentz MD Discharge Disposition: Home or Self Care from Last 3 Months Allergies Active Allergy [...] pain Immunizations Name Administration Dates Next Due [employer] primary monoval ent 12+ yr 0.3mL Purple [...] Comments Blood Pressure 134/76 04/09/2024 1:14 PM [employer] Pulse 77 02/08/2024 10:34 AM CDT Temperature 36.1 C (97 F) 02/08/2024 10:34 AM CDT Respiratory Rate 16 07/30/2023 8:03 AM [employer] Oxygen Saturation 98% 02/08/2024 10:34 AM CDT Inhaled Oxygen Concentration - - Weight 64.5 kg (142 lb 3.2 oz) 04/09/2024 1:14 P M [employer] Height 157.5 cm (5' 2 ) 04/09/2024 1:14 PM [employer] Body Mass Index 26.01 04/09/2024 1:14 PM [employer] Functional Status Functional Status Response Date of [...] st Contact Info) Description 07/09/2024 11:00 AM [employer] Office Visit [facility] - STUD DAIRY CATTLE FARMER [address] [place] [address] Marlo Jeter MD [address] [place] [address] Medical Devices Implanted Type Area [employer] Dis[employer] Device Identifier Shelf Expiration Date Model / Serial / Lot Mesh Srg Ventralight St Sepra Echo Implanted:Qty: 1 on 07/13/2019 by Omer Ponce MD at [facility] Abdomen [employer] 03/19/2020 [id number] / / [id number] Procedures Procedure Name Priority Date/Time Associated Diagnosis Comments LAB RESULTS ORDER 04/16/2024 LAB RESULTS ORDER 04/04/2024 CT CHEST ABDOMEN PELVIS W CONT Routine 04/03/2024 2:06 PM [employer] 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 04/16/2024 Narrative 04/16/2024 Ordered by an unspecified provider. Scanned Document LAB - THERAPEUTIC DR UG MONITORING ORDERABLES * CT CHEST ABDOMEN PELVIS W CONT (04/03/2024 2:06 PM [employer]) Anatomical Region Laterality Modality Chest, Abdomen, Pelvis Computed Tomography 04/03/2024 2:37 PM [employer] Impressions 04/03/2024 2:49 PM [employer] IMPRESSION: 1. 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 2. Multiple liver metastases appear decreased in size from prior. 3. Cirrhosis. 4. Unchanged 1.4 cm indeterminate lesion in the left lower pole kidney. > Interpreting Provider: Madhuri Richardson MD on 04/03/2024 2:49 PM Narrative 04/03/2024 2:49 PM [employer] PROCEDURE: CT CHEST ABDOMEN PELVIS W CONT [...] CREATININE - POCT INTERFACED (04/03/2024 1:47 PM [employer]) Creatinine POCT 0.66(L) 0.70 - 1.20 mg/dL 04/03/2024 1:58 PM [employer] [facility] eGFR 86(L) >=90 mL/min/1.7 3 m2 04/03/2024 1:58 PM [employer] [facility] Blood BLOOD SPECIMEN / Unknown 04/03/2024 1:47 PM [employer] 04/03/2024 1:58 PM [employer] Charlette Lentz MD LAB - POINT OF CARE ORDERABLES [facility] [address] [place] [address] from Last 3 Months Advance Directives Documents on File Type Date Recorded Patient Forensic Dna Analyst Expl anation Advance Directives and Livin g [...] 1:40 PM 12/20/2016 6:00 PM Care Teams Med Spa Manager Relationship Specialty Start Date End Date Charlette Lentz MD [address] [place] [address] PCP - General 04/01/22 Lexie Lynn, RN Registered Nurse 12/16/16
--- OUTSIDE RECORDS SUMMARY | 2024-07-04 11:05 | XMS_ITS | Encounter Summary ---
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); [...] st Contact Info) Description 07/09/2024 11:00 AM PATIENT CARE TECHNICIAN Office Visit [facility] - LABEL DRIER [address] [place] [address] Marlo Jeter MD [address] [address] [place] [address] documented as of this encounter Visit Diagnoses Diagnosis 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
--- OUTSIDE RECORDS SUMMARY | 2024-07-04 11:05 | XMS_ITS | Patient Health Summary ---
Author Organization [facility] Address [address] [place] [address] Care Team Providers Care Power Transformer Repair Supervisor Name Role Phone Lexie Lynn RN Unavailable Unavailable Charlette Lentz MD Primary Care Provider [phone] Note from [facility] [place][note 2],non-owned Affiliates and Associated Physician Practices is amultiple site organization consisting of ambulatory clinics and hospital sitesin [place], [place], [place]. This disclosure is being madepursuant to the Care Everywhere program and may not contain all information available regarding this patient. Last updated 18.[facility] Allergies * Penicillins(? PCN. Reaction when child.) [...] cell tumor 05/29/2018 Post-op pain Immunizations * Merku primary monovalent 12+ yr 0.3mL Purple cap(Given [...] Comments Blood Pressure 134/76 04/09/2024 1:14 PM FARM MECHANIC Pulse 77 02/08/2024 10:34 AM CDT Temperature 36.1 C (97 F) 02/08/2024 10:34 AM CDT Respiratory Rate 16 07/30/2023 8:03 AM FARM MECHANIC Oxygen Saturation 98% 02/08/2024 10:34 AM CDT Inhaled Oxygen Concentration - - Weight 64.5 kg (142 lb 3.2 oz) 04/09/2024 1:14 P M FARM MECHANIC Height 157.5 cm (5' 2 ) 04/09/2024 1:14 PM FARM MECHANIC Body Mass Index 26.01 04/09/2024 1:14 PM FARM MECHANIC Medical Devices Implanted Type Area Orbitread Operator Device Identifier Shelf Expiration Date Model / Serial / Lot Mesh Srg Ventralight St Sepra Echo Implanted:Qty: 1 on 07/13/2019 by Omer Ponce MD at [facility] Abdomen [employer] 03/19/2020 [id number] / / [id number] Procedures * LAB RESULTS ORDER(Performed 04/16/2024) * [...] 07/28/2023) * ENDOTRACHEAL TUBE NOTE(Performed 07/28/2023) * TN EXPLORATORY OF ABDOMEN(Performed 07/28/2023) Performed for Intra-abdominal [...] fibrillation, unspecified type (HCC), Current use of correction anticoagulation * TYPE + SCREEN PANEL(Performed 07/03/2019) Performed for Incisional hernia, without obstruction or gangrene, Atrial fibrillation, unspecified type (HCC), Current use of correction anticoagulation * PT-INR(Performed 07/03/2019) Performed for Pre-op testing * COMPREHENSIVE METABOLIC PANEL(Performed 07/03/2019) Performed for Incisional hernia, without obstruction or gangrene, Atrial fibrillation, unspecified type (HCC), Current use of correction anticoagulation * CBC W AUTO DIFFERENTIAL(Performed 07/03/2019) Performed for Incisional hernia, without obstruction or gangrene, Atrial fibrillation, unspecified type (HCC), Current use of lobsterman anticoagulation * CT ABDOMEN PELVIS W CONTRAST(Performed [...] ovary, unspecified laterality, Diagnosis unknown * CYTOLOGY NON-SLIDE FASTENER REPAIRER PANEL (STL)(Performed 12/16/2016) Performed for Granulosa cell [...] 01/26/2006) * FROZEN SECTION(Performed 07/09/2003) * CYTOLOGY NON-SLIDE FASTENER REPAIRER PANEL(Performed 07/09/2003) Results * LAB RESULTS ORDER (04/16/2024) Only the most recent of2 resultswithin the time period is included. 04/16/2024 Narrative 04/16/2024 Ordered by an unspecified provider. Scanned Document LAB - THERAPEUTIC DR UG MONITORING ORDERABLES * CT CHEST ABDOMEN PELVIS W CONT (04/03/2024 2:06 PM FARM MECHANIC) Only the most recent of3 resultswithin the time period is included. Anatomical Region Laterality Modality Chest, Abdomen, Pelvis Computed Tomography 04/03/2024 2:37 PM FARM MECHANIC Impressions 04/03/2024 2:49 PM FARM MECHANIC IMPRESSION: 1. 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 2. Multiple liver metastases appear decreased in size from prior. 3. Cirrhosis. 4. Unchanged 1.4 cm indeterminate lesion in the left lower pole kidney. > Interpreting Provider: Madhuri Richardson MD on 04/03/2024 2:49 PM Narrative 04/03/2024 2:49 PM FARM MECHANIC PROCEDURE: CT CHEST ABDOMEN PELVIS W CONT [...] CREATININE - POCT INTERFACED (04/03/2024 1:47 PM FARM MECHANIC) Only the most recent of5 resultswithin the time period is included. Creatinine POCT 0.66(L) 0.70 - 1.20 mg/dL 04/03/2024 1:58 PM FARM MECHANIC [facility] eGFR 86(L) >=90 mL/min/1.7 3 m2 04/03/2024 1:58 PM FARM MECHANIC [facility] Blood BLOOD SPECIMEN / Unknown 04/03/2024 1:47 PM FARM MECHANIC 04/03/2024 1:58 PM FARM MECHANIC Charlette Lentz MD LAB - POINT OF CARE ORDERABLES [facility] [address] [place] [address] * INHIBIN A (09/01/2023 1:06 PM CDT) Only the most recent of10 resultswithin the time period is included. Pathologist [facility] Inhibin A 370 pg/mL [facility] Comment: Reference Ranges for Inhibin A: Females Premenopausal: <98.0 pg/mL Postmenopausal: <2.1 pg/mL Males <2.0 pg/mL This test was performed using the Barbara-Gilbert Chemiluminescent Inhibin-A method that has been cleared [...] cannot be used interchangeably. Test Performed at: [employer] [facility] [address] [place] [address] NASIM DONATO MD,PHD,CRISTY Blood BLOOD SPECIMEN / Unknown 09/01/2023 1:06 PM CDT 09/01/2023 1:06 PM CDT Marlo Jeter MD LAB - CHEMISTRY NATALIA [facility] Organization Address City/State/ZIP Co de Phone Number [place] [phone] [place] [address] * INHIBIN B (09/01/2023 1:06 PM CDT) Only the most recent of2 resultswithin the time period is included. Pathologist [facility] Inhibin B >1200 pg/mL [facility] Comment: Pre-memopausal <153 Post-menopausal <10 Values obtained from different assay methods cannot be used interchangeably. Inhibin B levels, regardless of value, should not be interpreted as absolute evidence of the presence or absence of disease. This test was developed and its analytical performance characteristics have been determined by [employer]. It has not been cleared or approved by FDA. This assay has been validated pursuant to the CLIA regulations and is used for clinical purposes. Test Performed at: [employer] [facility] [address] [place] [address] NASIM DONATO MD,PHD,CRISTY Blood BLOOD SPECIMEN / Unknown 09/01/2023 1:06 PM CDT 09/01/2023 1:06 PM CDT Marlo Jeter MD LAB - SEROLOGY ORDER SEGUN Performing Organization Address [facility] Co de Phone Number [facility] [phone] [place] [address] * CANCER ANTIGEN (CA)125 BLOOD (09/01/2023 1:06 PM CDT) Only the most recent of2 resultswithin the time period is included. [facility] [place] 125 34 <35 U/mL [facility] Comment: This test was performed using the Siemens Chemiluminescent method. Values obtained from different assay methods cannot be used interchangeably. [place] 125 levels, regardless of value, should not be interpreted as absolute evidence of the presence or absence of disease. REPORT COMMENT: FASTING:NO Test Performed at: [employer] [address] [place] [address] NAS MALIK MD Blood BLOOD SPECIMEN / Unknown 09/01/2023 1:06 PM CDT 09/01/2023 1:06 PM CDT Marlo Jeter MD LAB - CHEMISTRY ORDE RABEDMUNDO Performing Organization Address [facility] Co de Phone Number [facility] [address] [place] [address] * (ABNORMAL) CBC W/O DIFFERENTIAL (07/30/2023 1:14 AM FARM MECHANIC) Only the most recent of5 resultswithin the time period is included. [facility] WBC 7.7 4.0 - 10.7 x10E9/L 07/30/2023 1:49 AM [facility] RBC Count 3.49(L) 3.90 - 5.20 x10E12/L 07/30/2023 1:49 AM [facility] Hemoglobin 8.2(L) 11.9 - 15.8 g/dL 07/30/2023 1:49 AM [facility] Hematocrit 26.5(L) 34.8 - 46.1 % 07/30/2023 1:49 AM [facility] MCV 75.9(L) 80.0 - 98.0 fL 07/30/2023 1:49 AM [facility] MCH 23.5(L) 26.7 - 33.6 pg 07/30/2023 1:49 AM [facility] MCHC 30.9(L) 31.7 - 36.3 g/dL 07/30/2023 1:49 AM [facility] RDW-CV 18.8(H) 11.3 - 14.8 % 07/30/2023 1:49 AM [facility] Platelet Count 323 150 - 420 x10E9/L 07/30/2023 1:49 AM [facility] MPV 9.8 7.8 - 11.4 fL 07/30/2023 1:49 AM [facility] Blood BLOOD SPECIMEN / Unknown Lab Venipuncture / Unknown 07/30/2023 1:14 AM FARM MECHANIC 07/30/2023 1:38 AM FARM MECHANIC Mason Rico MD LAB - HEMATOLOGY ORD ERABLES [address] [address] [phone] * (ABNORMAL) BASIC METABOLIC PANEL (CALCIUM TOTAL) (07/30/2023 1:14 AM FARM MECHANIC) Only the most recent of15 resultswithin the time period is included. BUN 10 7 - 26 mg/dL 07/30/2023 2:03 AM [facility] Creatinine 0.54(L) 0.56 - 0.96 mg/dL 07/30/2023 2:03 AM [facility] Sodium 131(L) 136 - 145 mmol/L 07/30/2023 2:03 AM [facility] Potassium 4.0 3.5 - 4.5 mmol/L 07/30/2023 2:03 AM [facility] Chloride 107 98 - 107 mmol/L 07/30/2023 2:03 AM [facility] CO2 18(L) 22 - 29 mmol/L 07/30/2023 2:03 AM [facility] Glucose 106 70 - 115 mg/dL 07/30/2023 2:03 AM [facility] Calcium 8.8 8.4 - 10.2 mg/dL 07/30/2023 2:03 AM [facility] Anion Gap 6 6 - 16 07/30/2023 2:03 AM [facility] BUN/Creatinine Ratio 19 7 - 23 07/30/2023 2:03 AM [facility] Osmolality Calculated 271(L) 275 - 295 mOsm/kg 07/30/2023 2:03 AM [facility] eGFR by CKD-EPI >90 >=90 mL/min/1.7 3 m2 07/30/2023 2:03 AM [facility] Blood BLOOD SPECIMEN / Unknown Lab Venipuncture / Unknown 07/30/2023 1:14 AM FARM MECHANIC 07/30/2023 1:38 AM FARM MECHANIC Mason Rico MD LAB - CHEMISTRY NATALIA BOWSER Performing Organization Address City/[facility]/ZIP Co de Phone Number [address] [address], [facility] [phone] * (ABNORMAL) PHOSPHORUS BLOOD (07/30/2023 1:14 AM FARM MECHANIC) Only the most recent of10 resultswithin the time period is included. Phosphorus 2.4(L) 2.9 - 5.1 mg/dL 07/30/2023 2:03 AM [facility] Blood BLOOD SPECIMEN / Unknown Lab Venipuncture / Unknown 07/30/2023 1:14 AM FARM MECHANIC 07/30/2023 1:38 AM FARM MECHANIC Mason Rico MD LAB - CHEMISTRY NATALIA BOWSER [address] [address], [place] [phone] * MAGNESIUM BLOOD (07/30/2023 1:14 AM FARM MECHANIC) Only the most recent of10 resultswithin the time period is included. Magnesium 1.7 1.6 - 2.6 mg/dL 07/30/2023 2:03 AM [facility] Blood BLOOD SPECIMEN / Unknown Lab Venipuncture / Unknown 07/30/2023 1:14 AM FARM MECHANIC 07/30/2023 1:38 AM FARM MECHANIC Mason Rico MD LAB - CHEMISTRY NATALIA BOWSER [facility] [address] [place] [address], [facility] [phone] * PATHOLOGY TISSUE (07/28/2023 10:55 AM FARM MECHANIC) Only the most recent of3 resultswithin the time period is included. Case Report Surgical Pathology Report Case: [id number] Authorizing Provider: Mason Rico MD Collected: 07/28/2023 10:55 AM Ordering Location: [facility]TE OP Received: 07/28/2023 12:46 PM Pathologist: Charo Santos MD Specimens: A) - Soft Tissue Mass, Intra abdominal Mass B) - Tumor, Carcinoma Tumor 4 5:05 PM [facility] Final Diagnosis Soft tissue, intra-abdominal/perit jackson mass, biopsy (A): - Granulosa cell tumor, recurrent Soft tissue, peritoneal tumor, biopsy (B): - Granulosa cell tumor, recurrent 4 5:05 PM [facility] Microscopic Description and Comment Frozen section diagnosis is confirmed. 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 4 5:05 PM [facility] Intraoperative Consultation A) intraabdominal mass is a 1.5 x 1.0 x 0.6 cm pink-corey soft tissue fragment. The specimen is serially sectioned and entirely submitted for frozen evaluation as FSA1. FSA1, intraabdominal mass, biopsy: -Malignant, compatible with granulosa cell tumor by Marjorie Amin MD 4 5:05 PM [facility] Gross Description The requisition and [...] in cassette B1-B3. IKD 4 5:05 PM [facility] Addendum 1 A request for DE profile comprehensive testing was received 08/22/23 for patient Mary So from Dr. Marlo Jeter. The test is to be performed on tissue from case [id number]. The case report, slides, and blocks for the cited accession were retrieved from the archives. The pathologist whose signature appears below reviewed the original pathology report, examined candidate H&E slides, and selected the block (B1) appropriate to the specifications of the ordered molecular analysis. The tissue was forwarded to [facility] where the subject molecular tests will be performed. 4 5:05 PM [facility] Addendum electronically signed by Cat Oliver MD on 08/22/2023 at 5:05 PM Pathologist Location at [facility] 4 5:05 PM [facility] Disclaimer The performance characteristics of all immunohistochemical and indirect immunofluorescence stains (if any) cited in this report were determined by the Histopathology Laboratory of [facility]. Some of these tests were developed by [...] attending (teaching) pathologist. 4 5:05 PM T [facility] Embedded Images 4 5:05 PM T [facility] Biopsy, Excision SOFT TISSUE MASS / Unknown 07/28/2023 10:55 AM FARM MECHANIC 07/28/2023 12:46 PM FARM MECHANIC Comment:Pre-op diagnosis: INTRA-ABDOMINAL TUMOR Biopsy, Excision TUMOR TISSUE SPECIMEN / Unknown 07/28/2023 11:14 AM FARM MECHANIC 07/28/2023 12:46 PM FARM MECHANIC Comment:Pre-op diagnosis: INTRA-ABDOMINAL TUMOR Masno Rico MD LAB - PATHOLOGY/CYTO LOGY ORDERABLES Performing Organization Address City/State/[facility] Co de Phone Number [facility] [address] [phone] * ARTERIAL LINE PERFORMABLE (07/28/2023 10:39 AM FARM MECHANIC) Narrative Ranjan Kaur DO - 07/28/2023 10:39 AM FARM MECHANIC Ranjan Kaur DO 07/28/2023 10:39 AM Arterial Line Placement Procedure Note Patient Location: OR. Procedure: Arterial Line ([id number]). Procedure Section Indications: continuous blood pressure monitoring. [...] * IV PLACEMENT PERFORMABLE (07/28/2023 10:38 AM FARM MECHANIC) Ranjan Motta DO - 07/28/2023 10:38 AM FARM MECHANIC Ranjan Kaur DO 07/28/2023 10:38 AM Peripheral IV Line Placement: Patient Location: OR Procedure: IV start ([id number]). Procedure Section: Skin Prep: alcohol. Orientation: left Location: antecubital Catheter Gauge: 18 Number of Attempts: 1. Procedure Tolerance: performed while patient under general anesthesia. Procedure Start Time: 07/28/2023 9:54 AM. Staff Section Anesthesia Provider: Shraddha Lombardi MD, Performed the procedure Shraddha Lombardi MD GENERAL ANESTHES IA ORDERABLES * ETT LINE PERFORMABLE (07/28/2023 10:37 AM FARM MECHANIC) Ranjan Motta DO - 07/28/2023 10:37 AM FARM MECHANIC Ranjan Kaur DO 07/28/2023 10:38 AM Endotracheal Tube Placement: Patient Location: OR. Intubation Event Date/Time: 07/28/2023 10:02 AM Procedure: intubation ([id number]). Procedure Section: Sedation: under general anesthesia. Indications [...] * EPIDURAL BLOCK PERF (07/28/2023 10:16 AM FARM MECHANIC) Esau Ayala MD - 07/28/2023 10:16 AM FARM MECHANIC Esau Davis MD 07/28/2023 10:20 AM Neuraxial [...] TYPE + SCREEN PANEL (07/28/2023 8:20 AM FARM MECHANIC) Only the most recent of6 resultswithin the time period is included. Antibody Screen NEG 9:08 AM FARM MECHANIC [facility] ABO Rh A POS 07/28/2023 9:08 AM [facility] Blood Bank BLOOD SPECIMEN / Unknown Venipuncture / Unknown 07/28/2023 8:20 AM FARM MECHANIC 07/28/2023 8:26 AM FARM MECHANIC Stacy Yarbrough ASSOCIATE BIOLOGICAL SALES-MEDICAL OFFICE RECEPTIONIST LAB - BLO OD BANK ORDERABLES [facility] [address] [place] [address], [facility] [phone] * (ABNORMAL) CBC W/ DIFFERENTIAL (07/20/2023 3:25 PM FARM MECHANIC) Only the most recent of21 resultswithin the time period is included. WBC 9.2 4.0 - 10.7 x10E9/L 07/20/2023 4:10 PM [facility] RBC Count 4.02 3.90 - 5.20 x10E12/L 07/20/2023 4:10 PM [facility] Hemoglobin 9.4(L) 11.9 - 15.8 g/dL 07/20/2023 4:10 PM [facility] Hematocrit 30.1(L) 34.8 - 46.1 % 07/20/2023 4:10 PM [facility] MCV 74.9(L) 80.0 - 98.0 fL 07/20/2023 4:10 PM [facility] MCH 23.4(L) 26.7 - 33.6 pg 07/20/2023 4:10 PM [facility] MCHC 31.2(L) 31.7 - 36.3 g/dL 07/20/2023 4:10 PM [facility] RDW-CV 19.1(H) 11.3 - 14.8 % 07/20/2023 4:10 PM [facility] Platelet Count 411 150 - 420 x10E9/L 07/20/2023 4:10 PM [facility] MPV 10.1 7.8 - 11.4 fL 07/20/2023 4:10 PM [facility] Neutrophil % 70.4 41.0 - 74.0 % 07/20/2023 4:10 PM [facility] Lymphocyte % 21.2 17.0 - 47.0 % 07/20/2023 4:10 PM [facility] Monocyte % 7.6 3.0 - 11.0 % 07/20/2023 4:10 PM [facility] Eosinophil % 0.3 0.0 - 7.0 % 07/20/2023 4:10 PM [facility] Basophil % 0.2 0.0 - 1.6 % 07/20/2023 4:10 PM [facility] Immature Granulocytes % 0.3 0.0 - 1.0 % 07/20/2023 4:10 PM [facility] Neutrophil Absolute 6.45 1.60 - 7.50 x10E9/L 07/20/2023 4:10 PM [facility] Lymphocyte Absolute 1.94 1.00 - 4.40 x10E9/L 07/20/2023 4:10 PM [facility] Monocyte Absolute 0.70 0.15 - 1.00 x10E9/L 07/20/2023 4:10 PM [facility] Eosinophil Absolute 0.03 0.00 - 0.60 x10E9/L 07/20/2023 4:10 PM [facility] Basophil Absolute 0.02 0.00 - 0.13 x10E9/L 07/20/2023 4:10 PM [facility] Blood BLOOD SPECIMEN / Unknown Lab Venipuncture / Unknown 07/20/2023 3:25 PM FARM MECHANIC 07/20/2023 4:06 PM [facility] Mason Rico MD LAB - HEMATOLOGY ORD ERABLES [facility] [address] [place] [address], [facility] [phone] * (ABNORMAL) COMPREHENSIVE METABOLIC PANEL (07/20/2023 3:25 PM [facility]) Only the most recent of7 resultswithin the time period is included. BUN 9 7 - 26 mg/dL 07/20/2023 4:23 PM [facility] Creatinine 0.59 0.56 - 0.96 mg/dL 07/20/2023 4:23 PM [facility] Sodium 135(L) 136 - 145 mmol/L 07/20/2023 4:23 PM [facility] Potassium 4.3 3.5 - 4.5 mmol/L 07/20/2023 4:23 PM [facility] Chloride 101 98 - 107 mmol/L 07/20/2023 4:23 PM [facility] CO2 21(L) 22 - 29 mmol/L 07/20/2023 4:23 PM [facility] Glucose 113 70 - 115 mg/dL 07/20/2023 4:23 PM [facility] Calcium 9.9 8.4 - 10.2 mg/dL 07/20/2023 4:23 PM [facility] Protein Total 7.4 6.0 - 8.3 g/dL 07/20/2023 4:23 PM [facility] Albumin 3.7 3.4 - 5.0 g/dL 07/20/2023 4:23 PM [facility] Bilirubin Total 0.5 0.2 - 1.2 mg/dL 07/20/2023 4:23 PM [facility] Alkaline Phosphatase 84 40 - 150 U/L 07/20/2023 4:23 PM [facility] ALT 6 5 - 55 U/L 07/20/2023 4:23 PM [facility] AST 21 5 - 34 U/L 07/20/2023 4:23 PM [facility] Anion Gap 13 6 - 16 07/20/2023 4:23 PM [facility] BUN/Creatinine Ratio 15 7 - 23 07/20/2023 4:23 PM [facility] Osmolality Calculated 279 275 - 295 mOsm/kg 07/20/2023 4:23 PM [facility] Albumin/Globulin Ratio 1.0(L) 1.1 - 2.3 07/20/2023 4:23 PM [facility] eGFR by CKD-EPI 89(L) >=90 mL/min/1.7 3 m2 07/20/2023 4:23 PM [facility] Blood BLOOD SPECIMEN / Unknown Lab Venipuncture / Unknown 07/20/2023 3:25 PM FARM MECHANIC 07/20/2023 4:01 PM FARM MECHANIC Mason Rico MD LAB - CHEMISTRY NATALIA BOWSER [facility] [place] [address], [facility] [phone] * XR CHEST 2VW (07/20/2023 2:59 PM FARM MECHANIC) Only the most recent of3 resultswithin the time period is included. Anatomical Region Laterality Modality Chest Radiographic Nelly ging 07/21/2023 11:0 5 AM FARM MECHANIC Narrative 07/22/2023 7:16 AM FARM MECHANIC PROCEDURE: XR CHEST 2VW, DATE/TIME OF EXAM: 07/20/2023 3:00 PM, LOCATION [facility] INDICATION: D49.89: Intra-abdominal tumor COMPARISON: None. TECHNIQUE: Frontal and lateral radiograph of the chest. FINDINGS/IMPRESSION: Mild bibasilar atelectatic changes. There is no focal consolidation, pleural effusion, or pneumothorax. The cardiac silhouette is a stable. There is atherosclerotic calcification of the aorta. The visible bony thorax is intact. Cholecystectomy clips. Report dictated by Andrew Jarvis MD, (Applications Project Manager). Gustavo Jackson MD have personally reviewed and interpreted this examination/study. > Interpreting Provider: Gustavo Enriquez MD on 07/22/2023 7:16 AM Procedure Note Gustavo Enriquez MD - 07/22/2023 PROCEDURE: XR CHEST 2VW, DATE/TIME OF EXAM: 07/20/2023 3:00 PM, LOCATION [facility] INDICATION: D49.89: Intra-abdominal tumor COMPARISON: None. TECHNIQUE: Frontal and lateral radiograph of the chest. FINDINGS/IMPRESSION: Mild bibasilar atelectatic changes. There is no focal consolidation, pleural effusion, or pneumothorax. The cardiac silhouette is a stable. There is atherosclerotic calcification of the aorta. The visible bony thorax is intact. Cholecystectomy clips. Report dictated by Andrew Jarvis MD, (Applications Project Manager). Gustavo Jackson MD have personally reviewed and interpreted this examination/study. > Interpreting Provider: Gustavo Enriquez MD on 07/22/2023 7:16 AM Mason Rico MD DIAGNOSTIC IMAGING O RDERABLES * EKG 12-LEAD (07/20/2023 1:12 PM FARM MECHANIC) Only the most recent of2 resultswithin the time period is included. Ventricular Rate 71 BPM [facility] QRS Duration ms 92 ms [facility] Q-T Interval ms 396 ms [facility] QTC Calculation (Bezet) 430 ms [facility] Calculated R [place] 23 degrees [facility] Calculated T [place] -105 degrees [facility] Interpretation EKG ATRIAL FIBRILLATION INCOMPLETE RIGHT BUNDLE BRANCH BLOCK SEPTAL INFARCT , AGE UNDETERMINED ABNORMAL ECG WHEN COMPARED WITH ECG OF 17-FEB-2021 10:17, SEPTAL INFARCT IS NOW PRESENT Confirmed by FRANCESCA YUAN [facility] ([id number]) on 07/24/2023 1:14:49 PM H MUSE 07/20/2023 1:12 PM FARM MECHANIC 07/24/2023 1:14 PM FARM MECHANIC Mason Rico MD ECG ORDERABLES [facility] MUSE * CT ABDOMEN PELVIS W CONTRAST [...] characterized. > Dictated by Quincy Mix D.O. (Applications Project Manager) I, AVERY MACHUCA MD have personally reviewed and interpreted this examination/study. > Interpreting Provider: AVERY MACHUCA MD on 03/22/2022 2:16 PM Narrative 03/22/2022 2:16 PM CDT PROCEDURE: CT ABDOMEN PELVIS W CONTRAST, DATE/TIME OF EXAM: 03/22/2022 12:45 PM, LOCATION [facility] INDICATION: 81-year-old female with history of metastatic [...] DATE/TIME OF EXAM: 03/22/2022 12:45 PM, LOCATION [facility] INDICATION: 81-year-old female with history of metastatic [...] characterized. > Dictated by Quincy Mix D.O. (Applications Project Manager) I, AVERY MACHUCA MD have personally reviewed and interpreted this examination/study. > Interpreting Provider: AVERY MACHUCA MD on 03/22/2022 2:16 PM Mason Rico MD CT ORDERABLES * Neuraxial Block (06/23/2021 11:56 AM FARM MECHANIC) Wesley Beasley MD - 06/23/2021 11:56 AM FARM MECHANIC Wesley Garcia MD 06/23/2021 11:58 AM Neuraxial Block Note Pre-Procedure: Procedure Name: Neuraxial Block Wesley Garcia MD GENERAL ANESTHESIA O ANA * ETT LINE PERFORMABLE (03/03/2021 8:35 AM CDT) Narrative Casey London Anes Asst - 03/03/2021 8:35 AM CDT Casey London Anes Asst 03/03/2021 8:38 AM Endotracheal Tube Placement: Patient Location: OR. Intubation Event Date/Time: 03/03/2021 7:49 AM Procedure: intubation ([id number]). Procedure Section: Sedation: under general anesthesia. Indications [...] (COVID-19) PRE-SURGICAL/PROCEDURE (02/27/2021 11:14 AM CDT) Pathologist [facility] COVID-19 PCR Not detected Not detected 02/27/2021 6:33 PM CDT [facility] MICROBIOLOGY Microbiology SPECIMEN FROM NASOPHARYNGEAL STRUCTURE / Unknown Collection / Unknown 02/27/2021 11:14 AM CDT 02/27/2021 11:20 AM CDT Narrative [facility] MICROBIOLOGY - 02/27/2021 6:33 PM CDT This nucleic acid amplification assay performance was validated by [facility] Microbiology [facility]. This test has been authorized [...] Rico MD LAB - MICROBIOLOGY O RDERABLES [facility] MICROBIOLOGY [address] [phone] * CULTURE URINE (12/31/2019 11:53 AM CDT) Only the most recent of6 resultswithin the time period is included. Pathologist [facility] Culture [facility] Comment: CULTURE, URINE, ROUTINE Micro Number: [id number] Test Status: Final Specimen Source: URINE, CLEAN CATCH Specimen Quality: Adequate Result: Multiple organisms present, each less than 10,000 CFU/mL. These organisms, commonly found on external and internal genitalia, are considered to be colonizers. No further testing performed. Test Performed at: [facility] [address] [place] [phone] SHRADDHA OCONNOR DO,MPH Urine MID-STREAM URINE SPECIMEN / Unknown 12/31/2019 11:53 AM CDT 12/31/2019 12:15 PM CDT Jacobo Clement MD LAB - MICROBIOLOGY O RDERABLES [facility] [address] [place] [address] * CARDIAC RHYTHM STRIP ORDER (07/16/2019 11:11 PM FARM MECHANIC) Only the most recent of2 resultswithin the time period is included. Narrative 07/16/2019 11:11 PM FARM MECHANIC Ordered by an unspecified provider. Scanned Document CARDIAC SERVICES ORD ERABLES * APHERESIS/TRANSFUSION ORDER (07/16/2019 11:10 PM FARM MECHANIC) Narrative 07/16/2019 11:10 PM FARM MECHANIC Ordered by an unspecified provider. Scanned Document NURSING - VITAL SIGN S AND ASSESSMENT * PT-INR (07/13/2019 6:55 AM FARM MECHANIC) Only the most recent of2 resultswithin the time period is included. PT 13.2 12.1 - 14.8 sec 07/13/2019 7:10 AM FARM MECHANIC [facility] INR 1.1 0.9 - 1.1 07/13/2019 7:10 AM FARM MECHANIC [facility] Blood BLOOD SPECIMEN / Unknown Venipuncture / Unknown 07/13/2019 6:55 AM FARM MECHANIC 07/13/2019 6:57 AM FARM MECHANIC Narrative [facility] - 07/13/2019 7:10 AM FARM MECHANIC Conventional Warfarin Anticoagulant Therapy: INR Reference Range: 2.0-3.0 Intensive Warfarin Anticoagulant Therapy: INR Reference Range: 2.5-3.5 Sriram Shannon MD LAB - COAGULATION ORDERABLES Performing Organization Address City/[facility]/ZIP Co de Phone Number [facility] [address] [place] [address] * (ABNORMAL) CREATININE BLOOD - POCT (IP) [facility] (05/28/2019 11:51 AM FARM MECHANIC) Only the most recent of6 resultswithin the time period is included. Creatinine POCT 1.04 0.3 - 1.3 mg/dL [facility] POCT TESTING eGFR POCT 54(A) 60 ml/min [facility] POCT TESTING Blood BLOOD SPECIMEN / Unknown 05/28/2019 11:51 AM FARM MECHANIC Mason Rico MD LAB - POINT OF CARE ORDERABLES Performing Organization Address City/[facility]/ZIP Co de Phone Number [facility] POCT TESTING [address] [place] [address], [facility] [phone] * MAMMOGRAM (04/16/2019) Anatomical Region Laterality Modality Other Historical Provider MD SCANNING ONLY * URINALYSIS - POINT OF CARE (AMB) [facility] (11/27/2018) Specific Muse UA 1.015 pH UA 6 WBC UA ++ Nitrite UA n Protein UA 30 Glucose UA n Ketones UA POCT n Urobilinogen UA n Bilirubin UA POCT n Blood Urine POCT about 250 Urine URINE / Unknown 11/27/2018 Jacobo Clement MD LAB - POINT OF CARE ORDERABLES * CULTURE URINE REFLEXED (01/12/2018 1:20 PM CDT) Pathologist [facility] Reflexive Urine Culture CULTURE INDICATED - RESULTS TO FOLLOW [employer] Comment: Test Performed at: [employer] [facility] [address] [place] [address] SHRADDHA OCONNOR DO,MPH 01/12/2018 1:20 PM CDT 01/12/2018 1:20 PM CDT Jacobo Clement MD LAB - MICROBIOLOGY O RDERABLES Performing Organization Address City/[facility]/ZIP Co de Phone Number [facility] [address] [place] [address] * (ABNORMAL) URINALYSIS W/MICROSCOPIC REFLEX TO CULTURE (01/12/2018 1:20 PM CDT) Color UA YELLOW YELLOW [facility] Appearance CLEAR CLEAR [facility] Specific Muse UA 1.008 1.001 - 1.035 [facility] pH [...] SEEN /LPF [facility] Comment: Test Performed at: [facility] [address] [place] [address] SHRADDHA OCONNOR DO,MPH Urine URINE SPECIMEN OBTAINED BY CLEAN CATCH PROCEDURE / Unknown 01/12/2018 1:20 PM CDT 01/12/2018 1:20 PM CDT Jacobo Clement MD LAB - URINALYSIS ORD ERABLES [facility] [address] [place] [address] * (ABNORMAL) URINALYSIS ROUTINE W/REFLEX TO CULTURE (12/19/2016 5:29 PM CDT) Color UA Yellow Straw, Yellow, Dark Yellow 12/19/2016 5:49 PM CDT [facility] Clarity UA Cloudy 12/19/2016 5:49 PM CDT [facility] Specific Muse UA 1.013 1.005 - 1.030 12/19/2016 5:49 PM CDT [facility] pH UA 6.5 5.0 - 8.0 pH 12/19/2016 5:49 PM CDT [facility] Protein UA Negative Negative 12/19/2016 5:49 PM CDT [facility] Blood UA 1+(A) Negative 12/19/2016 5:49 PM CDT [facility] Leukocyte UA 3+(A) Negative 12/19/2016 5:49 PM CDT [facility] Nitrite UA Negative Negative 12/19/2016 5:49 PM CDT [facility] Glucose UA Negative Negative 12/19/2016 5:49 PM CDT [facility] Ketone UA 3+(A) Negative 12/19/2016 5:49 PM CDT [facility] Bilirubin UA Negative Negative 12/19/2016 5:49 PM CDT [facility] Urobilinogen UA 1.0 0.1 - 1.0 EU/dL 12/19/2016 5:49 PM CDT [facility] WBC UA Auto >100(A) 0-2, 2-5 # /hpf 12/19/2016 5:49 PM CDT [facility] RBC UA Auto 10-20(A) 0-2, 2-5 # /hpf 12/19/2016 5:49 PM CDT [facility] Epithelial Cell UA Auto 20-50(A) 0-2, 2-5 # /hpf 12/19/2016 5:49 PM CDT [facility] Bacteria UA Auto 2+(A) None seen 12/20/19 17 5:49 PM CDT [facility] Hyaline Casts UA Auto 2-5(A) 0 - 2 #/lpf 12/19/2016 5:49 PM CDT [facility] Reflex Status Culture to follow 12/19/2016 5:49 PM CDT [facility] Urine URINE SPECIMEN OBTAINED BY CLEAN CATCH PROCEDURE / Unknown Collection / Unknown 12/19/2016 5:29 PM CDT 12/19/2016 5:36 PM CDT Olivia Mckeon MD LAB - URINALYSIS ORD ERABLES Performing Organization Address City/State/[facility] Co de Phone Number [facility] [address] [place] [address] * XR ABDOMEN 1 VW (12/18/2016 4:20 [...] Urine 149 mmol/L 12/17/2016 12:02 PM CDT [facility] Urine URINE SPECIMEN OBTAINED BY CLEAN CATCH PROCEDURE / Unknown Collection / Unknown 12/17/2016 11:18 AM CDT 12/17/2016 11:34 AM CDT Maura Lobo MD LAB - URINE CHEMISTR Y ORDERABLES Performing Organization Address [facility] Co de Phone Number [facility] [address] [place] [address] * CREATININE URINE RANDOM (12/17/2016 11:18 AM CDT) Creatinine Urine 140 mg/dL 12/17/2016 12:02 PM CDT [facility] Urine URINE SPECIMEN OBTAINED BY CLEAN CATCH PROCEDURE / Unknown Collection / Unknown 12/17/2016 11:18 AM CDT 12/17/2016 11:34 AM CDT Maura Lobo MD LAB - URINE CHEMISTR Y ORDERABLES Performing Organization Address [facility] Co de Phone Number [facility] [address] [place] [phone] * GROSS + MICRO EXAM (STL) (12/16/2016 11:26 AM CDT) Case Report Surgical Pathology Report Case: [id number] Authorizing Provider: Jacobo Clement MD Collected: 12/16/2016 11:26 AM Ordering Location: [facility] Received: 12/16/2016 03:25 PM Pathologist: Mere Calderon MD Specimen: Tumor, Pelvic Tumor 12/20/2016 12:48 PM [facility] Final Diagnosis 1. 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 Riveting Machine Operator sections of the membranous portion of the specimen are submitted as A1 through A3. Riveting Machine Operator sections of the fat are submitted as A4. IA/n 12/20/2016 12:48 PM [facility] Microscopic Description Sections of the pelvic [...] granulosa cell tumor. IA/kf 12/20/2016 12:48 PM [facility] Disclaimer All histochemical and/or immunohistochemical results are interpreted with controls that demonstrate appropriate staining reactions before reporting results. Note on use of immunocytochemistry reagents: This test was developed and its performance characteristic determined by [facility], Department of Laboratory Medicine. It has not been cleared or approved by the U.S. Food and Drug Administration (FDA). The FDA has determined that such clearance or approval is not necessary. The test is used for clinical purpose. It should not be regarded as investigational or for research. This laboratory is certified to perform high complexity testing. 12/20/2016 12:48 PM [facility] Embedded Images 12/20/2016 12:48 PM [facility] Pathology/Cytolo gy TUMOR TISSUE SPECIMEN / Unknown 12/16/2016 11:26 AM CDT 12/16/2016 3:25 PM CDT Jacobo Clement MD LAB - PATHOLOGY/CYTO LOGY ORDERABLES Performing Organization Address City/[facility]/ZIP Co de Phone Number [facility] [address] [place], [place] [phone] * CYTOLOGY NON-SLIDE FASTENER REPAIRER PANEL (STL) (12/16/2016 10:18 AM CDT) Case Report Cytology Non Hoop Driving Machine Operator Helper Report Case: [id number] Authorizing Provider: Jacobo Clement MD Collected: 12/16/2016 10:18 AM Ordering Location: [facility] Received: 12/16/2016 03:32 PM Pathologist: Sandra Washington MD Specimen: Urine Cath, Urine 12/17/2016 2:49 PM CDT [facility] Final Diagnosis 1. Urine from catheter, smear and cell block: -- Benign urothelial cells admixed with numerous mixed inflammatory cells -- No diagnostic evidence of malignancy MS/ 12/17/2016 2:49 PM CDT [facility] Gross Description Received is 35 mL of gold fluid. MS/ 12/17/2016 2:49 PM CDT [facility] Microscopic Description The smear and the cell block are cellular, and are comprised of predominantly neutrophils, admixed with rare lymphocytes and histiocytes. Rare urothelial cells, some with degenerative changes are seen. There is no diagnostic evidence of malignancy. SD/ 12/17/2016 2:49 PM CDT [facility] Embedded Images 12/17/2016 2:49 PM CDT [facility] Pathology/Cytolo gy URINE SPECIMEN COLLECTION, CATHETERIZED / Unknown 12/16/2016 10:18 AM CDT 12/16/2016 3:32 PM CDT Jacobo Clement MD LAB - PATHOLOGY/CYTO LOGY ORDERABLES Performing Organization Address City/[facility]/ZIP Co de Phone Number [facility] [address] [place], [place] [phone] * BLOOD TYPE VERIFICATION (12/16/2016 8:36 AM CDT) ABO A 12/16/2016 9:14 AM CDT [facility] Rh Type Positive 12/16/2016 9:14 AM CDT [facility] Blood Bank BLOOD SPECIMEN / Unknown Lab Venipuncture / Unknown 12/16/2016 8:36 AM CDT 12/16/2016 8:36 AM CDT Jacobo Clement MD LAB - BLOOD BANK ORD ERABLES [facility] [address] [place] [address], [facility] * (ABNORMAL) URINALYSIS ROUTINE AUTO (12/16/2016 7:33 AM CDT) Color UA Yellow Straw, Yellow, Dark Yellow 12/16/2016 2:18 PM CDT [facility] Clarity UA Turbid 12/16/2016 2:18 PM CDT [facility] Specific Muse UA 1.022 1.005 - 1.030 12/16/2016 2:18 PM CDT [facility] pH UA 6.0 5.0 - 8.0 pH 12/16/2016 2:18 PM CDT [facility] Protein UA 1+(A) Negative 12/16/2016 2:18 PM CDT [facility] Blood UA 2+(A) Negative 12/16/2016 2:18 PM CDT [facility] Leukocyte UA 3+(A) Negative 12/16/2016 2:18 PM CDT [facility] Nitrite UA Negative Negative 12/16/2016 2:18 PM CDT [facility] Glucose UA Negative Negative 12/16/2016 2:18 PM CDT [facility] Ketone UA 2+(A) Negative 12/16/2016 2:18 PM CDT [facility] Bilirubin UA Negative Negative 12/16/2016 2:18 PM CDT [facility] Urobilinogen UA 0.2 0.1 - 1.0 EU/dL 12/16/2016 2:18 PM CDT [facility] WBC UA Auto Reflex to manual(A) 0-2, 2-5 # /hpf 12/16/2016 2:18 PM CDT [facility] RBC UA Auto Reflex to manual(A) 0-2, 2-5 # /hpf 12/16/2016 2:18 PM CDT [facility] Epithelial Cell UA Auto Reflex to manual(A) 0-2, 2-5 # /hpf 12/16/2016 2:18 PM CDT [facility] Bacteria UA Auto Reflex to manual(A) None seen 12/16/2016 2:18 PM CDT [facility] Hyaline Casts UA Auto Reflex to manual(A) 0 - 2 #/lpf 12/16/2016 2:18 PM CDT [facility] Urine URINE SPECIMEN OBTAINED BY CLEAN CATCH PROCEDURE / Unknown Collection / Unknown 12/16/2016 7:33 AM CDT 12/16/2016 1:47 PM CDT Jacobo Clement MD LAB - URINALYSIS ORD ERABLES Performing Organization Address City/[facility]/ZIP Co de Phone Number [facility] [address] [place] [address] * (ABNORMAL) URINALYSIS MICROSCOPIC ONLY (12/16/2016 7:33 AM CDT) RBC UA 20-50(A) 0-2, 2-5 # /hpf 12/16/2016 2:53 PM CDT [facility] WBC UA >100(A) 0-2, 2-5 # /hpf 12/16/2016 2:53 PM CDT [facility] Bacteria UA 2+(A) None Seen 12/16/2016 2:53 PM CDT [facility] Epithelial Cell UA 0-2 0-2, 2-5 # /hpf 12/16/2016 2:53 PM CDT [facility] Hyaline Casts 0-2 0 - 2 # /lpf 12/16/2016 2:53 PM CDT [facility] Amorphous Phosphate Crystals 1+(A) None Seen 12/16/2016 2:53 PM CDT [facility] Urine URINE SPECIMEN OBTAINED BY CLEAN CATCH PROCEDURE / Unknown Collection / Unknown 12/16/2016 7:33 AM CDT 12/16/2016 1:47 PM CDT Jacobo Clement MD LAB - URINALYSIS ORD ERABLES [facility] [address] [place] [address] * PT PTT PANEL (12/16/2016 7:33 AM CDT) PT 10.9 9.5 - 11.6 sec 12/16/2016 10:07 AM CDT [facility] INR 1.1 0.9 - 1.1 12/16/2016 10:07 AM CDT [facility] PTT 22.5 21.0 - 32.0 sec 12/16/2016 10:07 AM CDT [facility] Blood BLOOD SPECIMEN / Unknown Venipuncture / Unknown 12/16/2016 7:33 AM CDT 12/16/2016 8:24 AM CDT Narrative [facility] - 12/16/2016 10:07 AM CDT Conventional Warfarin Anticoagulant Therapy: INR Reference Range: 2.0-3.0 Intensive Warfarin Anticoagulant Therapy: INR Reference Range: 2.5-3.5 Heparin Therapeutic Range for PTT: 47.7 - 68.6 seconds. Jacobo Clement MD LAB - COAGULATION OR DERABLES Performing Organization Address [facility] Co de Phone Number [facility] [address] [place] [address] * PATHOLOGY/GENETICS HISTORICAL-ONBASE (12/16/2016) Only the most recent of2 resultswithin the time period is included. 12/16/2016 Historical Provider LAB - CHEMISTRY O RDERAASYA Performing Organization Address [facility] Co de Phone Number [facility] [address] * LAB HISTORICAL RESULTS-ONBASE (12/16/2016) Only the most recent of6 resultswithin the time period is included. 12/16/2016 Historical Provider LAB - CHEMISTRY O RDERAASYA Performing Organization Address [facility] Co de Phone Number [facility] [address] * XR CHEST 1VW PORTABLE (07/24/2015 5:53 AM FARM MECHANIC) Only the most recent of3 resultswithin the time period is included. Anatomical Region Laterality Modality Chest Other Impressions 07/24/2015 2:22 PM FARM MECHANIC Impression: There has been interval removal of the enteric tube. A small right apical pneumothorax is slightly decreased. There is bibasilar atelectasis/airspace disease, right greater than left, increased from the prior exam. There are small bilateral pleural effusions, unchanged. No left pneumothorax is seen. The cardiomediastinal silhouette is normal. Dictated by Donald Gautam MD (radiology clerk) This report was approved by Omero Gautam on 07/24/2015 2:[address] MEY Jackson M.D. have personally reviewed and interpreted this examination/study. This report was electronically signed by MEY CALDERON M.D. on 07/24/2015 2:22 PM . Narrative 07/24/2015 2:22 PM FARM MECHANIC Exam: Portable Chest X-ray, 1 view Date: [...] is normal. Dictated by Donald Gautam MD (radiology clerk) This report was approved by Omero Gautam on 07/24/2015 2:[address] MEY Jackson M.D. have personally reviewed and interpreted thisexamination/study. This report was electronically signed by MEY CALDERON M.D. on07/24/2015 2:22 PM . Mason Rico MD DIAGNOSTIC IMAGING O RDERABLES * (ABNORMAL) BLOOD GASES ART COMPLETE [facility] OR (07/22/2015 8:22 AM FARM MECHANIC) pH Arterial 7.38 7.35 - 7.45 [facility] pCO2 Arterial 36 35 - 45 mmHg [facility] pO2 Arterial 222(H) 71 - 95 mmHg [facility] HCO3 Arterial 20.4(L) 22.0 - 26.0 mmol/L [facility] TCO2 Arterial 21.5(L) 25.0 - 29.0 mmol/L [facility] Base Excess Arterial -4.1(L) -2.0 - 2.0 mmol/L [facility] Hemoglobin Arterial 12.3 12.0 - 15.5 g/dL [facility] Oxyhemoglobin Arterial 98.4 95.0 - 100.0 % [facility] Carboxyhemoglobin 0.3 0.0 - 3.0 % [facility] Methemoglobin 0.5 0.0 - 2.0 % [facility] Ionized Calcium Whole Blood 1.14 mmol/L [facility] Adjusted Ionized Calcium 1.13(L) 1.19 - 1.34 mmol/L [facility] Sodium Whole Blood 131(L) 135 - 145 mmol/L [facility] Potassium Whole Blood 3.9 3.5 - 5.5 mmol/L [facility] Chloride Whole Blood 102 101 - 111 mmol/L [facility] Glucose Whole Blood 115(H) 70 - 110 mg/dL [facility] Lactic Acid Whole Blood 1.1 0.5 - 3.4 mmol/L [facility] Blood specimen (specimen) 07/22/2015 8:22 AM FARM MECHANIC 07/22/2015 8:22 AM FARM MECHANIC Mason Rico MD LAB - BLOOD GASES OR DERABLES [address] [phone] * CROSSMATCH RBC LEUKOREDUCED (07/22/2015 7:29 AM FARM MECHANIC) Unit RBC-WBCD [id number] 3 returned [facility] BLOOD BANK PRODUCTS (BEAKER) Unit RBC-WBCD [id number] 1 returned [facility] BLOOD BANK PRODUCTS (BEAKER) 07/22/2015 7:29 AM FARM MECHANIC 07/22/2015 7:29 AM FARM MECHANIC Narrative [facility] BLOOD BANK PRODUCTS (BEAKER) - 07/22/2015 7:29 AM FARM MECHANIC # of Units->4 Mason Rico MD LAB - BLOOD BANK ORD ERABLES [facility] BLOOD BANK PRODUCTS (BEAKER) * ENDOSCOPIC ULTRASOUND, UPPER (06/27/2015 11:07 AM FARM MECHANIC) Report Endoscopy POC _ Patient Name: Mary So Procedure Date: 06/27/2015 11:07 AM Date of : 1940 Admit Type: Outpatient Age: 74 Gender: Female Attending MD: Sriram Ambriz MD _ Procedure: Upper EUS Indications: Suspected mass in esophagus on CT scan Providers: Sriram Ambriz MD (Doctor), Rhiannon Elliott RN, Billy Guerrero, Pipe And Tank Fabricator Referring MD: Giuseppe Urbina MD (Referring MD), [...] by the physician, the nurse and the typing office worker. The procedure was verified in the endoscopy [...] as scheduled Procedure Code(s): --- Professional --- 50314, Esophagogastroduoden oscopy, flexible, transoral; with endoscopic ultrasound examination limited to the esophagus, stomach or duodenum, and adjacent structures --- Technical --- 19363, Esophagogastroduoden oscopy, flexible, transoral; with endoscopic ultrasound [...] in this report are preliminary and upon assistant field hockey coach review may be revised to meet current compliance requirements. Attending Participation: I personally performed the entire procedure. Sriram Ambriz MD 06/27/2015 11:30:34 AM This report has been signed electronically. Number of Addenda: 0 Note Initiated On: 06/27/2015 11:07 AM [facility] 06/27/2015 11:0 7 AM FARM MECHANIC Sriram Ambriz MD GI PROCEDURE ORDERAB LES [facility] ENDOS[facility] * PET CT SKULL TO MID THIGH (06/13/2015 11:04 AM FARM MECHANIC) Anatomical Region Laterality Modality Head, Lower Extremity Nuclear Me dicine 06/13/2015 11:1 0 AM FARM MECHANIC Impressions 06/13/2015 11:44 AM FARM MECHANIC No definite PET/CT evidence of malignancy. The reported mass above the liver and left thoracic mass are not apparent on this exam. However, evaluation is limited with this noncontrast CT. Recommend correlation with the prior CT. Narrative 06/13/2015 11:44 AM FARM MECHANIC Procedure: PET/CT study Referring physician: Dr. Hart [...] sigmoid colon, biopsy -- Tubular adenoma MC/db Rental Clerk db Pathologist Carol Calderon M.D. Snjimmie. 01/27/2006 1135 <1> CPT code 75612 MISCELLANEOUS SAMPLES / Unknown 01/26/2006 2:34 PM CDT 01/26/2006 2:34 PM CDT Historical Provider LAB - PATHOLOGY/C YTOLOGY ORDERABLES * FROZEN SECTION (07/09/2003 2:58 PM FARM MECHANIC) Result CASE NUMBER [id number] Comment: ORDERING [...] and necrosis. The cystic fluid is serosanguinous. Riveting Machine Operator sections through the heterogenous areas are submitted for FSA and FSB. Additional energy conservation representative sections are submitted in cassettes C through J energy conservation representative section of the fallopian tube are [...] smooth. The fallopian tube is grossly unremarkable. Riveting Machine Operator sections of the ovary and fallopian tube are submitted in cassette N. Cross section through the fragment of fibroadipose tissue doesn't reveal any lesions or nodules. Riveting Machine Operator sections are submitted in cassette O. The [...] serially sectioned and no lesion is identified. Riveting Machine Operator sections are submitted in cassettes Q and [...] Many mesothelial cells and blood present. GM/ Rental Clerk [facility] Pathologist Anastasia Mckenzie M.D. [place]. 07/11/2003 1305 <3> CPT code 37326 x2, 19705, 65120 x4, 25267, 35321 MISCELLANEOUS SAMPLES / Unknown 07/09/2003 2:58 PM FARM MECHANIC 07/09/2003 2:58 PM FARM MECHANIC Historical Provider LAB - PATHOLOGY/C YTOLOGY ORDERABLES * CYTOLOGY NON-SLIDE FASTENER REPAIRER PANEL (07/09/2003 12:00 AM FARM MECHANIC) Result CASE NUMBER [id number] Comment: ORDERING PHYSICIAN MARGUERITE CLEMENT SPECIMEN TYPE Ascitic Fluid Date 07/11/[address] Clement Specimen Adequacy Satisfactory for evaluation. Cell Pathology single and small groups of benign mesothelial cells present, there is no evidence of malignancy. *Diagnosis negative for malignancy [place]. 07/11/2003 1241 <1> Pathologist Carol Calderon M.D. CPT code 86587 MISCELLANEOUS SAMPLE S / Unknown 07/09/2003 07/10/2003 7:56 AM FARM MECHANIC Historical Provider LAB - PATHOLOGY/C YTOLOGY ORDERABLES Care Teams Power Transformer Repair Supervisor Relationship Specialty Start Date End Date Charlette Lentz MD [address] [place] [address] PCP - General 04/01/22 Lexie Lynn, RN Registered Nurse 12/16/16
--- OUTSIDE RECORDS SUMMARY | 2024-07-04 11:05 | XMS_ITS | Encounter Summary ---
Author Organization [facility] Healthcare Address [address] [place] [address] Care Team Providers Care Hardboard Grinder Name Role Phone Charlette Lentz MD Primary Care Provider [phone] Encounter Details Date Type Department Care Team (Late st Contact Info) Description 06/22/2024 Telephone [facility] Cardiology [address] [place] [address] Casey Lozano MD [address] [place] [id number] Social History Tobacco Use Types Packs/Day Years Used Date Smoking Tobacco: Never Smokeless Tobacco: Never Alcohol Use Standard Drinks/Week Comments Yes 0 (1 standard drink = 0.6 oz pur e alcohol) Comments No Sex and Gender Information Value Date Recorded Sex Assigned at Not on file Legal Sex Female 1:53 PM CANOE MAKER Gender Identity Female 10/03/2023 12:43 PM CDT Sexual Orientation Straight 10/03/2023 12 :43 PM CDT documented as of this encounter Miscellaneous Notes * Telephone Encounter - Gloria Ruffin MA - 06/25/2024 9:27 AM CST Done E MAKER * Telephone Encounter - Erica Vasquez - 06/22/2024 4:14 PM CST Patient requesting refill for Xarelto 20 mg with 90 day supply. Please send to [facility]. Thank you. Contact: E MAKER documented in this encounter Plan of Treatment Not on file documented as of this encounter Visit Diagnoses Not on filedocumented in this encounter Care Teams Hardboard Grinder Relationship Specialty Start Date End Date Charlette Lentz MD PCP - General Family Medicine 06/16/21 documented as of this encounter
--- OUTSIDE RECORDS SUMMARY | 2024-07-04 11:05 | XMS_ITS | Encounter Summary ---
Author Organization [facility] Address [address] [place] [address] Care Team Providers Care Behavioral Health Technician Name Role Phone Lexie Lynn RN Unavailable Unavailable Charlette Lentz MD Primary Care Provider [phone] Encounter Details Date Type Department Care Team (Late st Contact Info) Description 08/31/2023 Telephone [facility] - PERINATAL TECH [address] [place] [address] Marlo Jeter MD [address] [facility] [address] [place], [place] [id number] [phone] Social History Tobacco Use Types Packs/Day Years [...] st Contact Info) Description 07/09/2024 11:00 AM NUMERICAL CONTROL NESTING OPERATOR Office Visit [facility] - PERINATAL TECH [address] [place] [address] Marlo Jeter MD [address] [facility] [address] [place] [address] documented as of this encounter Visit Diagnoses Not on filedocumented in this encounter Care Teams Behavioral Health Technician Relationship Specialty Start Date End Date Charlette Lentz MD [address] [place] [address] PCP - General 04/01/22 Lexie Lynn, RN Registered Nurse 12/16/16 documented as of this encounter
--- OUTSIDE RECORDS SUMMARY | 2024-07-04 11:05 | XMS_ITS | Clinical Summary ---
Author Organization [facility] Address [address] [place] [address] Care Team Providers Care Design Printer Balloon Name Role Phone Charlette Lentz MD Primary Care Provider [phone] Allergies Active Allergy Reactions Criticality Noted Date [...] 06/16/2021 Assessment & Plan (06/16/2021 2:49 PM UNDERGROUND MINING SECTION FOREMAN): Remote history of takotsubo cardiomyopathy, fully recovered. [...] fibrillation Assessment & Plan (06/16/2021 2:47 PM UNDERGROUND MINING SECTION FOREMAN): Permanent atrial fibrillation, with controlled ventricular response despite no rate controlling therapy. She is chronically anticoagulated with Xarelto which she should continue. Assessment & Plan (06/16/2020 5:37 PM UNDERGROUND MINING SECTION FOREMAN): Rate controlled and anticoagulated. No change in therapy. Assessment & Plan (06/11/2019 9:41 AM UNDERGROUND MINING SECTION FOREMAN): Rate controlled and anticoagulated. Previous Holter has shown that her rate control is good. Assessment & Plan (06/16/2018 10:31 AM UNDERGROUND MINING SECTION FOREMAN): Rate controlled and anticoagulated. Continue current medications. Assessment & Plan (06/17/2017 12:06 PM UNDERGROUND MINING SECTION FOREMAN): Rate controlled and anticoagulated. For insurance reasons, will switch to Xarelto. Mixed hyperlipidemia 03/31/2012 Overview (08/25/2016): Hyperlipidemia Assessment & Plan (06/16/2021 2:48 PM UNDERGROUND MINING SECTION FOREMAN): Lipids are well controlled on simvastatin 20 mg daily. No change. Assessment & Plan (06/16/2020 5:38 PM UNDERGROUND MINING SECTION FOREMAN): On chronic lipid lowering therapy with good control. No changes made. Assessment & Plan (06/11/2019 9:41 AM UNDERGROUND MINING SECTION FOREMAN): On chronic lipid lowering therapy with good control. No changes made. LDL is 53 today. Assessment & Plan (06/17/2017 12:06 PM UNDERGROUND MINING SECTION FOREMAN): On chronic lipid lowering therapy with good control. No changes made. Coronary artery disease invo lving [place] coronary artery of [place] heart without angina pectoris 03/31/2012 Overview (08/27/2016): Coronary atherosclerosis of [place] coronary artery Assessment & Plan (06/11/2019 9:41 AM UNDERGROUND MINING SECTION FOREMAN): Mild and asymptomatic. Continue low-dose aspirin. Assessment & Plan (06/17/2017 12:07 PM UNDERGROUND MINING SECTION FOREMAN): Minor luminal irregularities noted at cardiac catheterization in 2010, done at the time of her episode of stress cardiomyopathy Benign hypertension 03/31/2012 Overview (08/27/2016): Hypertension, benign Assessment & Plan (06/16/2021 2:48 PM UNDERGROUND MINING SECTION FOREMAN): Blood pressure is well controlled with Accupril 40 mg daily and amlodipine 10 mg daily which she should continue Assessment & Plan (06/16/2020 5:37 PM UNDERGROUND MINING SECTION FOREMAN): Blood pressure is adequately controlled on current regimen. No change was made. Assessment & Plan (06/11/2019 9:41 AM UNDERGROUND MINING SECTION FOREMAN): Blood pressure is adequately controlled on current regimen. No change was made. Assessment & Plan (06/16/2018 10:33 AM UNDERGROUND MINING SECTION FOREMAN): Blood pressure is well controlled. No change. Mild edema is consistent with her being on amlodipine. I reassured her that this is benign. Assessment & Plan (06/17/2017 12:06 PM UNDERGROUND MINING SECTION FOREMAN): Blood pressure is adequately controlled on current regimen. No change was made. 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 Encounters Date Type Department Care Team Description 06/22/2024 Telephone [facility] Medical Group Cardiology [address] [place] [address] Casey Lozano MD 06/19/2024 3:00 PM UNDERGROUND MINING SECTION FOREMAN Office Visit [facility] Medical Group Cardiology [address] [place] [address] Casey Lozano MD Benign hypertension (Primary Dx); Paroxysmal atrial fibrillation (CMS/HCC) (HCC); Coronary artery disease involving [place] coronary artery of [place] heart without angina pectoris; H/O cardiomyopathy; Mixed [...] on file Legal Sex Female 1:53 PM UNDERGROUND MINING SECTION FOREMAN Gender Identity Female 10/03/2023 12:43 PM CDT Sexual Orientation Straight 10/03/2023 12 :43 PM CDT Obstetrics History Last Filed Vital Signs Vital Sign Reading Time Taken Comments Blood Pressure 116/52 06/19/2024 3:22 PM UNDERGROUND MINING SECTION FOREMAN Pulse 70 06/19/2024 3:22 PM UNDERGROUND MINING SECTION FOREMAN Temperature 36.7 C (98.1 F) 12/06/2018 4:00 PM CDT Respiratory Rate 20 12/06/2018 4:00 PM CDT Oxygen Saturation 95% 06/19/2024 3:22 PM UNDERGROUND MINING SECTION FOREMAN Inhaled Oxygen Concentration - - Weight 68 kg (150 lb) 06/19/2024 3:22 PM UNDERGROUND MINING SECTION FOREMAN Height 157.5 cm (5' 2 ) 06/19/2024 3:22 PM UNDERGROUND MINING SECTION FOREMAN Body Mass Index 27.44 06/19/2024 3:22 PM UNDERGROUND MINING SECTION FOREMAN Plan of Treatment Health Maintenance Due Date Last Done Comments Depression Screening 1938 Fall Risk Assessment 1938 Osteoporosis Screening-Bone Density Scan 1938 Hepatitis B Screening 1956 Zoster Vaccine (1 of 2) 1957 Well Visit 65+ 11/06/2003 DTaP/Tdap/Td Vaccine (1 - Tdap) 09/11/2016 7, 09/20/2006 Influenza Vaccine (#1) 2024 1, 02/05/2020, 02/08/2019, Additional history exists Pneumococcal vaccine 65+ Completed 017, 07/23/2015, 05/23/2005 Insurance [facility] [place] Care Teams Design Printer Balloon Relationship Specialty Start Date End Date Charlette Lentz MD PCP - General Family Medicine 06/16/21
--- OUTSIDE RECORDS SUMMARY | 2024-07-04 11:05 | XMS_ITS | Clinical Summary ---
Author Organization [facility] Address [address] [place] [address] Care Team Providers Care Family Dinner Service Specialist Name Role Phone Unavailable Primary Care Provider [...]
--- OUTSIDE RECORDS SUMMARY | 2024-07-04 11:05 | XMS_ITS | Referral Summary ---
Author Organization [facility] D Address [address] [place] [address] Care Team Providers Care Manager Intranet Name Role Phone Charlette Lentz MD Primary Care Provider [phone] Encounters Date Type Department Care Team Description 06/22/2024 Telephone [facility] Medical [facility] Cardiology [address] [place] [address] Casey Lozano MD 06/19/2024 3:00 PM DIRECTOR EQUIPMENT Office Visit [facility] Medical [facility] Cardiology [address] [facility] [address] [place] [address] Casey Lozano MD Benign hypertension (Primary Dx); Paroxysmal atrial fibrillation (CMS/HCC) (HCC); Coronary artery disease involving [place] coronary artery of [place] heart without angina pectoris; H/O cardiomyopathy; Mixed [...] 06/16/2021 Assessment & Plan (06/16/2021 2:49 PM DIRECTOR EQUIPMENT): Remote history of takotsubo cardiomyopathy, fully recovered. [...] fibrillation Assessment & Plan (06/16/2021 2:47 PM DIRECTOR EQUIPMENT): Permanent atrial fibrillation, with controlled ventricular response despite no rate controlling therapy. She is chronically anticoagulated with Xarelto which she should continue. Assessment & Plan (06/16/2020 5:37 PM DIRECTOR EQUIPMENT): Rate controlled and anticoagulated. No change in therapy. Assessment & Plan (06/11/2019 9:41 AM DIRECTOR EQUIPMENT): Rate controlled and anticoagulated. Previous Holter has shown that her rate control is good. Assessment & Plan (06/16/2018 10:31 AM DIRECTOR EQUIPMENT): Rate controlled and anticoagulated. Continue current medications. Assessment & Plan (06/17/2017 12:06 PM DIRECTOR EQUIPMENT): Rate controlled and anticoagulated. For insurance reasons, will switch to Xarelto. Mixed hyperlipidemia 03/31/2012 Overview (08/25/2016): Hyperlipidemia Assessment & Plan (06/16/2021 2:48 PM DIRECTOR EQUIPMENT): Lipids are well controlled on simvastatin 20 mg daily. No change. Assessment & Plan (06/16/2020 5:38 PM DIRECTOR EQUIPMENT): On chronic lipid lowering therapy with good control. No changes made. Assessment & Plan (06/11/2019 9:41 AM DIRECTOR EQUIPMENT): On chronic lipid lowering therapy with good control. No changes made. LDL is 53 today. Assessment & Plan (06/17/2017 12:06 PM DIRECTOR EQUIPMENT): On chronic lipid lowering therapy with good control. No changes made. Coronary artery disease invo lving [place] coronary artery of [place] heart without angina pectoris 03/31/2012 Overview (08/27/2016): Coronary atherosclerosis of [place] coronary artery Assessment & Plan (06/11/2019 9:41 AM DIRECTOR EQUIPMENT): Mild and asymptomatic. Continue low-dose aspirin. Assessment & Plan (06/17/2017 12:07 PM DIRECTOR EQUIPMENT): Minor luminal irregularities noted at cardiac catheterization in 2010, done at the time of her episode of stress cardiomyopathy Benign hypertension 03/31/2012 Overview (08/27/2016): Hypertension, benign Assessment & Plan (06/16/2021 2:48 PM DIRECTOR EQUIPMENT): Blood pressure is well controlled with Accupril 40 mg daily and amlodipine 10 mg daily which she should continue Assessment & Plan (06/16/2020 5:37 PM DIRECTOR EQUIPMENT): Blood pressure is adequately controlled on current regimen. No change was made. Assessment & Plan (06/11/2019 9:41 AM DIRECTOR EQUIPMENT): Blood pressure is adequately controlled on current regimen. No change was made. Assessment & Plan (06/16/2018 10:33 AM DIRECTOR EQUIPMENT): Blood pressure is well controlled. No change. Mild edema is consistent with her being on amlodipine. I reassured her that this is benign. Assessment & Plan (06/17/2017 12:06 PM DIRECTOR EQUIPMENT): Blood pressure is adequately controlled on current [...] on file Legal Sex Female 1:53 PM DIRECTOR EQUIPMENT Gender Identity Female 10/03/2023 12:43 PM CDT Sexual Orientation Straight 10/03/2023 12 :43 PM CDT Last Filed Vital Signs Vital Sign Reading Time Taken Comments Blood Pressure 116/52 06/19/2024 3:22 PM DIRECTOR EQUIPMENT Pulse 70 06/19/2024 3:22 PM DIRECTOR EQUIPMENT Temperature 36.7 C (98.1 F) 12/06/2018 4:00 PM CDT Respiratory Rate 20 12/06/2018 4:00 PM CDT Oxygen Saturation 95% 06/19/2024 3:22 PM DIRECTOR EQUIPMENT Inhaled Oxygen Concentration - - Weight 68 kg (150 lb) 06/19/2024 3:22 PM DIRECTOR EQUIPMENT Height 157.5 cm (5' 2 ) 06/19/2024 3:22 PM DIRECTOR EQUIPMENT Body Mass Index 27.44 06/19/2024 3:22 PM DIRECTOR EQUIPMENT Plan of Treatment Not on file Insurance [facility] Care Teams Manager Intranet Relationship Specialty Start Date End Date Charlette Lentz MD PCP - General Family Medicine 06/16/21
--- OUTSIDE RECORDS SUMMARY | 2024-07-04 11:05 | XMS_ITS | Continuity of Care Document ---
Author Organization [facility] Address [address] [place] [address] [place] [address] Phone Care Team Providers Care Co Chairman Name Role Phone Parveen Jamil CORDOBA Unavailable [...] Diagnoses Date Provider Providers Copied on Encounter [facility], [address] [place] [address] [address], [place], [place], [id number], [place] tel:[phone] CEO [facility] [address] No Information Parveen ADALID Negron. [address] [facility], [address], [address], . tel:[phone] Referring Provider: Rasta Johnson OD P, [address] [facility], [place], [address] . tel:[phone] Office/outpat ient Visit, [facility], [address] [place] [address] [address], [place], [place], [id number], tel:[phone] [facility] No Information Racquelfranciscoeny OD Rasta. [address] [facility], [place], [place], [id number], [place]. tel:[phone] Referring Provider: Rasta Johnson OD P, [address] [facility], [place], [address] . tel:[phone] Office/outpat ient Visit, [facility], [address] [place] [address] [address], [place], [place], [id number], [place] tel:[phone] [facility] No Information Tadeoeny OD Rasta. [address] [place], [place], [id number], [place]. tel:[phone] Referring Provider: Rasta Johnson OD P, [address] [place], [address] . tel:[phone] Office/outpat ient Visit, [facility], [address] [place] [address] [address], [place], [place], [id number], [place] tel:[phone] [facility] No Information Tadeoeny OD Rasta. [address] [facility], [place], [place], [id number], [place]. tel:[phone] Referring Provider: Rasta Johnson OD P, [address] [facility], [place], [address] . tel:[phone] Family History Family Member Type Diagnosis Age At Onset No Information Payers Payer name Insurance type Covered republican ID Authoriza tion(s) [place] [id number] [place] Out Of [place] BL [id number] Social History Type Description Quantity Date Captured [...]
[2024-07-04 11:24] LABS: Influenza A QL RT-PCR Negative (Negative); Influenza B QL RT-PCR Negative (Negative); RSV RNA, RT-PCR Negative (Negative); SARS-CoV-2 RNA PCR Negative (Negative)
== END 2024-07-04 10:06 | disposition home or self-care (01) ==
LOC: ANHLAB 10:07
PROVIDERS: PCP Family Medicine; Visit Provider Family Medicine
DX: J06.9 Acute upper respiratory infection, unspecified (principal); Z20.822 Contact with and (suspected) exposure to COVID-19
CPT/HCPCS: 87637

== ENCOUNTER 2024-07-31 20:36 | Emergency (ER) | payer OTHER, SELFPAY ==
--- OUTSIDE RECORDS SUMMARY | 2024-07-31 20:39 | XMS_ITS | Referral Summary ---
Author Organization [facility] D Address [address] [place] [address] Care Team Providers Care Afternoon Nanny Name Role Phone Charlette Lentz MD Primary Care Provider Encounters Date Type Department Care Team Description 06/22/2024 Telephone [facility] Medical [facility] Cardiology [address] [place] [address] Casey Lozano MD 06/19/2024 3:00 PM SUPPLY REQUIREMENTS OFFICER Office Visit [facility] Medical [facility] Cardiology [address] [email or web address] [address] [place] [address] Casey Lozano MD Benign hypertension (Primary Dx); Paroxysmal atrial fibrillation (HCC); Coronary artery disease involving [place] coronary artery of [place] heart without angina pectoris; H/O cardiomyopathy; Mixed hyperlipidemia; Chronic anticoagulation from Last 3 Months Allergies Active Allergy Reactions Criticality Noted Date Comments Penicillins Other (See comments),Unknown Reaction: UNKNOWN CHILDHOOD, , Medications aspirin 81 mg enteric coated tabletIndicati ons:prevention of thrombosis Take 1 tablet (81 mg total) by mouth daily Active cholecalcifero l (VITAMIN D-3) 1,000 unit tablet Take 1 tablet (1,000 Units total) by mouth daily Active LORazepam (ATIVAN) 1 mg tablet Take 1 tablet (1 mg total) by mouth 3 (three) times a day as needed for anxiety Active omeprazole (PriLOSEC) 20 mg capsule Take 1 capsule (20 mg total) by mouth daily Active phenazopyridin e (PYRIDIUM) 200 mg tablet Take 1 tablet (200 mg total) by mouth 3 (three) times a day as needed 020 Active cyanocobalamin (Vitamin B-12) 500 mcg tablet Take 1 tablet (500 mcg total) by mouth daily Active lisinopriL (PRINIVIL,ZEST RIL) 40 mg tablet 023 Active Bifidobacteriu m infantis (ALIGN) 4 mg capsule 1 capsule [...] in the skin folds. 30 g 6 Active Additional Information Patient not taking.Reported on 06/19/2024 letrozole (FEMARA) 2.5 mg tablet Take 1 tablet (2.5 mg total) by mouth daily Active amLODIPine (NORVASC) 10 mg tablet TAKE 1 TABLET BY MOUTH EVERY DAY 90 tablet 2 Active Additional Information Patient taking differently: 5 mg oral Daily, Reported on 06/19/2024 simvastatin (ZOCOR) 10 mg tablet Take 1 tablet (10 mg total) by mouth nightly 90 tablet 024 Active busPIRone (BUSPAR) 15 mg tabletIndicati ons:Generalize d Anxiety Disorder Take 1 tablet (15 mg total) by mouth 3 (three) times a day Active rivaroxaban (Xarelto) 20 mg tablet Take 1 tablet (20 mg total) by mouth daily 90 tablet 2 025 Active isosorbide mononitrate ER (IMDUR) 30 mg 24 hr tablet TAKE 1 TABLET BY MOUTH EVERY DAY 90 tablet 025 Active isosorbide mononitrate ER (IMDUR) 30 mg 24 hr tablet Take 1 tablet (30 mg total) by mouth daily 90 tablet 024 2024 Discontinued Active Problems Problem Noted Date Diagnosed Date H/O cardiomyopathy 09/09/2023 Chronic anticoagulation 08/25/2022 Palpitations 08/25/2022 Takotsubo cardiomyopathy 06/16/2021 Assessment & Plan (06/16/2021 2:49 PM SUPPLY REQUIREMENTS OFFICER): Remote history of takotsubo cardiomyopathy, fully recovered. [...] 08/05/2013 Pain of foot 02/23/2013 Atrial fibrillation 03/31/2012 Overview (08/26/2016): Atrial fibrillation Assessment & Plan (06/16/2021 2:47 PM SUPPLY REQUIREMENTS OFFICER): Permanent atrial fibrillation, with controlled ventricular response despite no rate controlling therapy. She is chronically anticoagulated with Xarelto which she should continue. Assessment & Plan (06/16/2020 5:37 PM SUPPLY REQUIREMENTS OFFICER): Rate controlled and anticoagulated. No change in therapy. Assessment & Plan (06/11/2019 9:41 AM SUPPLY REQUIREMENTS OFFICER): Rate controlled and anticoagulated. Previous Holter has shown that her rate control is good. Assessment & Plan (06/16/2018 10:31 AM SUPPLY REQUIREMENTS OFFICER): Rate controlled and anticoagulated. Continue current medications. Assessment & Plan (06/17/2017 12:06 PM SUPPLY REQUIREMENTS OFFICER): Rate controlled and anticoagulated. For insurance reasons, will switch to Xarelto. Mixed hyperlipidemia 03/31/2012 Overview (08/25/2016): Hyperlipidemia Assessment & Plan (06/16/2021 2:48 PM SUPPLY REQUIREMENTS OFFICER): Lipids are well controlled on simvastatin 20 mg daily. No change. Assessment & Plan (06/16/2020 5:38 PM SUPPLY REQUIREMENTS OFFICER): On chronic lipid lowering therapy with good control. No changes made. Assessment & Plan (06/11/2019 9:41 AM SUPPLY REQUIREMENTS OFFICER): On chronic lipid lowering therapy with good control. No changes made. LDL is 53 today. Assessment & Plan (06/17/2017 12:06 PM SUPPLY REQUIREMENTS OFFICER): On chronic lipid lowering therapy with good control. No changes made. Coronary artery disease invo lving [place] coronary artery of [place] heart without angina pectoris 03/31/2012 Overview (08/27/2016): Coronary atherosclerosis of [place] coronary artery Assessment & Plan (06/11/2019 9:41 AM SUPPLY REQUIREMENTS OFFICER): Mild and asymptomatic. Continue low-dose aspirin. Assessment & Plan (06/17/2017 12:07 PM SUPPLY REQUIREMENTS OFFICER): Minor luminal irregularities noted at cardiac catheterization in 2010, done at the time of her episode of stress cardiomyopathy Benign hypertension 03/31/2012 Overview (08/27/2016): Hypertension, benign Assessment & Plan (06/16/2021 2:48 PM SUPPLY REQUIREMENTS OFFICER): Blood pressure is well controlled with Accupril 40 mg daily and amlodipine 10 mg daily which she should continue Assessment & Plan (06/16/2020 5:37 PM SUPPLY REQUIREMENTS OFFICER): Blood pressure is adequately controlled on current regimen. No change was made. Assessment & Plan (06/11/2019 9:41 AM SUPPLY REQUIREMENTS OFFICER): Blood pressure is adequately controlled on current regimen. No change was made. Assessment & Plan (06/16/2018 10:33 AM SUPPLY REQUIREMENTS OFFICER): Blood pressure is well controlled. No change. Mild edema is consistent with her being on amlodipine. I reassured her that this is benign. Assessment & Plan (06/17/2017 12:06 PM SUPPLY REQUIREMENTS OFFICER): Blood pressure is adequately controlled on current regimen. No change was made. 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 Immunizations Immunization Administration Dates Next Due Influenza, Trivalent, High [...] on file Legal Sex Female 1:53 PM SUPPLY REQUIREMENTS OFFICER Gender Identity Female 10/03/2023 12:43 PM CDT Sexual Orientation Straight 10/03/2023 12 :43 PM CDT Last Filed Vital Signs Vital Sign Reading Time Taken Comments Blood Pressure 116/52 06/19/2024 3:22 PM SUPPLY REQUIREMENTS OFFICER Pulse 70 06/19/2024 3:22 PM SUPPLY REQUIREMENTS OFFICER Temperature 36.7 C (98.1 F) 12/06/2018 4:00 PM CDT Respiratory Rate 20 12/06/2018 4:00 PM CDT Oxygen Saturation 95% 06/19/2024 3:22 PM SUPPLY REQUIREMENTS OFFICER Inhaled Oxygen Concentration - - Weight 68 kg (150 lb) 06/19/2024 3:22 PM SUPPLY REQUIREMENTS OFFICER Height 157.5 cm (5' 2 ) 06/19/2024 3:22 PM SUPPLY REQUIREMENTS OFFICER Body Mass Index 27.44 06/19/2024 3:22 PM SUPPLY REQUIREMENTS OFFICER Plan of Treatment Not on file Insurance [facility] Care Teams Afternoon Nanny Relationship Specialty Start Date End Date Charlette Lentz MD PCP - General Family Medicine 06/16/21
--- OUTSIDE RECORDS SUMMARY | 2024-07-31 20:39 | XMS_ITS | Clinical Summary ---
Author Organization [facility] Address [address] [place] [address] Care Team Providers Care Record Center Coordinator Name Role Phone Charlette Lentz MD Primary Care Provider [phone] Allergies Active Allergy Reactions Criticality Noted Date [...] in the skin folds. 30 g 6 024 Active Additional Information Patient not taking.Reported on [...] 06/16/2021 Assessment & Plan (06/16/2021 2:49 PM TELEVISION AGENT): Remote history of takotsubo cardiomyopathy, fully recovered. [...] fibrillation Assessment & Plan (06/16/2021 2:47 PM TELEVISION AGENT): Permanent atrial fibrillation, with controlled ventricular response despite no rate controlling therapy. She is chronically anticoagulated with Xarelto which she should continue. Assessment & Plan (06/16/2020 5:37 PM TELEVISION AGENT): Rate controlled and anticoagulated. No change in therapy. Assessment & Plan (06/11/2019 9:41 AM TELEVISION AGENT): Rate controlled and anticoagulated. Previous Holter has shown that her rate control is good. Assessment & Plan (06/16/2018 10:31 AM TELEVISION AGENT): Rate controlled and anticoagulated. Continue current medications. Assessment & Plan (06/17/2017 12:06 PM TELEVISION AGENT): Rate controlled and anticoagulated. For insurance reasons, will switch to Xarelto. Mixed hyperlipidemia 03/31/2012 Overview (08/25/2016): Hyperlipidemia Assessment & Plan (06/16/2021 2:48 PM TELEVISION AGENT): Lipids are well controlled on simvastatin 20 mg daily. No change. Assessment & Plan (06/16/2020 5:38 PM TELEVISION AGENT): On chronic lipid lowering therapy with good control. No changes made. Assessment & Plan (06/11/2019 9:41 AM TELEVISION AGENT): On chronic lipid lowering therapy with good control. No changes made. LDL is 53 today. Assessment & Plan (06/17/2017 12:06 PM TELEVISION AGENT): On chronic lipid lowering therapy with good control. No changes made. Coronary artery disease invo lving [place]cree coronary artery of [place] heart without angina pectoris 03/31/2012 Overview (08/27/2016): Coronary atherosclerosis of [place] coronary artery Assessment & Plan (06/11/2019 9:41 AM TELEVISION AGENT): Mild and asymptomatic. Continue low-dose aspirin. Assessment & Plan (06/17/2017 12:07 PM TELEVISION AGENT): Minor luminal irregularities noted at cardiac catheterization in 2010, done at the time of her episode of stress cardiomyopathy Benign hypertension 03/31/2012 Overview (08/27/2016): Hypertension, benign Assessment & Plan (06/16/2021 2:48 PM TELEVISION AGENT): Blood pressure is well controlled with Accupril 40 mg daily and amlodipine 10 mg daily which she should continue Assessment & Plan (06/16/2020 5:37 PM TELEVISION AGENT): Blood pressure is adequately controlled on current regimen. No change was made. Assessment & Plan (06/11/2019 9:41 AM TELEVISION AGENT): Blood pressure is adequately controlled on current regimen. No change was made. Assessment & Plan (06/16/2018 10:33 AM TELEVISION AGENT): Blood pressure is well controlled. No change. Mild edema is consistent with her being on amlodipine. I reassured her that this is benign. Assessment & Plan (06/17/2017 12:06 PM TELEVISION AGENT): Blood pressure is adequately controlled on current regimen. No change was made. 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 Encounters Date Type Department Care Team Description 06/22/2024 Telephone [facility] [address] [place] [address] Casey Lozano MD 06/19/2024 3:00 PM TELEVISION AGENT Office Visit [facility] [address] [place] [address] Casey Lozano MD Benign hypertension (Primary Dx); Paroxysmal atrial fibrillation (HCC); Coronary artery disease involving [place]-cree coronary artery of [place] heart without angina pectoris; H/O cardiomyopathy; Mixed hyperlipidemia; Chronic anticoagulation from Last 3 Months Immunizations Immunization Administration Dates Next Due Influenza, Trivalent, High D ose, Split, Preservative Free, Intramuscular 02/17/2018 Pneumococcal Polysaccharide PPV23 07/23/2015 Surgical History Surgery Date Site/Laterality Comments HYSTERECTOMY HERNIA REPAIR FOOT SURGERY BLADDER SURGERY KNEE ARTHROPLASTY Right CATARACT EXTRACTION CARDIAC CATHETERIZATION Medical History Medical History Date Comments Malignant neoplasm of ovary (HCC) Anxiety disorder Hyperlipidemia Paroxysmal atrial fibrillation (HCC) Coronary artery disease High risk medication [...] on file Legal Sex Female 1:53 PM TELEVISION AGENT Gender Identity Female 10/03/2023 12:43 PM CDT Sexual Orientation Straight 10/03/2023 12 :43 PM CDT Obstetrics History Last Filed Vital Signs Vital Sign Reading Time Taken Comments Blood Pressure 116/52 06/19/2024 3:22 PM TELEVISION AGENT Pulse 70 06/19/2024 3:22 PM TELEVISION AGENT Temperature 36.7 C (98.1 F) 12/06/2018 4:00 PM CDT Respiratory Rate 20 12/06/2018 4:00 PM CDT Oxygen Saturation 95% 06/19/2024 3:22 PM TELEVISION AGENT Inhaled Oxygen Concentration - - Weight 68 kg (150 lb) 06/19/2024 3:22 PM TELEVISION AGENT Height 157.5 cm (5' 2 ) 06/19/2024 3:22 PM TELEVISION AGENT Body Mass Index 27.44 06/19/2024 3:22 PM TELEVISION AGENT Plan of Treatment Health Maintenance Due Date Last Done Comments Depression Screening 1938 Fall Risk Assessment 1938 Osteoporosis Screening-Bone Density Scan 1938 Hepatitis B Screening 1956 Zoster Vaccine (1 of 2) 1957 Well Visit 65+ 11/06/2003 DTaP/Tdap/Td Vaccine (1 - Tdap) 09/11/2016 7, 09/20/2006 Influenza Vaccine (#1) 2024 1, 02/05/2020, 02/08/2019, Additional history exists Pneumococcal vaccine 65+ Completed 017, 07/23/2015, 05/23/2005 Insurance [facility] Care Teams Record Center Coordinator Relationship Specialty Start Date End Date Charlette Lentz MD PCP - General Family Medicine 06/16/21
--- OUTSIDE RECORDS SUMMARY | 2024-07-31 20:39 | XMS_ITS | Encounter Summary ---
Author Organization [facility] Address [address] [place] [address] Care Team Providers Care Transitional Care Nurse Name Role Phone Lexie Lynn RN Unavailable Unavailable Charlette Lentz MD Primary Care Provider [phone] Encounter Details Date Type Department Care Team (Late st Contact Info) Description 08/31/2023 Telephone [facility] [address] [place] [address] Marlo Jeter MD [address] [address] [place], [place] [id number] Social History Tobacco Use Types Packs/Day Years [...] Information Value Date Recorded Sex Assigned at Female 07/29/2024 3:29 PM CDT Gender Identity Female 07/29/2024 3:29 PM CDT Sexual Orientation Straight 07/29/2024 3: 29 PM CDT documented as of this encounter Functional Status [...] Care Team (Late st Contact Info) Description 08/06/2024 11:30 AM CDT Office Visit [facility] - [facility]ENT [facility] [address] [place] [address] Marlo Jeter MD [address] [facility] [address] [place] [address] documented as of this encounter Visit Diagnoses Not on filedocumented in this encounter Care Teams Transitional Care Nurse Relationship Specialty Start Date End Date Charlette Lentz MD [address] [place] [address] PCP - General 04/01/22 Lexie Lynn, RN Registered Nurse 12/16/16 documented as of this encounter
--- OUTSIDE RECORDS SUMMARY | 2024-07-31 20:39 | XMS_ITS | Clinical Summary ---
Author Organization [facility] Address [address] [place] [address] Care Team Providers Care Stable Cleaner Name Role Phone Lexie Lynn RN Unavailable Unavailable Charlette Lentz MD Primary Care Provider [phone] Source Comments [facility]non-owned Affiliates and Associated Physician Practices is amultiple site organization consisting of ambulatory clinics and hospital sitesin [place], [place]. This disclosure is being madepursuant to the Care Everywhere program and may not contain all information available regarding this patient. 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 Post-op pain Encounters Date Type Department Care Team Description 07/30/2024 11:12 AM CDT - 07/30/2024 11:59 PM CDT Hospital Encounter [facility] Health Imaging Services - CT Scan [address], [address] [place] [address] Marlo Jeter MD Discharge Disposition: Home or Self Care 07/09/2024 11:00 AM DEVELOPMENT INTERN Office Visit [facility] [address] [place] [id number] Marlo Jeter MD 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); Use of letrozole (Femara) 07/09/2024 Orders Only [facility] [address] [place], [place] [address] [address] [place] [address] Marlo Jeter MD 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) ; Carcinomatosis (HCC) 07/09/2024 Travel 07/02/2024 Orders Only [facility] [address] [place], [place] [address] [address] [place] [address] Marlo Jeter MD 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 Never 07/28/2023 PHQ-2 Answer Date Recorded Patient Health Questionnaire-2 Score 2 07/30/2024 Sex and Gender Information Value Date Recorded Sex Assigned at Female 07/29/2024 3:29 PM CDT Gender Identity Female 07/29/2024 3:29 PM CDT Sexual Orientation Straight 07/29/2024 3: 29 PM CDT Last Filed Vital Signs Vital Sign Reading Time Taken Comments Blood Pressure 150/64 07/09/2024 10:59 AM DEVELOPMENT INTERN Pulse 77 02/08/2024 10:34 AM CDT Temperature 36.1 C (97 F) 02/08/2024 10:34 AM CDT Respiratory Rate 16 07/30/2023 8:03 AM DEVELOPMENT INTERN Oxygen Saturation 98% 02/08/2024 10: 34 AM CDT Inhaled Oxygen Concentration - - Weight 67.5 kg (148 lb 12.8 oz) 025 10:59 AM DEVELOPMENT INTERN Height 157.5 cm (5' 2 ) 07/09/2024 10:5 9 AM DEVELOPMENT INTERN Body Mass Index 27.22 07/09/2024 10:59 AM DEVELOPMENT INTERN Plan of Treatment Upcoming Encounters Date Type Department Care Team (Late st Contact Info) Description 08/06/2024 11:30 AM CDT Office Visit [facility] [address] [facility] [address] [facility] [address] [place] [address] Marlo Jeter MD [address] [facility] [address] [place] [address] Health Maintenance Due Date Last Done Comments BONE DENSITY TESTING 1940 MEDICARE AWV 12 MONTHS 1940 DTAP/TDAP/TD VACCINES (1 - Tdap) 1957 [...] 03/01/2022, 02/12/2021, Additional history exists DEPRESSION SCREENING Completed 07/09/2024 HIB VACCINE Aged Out No longer eligi [...] this topic Medical Devices Implanted Type Area Fractionating Still Operator Device Identifier Shelf Expiration Date Model / Serial / Lot Mesh Srg Ventralight St Sepra Echo Implanted:Qty: 1 on 07/13/2019 by Omer Ponce MD at [facility] Abdomen [employer] 03/19/2020 [id number] / / [id number] Procedures Procedure Name Priority Date/Time Associated Diagnosis Comments CT CHEST ABDOMEN PELVIS W CONT Routine 07/30/2024 11:57 AM CDT 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 There are no other significant interval changes in the chest since the previous examination. 2.Perivesicular retroperitoneal lymphadenopathy is new from the previous examination. 3.The intraperitoneal lymph nodes especially around colon are either smaller than before or have not changed. 4.The previously reported pericecal soft tissue edema in my opinion is clumped ileal loops without discretely visible wall thickening or causing bowel obstruction. It may adhere to the adjacent abdominal muscles and may represent a postsurgical change. When correlation is made to the CT abdomen and pelvis dated 08/22/2023, there are no significant interval changes The appendix is not discretely identified. 5.Acute cystitis is new from the previous examination. Please correlate with urinalysis and urine culture. > Interpreting Provider: Shay Enamorado MD on 07/30/2024 12:44 PM Narrative 07/30/2024 12:44 PM CDT PROCEDURE: CT CHEST ABDOMEN PELVIS W CONT DATE/TIME OF EXAM: 07/30/2024 11:57 AM CLINICAL INFORMATION: None relevant/not provided if blank. Indication: C56.2: Malignant neoplasm of left ovary (HCC) C80.0: Disseminated malignant neoplasm, unspecified (HCC) CONTRAST: IOPAMIDOL 76 % IV SOLN:[address] CHEST ABDOMEN PELVIS WITH CONTRAST HISTORY: F/U carcinomatosis, granulosa cell carcinoma of left ovary COMPARISON: CT chest, abdomen and pelvis with contrast, 04/03/2024 TECHNIQUE: Spiral axial scanning and reconstructed coronal and sagittal imaging of the chest was performed following the routine protocol. Spiral scanning of the abdomen and pelvis was performed in the portal venous phase followed by sagittal and coronal reconstruction of images. Oral contrast was not used. Total of 100 mL of Isovue-370 contrast was used. Total exam DLP is 658.1 mGy-cm. FINDINGS: CHEST: A small right pleural effusion is new from the previous examination. The thyroid gland is mildly enlarged with hypoattenuating well-circumscribed nodules in the right lobe and isthmus measuring up to 11 mm in diameter and unchanged from the prior study. Mild cardiomegaly has not changed. There is no pericardial effusion or significant coronary artery calcifications. The central pulmonary arteries are normal in size. The aorta is a stable and remains normal in size and course and demonstrates susceptibility scattered atherosclerotic calcifications. A small sliding hiatal hernia is a stable and remains uncomplicated. The esophageal wall thickness is normal limits. There is evidence of small volume gastroesophageal reflux of air and fluid to upper esophagus. There is no lymphadenopathy in the chest. No pleural effusion or pericardial effusion is identified The lung window images do not demonstrate consolidations, suspicious pulmonary nodules or pneumothorax. The ill-defined groundglass opacities in the geographic pattern in the lungs, are similar to the prior study and are new from the prior study and likely represent pneumonitis rather than chronic sequela of underlying small airway disease or small vessel disease. These are mainly in peribronchial distribution and are slightly more in the lower lobes and the upper lobes and the left side than the right side. A juxtapleural calcified pulmonary granuloma is similar to the prior study. The right upper lobe bronchus arises directly from the trachea. There are no endoluminal lesions in trachea or bronchi or bronchial wall thickening. There are no emphysematous or fibrotic changes of the lungs. The chest wall is within normal limits. The bone window images demonstrate age-related degenerative disc disease in lower thoracic spine and otherwise are normal. ABDOMEN AND PELVIS: Multiple hepatic metastatic lesions are mainly confined to the anterior and posterior segments of the right hepatic lobe and appear similar to the prior study in size and morphology as visualized. No discretely visible new hepatic metastatic lesion is identified. The overall size and contour of the liver is stable. Mild nodularity of hepatic contour is suspected suggestive of hepatic cirrhosis. The retroperitoneal lymph nodes around the colon and in the mesentery and especially in the right hemiabdomen are either similar to the previous examination in size and morphology or slightly smaller than before. For reference, the previously reported largest of these lymph nodes (series 6, image 73 of the current examination) measures 22 x 16 mm on the current the study as compared to 27 x 18 mm on the previous examination, remeasured by me. None of these lymph nodes are calcified and most of them remain subcentimeter especially in the mid abdomen and on the left side. There are surgical clips/sutures along the peritoneal lining, similar to the prior study which may indicate previous omentectomy. Please correlate with surgical history. The appearance of the clumped ileal loops in the right lower quadrant abutting or adherent to the remaining peritoneal lining and/or possibly the anterior abdominal musculature is similar to the previous examination (series 6, images 86-103) without causing small bowel obstruction. This may correlate with the reported soft tissue lesion adjacent to the cecum on the prior study. The appendix is not discretely identified. The stomach and duodenum are within normal limits. The entire bowel is normal in caliber and wall thickness including within the aforementioned portion of right lower quadrant. No bowel obstruction or diverticulitis is identified. Severe diverticulosis of the distal colon and entire sigmoid is similar to the previous examination. 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 Scarring of both kidneys is similar to the previous examination, likely due to sequela of previous pyelonephritis. I suspect that the reference to the previously reported 1.4 cm indeterminate low attenuating focus in the lower pole of left kidney is a peripelvic cystic structure of the left kidney (series 6, image 71) which is statistically most likely represents a simple peripelvic cyst. Otherwise, the spleen, adrenal glands, kidneys and degenerated pancreas are unremarkable and have not significantly changed. The gallbladder is not discretely visible and may have been resected. There are no surgical clips in the gallbladder fossa. No biliary or pancreatic ductal dilatation is identified. The abdominal aorta is normal with stable atherosclerotic calcifications. The inferior vena cava and the iliac veins are unremarkable without evidence of thrombosis. Urothelial enhancement on circumferential wall thickening of the urinary bladder is new from the prior study and is suggestive of acute cystitis. The perivesicular low attenuating well-circumscribed masses in varying sizes are new from the previous examination and are suggestive of retroperitoneal lymphadenopathy (series 6, images 101-122). The largest one in this region measures 27 x 22 mm. No ascites, abscess, or free air is identified. The imaged body wall appears normal. The supraumbilical laparotomy scar is healed and appears uncomplicated. The bone window images demonstrate age-related degenerative changes, but no fractures or suspicious intrinsic bony lesions. Procedure Note Shay Enamorado MD - 07/30/2024 PROCEDURE: CT CHEST ABDOMEN PELVIS W CONT DATE/TIME OF EXAM: 07/30/2024 11:57 AM CLINICAL INFORMATION: None relevant/not provided if blank. Indication: C56.2: Malignant neoplasm of left ovary (HCC) C80.0: Disseminated malignant neoplasm, unspecified (HCC) CONTRAST: IOPAMIDOL 76 % IV SOLN:[address] CHEST ABDOMEN PELVIS WITH CONTRAST HISTORY: F/U carcinomatosis, granulosa cell carcinoma of left ovary COMPARISON: CT chest, abdomen and pelvis with contrast, 04/03/2024 TECHNIQUE: Spiral axial scanning and reconstructed coronal and sagittal imaging of the chest was performed following the routine protocol.Spiral scanning of the abdomen and pelvis was performed in the portal venousphase followed by sagittal and coronal reconstruction of images. Oral contrast was not used. Total of 100 mL of Isovue-370 contrast was used. Totalexam DLP is 658.1 mGy-cm. FINDINGS: CHEST: A small right pleural effusion is new from the previous examination. The thyroid gland is mildly enlarged with hypoattenuating well-circumscribed nodules in the right lobe and isthmus measuring up to 11 mm in diameterand unchanged from the prior study. Mild cardiomegaly has not changed. There is no pericardial effusion or significant coronary artery calcifications. The central pulmonaryarteries are normal in size. The aorta is a stable and remains normal in size and course and demonstrates susceptibility scattered atherosclerotic calcifications. A small sliding hiatal hernia is a stable and remains uncomplicated. The esophageal wall thickness is normal limits. There is evidence of small volume gastroesophageal reflux of air and fluid to upper esophagus.There is no lymphadenopathy in the chest. No pleural effusion or pericardial effusion is identified The lung window images do not demonstrate consolidations, suspicious pulmonary nodules or pneumothorax. The ill-defined groundglass opacitiesin the geographic pattern in the lungs, are similar to the prior study andare new from the prior study and likely represent pneumonitis rather than chronic sequela of underlying small airway disease or small vesseldisease. These are mainly in peribronchial distribution and are slightly more inthe lower lobes and the upper lobes and the left side than the right side. A juxtapleural calcified pulmonary granuloma is similar to the priorstudy. The right upper lobe bronchus arises directly from the trachea. Thereare no endoluminal lesions in trachea or bronchi or bronchial wallthickening. There are no emphysematous or fibrotic changes of the lungs. The chest wall is within normal limits. The bone window images demonstrate age-related degenerative disc diseasein lower thoracic spine and otherwise are normal. ABDOMEN AND PELVIS: Multiple hepatic metastatic lesions are mainly confined to the anteriorand posterior segments of the right hepatic lobe and appear similar to the prior study in size and morphology as visualized. No discretely visiblenew hepatic metastatic lesion is identified. The overall size and contour of the liver is stable. Mild nodularity of hepatic contour is suspected suggestive of hepatic cirrhosis. The retroperitoneal lymph nodes around the colon and in the mesenteryand especially in the right hemiabdomen are either similar to the previous examination in size and morphology or slightly smaller than before. For reference, the previously reported largest of these lymph nodes (series6, image 73 of the current examination) measures 22 x 16 mm on the currentthe study as compared to 27 x 18 mm on the previous examination, remeasuredby me. None of these lymph nodes are calcified and most of them remain subcentimeter especially in the mid abdomen and on the left side. There are surgical clips/sutures along the peritoneal lining, similar to the prior study which may indicate previous omentectomy. Pleasecorrelate with surgical history. The appearance of the clumped ileal loops in the right lower quadrant abutting or adherent to the remaining peritoneal lining and/or possiblythe anterior abdominal musculature is similar to the previous examination (series 6, images 86-103) without causing small bowel obstruction. Thismay correlate with the reported soft tissue lesion adjacent to the cecum onthe prior study. The appendix is not discretely identified. The stomach and duodenum are within normal limits. The entire bowel is normal in caliber and wall thickness including within the aforementioned portion of right lower quadrant. No bowel obstruction or diverticulitisis identified. Severe diverticulosis of the distal colon and entire sigmoidis similar to the previous examination. 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 Scarring of both kidneys is similar to the previous examination, likely due tosequela of previous pyelonephritis. I suspect that the reference to thepreviously reported 1.4 cm indeterminate low attenuating focus in the lower pole of left kidney is a peripelvic cystic structure of the left kidney (series6, image 71) which is statistically most likely represents a simpleperipelvic cyst. Otherwise, the spleen, adrenal glands, kidneys and degenerated pancreasare unremarkable and have not significantly changed. The gallbladder is not discretely visible and may have been resected. There are no surgicalclips in the gallbladder fossa. No biliary or pancreatic ductal dilatation is identified. The abdominal aorta is normal with stable atheroscleroticcalcifications. The inferior vena cava and the iliac veins are unremarkable without evidence of thrombosis. Urothelial enhancement on circumferential wall thickening of the urinary bladder is new from the prior study and is suggestive of acute cystitis. The perivesicular low attenuating well-circumscribed masses in varying sizes are new from the previous examination and are suggestive of retroperitoneal lymphadenopathy (series 6, images 101-122). The largestone in this region measures 27 x 22 mm. No ascites, abscess, or free air is identified. The imaged body wall appears normal. The supraumbilical laparotomy scaris healed and appears uncomplicated. The bone window images demonstrate age-related degenerative changes, butno fractures or suspicious intrinsic bony lesions. IMPRESSION: 1.A small right pleural effusion is developed in the interval. There areno other significant interval changes in the chest since the previous examination. 2.Perivesicular retroperitoneal lymphadenopathy is new from the previous examination. 3.The intraperitoneal lymph nodes especially around colon are either smaller than before or have not changed. 4.The previously reported pericecal soft tissue edema in my opinion is clumped ileal loops without discretely visible wall thickening orcausing bowel obstruction. It may adhere to the adjacent abdominal muscles andmay represent a postsurgical change. When correlation is made to the CTabdomen and pelvis dated 08/22/2023, there are no significant interval changes The appendix is not discretely identified. 5.Acute cystitis is new from the previous examination. Please correlate with urinalysis and urine culture. > Interpreting Provider: Shay Enamorado MD on 07/30/2024 12:44 PM Marlo Jeter MD CT ORDERABLES * (ABNORMAL) CREATININE - POCT INTERFACED (07/30/2024 11:24 AM CDT) Creatinine POCT 0.39(L) 0.70 - 1.20 mg/dL 07/30/2024 11:35 AM CDT [facility] eGFR >90 >=90 mL/min/1.7 3 m2 07/30/2024 11:35 AM CDT [facility] Blood BLOOD SPECIMEN / Unknown 07/30/2024 11:24 AM CDT 07/30/2024 11:35 AM CDT Marlo Jeter MD LAB - POINT OF CARE ORDERABLES [facility] [address] [place] [address] from Last 3 Months Advance Directives Documents on File Type Date Recorded Patient Heel Slicker Expl anation Advance Directives and Livin g [...] 1:40 PM 12/20/2016 6:00 PM Care Teams Stable Cleaner Relationship Specialty Start Date End Date Charlette Lentz MD [address] [place] [address] PCP - General 04/01/22 Lexie Lynn, RN Registered Nurse 12/16/16
--- OUTSIDE RECORDS SUMMARY | 2024-07-31 20:39 | XMS_ITS | Clinical Summary ---
Author Organization [facility] Address [address] [place] [address] Care Team Providers Care Project Management Consultant Name Role Phone Unavailable Primary Care Provider [...]
--- OUTSIDE RECORDS SUMMARY | 2024-07-31 20:39 | XMS_ITS | Patient Health Summary ---
Author Organization [facility] Address [address] [place] [place] [address] Care Team Providers Care Towboat Pilot Name Role Phone Lexie Lynn RN Unavailable Unavailable Charlette Lentz MD Primary Care Provider [phone] Note from [facility],non-owned Affiliates and Associated Physician Practices is amultiple site organization consisting of ambulatory clinics and hospital sitesin [place], [place], [place] and [place]. This disclosure is being madepursuant to the Care Everywhere program and may not contain all information available regarding this patient. Last updated 18.[facility] Allergies * Penicillins(? PCN. 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 Post-op pain Immunizations * Sterecycleid Motivating Wellness primary monovalent 12+ yr 0.3mL Purple cap(Given [...] Comments Blood Pressure 150/64 07/09/2024 10:59 AM EXECUTIVE HOUSEKEEPER Pulse 77 02/08/2024 10:34 AM CDT Temperature 36.1 C (97 F) 02/08/2024 10:34 AM CDT Respiratory Rate 16 07/30/2023 8:03 AM EXECUTIVE HOUSEKEEPER Oxygen Saturation 98% 02/08/2024 10: 34 AM CDT Inhaled Oxygen Concentration - - Weight 67.5 kg (148 lb 12.8 oz) 025 10:59 AM EXECUTIVE HOUSEKEEPER Height 157.5 cm (5' 2 ) 07/09/2024 10:5 9 AM EXECUTIVE HOUSEKEEPER Body Mass Index 27.22 07/09/2024 10:59 AM EXECUTIVE HOUSEKEEPER Medical Devices Implanted Type Area Charrer Device Identifier Shelf Expiration Date Model / Serial / Lot Mesh Srg Ventralight St Sepra Echo Implanted:Qty: 1 on 07/13/2019 by Omer Ponce MD at [facility] Abdomen [employer] 03/19/2020 [id number] / / [id number] Procedures * CT CHEST ABDOMEN PELVIS W CONT(Performed 07/30/2024) 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), Carcinomatosis (HCC) * CREATININE - POCT INTERFACED(Performed 07/30/2024) * LAB RESULTS ORDER(Performed 04/16/2024) * LAB [...] 07/28/2023) * ENDOTRACHEAL TUBE NOTE(Performed 07/28/2023) * [place] EXPLORATORY OF ABDOMEN(Performed 07/28/2023) Performed for Intra-abdominal [...] fibrillation, unspecified type (HCC), Current use of intermodal customer service anticoagulation * TYPE + SCREEN PANEL(Performed 07/03/2019) Performed for Incisional hernia, without obstruction or gangrene, Atrial fibrillation, unspecified type (HCC), Current use of residential anticoagulation * PT-INR(Performed 07/03/2019) Performed for Pre-op testing * COMPREHENSIVE METABOLIC PANEL(Performed 07/03/2019) Performed for Incisional hernia, without obstruction or gangrene, Atrial fibrillation, unspecified type (HCC), Current use of residential anticoagulation * CBC W AUTO DIFFERENTIAL(Performed 07/03/2019) Performed for Incisional hernia, without obstruction or gangrene, Atrial fibrillation, unspecified type (HCC), Current use of residential anticoagulation * CT ABDOMEN PELVIS W CONTRAST(Performed [...] ovary, unspecified laterality, Diagnosis unknown * CYTOLOGY NON-ENDOSCOPE TECHNICIAN PANEL (STL)(Performed 12/16/2016) Performed for Granulosa cell [...] 01/26/2006) * FROZEN SECTION(Performed 07/09/2003) * CYTOLOGY NON-ENDOSCOPE TECHNICIAN PANEL(Performed 07/09/2003) Results * CT Chest Abdomen Pelvis W Cont (07/30/2024 11:57 AM CDT) Only the most recent of4 resultswithin the time period is included. Anatomical [...] 18 mm on the previous examination, remeasuredby sd. None of these lymph nodes are calcified [...] - POCT INTERFACED (07/30/2024 11:24 AM CDT) Only the most recent of6 resultswithin the time period is included. [facility] Creatinine POCT 0.39(L) 0.70 - 1.20 mg/dL 07/30/2024 11:35 AM CDT [facility] eGFR >90 >=90 mL/min/1.7 3 m2 07/30/2024 11:35 AM CDT [facility] Blood BLOOD SPECIMEN / Unknown 07/30/2024 11:24 AM CDT 07/30/2024 11:35 AM CDT Marlo Jeter MD LAB - POINT OF CARE ORDERABLES [facility] [address] [place] [address] * LAB RESULTS ORDER (04/16/2024) Only the most recent of2 resultswithin the time period is included. 04/16/2024 Narrative 04/16/2024 Ordered by an unspecified provider. Scanned Document LAB - THERAPEUTIC DR FULLER MONITORING ORDERABLES * INHIBIN A (09/01/2023 1:06 PM CDT) Only the most recent of10 resultswithin the time period is included. [facility] Inhibin A 370 pg/mL [facility] Comment: Reference Ranges for Inhibin A: Females Premenopausal: <98.0 pg/mL Postmenopausal: <2.1 pg/mL Males <2.0 pg/mL This test was performed using the [place] Chemiluminescent Inhibin-A method that has been cleared [...] cannot be used interchangeably. Test Performed at: [employer] [facility] [address] [place] [address] NASIM DONATO MD,PHD,CRISTY Blood BLOOD SPECIMEN / Unknown 09/01/2023 1:06 PM CDT 09/01/2023 1:06 PM CDT Marlo Jeter MD LAB - CHEMISTRY NATALIA BOWSER [facility] [address] [place] [address] * INHIBIN B (09/01/2023 1:06 PM CDT) Only the most recent of2 resultswithin the time period is included. [facility] Inhibin B >1200 pg/mL [facility] Comment: Pre-memopausal <153 Post-menopausal <10 Values obtained from different assay methods cannot be used interchangeably. Inhibin B levels, regardless of value, should not be interpreted as absolute evidence of the presence or absence of disease. This test was developed and its analytical performance characteristics have been determined by [facility]. It has not been cleared or approved by FDA. This assay has been validated pursuant to the CLIA regulations and is used for clinical purposes. Test Performed at: [employer] [facility] [address] [place] [address] NASIM DONATO MD,PHD,CRISTY Blood BLOOD SPECIMEN / Unknown 09/01/2023 1:06 PM CDT 09/01/2023 1:06 PM CDT Marlo Jeter MD LAB - SEROLOGY ORDER SEGUN Performing Organization Address [facility] Co de Phone Number [facility] [phone] [place] [address] * CANCER ANTIGEN (CA)125 BLOOD (09/01/2023 1:06 PM CDT) Only the most recent of2 resultswithin the time period is included. [facility] CA 125 34 <35 U/mL [facility] Comment: This test was performed using the Siemens Chemiluminescent method. Values obtained from different assay methods cannot be used interchangeably. CA 125 levels, regardless of value, should not be interpreted as absolute evidence of the presence or absence of disease. REPORT COMMENT: FASTING:NO Test Performed at: [employer] [facility] [address] [place] [address] NAS MALIK MD Blood BLOOD SPECIMEN / Unknown 09/01/2023 1:06 PM CDT 09/01/2023 1:06 PM CDT Marlo Jeter MD LAB - CHEMISTRY ORDE RABLES Performing Organization Address [facility] de Phone Number [facility] [phone] [place] [address] * (ABNORMAL) CBC W/O DIFFERENTIAL (07/30/2023 1:14 AM EXECUTIVE HOUSEKEEPER) Only the most recent of5 resultswithin the time period is included. [facility] WBC 7.7 4.0 - 10.7 x10E9/L 07/30/2023 1:49 AM [facility] RBC Count 3.49(L) 3.90 - 5.20 x10E12/L 07/30/2023 1:49 AM [facility] Hemoglobin 8.2(L) 11.9 - 15.8 g/dL 07/30/2023 1:49 AM [facility] Hematocrit 26.5(L) 34.8 - 46.1 % 07/30/2023 1:49 AM [facility] MCV 75.9(L) 80.0 - 98.0 fL 07/30/2023 1:49 AM [facility] MCH 23.5(L) 26.7 - 33.6 pg 07/30/2023 1:49 AM [facility] MCHC 30.9(L) 31.7 - 36.3 g/dL 07/30/2023 1:49 AM [facility] RDW-CV 18.8(H) 11.3 - 14.8 % 07/30/2023 1:49 AM [facility] Platelet Count 323 150 - 420 x10E9/L 07/30/2023 1:49 AM [facility] MPV 9.8 7.8 - 11.4 fL 07/30/2023 1:49 AM [facility] Blood BLOOD SPECIMEN / Unknown Lab Venipuncture / Unknown 07/30/2023 1:14 AM EXECUTIVE HOUSEKEEPER 07/30/2023 1:38 AM EXECUTIVE HOUSEKEEPER Mason Rico MD LAB - HEMATOLOGY ORD ERABLES [facility] [address] [place] [address], [facility] [phone] * (ABNORMAL) BASIC METABOLIC PANEL (CALCIUM TOTAL) (07/30/2023 1:14 AM EXECUTIVE HOUSEKEEPER) Only the most recent of15 resultswithin the time period is included. BUN 10 7 - 26 mg/dL 07/30/2023 2:03 AM [facility] Creatinine 0.54(L) 0.56 - 0.96 mg/dL 07/30/2023 2:03 AM [facility] Sodium 131(L) 136 - 145 mmol/L 07/30/2023 2:03 AM [facility] Potassium 4.0 3.5 - 4.5 mmol/L 07/30/2023 2:03 AM [facility] Chloride 107 98 - 107 mmol/L 07/30/2023 2:03 AM [facility] CO2 18(L) 22 - 29 mmol/L 07/30/2023 2:03 AM [facility] Glucose 106 70 - 115 mg/dL 07/30/2023 2:03 AM [facility] Calcium 8.8 8.4 - 10.2 mg/dL 07/30/2023 2:03 AM [facility] Anion Gap 6 6 - 16 07/30/2023 2:03 AM [facility] BUN/Creatinine Ratio 19 7 - 23 07/30/2023 2:03 AM [facility] Osmolality Calculated 271(L) 275 - 295 mOsm/kg 07/30/2023 2:03 AM [facility] eGFR by CKD-EPI >90 >=90 mL/min/1.7 3 m2 07/30/2023 2:03 AM [facility] Blood BLOOD SPECIMEN / Unknown Lab Venipuncture / Unknown 07/30/2023 1:14 AM EXECUTIVE HOUSEKEEPER 07/30/2023 1:38 AM EXECUTIVE HOUSEKEEPER Mason Rico MD LAB - CHEMISTRY NATALIA BOWSER [address] [address], [facility] [phone] * (ABNORMAL) PHOSPHORUS BLOOD (07/30/2023 1:14 AM EXECUTIVE HOUSEKEEPER) Only the most recent of10 resultswithin the time period is included. Phosphorus 2.4(L) 2.9 - 5.1 mg/dL 07/30/2023 2:03 AM [facility] Blood BLOOD SPECIMEN / Unknown Lab Venipuncture / Unknown 07/30/2023 1:14 AM EXECUTIVE HOUSEKEEPER 07/30/2023 1:38 AM EXECUTIVE HOUSEKEEPER Mason Rico MD LAB - CHEMISTRY NATALIA BOWSER [address] [address], [place] [phone] * MAGNESIUM BLOOD (07/30/2023 1:14 AM EXECUTIVE HOUSEKEEPER) Only the most recent of10 resultswithin the time period is included. Magnesium 1.7 1.6 - 2.6 mg/dL 07/30/2023 2:03 AM [facility] Blood BLOOD SPECIMEN / Unknown Lab Venipuncture / Unknown 07/30/2023 1:14 AM EXECUTIVE HOUSEKEEPER 07/30/2023 1:38 AM EXECUTIVE HOUSEKEEPER Mason Rico MD LAB - CHEMISTRY NATALIA BOWSER [facility] [address] [place] [address], [facility] [phone] * PATHOLOGY TISSUE (07/28/2023 10:55 AM EXECUTIVE HOUSEKEEPER) Only the most recent of3 resultswithin the time period is included. Case Report Surgical Pathology Report Case: [id number] Authorizing Provider: Mason Rico MD Collected: 07/28/2023 10:55 AM Ordering Location: [facility] Received: 07/28/2023 12:46 PM Pathologist: Charo Santos MD Specimens: A) - Soft Tissue Mass, Intra abdominal Mass B) - Tumor, Carcinoma Tumor 4 5:05 PM [facility] Final Diagnosis Soft tissue, intra-abdominal/perit jackson mass, biopsy (A): - Granulosa cell tumor, recurrent Soft tissue, peritoneal tumor, biopsy (B): - Granulosa cell tumor, recurrent 4 5:05 PM [facility] Microscopic Description and Comment Frozen section diagnosis is confirmed. 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 4 5:05 PM [facility] Intraoperative Consultation A) intraabdominal mass is a 1.5 x 1.0 x 0.6 cm pink-corey soft tissue fragment. The specimen is serially sectioned and entirely submitted for frozen evaluation as FSA1. FSA1, intraabdominal mass, biopsy: -Malignant, compatible with granulosa cell tumor by Marjorie Amin MD 4 5:05 PM [facility] Gross Description The requisition [...] in cassette B1-B3. IKD 4 5:05 PM [facility] Addendum 1 A request for CA profile comprehensive testing was received 08/22/23 for patient Mary So from Dr. Marlo Jeter. The test is to be performed on tissue from case [id number]. The case report, slides, and blocks for the cited accession were retrieved from the archives. The pathologist whose signature appears below reviewed the original pathology report, examined candidate H&E slides, and selected the block (B1) appropriate to the specifications of the ordered molecular analysis. The tissue was forwarded to [facility] where the subject molecular tests will be performed. 4 5:05 PM [facility] Addendum electronically signed by Cat Oliver MD on 08/22/2023 at 5:05 PM Pathologist Location at [facility] 4 5:05 PM [facility] Disclaimer The performance characteristics of all immunohistochemical and indirect immunofluorescence stains (if any) cited in this report were determined by the Histopathology Laboratory of [facility]. Some of these tests were [...] attending (teaching) pathologist. 4 5:05 PM T [facility] Embedded Images 4 5:05 PM [facility] Biopsy, Excision SOFT TISSUE MASS / Unknown 07/28/2023 10:55 AM EXECUTIVE HOUSEKEEPER 07/28/2023 12:46 PM EXECUTIVE HOUSEKEEPER Comment:Pre-op diagnosis: INTRA-ABDOMINAL TUMOR Biopsy, Excision TUMOR TISSUE SPECIMEN / Unknown 07/28/2023 11:14 AM EXECUTIVE HOUSEKEEPER 07/28/2023 12:46 PM EXECUTIVE HOUSEKEEPER Comment:Pre-op diagnosis: INTRA-ABDOMINAL TUMOR Mason Rico MD LAB - PATHOLOGY/CYTO LOGY ORDERABLES Performing Organization Address City/State/[facility] Co de Phone Number [facility] [address] [phone] * ARTERIAL LINE PERFORMABLE (07/28/2023 10:39 AM EXECUTIVE HOUSEKEEPER) Narrative Ranjan Kaur DO - 07/28/2023 10:39 AM EXECUTIVE HOUSEKEEPER Ranjan Kaur DO 07/28/2023 10:39 AM Arterial Line Placement Procedure Note Patient Location: OR. Procedure: Arterial Line (20862). Procedure Section Indications: continuous blood pressure monitoring. [...] * IV PLACEMENT PERFORMABLE (07/28/2023 10:38 AM EXECUTIVE HOUSEKEEPER) Narrative Rajnan Kaur DO - 07/28/2023 10:38 AM EXECUTIVE HOUSEKEEPER Ranjan Kaur DO 07/28/2023 10:38 AM Peripheral IV Line Placement: Patient Location: OR Procedure: IV start ([id number]). Procedure Section: Skin Prep: alcohol. Orientation: left Location: antecubital Catheter Gauge: 18 Number of Attempts: 1. Procedure Tolerance: performed while patient under general anesthesia. Procedure Start Time: 07/28/2023 9:54 AM. Staff Section Anesthesia Provider: Shraddha Lombardi MD, Performed the procedure Shraddha Lombardi MD GENERAL ANESTHES IA ORDERABLES * ETT LINE PERFORMABLE (07/28/2023 10:37 AM EXECUTIVE HOUSEKEEPER) Narrative Ranjan Kaur DO - 07/28/2023 10:37 AM EXECUTIVE HOUSEKEEPER Ranjan Kaur DO 07/28/2023 10:38 AM Endotracheal Tube Placement: Patient Location: OR. Intubation Event Date/Time: 07/28/2023 10:02 AM Procedure: intubation ([id number]). Procedure Section: Sedation: under general anesthesia. Indications [...] * EPIDURAL BLOCK PERF (07/28/2023 10:16 AM EXECUTIVE HOUSEKEEPER) Esau Ayala MD - 07/28/2023 10:16 AM EXECUTIVE HOUSEKEEPER Esau Davis MD 07/28/2023 10:20 AM Neuraxial [...] TYPE + SCREEN PANEL (07/28/2023 8:20 AM [facility]) Only the most recent of6 resultswithin the time period is included. Antibody Screen NEG 9:08 AM [facility] ABO Rh A POS 07/28/2023 9:08 AM [facility] Blood Bank BLOOD SPECIMEN / Unknown Venipuncture / Unknown 07/28/2023 8:20 AM EXECUTIVE HOUSEKEEPER 07/28/2023 8:26 AM EXECUTIVE HOUSEKEEPER Stacy Yarbrough PLANOGRAPH OPERATOR-INSERTER OPERATOR LAB - BLO OD BANK ORDERABLES [facility] [address] [place] [address], [facility] [phone] * (ABNORMAL) CBC W/ DIFFERENTIAL (07/20/2023 3:25 PM EXECUTIVE HOUSEKEEPER) Only the most recent of21 resultswithin the time period is included. WBC 9.2 4.0 - 10.7 x10E9/L 07/20/2023 4:10 PM [facility] RBC Count 4.02 3.90 - 5.20 x10E12/L 07/20/2023 4:10 PM [facility] Hemoglobin 9.4(L) 11.9 - 15.8 g/dL 07/20/2023 4:10 PM [facility] Hematocrit 30.1(L) 34.8 - 46.1 % 07/20/2023 4:10 PM [facility] MCV 74.9(L) 80.0 - 98.0 fL 07/20/2023 4:10 PM [facility] MCH 23.4(L) 26.7 - 33.6 pg 07/20/2023 4:10 PM [facility] MCHC 31.2(L) 31.7 - 36.3 g/dL 07/20/2023 4:10 PM [facility] RDW-CV 19.1(H) 11.3 - 14.8 % 07/20/2023 4:10 PM [facility] Platelet Count 411 150 - 420 x10E9/L 07/20/2023 4:10 PM [facility] MPV 10.1 7.8 - 11.4 fL 07/20/2023 4:10 PM [facility] Neutrophil % 70.4 41.0 - 74.0 % 07/20/2023 4:10 PM [facility] Lymphocyte % 21.2 17.0 - 47.0 % 07/20/2023 4:10 PM [facility] Monocyte % 7.6 3.0 - 11.0 % 07/20/2023 4:10 PM [facility] Eosinophil % 0.3 0.0 - 7.0 % 07/20/2023 4:10 PM [facility] Basophil % 0.2 0.0 - 1.6 % 07/20/2023 4:10 PM [facility] Immature Granulocytes % 0.3 0.0 - 1.0 % 07/20/2023 4:10 PM [facility] Neutrophil Absolute 6.45 1.60 - 7.50 x10E9/L 07/20/2023 4:10 PM [facility] Lymphocyte Absolute 1.94 1.00 - 4.40 x10E9/L 07/20/2023 4:10 PM [facility] Monocyte Absolute 0.70 0.15 - 1.00 x10E9/L 07/20/2023 4:10 PM [facility] Eosinophil Absolute 0.03 0.00 - 0.60 x10E9/L 07/20/2023 4:10 PM [facility] Basophil Absolute 0.02 0.00 - 0.13 x10E9/L 07/20/2023 4:10 PM [facility] Blood BLOOD SPECIMEN / Unknown Lab Venipuncture / Unknown 07/20/2023 3:25 PM EXECUTIVE HOUSEKEEPER 07/20/2023 4:06 PM [facility] Mason Rico MD LAB - HEMATOLOGY ORD ERABLES [facility] [address] [place] [address], [facility] [phone] * (ABNORMAL) COMPREHENSIVE METABOLIC PANEL (07/20/2023 3:25 PM EXECUTIVE HOUSEKEEPER) Only the most recent of7 resultswithin the time period is included. BUN 9 7 - 26 mg/dL 07/20/2023 4:23 PM [facility] Creatinine 0.59 0.56 - 0.96 mg/dL 07/20/2023 4:23 PM [facility] Sodium 135(L) 136 - 145 mmol/L 07/20/2023 4:23 PM [facility] Potassium 4.3 3.5 - 4.5 mmol/L 07/20/2023 4:23 PM [facility] Chloride 101 98 - 107 mmol/L 07/20/2023 4:23 PM [facility] CO2 21(L) 22 - 29 mmol/L 07/20/2023 4:23 PM [facility] Glucose 113 70 - 115 mg/dL 07/20/2023 4:23 PM [facility] Calcium 9.9 8.4 - 10.2 mg/dL 07/20/2023 4:23 PM [facility] Protein Total 7.4 6.0 - 8.3 g/dL 07/20/2023 4:23 PM [facility] Albumin 3.7 3.4 - 5.0 g/dL 07/20/2023 4:23 PM [facility] Bilirubin Total 0.5 0.2 - 1.2 mg/dL 07/20/2023 4:23 PM [facility] Alkaline Phosphatase 84 40 - 150 U/L 07/20/2023 4:23 PM [facility] ALT 6 5 - 55 U/L 07/20/2023 4:23 PM [facility] AST 21 5 - 34 U/L 07/20/2023 4:23 PM [facility] Anion Gap 13 6 - 16 07/20/2023 4:23 PM [facility] BUN/Creatinine Ratio 15 7 - 23 07/20/2023 4:23 PM [facility] Osmolality Calculated 279 275 - 295 mOsm/kg 07/20/2023 4:23 PM [facility] Albumin/Globulin Ratio 1.0(L) 1.1 - 2.3 07/20/2023 4:23 PM [facility] eGFR by CKD-EPI 89(L) >=90 mL/min/1.7 3 m2 07/20/2023 4:23 PM [facility] Blood BLOOD SPECIMEN / Unknown Lab Venipuncture / Unknown 07/20/2023 3:25 PM EXECUTIVE HOUSEKEEPER 07/20/2023 4:01 PM EXECUTIVE HOUSEKEEPER Mason Rico MD LAB - CHEMISTRY NATALIA BOWSER [facility] [place] [address] [place] [address], [facility] [phone] * XR CHEST 2VW (07/20/2023 2:59 PM EXECUTIVE HOUSEKEEPER) Only the most recent of3 resultswithin the time period is included. Anatomical Region Laterality Modality Chest Radiographic Nelly ging 07/21/2023 11:0 5 AM EXECUTIVE HOUSEKEEPER Narrative 07/22/2023 7:16 AM EXECUTIVE HOUSEKEEPER PROCEDURE: XR CHEST 2VW, DATE/TIME OF EXAM: 07/20/2023 3:00 PM, LOCATION [facility] INDICATION: D49.89: Intra-abdominal tumor COMPARISON: None. TECHNIQUE: Frontal and lateral radiograph of the chest. FINDINGS/IMPRESSION: Mild bibasilar atelectatic changes. There is no focal consolidation, pleural effusion, or pneumothorax. The cardiac silhouette is a stable. There is atherosclerotic calcification of the aorta. The visible bony thorax is intact. Cholecystectomy clips. Report dictated by Andrew Jarvis MD, (Senior Instructor). Gustavo Jackson MD have personally reviewed and interpreted this examination/study. > Interpreting Provider: Gustavo Enriquez MD on 07/22/2023 7:16 AM Procedure Note Gustavo Enriquez MD - 07/22/2023 PROCEDURE: XR CHEST 2VW, DATE/TIME OF EXAM: 07/20/2023 3:00 PM, LOCATION [facility] INDICATION: D49.89: Intra-abdominal tumor COMPARISON: None. TECHNIQUE: Frontal and lateral radiograph of the chest. FINDINGS/IMPRESSION: Mild bibasilar atelectatic changes. There is no focal consolidation, pleural effusion, or pneumothorax. The cardiac silhouette is a stable. There is atherosclerotic calcification of the aorta. The visible bony thorax is intact. Cholecystectomy clips. Report dictated by Andrew Jarvis MD, (Senior Instructor). Gustavo Jackson MD have personally reviewed and interpreted this examination/study. > Interpreting Provider: Gustavo Enriquez MD on 07/22/2023 7:16 AM Mason Rico MD DIAGNOSTIC IMAGING O RDERABLES * EKG 12-LEAD (07/20/2023 1:12 PM EXECUTIVE HOUSEKEEPER) Only the most recent of2 resultswithin the time period is included. Ventricular Rate 71 BPM [facility] QRS Duration ms 92 ms [facility] Q-T Interval ms 396 ms [facility] QTC Calculation (Bezet) 430 ms [facility] Calculated R [place] 23 degrees [facility] Calculated T [place] -105 degrees [facility] Interpretation EKG ATRIAL FIBRILLATION INCOMPLETE RIGHT BUNDLE BRANCH BLOCK SEPTAL INFARCT , AGE UNDETERMINED ABNORMAL ECG WHEN COMPARED WITH ECG OF 17-FEB-2021 10:17, SEPTAL INFARCT IS NOW PRESENT Confirmed by FRANCESCA YUAN [facility] ([id number]) on 07/24/2023 1:14:49 PM [facility] 07/20/2023 1:12 PM EXECUTIVE HOUSEKEEPER 07/24/2023 1:14 PM EXECUTIVE HOUSEKEEPER Mason Rico MD ECG ORDERABLES [facility] MUSE * CT ABDOMEN PELVIS W CONTRAST [...] characterized. > Dictated by Quincy Mix D.O. (Senior Instructor) I, AVERY MACHUCA MD have personally reviewed and interpreted this examination/study. > Interpreting Provider: AVERY MACHUCA MD on 03/22/2022 2:16 PM Narrative 03/22/2022 2:16 PM CDT PROCEDURE: CT ABDOMEN PELVIS W CONTRAST, DATE/TIME OF EXAM: 03/22/2022 12:45 PM, LOCATION [facility] INDICATION: 81-year-old female with history of metastatic [...] DATE/TIME OF EXAM: 03/22/2022 12:45 PM, LOCATION [facility] INDICATION: 81-year-old female with history of metastatic [...] number from prior examinations dating back to . Pancreas: The pancreas is moderately atrophic. Adrenals: [...] characterized. > Dictated by Quincy Mix D.O. (Senior Instructor) AVERY Jackson MD have personally reviewed and interpreted this examination/study. > Interpreting Provider: AVERY MACHUCA MD on 03/22/2022 2:16 PM Mason Rico MD CT ORDERABLES * Neuraxial Block (06/23/2021 11:56 AM EXECUTIVE HOUSEKEEPER) Wesley Beasley MD - 06/23/2021 11:56 AM EXECUTIVE HOUSEKEEPER Wesley Garcia MD 06/23/2021 11:58 AM Neuraxial Block Note Pre-Procedure: Procedure Name: Neuraxial Block Wesley Garcia MD GENERAL ANESTHESIA O ANA * ETT LINE PERFORMABLE (03/03/2021 8:35 AM CDT) Narrative Casey London Anes Asst - 03/03/2021 8:35 AM CDT Casey London Anes Asst 03/03/2021 8:38 AM Endotracheal Tube Placement: Patient Location: OR. Intubation Event Date/Time: 03/03/2021 7:49 AM Procedure: intubation (07706). Procedure Section: Sedation: under general anesthesia. Indications [...] SARS-COV-2 (COVID-19) PRE-SURGICAL/PROCEDURE (02/27/2021 11:14 AM CDT) COVID-19 PCR Not detected Not detected 02/27/2021 6:33 PM CDT [facility] Microbiology SPECIMEN FROM NASOPHARYNGEAL STRUCTURE / Unknown Collection / Unknown 02/27/2021 11:14 AM CDT 02/27/2021 11:20 AM CDT Narrative [facility] - 02/27/2021 6:33 PM CDT This nucleic acid amplification assay performance was validated by [facility]. This test has been [...] Rico MD LAB - MICROBIOLOGY O RDERABLES [facility] [address] [place], [address] [phone] * CULTURE URINE (12/31/2019 11:53 AM CDT) Only the most recent of6 resultswithin the time period is included. Pathologist [facility] Culture [facility] Comment: CULTURE, URINE, ROUTINE Micro Number: [id number] Test Status: Final Specimen Source: URINE, CLEAN CATCH Specimen Quality: Adequate Result: Multiple organisms present, each less than 10,000 CFU/mL. These organisms, commonly found on external and internal genitalia, are considered to be colonizers. No further testing performed. Test Performed at: [employer] [facility] [address] [place] [address] SHRADDHA OCONNOR DO,MPH Urine MID-STREAM URINE SPECIMEN / Unknown 12/31/2019 11:53 AM CDT 12/31/2019 12:15 PM CDT Jacobo Clement MD LAB - MICROBIOLOGY O RDERABLES Performing Organization Address [facility] Co de Phone Number [facility] [address] [place] [address] * CARDIAC RHYTHM STRIP ORDER (07/16/2019 11:11 PM EXECUTIVE HOUSEKEEPER) Only the most recent of2 resultswithin the time period is included. Narrative 07/16/2019 11:11 PM EXECUTIVE HOUSEKEEPER Ordered by an unspecified provider. Scanned Document CARDIAC SERVICES ORD ERABLES * APHERESIS/TRANSFUSION ORDER (07/16/2019 11:10 PM EXECUTIVE HOUSEKEEPER) Narrative 07/16/2019 11:10 PM EXECUTIVE HOUSEKEEPER Ordered by an unspecified provider. Scanned Document NURSING - VITAL SIGN S AND ASSESSMENT * PT-INR (07/13/2019 6:55 AM EXECUTIVE HOUSEKEEPER) Only the most recent of2 resultswithin the time period is included. PT 13.2 12.1 - 14.8 sec 07/13/2019 7:10 AM EXECUTIVE HOUSEKEEPER [facility] INR 1.1 0.9 - 1.1 07/13/2019 7:10 AM EXECUTIVE HOUSEKEEPER [facility] Blood BLOOD SPECIMEN / Unknown Venipuncture / Unknown 07/13/2019 6:55 AM EXECUTIVE HOUSEKEEPER 07/13/2019 6:57 AM EXECUTIVE HOUSEKEEPER Narrative [facility] - 07/13/2019 7:10 AM EXECUTIVE HOUSEKEEPER Conventional Warfarin Anticoagulant Therapy: INR Reference Range: 2.0-3.0 Intensive Warfarin Anticoagulant Therapy: INR Reference Range: 2.5-3.5 Sriram Shannon MD LAB - COAGULATION ORDERABLES Performing Organization Address City/[facility] Co de Phone Number [facility] [address] [place] [address] * (ABNORMAL) CREATININE BLOOD - POCT (IP) [facility] (05/28/2019 11:51 AM EXECUTIVE HOUSEKEEPER) Only the most recent of6 resultswithin the time period is included. Creatinine POCT 1.04 0.3 - 1.3 mg/dL [facility] POCT TESTING eGFR POCT 54(A) 60 ml/min [facility] POCT TESTING Blood BLOOD SPECIMEN / Unknown 05/28/2019 11:51 AM EXECUTIVE HOUSEKEEPER Mason Rico MD LAB - POINT OF CARE ORDERABLES Performing Organization Address City/[facility]/ZIP Co de Phone Number [facility] POCT TESTING [address] [phone] * MAMMOGRAM (04/16/2019) Anatomical Region Laterality Modality Other Historical Provider MD SCANNING ONLY * URINALYSIS - POINT OF CARE (AMB) [facility] (11/27/2018) Specific Arnold UA 1.015 pH UA 6 WBC UA ++ Nitrite UA n Protein UA 30 Glucose UA n Ketones UA POCT n Urobilinogen UA n Bilirubin UA POCT n Blood Urine POCT about 250 Urine URINE / Unknown 11/27/2018 Jacobo Clement MD LAB - POINT OF CARE ORDERABLES * CULTURE URINE REFLEXED (01/12/2018 1:20 PM CDT) Reflexive Urine Culture CULTURE INDICATED - RESULTS TO FOLLOW [facility] Comment: Test Performed at: [employer] [facility] [id number] [place] [phone] SHRADDHA OCONNOR DO,MPH 01/12/2018 1:20 PM CDT 01/12/2018 1:20 PM CDT Jacobo Clement MD LAB - MICROBIOLOGY O RDERABLES Performing Organization Address City/[facility]/ZIP Co de Phone Number [facility] [address] [place] [address] * (ABNORMAL) URINALYSIS W/MICROSCOPIC REFLEX TO CULTURE (01/12/2018 1:20 PM CDT) Color UA YELLOW YELLOW [facility] Appearance CLEAR CLEAR [facility] Specific Arnold UA 1.008 1.001 - 1.035 [facility] pH [...] SEEN /LPF [facility] Comment: Test Performed at: [employer] [address] [place] [address] SHRADDHA OCONNOR DO,MPH Urine URINE SPECIMEN OBTAINED BY CLEAN CATCH PROCEDURE / Unknown 01/12/2018 1:20 PM CDT 01/12/2018 1:20 PM CDT Jacobo Clement MD LAB - URINALYSIS ORD ERABLES [facility] [address] [place] [address] * (ABNORMAL) URINALYSIS ROUTINE W/REFLEX TO CULTURE (12/19/2016 5:29 PM CDT) Color UA Yellow Straw, Yellow, Dark Yellow 12/19/2016 5:49 PM CDT [facility] Clarity UA Cloudy 12/19/2016 5:49 PM CDT [facility] Specific Arnold UA 1.013 1.005 - 1.030 12/19/2016 5:49 PM CDT [facility] pH UA 6.5 5.0 - 8.0 pH 12/19/2016 5:49 PM CDT [facility] Protein UA Negative Negative 12/19/2016 5:49 PM CDT [facility] Blood UA 1+(A) Negative 12/19/2016 5:49 PM CDT [facility] Leukocyte UA 3+(A) Negative 12/19/2016 5:49 PM CDT [facility] Nitrite UA Negative Negative 12/19/2016 5:49 PM CDT [facility] Glucose UA Negative Negative 12/19/2016 5:49 PM CDT [facility] Ketone UA 3+(A) Negative 12/19/2016 5:49 PM CDT [facility] Bilirubin UA Negative Negative 12/19/2016 5:49 PM CDT [facility] Urobilinogen UA 1.0 0.1 - 1.0 EU/dL 12/19/2016 5:49 PM CDT [facility] WBC UA Auto >100(A) 0-2, 2-5 # /hpf 12/19/2016 5:49 PM CDT [facility] RBC UA Auto 10-20(A) 0-2, 2-5 # /hpf 12/19/2016 5:49 PM CDT [facility] Epithelial Cell UA Auto 20-50(A) 0-2, 2-5 # /hpf 12/19/2016 5:49 PM CDT [facility] Bacteria UA Auto 2+(A) None seen 12/20/19 17 5:49 PM CDT [facility] Hyaline Casts UA Auto 2-5(A) 0 - 2 #/lpf 12/19/2016 5:49 PM CDT [facility] Reflex Status Culture to follow 12/19/2016 5:49 PM CDT [facility] Urine URINE SPECIMEN OBTAINED BY CLEAN CATCH PROCEDURE / Unknown Collection / Unknown 12/19/2016 5:29 PM CDT 12/19/2016 5:36 PM CDT Olivia Mckeon MD LAB - URINALYSIS ORD ERABLES Performing Organization Address City/State/[facility] Co de Phone Number [facility] [address] [place] [address] * XR ABDOMEN 1 VW (12/18/2016 4:20 [...] Urine 149 mmol/L 12/17/2016 12:02 PM CDT [facility] Urine URINE SPECIMEN OBTAINED BY CLEAN CATCH PROCEDURE / Unknown Collection / Unknown 12/17/2016 11:18 AM CDT 12/17/2016 11:34 AM CDT Maura Lobo MD LAB - URINE CHEMISTR Y ORDERABLES Performing Organization Address [facility] Co de Phone Number [facility] [address] [place] [address] * CREATININE URINE RANDOM (12/17/2016 11:18 AM CDT) Creatinine Urine 140 mg/dL 12/17/2016 12:02 PM CDT [facility] Urine URINE SPECIMEN OBTAINED BY CLEAN CATCH PROCEDURE / Unknown Collection / Unknown 12/17/2016 11:18 AM CDT 12/17/2016 11:34 AM CDT Maura Lobo MD LAB - URINE CHEMISTR Y ORDERABLES Performing Organization Address City/[facility] Co de Phone Number [facility] [address] [place] [address] * GROSS + MICRO EXAM (STL) (12/16/2016 11:26 AM CDT) Case Report Surgical Pathology Report Case: [id number] Authorizing Provider: Jacobo Clement MD Collected: 12/16/2016 11:26 AM Ordering Location: [facility] Received: 12/16/2016 03:25 PM Pathologist: Mere Calderon MD Specimen: Tumor, Pelvic Tumor 12/20/2016 12:48 PM [facility] Final Diagnosis 1. 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 Also received in the container are multiple free floating fragments of soft, pink-corey, fatty tissue with an aggregate measurement of 1.4 cm x 1.1 x 04 cm. Lambskin Trimmer sections of the membranous portion of the specimen are submitted as A1 through A3. Lambskin Trimmer sections of the fat are submitted as A4. IA/n 12/20/2016 12:48 PM [facility] Microscopic Description Sections of the pelvic [...] granulosa cell tumor. IA/kf 12/20/2016 12:48 PM [facility] Disclaimer All histochemical and/or immunohistochemical results are interpreted with controls that demonstrate appropriate staining reactions before reporting results. Note on use of immunocytochemistry reagents: This test was developed and its performance characteristic determined by [facility], Department of Laboratory Medicine. It has not been cleared or approved by the U.S. Food and Drug Administration (FDA). The FDA has determined that such clearance or approval is not necessary. The test is used for clinical purpose. It should not be regarded as investigational or for research. This laboratory is certified to perform high complexity testing. 12/20/2016 12:48 PM [facility] Embedded Images 12/20/2016 12:48 PM [facility] Pathology/Cytolo gy TUMOR TISSUE SPECIMEN / Unknown 12/16/2016 11:26 AM CDT 12/16/2016 3:25 PM CDT Jacobo Clement MD LAB - PATHOLOGY/CYTO LOGY ORDERABLES [facility] [address] [place], [place] [id number] * CYTOLOGY NON-ENDOSCOPE TECHNICIAN PANEL (STL) (12/16/2016 10:18 AM CDT) Case Report Cytology Non Z [employer] Mainframe Systems Programmer Report Case: [id number] Authorizing Provider: Jacobo Clement MD Collected: 12/16/2016 10:18 AM Ordering Location: [facility] Received: 12/16/2016 03:32 PM Pathologist: Sandra Washington MD Specimen: Urine Cath, Urine 12/17/2016 2:49 PM CDT [facility] Final Diagnosis 1. Urine from catheter, smear and cell block: -- Benign urothelial cells admixed with numerous mixed inflammatory cells -- No diagnostic evidence of malignancy SD/ 12/17/2016 2:49 PM CDT [facility] Gross Description Received is 35 mL of gold fluid. SD/ 12/17/2016 2:49 PM CDT [facility] Microscopic Description The smear and the cell block are cellular, and are comprised of predominantly neutrophils, admixed with rare lymphocytes and histiocytes. Rare urothelial cells, some with degenerative changes are seen. There is no diagnostic evidence of malignancy. SD/ 12/17/2016 2:49 PM CDT [facility] Embedded Images 12/17/2016 2:49 PM CDT [facility] Pathology/Cytolo gy URINE SPECIMEN COLLECTION, CATHETERIZED / Unknown 12/16/2016 10:18 AM CDT 12/16/2016 3:32 PM CDT Jacobo Clement MD LAB - PATHOLOGY/CYTO LOGY ORDERABLES Performing Organization Address City/[facility]/ZIP Co de Phone Number [facility] [address] [place], [place] [id number] * BLOOD TYPE VERIFICATION (12/16/2016 8:36 AM CDT) ABO A 12/16/2016 9:14 AM CDT [facility] Rh Type Positive 12/16/2016 9:14 AM CDT [facility] Blood Bank BLOOD SPECIMEN / Unknown Lab Venipuncture / Unknown 12/16/2016 8:36 AM CDT 12/16/2016 8:36 AM CDT Jacobo Clement MD LAB - BLOOD BANK ORD ERABLES [facility] LAB [address] * (ABNORMAL) URINALYSIS ROUTINE AUTO (12/16/2016 7:33 AM CDT) Color UA Yellow Straw, Yellow, Dark Yellow 12/16/2016 2:18 PM CDT [facility] Clarity UA Turbid 12/16/2016 2:18 PM CDT [facility] Specific Arnold UA 1.022 1.005 - 1.030 12/16/2016 2:18 PM CDT [facility] pH UA 6.0 5.0 - 8.0 pH 12/16/2016 2:18 PM CDT [facility] Protein UA 1+(A) Negative 12/16/2016 2:18 PM CDT [facility] Blood UA 2+(A) Negative 12/16/2016 2:18 PM CDT [facility] Leukocyte UA 3+(A) Negative 12/16/2016 2:18 PM CDT [facility] Nitrite UA Negative Negative 12/16/2016 2:18 PM CDT [facility] Glucose UA Negative Negative 12/16/2016 2:18 PM CDT [facility] Ketone UA 2+(A) Negative 12/16/2016 2:18 PM CDT [facility] Bilirubin UA Negative Negative 12/16/2016 2:18 PM CDT [facility] Urobilinogen UA 0.2 0.1 - 1.0 EU/dL 12/16/2016 2:18 PM CDT [facility] WBC UA Auto Reflex to manual(A) 0-2, 2-5 # /hpf 12/16/2016 2:18 PM CDT [facility] RBC UA Auto Reflex to manual(A) 0-2, 2-5 # /hpf 12/16/2016 2:18 PM CDT [facility] Epithelial Cell UA Auto Reflex to manual(A) 0-2, 2-5 # /hpf 12/16/2016 2:18 PM CDT [facility] Bacteria UA Auto Reflex to manual(A) None seen 12/16/2016 2:18 PM CDT [facility] Hyaline Casts UA Auto Reflex to manual(A) 0 - 2 #/lpf 12/16/2016 2:18 PM CDT [facility] Urine URINE SPECIMEN OBTAINED BY CLEAN CATCH PROCEDURE / Unknown Collection / Unknown 12/16/2016 7:33 AM CDT 12/16/2016 1:47 PM CDT Jacobo Clement MD LAB - URINALYSIS ORD ERABLES Performing Organization Address [facility] Co de Phone Number [facility] [address] [place] [phone] * (ABNORMAL) URINALYSIS MICROSCOPIC ONLY (12/16/2016 7:33 AM CDT) RBC UA 20-50(A) 0-2, 2-5 # /hpf 12/16/2016 2:53 PM CDT [facility] WBC UA >100(A) 0-2, 2-5 # /hpf 12/16/2016 2:53 PM CDT [facility] Bacteria UA 2+(A) None Seen 12/16/2016 2:53 PM CDT [facility] Epithelial Cell UA 0-2 0-2, 2-5 # /hpf 12/16/2016 2:53 PM CDT [facility] Hyaline Casts 0-2 0 - 2 # /lpf 12/16/2016 2:53 PM CDT [facility] Amorphous Phosphate Crystals 1+(A) None Seen 12/16/2016 2:53 PM CDT [facility] Urine URINE SPECIMEN OBTAINED BY CLEAN CATCH PROCEDURE / Unknown Collection / Unknown 12/16/2016 7:33 AM CDT 12/16/2016 1:47 PM CDT Jacobo Clement MD LAB - URINALYSIS ORD ERABLES Performing Organization Address City/[facility]/ZIP Co de Phone Number [facility] [address] [place] [address] * PT PTT PANEL (12/16/2016 7:33 AM CDT) PT 10.9 9.5 - 11.6 sec 12/16/2016 10:07 AM CDT [facility] INR 1.1 0.9 - 1.1 12/16/2016 10:07 AM CDT [facility] PTT 22.5 21.0 - 32.0 sec 12/16/2016 10:07 AM CDT [facility] Blood BLOOD SPECIMEN / Unknown Venipuncture / Unknown 12/16/2016 7:33 AM CDT 12/16/2016 8:24 AM CDT Narrative [facility] - 12/16/2016 10:07 AM CDT Conventional Warfarin Anticoagulant Therapy: INR Reference Range: 2.0-3.0 Intensive Warfarin Anticoagulant Therapy: INR Reference Range: 2.5-3.5 Heparin Therapeutic Range for PTT: 47.7 - 68.6 seconds. Jacobo Clement MD LAB - COAGULATION OR DERABLES Performing Organization Address City/[facility] Co de Phone Number [facility] [address] [place] [address] * PATHOLOGY/GENETICS HISTORICAL-ONBASE (12/16/2016) Only the most recent of2 resultswithin the time period is included. 12/16/2016 Historical Provider LAB - CHEMISTRY O RDERABLES Performing Organization Address City/[facility]/ZIP Co de Phone Number [place] [phone] [address] * LAB HISTORICAL RESULTS-ONBASE (12/16/2016) Only the most recent of6 resultswithin the time period is included. 12/16/2016 Historical Provider LAB - CHEMISTRY O RDERABLES Performing Organization Address [facility] Co de Phone Number [place] [phone] [address] * XR CHEST 1VW PORTABLE (07/24/2015 5:53 AM EXECUTIVE HOUSEKEEPER) Only the most recent of3 resultswithin the time period is included. Anatomical Region Laterality Modality Chest Other Impressions 07/24/2015 2:22 PM EXECUTIVE HOUSEKEEPER Impression: There has been interval removal of the enteric tube. A small right apical pneumothorax is slightly decreased. There is bibasilar atelectasis/airspace disease, right greater than left, increased from the prior exam. There are small bilateral pleural effusions, unchanged. No left pneumothorax is seen. The cardiomediastinal silhouette is normal. Dictated by Donald Gautam MD (president + publisher) This report was approved by Omero Gautam on 07/24/2015 2:[address] MEY Jackson M.D. have personally reviewed and interpreted this examination/study. This report was electronically signed by MEY CALDERON M.D. on 07/24/2015 2:22 PM . Narrative 07/24/2015 2:22 PM EXECUTIVE HOUSEKEEPER Exam: Portable Chest X-ray, 1 view Date: [...] is normal. Dictated by Donald Gautam MD (president + publisher) This report was approved by Omero Gautam on 07/24/2015 2:[address] MEY Jackson M.D. have personally reviewed and interpreted thisexamination/study. This report was electronically signed by MEY CALDERON M.D. on07/24/2015 2:22 PM . Mason Rico MD DIAGNOSTIC IMAGING O RDERABLES * (ABNORMAL) BLOOD GASES ART COMPLETE [facility] OR (07/22/2015 8:22 AM EXECUTIVE HOUSEKEEPER) pH Arterial 7.38 7.35 - 7.45 [facility] pCO2 Arterial 36 35 - 45 mmHg [facility] pO2 Arterial 222(H) 71 - 95 mmHg [facility] HCO3 Arterial 20.4(L) 22.0 - 26.0 mmol/L [facility] TCO2 Arterial 21.5(L) 25.0 - 29.0 mmol/L [facility] Base Excess Arterial -4.1(L) -2.0 - 2.0 mmol/L [facility] Hemoglobin Arterial 12.3 12.0 - 15.5 g/dL [facility] Oxyhemoglobin Arterial 98.4 95.0 - 100.0 % [facility] Carboxyhemoglobin 0.3 0.0 - 3.0 % [facility] Methemoglobin 0.5 0.0 - 2.0 % [facility] Ionized Calcium Whole Blood 1.14 mmol/L [facility] Adjusted Ionized Calcium 1.13(L) 1.19 - 1.34 mmol/L [facility] Sodium Whole Blood 131(L) 135 - 145 mmol/L [facility] Potassium Whole Blood 3.9 3.5 - 5.5 mmol/L [facility] Chloride Whole Blood 102 101 - 111 mmol/L [facility] Glucose Whole Blood 115(H) 70 - 110 mg/dL [facility] Lactic Acid Whole Blood 1.1 0.5 - 3.4 mmol/L [facility] Blood specimen (specimen) 07/22/2015 8:22 AM EXECUTIVE HOUSEKEEPER 07/22/2015 8:22 AM EXECUTIVE HOUSEKEEPER Mason Rico MD LAB - BLOOD GASES OR DERABLES [address] [phone] * CROSSMATCH RBC LEUKOREDUCED (07/22/2015 7:29 AM EXECUTIVE HOUSEKEEPER) Unit RBC-WBCD [id number] 3 returned [facility] BLOOD BANK PRODUCTS (BEAKER) Unit RBC-WBCD [id number] 1 returned [facility] BLOOD BANK PRODUCTS (BEAKER) 07/22/2015 7:29 AM EXECUTIVE HOUSEKEEPER 07/22/2015 7:29 AM EXECUTIVE HOUSEKEEPER Narrative [facility] BLOOD BANK PRODUCTS (BEAKER) - 07/22/2015 7:29 AM EXECUTIVE HOUSEKEEPER # of Units->4 Mason Rico MD LAB - BLOOD BANK ORD ERABLES [facility] BLOOD BANK PRODUCTS (BEAKER) * ENDOSCOPIC ULTRASOUND, UPPER (06/27/2015 11:07 AM EXECUTIVE HOUSEKEEPER) Report Endoscopy POC _ Patient Name: Mary So Procedure Date: 06/27/2015 11:07 AM Date of : 1940 Admit Type: Outpatient Age: 74 Gender: Female Attending MD: Sriram Ambriz MD _ Procedure: Upper EUS Indications: Suspected mass in esophagus on CT scan Providers: Sriram Ambriz MD (Doctor), Rhiannon Elliott RN, Billy Guerrero, Corporate Administrator Referring MD: Giuseppe Urbina MD (Referring MD), [...] by the physician, the nurse and the company driver. The procedure was verified in the endoscopy [...] as scheduled Procedure Code(s): --- Professional --- 17300, Esophagogastroduoden oscopy, flexible, transoral; with endoscopic ultrasound examination limited to the esophagus, stomach or duodenum, and adjacent structures --- Technical --- 77303, Esophagogastroduoden oscopy, flexible, transoral; with endoscopic ultrasound examination limited to the esophagus, stomach or duodenum, and adjacent structures Diagnosis Code(s): --- Professional --- R93.3, Abnormal findings on diagnostic imaging of other parts of digestive tract --- Technical --- R93.3, Abnormal findings on diagnostic imaging of other parts of digestive tract CPT copyright 2014 [employer]. All rights reserved. The codes documented in this report are preliminary and upon route salesman and driver review may be revised to meet current compliance requirements. Attending Participation: I personally performed the entire procedure. Sriram Ambriz MD 06/27/2015 11:30:34 AM This report has been signed electronically. Number of Addenda: 0 Note Initiated On: 06/27/2015 11:07 AM [facility] ENDOSCOPY 06/27/2015 11:0 7 AM EXECUTIVE HOUSEKEEPER Sriram Ambriz MD GI PROCEDURE ORDERAB LES [facility] ENDOS[facility] * PET CT SKULL TO MID THIGH (06/13/2015 11:04 AM EXECUTIVE HOUSEKEEPER) Anatomical Region Laterality Modality Head, Lower Extremity Nuclear Me dicine 06/13/2015 11:1 0 AM EXECUTIVE HOUSEKEEPER Impressions 06/13/2015 11:44 AM EXECUTIVE HOUSEKEEPER No definite PET/CT evidence of malignancy. The reported mass above the liver and left thoracic mass are not apparent on this exam. However, evaluation is limited with this noncontrast CT. Recommend correlation with the prior CT. Narrative 06/13/2015 11:44 AM EXECUTIVE HOUSEKEEPER Procedure: PET/CT study Referring physician: Dr. Hart [...] of a granulosa cell ovarian tumor in 2004. Evaluate for initial treatment strategy. TECHNIQUE: 11.5 [...] all submitted in a single cassette. LW yeager Microscopic Exam Sections show fragments of colonic mucosa with features of tubular adenoma. High grade dysplasia or malignancy is not seen. MC/db Diagnosis I. Distal sigmoid colon, biopsy -- Tubular adenoma MC/db Principal Software Architect db Pathologist Carol Calderon M.D. Snomed. 01/27/2006 1135 <1> CPT code 54828 MISCELLANEOUS SAMPLES / Unknown 01/26/2006 2:34 PM CDT 01/26/2006 2:34 PM CDT Historical Provider LAB - PATHOLOGY/C YTOLOGY ORDERABLES * FROZEN SECTION (07/09/2003 2:58 PM EXECUTIVE HOUSEKEEPER) Result CASE NUMBER [id number] Comment: ORDERING [...] and necrosis. The cystic fluid is serosanguinous. Lambskin Trimmer sections through the heterogenous areas are submitted for FSA and FSB. Additional food service sales representatives sections are submitted in cassettes C through J food service sales representatives section of the fallopian tube are submitted [...] smooth. The fallopian tube is grossly unremarkable. Lambskin Trimmer sections of the ovary and fallopian tube are submitted in cassette N. Cross section through the fragment of fibroadipose tissue doesn't reveal any lesions or nodules. Lambskin Trimmer sections are submitted in cassette O. The [...] serially sectioned and no lesion is identified. Lambskin Trimmer sections are submitted in cassettes Q and [...] Many mesothelial cells and blood present. GM/ Principal Software Architect [facility] [place] Pathologist Anastasia Mckenzie M.D. Snomed. 07/11/2003 1305 <3> CPT code 05371 x2, 23174, 97858 x4, 54259, 36511 MISCELLANEOUS SAMPLES / Unknown 07/09/2003 2:58 PM EXECUTIVE HOUSEKEEPER 07/09/2003 2:58 PM EXECUTIVE HOUSEKEEPER Historical Provider LAB - PATHOLOGY/C YTOLOGY ORDERABLES * CYTOLOGY NON-ENDOSCOPE TECHNICIAN PANEL (07/09/2003 12:00 AM EXECUTIVE HOUSEKEEPER) Result CASE NUMBER [id number] Comment: ORDERING PHYSICIAN MARGUERITE CLEMENT SPECIMEN TYPE Ascitic Fluid Date 07/11/[address] Clement Specimen Adequacy Satisfactory for evaluation. Cell Pathology single and small groups of benign mesothelial cells present, there is no evidence of malignancy. *Diagnosis negative for malignancy Snomed. 07/11/2003 1241 <1> Pathologist Carol Calderon M.D. CPT code 39423 MISCELLANEOUS SAMPLE S / Unknown 07/09/2003 07/10/2003 7:56 AM EXECUTIVE HOUSEKEEPER Historical Provider LAB - PATHOLOGY/C YTOLOGY ORDERABLES Care Teams Towboat Pilot Relationship Specialty Start Date End Date Charlette Lentz MD [address] [place] [address] PCP - General 04/01/22 Lexie Lynn, RN Registered Nurse 12/16/16
--- OUTSIDE RECORDS SUMMARY | 2024-07-31 20:39 | XMS_ITS | Referral Summary ---
Author Organization [facility] Address [address] [place] [address] Care Team Providers Care Linderman Machine Operator Name Role Phone Lexie Lynn RN Unavailable Unavailable Charlette Lentz MD Primary Care Provider Source Comments [facility],non-[facility] Affiliates and Associated Physician Practices is amultiple site organization consisting of ambulatory clinics and hospital sitesin [place], [place], [place] and [place]. This disclosure is being madepursuant to the Care Everywhere program and may not contain all information available regarding this patient. 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) ; Carcinomatosis (HCC) 07/09/2024 Travel 07/09/2024 11:00 AM GOAT FARMER Office Visit [facility] - BODY PRESS OPERATOR [address] [place] [address] Marlo Jeter MD 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); Use of letrozole (Femara) 07/02/2024 Orders Only [facility] - BODY PRESS OPERATOR [address] [place] [address] Marlo Jeter MD 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); Carcinomatosis (HCC); Use of letrozole (Femara) 06/20/2024 Telephone [facility] - BODY PRESS OPERATOR [address], [address] [place] [address] Marlo Jeter MD Med Question from Last 3 Months Allergies Active Allergy [...] Immunizations Name Administration Dates Next Due Gibson ActiveReplay primary monoval ent 12+ yr 0.3mL Purple [...] Comments Blood Pressure 150/64 07/09/2024 10:59 AM GOAT FARMER Pulse 77 02/08/2024 10:34 AM CDT Temperature 36.1 C (97 F) 02/08/2024 10:34 AM CDT Respiratory Rate 16 07/30/2023 8:03 AM GOAT FARMER Oxygen Saturation 98% 02/08/2024 10: 34 AM CDT Inhaled Oxygen Concentration - - Weight 67.5 kg (148 lb 12.8 oz) 025 10:59 AM GOAT FARMER Height 157.5 cm (5' 2 ) 07/09/2024 10:5 9 AM GOAT FARMER Body Mass Index 27.22 07/09/2024 10:59 AM GOAT FARMER Functional Status Functional Status Response Date of [...] Description 08/06/2024 11:30 AM CDT Office Visit [facility] - BODY PRESS OPERATOR [address] [facility] [address] [place] [id number] Marlo Jeter MD [address] [facility] [address] [place] [address] Medical Devices Implanted Type Area Corporate Learning Consultant Device Identifier Shelf Expiration Date Model / Serial / Lot Mesh Srg Ventralight St Sepra Echo Implanted:Qty: 1 on 07/13/2019 by Omer Ponce MD at [facility] Abdomen [employer] 03/19/2020 [id number] / / [id number] Procedures Procedure Name Priority Date/Time Associated Diagnosis [...] 18 mm on the previous examination, remeasuredby az. None of these lymph nodes are calcified [...] - 1.20 mg/dL 07/30/2024 11:35 AM CDT [facility] eGFR >90 >=90 mL/min/1.7 3 m2 07/30/2024 11:35 AM CDT [facility] Blood BLOOD SPECIMEN / Unknown 07/30/2024 11:24 AM CDT 07/30/2024 11:35 AM CDT Marlo Jeter MD LAB - POINT OF CARE ORDERABLES Performing Organization Address City/State/[facility] Co de Phone Number [facility] [address] [place] [address] from Last 3 Months Advance Directives Documents on File Type Date Recorded Patient Welding Operator Expl anation Advance Directives and Livin g [...] 1:40 PM 12/20/2016 6:00 PM Care Teams Linderman Machine Operator Relationship Specialty Start Date End Date Charlette Lentz MD [address] [place], [place] [id number] PCP - General 04/01/22 Lexie Lynn, RN Registered Nurse 12/16/16
--- OUTSIDE RECORDS SUMMARY | 2024-07-31 20:39 | XMS_ITS | Continuity of Care Document ---
Author Organization [facility] Address [address] [place] [address] [place] [address] Phone Care Team Providers Care Director Of Student Services Name Role Phone Parveen Jamil CORDOBA Unavailable [...] Diagnoses Date Provider Providers Copied on Encounter [facility], [address] [place] [address] [address], [place], [place], [address], [place] tel:[phone] [facility] No Information Parveen ADALID Negron. [address] [facility], [address], [address], . tel:[phone] Referring Provider: Rasta Johnson OD P, [address] [facility], [place], [address] . tel:[phone] Office/outpat ient Visit, [facility], [address] [place] [address] [address], [place], [place], [id number], tel:[phone] [facility] No Information Racquelfranciscoeny OD Rasta. [address] [facility], [place], [place], [address], [place]. tel:[phone] Referring Provider: Rasta Johnson OD P, [address] [facility], [place], [address] . tel:[phone] Office/outpat ient Visit, [facility], [id number] [place] [address] [address], [place], [place], [address], [place] tel:[phone] [facility] No Information Tadeoeny OD Rasta. [address] [place], [place], [address], [place]. tel:[phone] Referring Provider: Rasta Johnson OD P, [address] [place], [address] . tel:[phone] Office/outpat ient Visit, [facility], [address] [place] [address] [address], [place], [place], [address], [place] tel:[phone] [facility] No Information Tadeoeny OD Rasta. [address] [facility], [place], [place], [address], [place]. tel:[phone] Referring Provider: Rasta Johnson OD P, [address] [facility], [place], [address] . tel:[phone] Family History Family Member Type Diagnosis Age At Onset No Information Payers Payer name Insurance type Covered alliance party ID Authoriza tion(s) [place] [id number] [place]BS [place] Out Of [place] BL [id number] Social History Type Description Quantity Date Captured [...]
--- OUTSIDE RECORDS SUMMARY | 2024-07-31 20:39 | XMS_ITS | Encounter Summary ---
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) Procedures CT Chest Abdomen Pelvis W Marlo Heredia MD [address] [place] [address] [facility] [address] [facility] [address] [place] [address], [address] [place] [id number] Referral ID Status Reason Start Date Expiration Date Visits Re quested Visits Authorized [id number] Closed 07/09/2024 07/09/2025 1 1 Reason for Visit * Radiology Services (Routine) - Closed Specialty Diagnoses / Procedures Referred By Yamini t Referred To Contact CT Scan Diagnoses 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) Procedures CT Chest Abdomen Pelvis W Marlo Heredia MD [address] [facility] [address] [place] [address] [facility] [address] Scan [address], [address] [place] [address] Referral ID Status Reason Start Date Expiration Date Visits Re quested Visits Authorized [id number] Closed 07/09/2024 07/09/2025 1 1 Encounter Details Date Type Department Care Team (Latest Contact Info) Description 07/30/2024 11:12 AM CDT - 07/30/2024 11:59 PM CDT Hospital Encounter [facility] Health Imaging Services - CT Scan [address], [address] [place] [address] Marlo Jeter MD [address] [place] [address] Discharge Disposition: Home or Self Care Social History Tobacco Use Types Packs/Day Years [...] No 03/03/2021 documented as of this encounter Medications at Time of Discharge Medication Sig Dispensed Refills Start Date End Date amLODIPine (NORVASC) 10 MG tablet Take 1 (one) tablet by mouth once daily 3 03/12/2015 Aspirin (ASPIR-81 PO) Take by mouth at bedtime busPIRone (Buspar) 15 MG tablet Take 1 (one) tablet by mouth 3 times daily Cholecalciferol (VITAMIN D) 2000 UNITS capsule Take 1 (one) capsule by mouth once daily Daily. clobetasol (TEMOVATE) 0.05 % ointment Apply to affected area 2 times daily 60 g 1 08/18/2020 CRANBERRY PO cyanocobalamin (VITAMIN B-12) 500 MCG tablet Take 1 (one) tablet by mouth once daily isosorbide mononitrate CR 24hr (IMDUR) 30 MG tablet Take 1 (one) tablet by mouth once daily 4 05/12/2015 letrozole (Femara) 2.5 MG tablet Take 1 (one) tablet by mouth once daily 90 tablet 4 09/05/2023 lisinopril (Prinivil; Zestril) 40 MG tablet Take 1 (one) tablet by mouth once daily 04/25/2023 LORazepam (ATIVAN) 1 MG tablet Take 1 (one) tablet by mouth every 12 hours as needed 5 05/12/2015 omeprazole (PRILOSEC) 20 MG capsule Take 1 (one) capsule by mouth daily before breakfast 3 05/06/2015 oxyCODONE, immediate release, (Roxicodone) 5 MG tabletIndications:Gran ulosa cell tumor Take 1 (one) tablet by mouth every 6 hours as needed 12 tablet 07/30/2023 Probiotic Product (Align) 4 MG 4 mg psyllium (Metamucil) 58.6 % powder Take 1 (one) packet by mouth 3 times daily as needed for Constipation simvastatin (ZOCOR) 20 MG tablet Take 1 (one) tablet by mouth at bedtime 2 03/26/2015 XARELTO 20 MG tablet Take 1 (one) tablet by mouth daily with food 3 02/01/2018 documented as of this encounter Plan of Treatment Upcoming Encounters Date Type Department Care Team (Late st Contact Info) Description 08/06/2024 11:30 AM CDT Office Visit [facility] - LINUX UNIX SYSTEM ADMINISTRATOR [address] [place] [address] Marlo Jeter MD [address] [place] [address] documented as of this encounter Procedures Procedure Name Priority Date/Time Associated Diagnosis Comments CT CHEST ABDOMEN PELVIS W CONT Routine 07/30/2024 11:57 AM CDT 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 None of these lymph nodes are calcified [...] - POCT INTERFACED (07/30/2024 11:24 AM CDT) [facility] Creatinine POCT 0.39(L) 0.70 - 1.20 mg/dL 07/30/2024 11:35 AM CDT [facility] eGFR >90 >=90 mL/min/1.7 3 m2 07/30/2024 11:35 AM CDT [facility] Blood BLOOD SPECIMEN / Unknown 07/30/2024 11:24 AM CDT 07/30/2024 11:35 AM CDT Marlo Jeter MD LAB - POINT OF CARE ORDERABLES Performing Organization Address City/State/[facility] Co de Phone Number [facility] [address] [place] [address] documented in this encounter Visit Diagnoses Diagnosis 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 $ Given 07/30/2024 11:27 AM CDT 10 mL 0.9% NaCl IV flush bag 0-250 mL, Intracatheter, ONCE PRN, Contrast flush, 1 dose, Starting on Tue07/30/24 at 1112, Until Tue07/30/24 at 1127, For administration with contrast $ Given 07/30/2024 11:27 AM CDT 50 mL iopamidol (Isovue 370) 76 % contrast Intravenous, CONTRAST ONCE, Starting on 3/10/25 at 1112, Until Tu07/31/24 at 0122 $ Given - Contrast 07/30/2024 11:27 AM CDT 100 mL documented in this encounter Care Teams Racing Car Driver Relationship Specialty Start Date End Date Charlette Lentz MD [address] [place] [address] PCP - General 04/01/22 Lexie Lynn, RN Registered Nurse 12/16/16 documented as of this encounter
[2024-07-31 20:42] VITALS: BP 146/65; PULSE 74; RESP 15; TEMP 36.3; O2SAT 98
[2024-07-31 22:06] LABS: Add Urine Microscopic? YES; Appearance Urine Turbid (Clear); Bacteria Urine 4+ /hpf; Bilirubin Urine Negative (Negative); Blood Urine 2+ (Negative); Color Urine Dark Yellow (Yellow); Glucose Urine UA Negative (Negative); Ketones Urine Trace mg/dL (Negative); Leukocyte Esterase Ur 3+ LEU/UL (Negative); Need Manual Microscopic Reviewed; Nitrate Urine Negative (Negative); Non Pathogenic Casts 0-2; Protein Urine 3+ mg/dL (Negative); RBC Urine 21-50 /hpf (0-2); Specific Grav Ur 1.019 (1.001-1.035); Squamous Epithelial Cell Urine Many /hpf (Few); WBC Urine >100 /hpf (0-3); pH Urine 5.5 (5.0-9.0)
--- NOTE | 2024-07-31 23:34 | ED.FEMALEGU ---
HPI - Female Genitourinary General Chief complaint: Urogenital-Female Stated complaint: diarrhea, possible UTI? Time Seen by Provider: 07/31/24 23:22 History of Present Illness HPI Narrative: Patient is an 83-year-old female who presents emergency department this evening complaining of dysuria and urinary frequency. Patient states that these are usually signs of a UTI. States that symptoms have been going for the past few weeks, however, dysuria recently started. Patient was seen at an outside facility yesterday for a repeat CT scan as she is being closely monitored for ovarian cancer. Patient states that she did have some blood work performed prior to the CT scan which revealed no acute process, patient was informed that her kidney function was slightly decreased but well enough to obtain a CT with contrast. She denies any additional symptoms or concerns at this time. Related Data Home Medications ?Medication ?Instructions ?Recorded ?Confirmed ?Last Taken ?Type amlodipine 10 mg tablet (Norvasc) 10 mg PO QAM 11/01/19 03/29/24 06/17/23 06:00 History aspirin 81 mg tablet,delayed 81 mg PO HS 11/01/19 03/29/24 06/10/23 History release isosorbide mononitrate 30 mg 30 mg PO QAM 11/01/19 03/29/24 04/29/23 History tablet,extended release 24 hr rivaroxaban 20 mg tablet (Xarelto) 20 mg PO QACDINNER 11/01/19 03/29/24 06/15/23 History cholecalciferol (vitamin D3) 25 50 mcg PO DAILY 02/28/20 03/29/24 04/29/23 History mcg (1,000 unit) tablet acetaminophen 500 mg capsule 500 mg PO Q6H PRN Pain 06/10/23 03/29/24 Unknown History simvastatin 10 mg tablet 10 mg PO DAILY 12/10/23 03/29/24 Unknown History Allergies Allergy/AdvReac Type Severity Reaction Status Date / Time nitrofurantoin (From Allergy Intermediate Itching Verified 07/31/24 20:48 Macrobid) Penicillins Allergy Unknown Unknown Verified 07/31/24 20:48 Review of Systems Review of Systems: All systems are reviewed and are negative unless stated otherwise in the HPI. [facility], [facility] Past Medical History Medical History Granulosa cell tumor, malignant Abdominal carcinomatosis, mets to liver Cervical spondylosis Nodule on liver Seeing Dr. 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 Surrogate medical decision maker: Osiel Judah, spouse. Code status: Full code. Smoking status: Never smoker Second hand tobacco smoke exposure: No Alcohol intake: never Substance use: never Substance use type: does not use Do You Feel Safe in your Home?: Yes Lack of Transportation: No Lack of Food: Never True Current Housing: I Have Housing Concerned About Future Housing: No Difficulty Paying Gas/Electric Bills: No Difficulty Paying for Meds: No Currently Unemployed: No Education: Decline to Answer Difficulty w/ Childcare or Family Care: No Living arrangements: with family Occupation/Education: retired Spiritual care concerns: No Exam Narrative: General: Alert, awake, afebrile, in no acute distress, pleasant elderly female. HEENT: PERRL, no rhinorrhea, no post nasal drip, oropharynx clear. Neck: Trachea midline, no JVD, no lymphadenopathy. Cardiovascular: Regular rate and rhythm, no murmurs, rubs or gallops, no peripheral edema. Respiratory: Clear to auscultation bilaterally, no tachypnea, no wheezing, no rhonchi, no rubs, no respiratory distress. Abdomen: Soft, nontender, nondistended, no rebound, no guarding, no peritoneal signs. Musculoskeletal: No joint swelling or deformity, normal muscle tone. Skin: No rashes or petechia, no signs of infection. Psychiatric: Alert and oriented, normal behavior and judgment for situation. Neurological: Alert and oriented to person, place, and time. Follows all commands. No focal deficits, speech is clear and fluent. Course Vital Signs Vital signs: Vital Signs Temperature 97.3 F L 07/31/24 20:42 Pulse Rate 74 07/31/24 20:42 Respiratory Rate 15 07/31/24 20:42 Blood Pressure 146/65 H 07/31/24 20:42 Pulse Oximetry 98 07/31/24 20:42 Oxygen Delivery Room Air 07/31/24 20:42 Temperature 97.3 F L 07/31/24 20:42 Pulse Rate 74 07/31/24 20:42 Respiratory Rate 15 07/31/24 20:42 Blood Pressure 146/65 H 07/31/24 20:42 Pulse Oximetry 98 07/31/24 20:42 Oxygen Delivery Room Air 07/31/24 20:42 MDM - Female Genitourinary MDM Narrative Medical decision making narrative: The patient was evaluated by myself in the emergency department. History is obtained from patient who is an independent historian and physical exam was performed. External medical records were reviewed at this time. Urinalysis was obtained and revealed a nitrite positive UTI. Per chart review from patient's last urinalysis on file from March of 2024, patient had urine culture that was susceptible to cephalosporins. Patient has a history of allergy to nitrofurantoin and resistance of her previous urine culture to Bactrim secondary to this patient was informed that she will be started on cephalexin for her UTI. Administered her 1st dose of her antibiotic in the emergency department. Patient has a reported allergy to penicillins but she does not recall what the allergy is. She was instructed that she will need to have her urinalysis we checked when she finishes the antibiotic to assess for resolution of the UTI as she may need another course of antibiotics, possibly a different antibiotic depending on her culture results and patient versus her understanding. Differential diagnosis considerations include UTI, pyelonephritis, cystitis. Comorbidities impacting this visit include none. I have evaluated and discussed social determinants of health with the patient that could potentially impact subsequent diagnosis and treatment plans. On repeat assessment of the patient, reevaluation revealed that the patient is doing well and is in no acute distress. Patient symptoms have improved since she arrived to our emergency department. Repeat vital signs were all reviewed and noted to be stable. Differential diagnosis and treatment plan were discussed with the patient at bedside. Patient agrees with discussion and after shared medical decision making agrees with discharge. All questions were answered to the patient's satisfaction. Patient will follow up with PCP 5-7 days as scheduled for her upcoming appointment. Patient was provided with strict return precautions and instructed to return to the emergency department if any new or worsening symptoms develop. The patient was discharged in stable condition. Lab Data Labs: Lab Results 07/31/24 Range/Units 21:46 Urine Color Dark yellow (Yellow) Urine Appearance Turbid H (Clear) Urine pH 5.5 (5.0-9.0) Ur Specific Ashby 1.019 (1.001-1.035) Urine Protein 3+ H (Negative) mg/dL Urine Glucose (UA) Negative (Negative) mg/dL Urine Ketones Trace H (Negative) mg/dL Ur Blood (Man) 2+ H (Negative) Urine Nitrate Negative (Negative) Urine Bilirubin Negative (Negative) Urine Urobilinogen 1.0 (<2.0) mg/dL Add Ur Microanalysis Reviewed Leukocyte Esterase Rfl 3+ H (Negative) CATHY/UL Urine RBC 21-50 H (0-2) /hpf Urine WBC >100 H (0-3) /hpf Ur Squamous Epith Cells Many H (Few) /hpf Urine Bacteria 4+ H /hpf Urine Casts 0-2 Discharge Plan Discharge Clinical Impression: Acute UTI Patient Disposition: Home, Self-Care Condition: Stable Instructions: Antibiotic Form, Urinary Tract Infection in Older Adults (ED) Additional Instructions: Please continue to take the prescribed antibiotic as instructed for urinary tract infection. You were informed that you need to have your urinalysis we checked once you finish the antibiotic to make sure you cleared the infection as sometimes you may need to be switched to a different medication. Follow-up with your family doctor in 1 week to have your urine we checked. Return to the ED if any new or worsening symptoms develop. Patient Language: Hebrew Prescriptions: New cephalexin 500 mg capsule 500 mg PO Q12H 7 Days Qty: 14 0RF No Action simvastatin 10 mg tablet 10 mg PO DAILY isosorbide mononitrate 30 mg Tablet Extended Release 24 Hr 30 mg PO QAM aspirin 81 mg Tablet,Delayed Release (Dr/Ec) 81 mg PO HS amlodipine [Norvasc] 10 mg Tablet 10 mg PO QAM Xarelto 20 mg Tablet 20 mg PO QACDINNER cholecalciferol (vitamin D3) 25 mcg (1,000 unit) tablet 50 mcg PO DAILY mecobalamin (vitamin B12) 1,000 mcg tablet,chewable 1,000 mcg PO DAILY Qty: 30 0RF letrozole 2.5 mg tablet 2.5 mg PO DAILY Qty: 30 0RF acetaminophen 500 mg Capsule 500 mg PO Q6H PRN (Reason: Pain) lisinopril 40 mg tablet 40 mg PO QAM Qty: 90 2RF omeprazole 20 mg capsule,delayed release(DR/EC) 20 mg PO QAM Qty: 90 1RF buspirone 15 mg tablet 15 mg PO .COMPLEX PRN (Reason: anxiety) Qty: 270 1RF Rx Instructions: 15 mg orally PRN; two to three times orally; Follow-up/Referrals: Charlette Lentz MD [Primary Care Provider] - 1 Week Time of Disposition: 23:36
[2024-07-31] MEDS: CEPHALEXIN 500 MG CAPSULE PO (23:42)
[2024-07-31 23:44] VITALS: BP 156/67; PULSE 77; RESP 16; TEMP 36.6; O2SAT 98
--- OUTSIDE RECORDS SUMMARY | 2024-08-01 00:08 | XMS_ITS | Continuity of Care Document ---
Author Organization [facility] Address [address] [place] [address] [place] [address] Phone Care Team Providers Care Marzipan Maker Name Role Phone Parveen Jamil CORDOBA Unavailable [...] Diagnoses Date Provider Providers Copied on Encounter [facility], [address] [place] [address] [address], [place], [place], [id number], [place] tel:[phone] DJN [facility] No Information Parveen ADALID Negron. [address] [facility], [address], [address], . tel:[phone] Referring Provider: Rasta Johnson OD P, [address] [facility], [place], [address] . tel:[phone] Office/outpat ient Visit, [facility], [address] [place] [address] [address], [place], [place], [id number], tel:[phone] [facility] No Information Racquelfranciscoeny OD Rasta. [address] [facility], [place], [place], [id number], [place]. tel:[phone] Referring Provider: Rasta Johnson OD P, [address] [facility], [place], [address] . tel:[phone] Office/outpat ient Visit, [facility], [address] [place] [address] [address], [place], [place], [id number], [place] tel:[phone] [facility] No Information Tadeoeny OD Rasta. [address] [place], [place], [id number], [place]. tel:[phone] Referring Provider: Rasta Johnson OD P, [address] [place], [address] . tel:[phone] Office/outpat ient Visit, [facility], [address] [place] [address] [address], [place], [place], [id number], [place] tel:[phone] [facility] No Information Tadeoeny OD Rasta. [address] [facility], [place], [place], [id number], [place]. tel:[phone] Referring Provider: Rasta Johnson OD P, [address] [facility], [place], [address] . tel:[phone] Family History Family Member Type Diagnosis Age At Onset No Information Payers Payer name Insurance type Covered libertarian ID Authoriza tion(s) [place] [id number] [place] Out Of [place] [id number] Social History Type Description Quantity Date Captured [...]
--- OUTSIDE RECORDS SUMMARY | 2024-08-01 00:08 | XMS_ITS | Clinical Summary ---
Author Organization [facility] Address [address] [place] [address] Care Team Providers Care Sound Engineer Audio Control Name Role Phone Lexie Lynn RN Unavailable Unavailable Charlette Lentz MD Primary Care Provider [phone] Source Comments [facility],non-owned Affiliates and Associated Physician Practices is amultiple site organization consisting of ambulatory clinics and hospital sitesin [place], [place], [place] and [place]. This disclosure is being madepursuant to the Care Everywhere program and may not contain all information available regarding this patient. 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); Use of letrozole (Femara) 07/09/2024 Orders Only [facility] - PRODUCTION LEADER [address] [place], [place] [address] [address] [place] [address] Marlo Jeter MD 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) ; Carcinomatosis (HCC) 07/09/2024 Travel 07/02/2024 Orders Only [facility] - PRODUCTION LEADER [address] [place], [place] [address] [address] [place] [address] Marlo Jeter MD 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); Carcinomatosis (HCC); Use of letrozole (Femara) 06/20/2024 Telephone [facility] - PRODUCTION LEAD[facility] [address] [place] [address] Marlo Jeter MD Med Question from Last 3 Months Immunizations Name Administration Dates Next Due TRUE linkswear primary monoval ent 12+ yr 0.3mL Purple [...] Comments Blood Pressure 150/64 07/09/2024 10:59 AM CHANGE AGENT Pulse 77 02/08/2024 10:34 AM CDT Temperature 36.1 C (97 F) 02/08/2024 10:34 AM CDT Respiratory Rate 16 07/30/2023 8:03 AM CHANGE AGENT Oxygen Saturation 98% 02/08/2024 10: 34 AM CDT Inhaled Oxygen Concentration - - Weight 67.5 kg (148 lb 12.8 oz) 025 10:59 AM CHANGE AGENT Height 157.5 cm (5' 2 ) 07/09/2024 10:5 9 AM CHANGE AGENT Body Mass Index 27.22 07/09/2024 10:59 AM CHANGE AGENT Plan of Treatment Upcoming Encounters Date Type Department Care Team (Late st Contact Info) Description 08/06/2024 11:30 AM CDT Office Visit [facility] - [facility] [address] [facility] [address] [place] [address] Marlo Jeter MD [address] [facility] [address] [place] [address] Health Maintenance Due Date Last Done Comments [...] this topic Medical Devices Implanted Type Area Perforator Device Identifier Shelf Expiration Date Model / Serial / Lot Mesh Srg Ventralight St Sepra Echo Implanted:Qty: 1 on 07/13/2019 by Omer Ponce MD at [facility] Abdomen [employer] 03/19/2020 [id number] / / [id number] Procedures Procedure Name Priority Date/Time Associated Diagnosis [...] - 1.20 mg/dL 07/30/2024 11:35 AM CDT [facility] eGFR >90 >=90 mL/min/1.7 3 m2 07/30/2024 11:35 AM CDT [facility] Blood BLOOD SPECIMEN / Unknown 07/30/2024 11:24 AM CDT 07/30/2024 11:35 AM CDT Marlo Jeter MD LAB - POINT OF CARE ORDERABLES [facility] [address] [place] [address] from Last 3 Months Advance Directives Documents on File Type Date Recorded 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
--- OUTSIDE RECORDS SUMMARY | 2024-08-01 00:08 | XMS_ITS | Patient Health Summary ---
Author Organization [facility] Address [address] [place] [address] Care Team Providers Care Oil And Gas Exploration Technician Name Role Phone Lexie Lynn RN Unavailable Unavailable Charlette Lentz MD Primary Care Provider [phone] Note from [facility],non-owned Affiliates and Associated Physician Practices is amultiple site organization consisting of ambulatory clinics and hospital sitesin [place], [place], [place] and [place]. This disclosure is being madepursuant to the Care Everywhere program and may not contain all information available regarding this patient. Last updated 18.[facility] Allergies * Penicillins(? PCN. Reaction when [...] cell tumor 05/29/2018 Post-op pain Immunizations * Carefxid [employer] primary monovalent 12+ yr 0.3mL Purple cap(Given [...] Comments Blood Pressure 150/64 07/09/2024 10:59 AM SWITCHBOARD RECEPTIONIST Pulse 77 02/08/2024 10:34 AM CDT Temperature 36.1 C (97 F) 02/08/2024 10:34 AM CDT Respiratory Rate 16 07/30/2023 8:03 AM SWITCHBOARD RECEPTIONIST Oxygen Saturation 98% 02/08/2024 10: 34 AM CDT Inhaled Oxygen Concentration - - Weight 67.5 kg (148 lb 12.8 oz) 025 10:59 AM SWITCHBOARD RECEPTIONIST Height 157.5 cm (5' 2 ) 07/09/2024 10:5 9 AM SWITCHBOARD RECEPTIONIST Body Mass Index 27.22 07/09/2024 10:59 AM SWITCHBOARD RECEPTIONIST Medical Devices Implanted Type Area Building Construction Supervisor Device Identifier Shelf Expiration Date Model / Serial / Lot Mesh Srg Ventralight St Sepra Echo Implanted:Qty: 1 on 07/13/2019 by Omer Ponce MD at [facility] Abdomen [employer] 03/19/2020 [id number] / / [id number] Procedures * CT CHEST ABDOMEN PELVIS W [...] 07/28/2023) * ENDOTRACHEAL TUBE NOTE(Performed 07/28/2023) * WI EXPLORATORY OF ABDOMEN(Performed 07/28/2023) Performed for Intra-abdominal [...] fibrillation, unspecified type (HCC), Current use of rodent exterminator anticoagulation * TYPE + SCREEN PANEL(Performed 07/03/2019) [...] (HCC), Current use of half-way anticoagulation * CT ABDOMEN PELVIS W CONTRAST(Performed [...] ovary, unspecified laterality, Diagnosis unknown * CYTOLOGY NON-SVP RESEARCH AND STRATEGIC ANALYSIS PANEL (STL)(Performed 12/16/2016) Performed for Granulosa cell [...] 01/26/2006) * FROZEN SECTION(Performed 07/09/2003) * CYTOLOGY NON-SVP RESEARCH AND STRATEGIC ANALYSIS PANEL(Performed 07/09/2003) Results * CT Chest Abdomen [...] of6 resultswithin the time period is included. [facility] Creatinine POCT 0.39(L) 0.70 - 1.20 mg/dL 07/30/2024 11:35 AM CDT [facility] eGFR >90 >=90 mL/min/1.7 3 m2 07/30/2024 11:35 AM CDT [facility] Blood BLOOD SPECIMEN / Unknown 07/30/2024 11:24 AM CDT 07/30/2024 11:35 AM CDT Marlo Jeter MD LAB - POINT OF CARE ORDERABLES [facility] [address] [place] [address] * LAB RESULTS ORDER (04/16/2024) Only the most recent of2 resultswithin the time period is included. 04/16/2024 Narrative 04/16/2024 Ordered by an unspecified provider. Scanned Document LAB - THERAPEUTIC DR FULLER MONITORING ORDERABLES * INHIBIN A (09/01/2023 1:06 PM CDT) Only the most recent of10 resultswithin the time period is included. [facility] Inhibin A 370 pg/mL [facility] Comment: Reference Ranges for Inhibin A: Females Premenopausal: <98.0 pg/mL Postmenopausal: <2.1 pg/mL Males <2.0 pg/mL This test was performed using the [place] Chemiluminescent Inhibin-A method that has been cleared [...] cannot be used interchangeably. Test Performed at: [facility] [facility] [address] [place] [address] NASIM DONATO MD,PHD,CRISTY Blood BLOOD SPECIMEN / Unknown 09/01/2023 1:06 PM CDT 09/01/2023 1:06 PM CDT Marlo Jeter MD LAB - CHEMISTRY NATALIA BOWSER [facility] [address] [place] [address] * INHIBIN B (09/01/2023 1:06 PM CDT) Only the most recent of2 resultswithin the time period is included. [facility] Inhibin B >1200 pg/mL [facility] Comment: Pre-memopausal <153 Post-menopausal <10 Values obtained from different assay methods cannot be used interchangeably. Inhibin B levels, regardless of value, should not be interpreted as absolute evidence of the presence or absence of disease. This test was developed and its analytical performance characteristics have been determined by [employer]. It has not been cleared or approved by FDA. This assay has been validated pursuant to the CLIA regulations and is used for clinical purposes. Test Performed at: [facility] [facility] [address] [place] [address] NASIM DONATO MD,PHD,CRISTY Blood BLOOD SPECIMEN / Unknown 09/01/2023 1:06 PM CDT 09/01/2023 1:06 PM CDT Marlo Jeter MD LAB - SEROLOGY ORDER SEGUN Performing Organization Address [facility] Co de Phone Number [facility] [address] [place] [address] * CANCER ANTIGEN (CA)125 BLOOD (09/01/2023 1:06 PM CDT) Only the most recent of2 resultswithin the time period is included. [facility] CA 125 34 <35 U/mL [facility] Comment: This test was performed using the Siemens Chemiluminescent method. Values obtained from different assay methods cannot be used interchangeably. CA 125 levels, regardless of value, should not be interpreted as absolute evidence of the presence or absence of disease. REPORT COMMENT: FASTING:NO Test Performed at: [facility] [address] [place] [address] NAS MALIK MD Blood BLOOD SPECIMEN / Unknown 09/01/2023 1:06 PM CDT 09/01/2023 1:06 PM CDT Marlo Jeter MD LAB - CHEMISTRY ORDE RABLES Performing Organization Address [facility] de Phone Number [facility] [address] [place] [address] * (ABNORMAL) CBC W/O DIFFERENTIAL (07/30/2023 1:14 AM SWITCHBOARD RECEPTIONIST) Only the most recent of5 resultswithin the time period is included. [facility] WBC 7.7 4.0 - 10.7 x10E9/L 07/30/2023 1:49 AM [facility] RBC Count 3.49(L) 3.90 - 5.20 x10E12/L 07/30/2023 1:49 AM [facility] Hemoglobin 8.2(L) 11.9 - 15.8 g/dL 07/30/2023 1:49 AM [facility] Hematocrit 26.5(L) 34.8 - 46.1 % 07/30/2023 1:49 AM [facility] MCV 75.9(L) 80.0 - 98.0 fL 07/30/2023 1:49 AM [facility] MCH 23.5(L) 26.7 - 33.6 pg 07/30/2023 1:49 AM [facility] MCHC 30.9(L) 31.7 - 36.3 g/dL 07/30/2023 1:49 AM [facility] RDW-CV 18.8(H) 11.3 - 14.8 % 07/30/2023 1:49 AM [facility] Platelet Count 323 150 - 420 x10E9/L 07/30/2023 1:49 AM [facility] MPV 9.8 7.8 - 11.4 fL 07/30/2023 1:49 AM [facility] Blood BLOOD SPECIMEN / Unknown Lab Venipuncture / Unknown 07/30/2023 1:14 AM SWITCHBOARD RECEPTIONIST 07/30/2023 1:38 AM SWITCHBOARD RECEPTIONIST Mason Rico MD LAB - HEMATOLOGY ORD ERABLES [facility] [address] [place] [address], [facility] [phone] * (ABNORMAL) BASIC METABOLIC PANEL (CALCIUM TOTAL) (07/30/2023 1:14 AM SWITCHBOARD RECEPTIONIST) Only the most recent of15 resultswithin the time period is included. BUN 10 7 - 26 mg/dL 07/30/2023 2:03 AM [facility] Creatinine 0.54(L) 0.56 - 0.96 mg/dL 07/30/2023 2:03 AM [facility] Sodium 131(L) 136 - 145 mmol/L 07/30/2023 2:03 AM [facility] Potassium 4.0 3.5 - 4.5 mmol/L 07/30/2023 2:03 AM [facility] Chloride 107 98 - 107 mmol/L 07/30/2023 2:03 AM [facility] CO2 18(L) 22 - 29 mmol/L 07/30/2023 2:03 AM [facility] Glucose 106 70 - 115 mg/dL 07/30/2023 2:03 AM [facility] Calcium 8.8 8.4 - 10.2 mg/dL 07/30/2023 2:03 AM [facility] Anion Gap 6 6 - 16 07/30/2023 2:03 AM [facility] BUN/Creatinine Ratio 19 7 - 23 07/30/2023 2:03 AM [facility] Osmolality Calculated 271(L) 275 - 295 mOsm/kg 07/30/2023 2:03 AM [facility] eGFR by CKD-EPI >90 >=90 mL/min/1.7 3 m2 07/30/2023 2:03 AM [facility] Blood BLOOD SPECIMEN / Unknown Lab Venipuncture / Unknown 07/30/2023 1:14 AM SWITCHBOARD RECEPTIONIST 07/30/2023 1:38 AM SWITCHBOARD RECEPTIONIST Mason Rico MD LAB - CHEMISTRY NATALIA BOWSER [address] [address], [facility] [phone] * (ABNORMAL) PHOSPHORUS BLOOD (07/30/2023 1:14 AM SWITCHBOARD RECEPTIONIST) Only the most recent of10 resultswithin the time period is included. Phosphorus 2.4(L) 2.9 - 5.1 mg/dL 07/30/2023 2:03 AM [facility] Blood BLOOD SPECIMEN / Unknown Lab Venipuncture / Unknown 07/30/2023 1:14 AM SWITCHBOARD RECEPTIONIST 07/30/2023 1:38 AM SWITCHBOARD RECEPTIONIST Mason Rico MD LAB - CHEMISTRY NATALIA BOWSER [address] [address], [place] [phone] * MAGNESIUM BLOOD (07/30/2023 1:14 AM SWITCHBOARD RECEPTIONIST) Only the most recent of10 resultswithin the time period is included. Magnesium 1.7 1.6 - 2.6 mg/dL 07/30/2023 2:03 AM [facility] Blood BLOOD SPECIMEN / Unknown Lab Venipuncture / Unknown 07/30/2023 1:14 AM SWITCHBOARD RECEPTIONIST 07/30/2023 1:38 AM SWITCHBOARD RECEPTIONIST Mason Rico MD LAB - CHEMISTRY NATALIA BOWSER [facility] [address] [place] [address], [facility] [phone] * PATHOLOGY TISSUE (07/28/2023 10:55 AM SWITCHBOARD RECEPTIONIST) Only the most recent of3 resultswithin the time period is included. Case Report Surgical Pathology Report Case: [id number] Authorizing Provider: Mason Rico MD Collected: 07/28/2023 10:55 AM Ordering Location: [facility] Received: 07/28/2023 12:46 PM Pathologist: Charo Santos MD Specimens: A) - Soft Tissue Mass, Intra abdominal Mass B) - Tumor, Carcinoma Tumor 4 5:05 PM [facility] Final Diagnosis Soft tissue, intra-abdominal/perit jackson mass, biopsy (A): - Granulosa cell tumor, recurrent Soft tissue, peritoneal tumor, biopsy (B): - Granulosa cell tumor, recurrent 4 5:05 PM [facility] Microscopic Description and Comment Frozen section diagnosis is confirmed. 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 4 5:05 PM [facility] Intraoperative Consultation A) intraabdominal mass is a 1.5 x 1.0 x 0.6 cm pink-corey soft tissue fragment. The specimen is serially sectioned and entirely submitted for frozen evaluation as FSA1. FSA1, intraabdominal mass, biopsy: -Malignant, compatible with granulosa cell tumor by Marjorie Amin MD 4 5:05 PM [facility] Gross Description The requisition and [...] in cassette B1-B3. IKD 4 5:05 PM [facility] Addendum 1 A request for RI profile comprehensive testing was received 08/22/23 for patient Mary So from Dr. Marlo Jeter. The test is to be performed on tissue from case [id number]. The case report, slides, and blocks for the cited accession were retrieved from the archives. The pathologist whose signature appears below reviewed the original pathology report, examined candidate H&E slides, and selected the block (B1) appropriate to the specifications of the ordered molecular analysis. The tissue was forwarded to [facility] where the subject molecular tests will be performed. 4 5:05 PM [facility] Addendum electronically signed by Cat Oliver MD on 08/22/2023 at 5:05 PM Pathologist Location at [facility] 4 5:05 PM [facility] Disclaimer The performance characteristics of all immunohistochemical and indirect immunofluorescence stains (if any) cited in this report were determined by the Histopathology Laboratory of [facility]. Some of these tests were [...] attending (teaching) pathologist. 4 5:05 PM T [facility] Embedded Images 4 5:05 PM [facility] Biopsy, Excision SOFT TISSUE MASS / Unknown 07/28/2023 10:55 AM SWITCHBOARD RECEPTIONIST 07/28/2023 12:46 PM SWITCHBOARD RECEPTIONIST Comment:Pre-op diagnosis: INTRA-ABDOMINAL TUMOR Biopsy, Excision TUMOR TISSUE SPECIMEN / Unknown 07/28/2023 11:14 AM SWITCHBOARD RECEPTIONIST 07/28/2023 12:46 PM SWITCHBOARD RECEPTIONIST Comment:Pre-op diagnosis: INTRA-ABDOMINAL TUMOR Mason Rico MD LAB - PATHOLOGY/CYTO LOGY ORDERABLES Performing Organization Address City/State/[facility] Co de Phone Number [facility] [address] [phone] * ARTERIAL LINE PERFORMABLE (07/28/2023 10:39 AM SWITCHBOARD RECEPTIONIST) Narrative Ranjan Kaur DO - 07/28/2023 10:39 AM SWITCHBOARD RECEPTIONIST Ranjan Kaur DO 07/28/2023 10:39 AM Arterial Line Placement Procedure Note Patient Location: OR. Procedure: Arterial Line (49726). Procedure Section Indications: continuous blood pressure monitoring. [...] * IV PLACEMENT PERFORMABLE (07/28/2023 10:38 AM SWITCHBOARD RECEPTIONIST) Narrative Ranjan Kaur DO - 07/28/2023 10:38 AM SWITCHBOARD RECEPTIONIST Ranjan Kaur DO 07/28/2023 10:38 AM Peripheral IV Line Placement: Patient Location: OR Procedure: IV start ([id number]). Procedure Section: Skin Prep: alcohol. Orientation: left Location: antecubital Catheter Gauge: 18 Number of Attempts: 1. Procedure Tolerance: performed while patient under general anesthesia. Procedure Start Time: 07/28/2023 9:54 AM. Staff Section Anesthesia Provider: Shraddha Lombardi MD, Performed the procedure Shraddha Lombardi MD GENERAL ANESTHES IA ORDERABLES * ETT LINE PERFORMABLE (07/28/2023 10:37 AM SWITCHBOARD RECEPTIONIST) Narrative Ranjan Kaur DO - 07/28/2023 10:37 AM SWITCHBOARD RECEPTIONIST Ranjan Kaur DO 07/28/2023 10:38 AM Endotracheal Tube Placement: Patient Location: OR. Intubation Event Date/Time: 07/28/2023 10:02 AM Procedure: intubation ([id number]). Procedure Section: Sedation: under general anesthesia. Indications [...] * EPIDURAL BLOCK PERF (07/28/2023 10:16 AM SWITCHBOARD RECEPTIONIST) Esau Ayala MD - 07/28/2023 10:16 AM SWITCHBOARD RECEPTIONIST Esau Davis MD 07/28/2023 10:20 AM Neuraxial [...] TYPE + SCREEN PANEL (07/28/2023 8:20 AM [facility]) Only the most recent of6 resultswithin the time period is included. Antibody Screen NEG 9:08 AM [facility] ABO Rh A POS 07/28/2023 9:08 AM [facility] Blood Bank BLOOD SPECIMEN / Unknown Venipuncture / Unknown 07/28/2023 8:20 AM SWITCHBOARD RECEPTIONIST 07/28/2023 8:26 AM SWITCHBOARD RECEPTIONIST Stacy Yarbrough DRY GOODS CLERK-POWER HAIR CLIPPER LAB - BLO OD BANK ORDERABLES [facility] [address] [place] [address], [facility] [phone] * (ABNORMAL) CBC W/ DIFFERENTIAL (07/20/2023 3:25 PM SWITCHBOARD RECEPTIONIST) Only the most recent of21 resultswithin the time period is included. WBC 9.2 4.0 - 10.7 x10E9/L 07/20/2023 4:10 PM [facility] RBC Count 4.02 3.90 - 5.20 x10E12/L 07/20/2023 4:10 PM [facility] Hemoglobin 9.4(L) 11.9 - 15.8 g/dL 07/20/2023 4:10 PM [facility] Hematocrit 30.1(L) 34.8 - 46.1 % 07/20/2023 4:10 PM [facility] MCV 74.9(L) 80.0 - 98.0 fL 07/20/2023 4:10 PM [facility] MCH 23.4(L) 26.7 - 33.6 pg 07/20/2023 4:10 PM [facility] MCHC 31.2(L) 31.7 - 36.3 g/dL 07/20/2023 4:10 PM [facility] RDW-CV 19.1(H) 11.3 - 14.8 % 07/20/2023 4:10 PM [facility] Platelet Count 411 150 - 420 x10E9/L 07/20/2023 4:10 PM [facility] MPV 10.1 7.8 - 11.4 fL 07/20/2023 4:10 PM [facility] Neutrophil % 70.4 41.0 - 74.0 % 07/20/2023 4:10 PM [facility] Lymphocyte % 21.2 17.0 - 47.0 % 07/20/2023 4:10 PM [facility] Monocyte % 7.6 3.0 - 11.0 % 07/20/2023 4:10 PM [facility] Eosinophil % 0.3 0.0 - 7.0 % 07/20/2023 4:10 PM [facility] Basophil % 0.2 0.0 - 1.6 % 07/20/2023 4:10 PM [facility] Immature Granulocytes % 0.3 0.0 - 1.0 % 07/20/2023 4:10 PM [facility] Neutrophil Absolute 6.45 1.60 - 7.50 x10E9/L 07/20/2023 4:10 PM [facility] Lymphocyte Absolute 1.94 1.00 - 4.40 x10E9/L 07/20/2023 4:10 PM [facility] Monocyte Absolute 0.70 0.15 - 1.00 x10E9/L 07/20/2023 4:10 PM [facility] Eosinophil Absolute 0.03 0.00 - 0.60 x10E9/L 07/20/2023 4:10 PM [facility] Basophil Absolute 0.02 0.00 - 0.13 x10E9/L 07/20/2023 4:10 PM [facility] Blood BLOOD SPECIMEN / Unknown Lab Venipuncture / Unknown 07/20/2023 3:25 PM SWITCHBOARD RECEPTIONIST 07/20/2023 4:06 PM [facility] Mason Rico MD LAB - HEMATOLOGY ORD ERABLES [facility] [address] [place] [address], [facility] [phone] * (ABNORMAL) COMPREHENSIVE METABOLIC PANEL (07/20/2023 3:25 PM SWITCHBOARD RECEPTIONIST) Only the most recent of7 resultswithin the time period is included. BUN 9 7 - 26 mg/dL 07/20/2023 4:23 PM [facility] Creatinine 0.59 0.56 - 0.96 mg/dL 07/20/2023 4:23 PM [facility] Sodium 135(L) 136 - 145 mmol/L 07/20/2023 4:23 PM [facility] Potassium 4.3 3.5 - 4.5 mmol/L 07/20/2023 4:23 PM [facility] Chloride 101 98 - 107 mmol/L 07/20/2023 4:23 PM [facility] CO2 21(L) 22 - 29 mmol/L 07/20/2023 4:23 PM [facility] Glucose 113 70 - 115 mg/dL 07/20/2023 4:23 PM [facility] Calcium 9.9 8.4 - 10.2 mg/dL 07/20/2023 4:23 PM [facility] Protein Total 7.4 6.0 - 8.3 g/dL 07/20/2023 4:23 PM [facility] Albumin 3.7 3.4 - 5.0 g/dL 07/20/2023 4:23 PM [facility] Bilirubin Total 0.5 0.2 - 1.2 mg/dL 07/20/2023 4:23 PM [facility] Alkaline Phosphatase 84 40 - 150 U/L 07/20/2023 4:23 PM [facility] ALT 6 5 - 55 U/L 07/20/2023 4:23 PM [facility] AST 21 5 - 34 U/L 07/20/2023 4:23 PM [facility] Anion Gap 13 6 - 16 07/20/2023 4:23 PM [facility] BUN/Creatinine Ratio 15 7 - 23 07/20/2023 4:23 PM [facility] Osmolality Calculated 279 275 - 295 mOsm/kg 07/20/2023 4:23 PM [facility] Albumin/Globulin Ratio 1.0(L) 1.1 - 2.3 07/20/2023 4:23 PM [facility] eGFR by CKD-EPI 89(L) >=90 mL/min/1.7 3 m2 07/20/2023 4:23 PM [facility] Blood BLOOD SPECIMEN / Unknown Lab Venipuncture / Unknown 07/20/2023 3:25 PM SWITCHBOARD RECEPTIONIST 07/20/2023 4:01 PM SWITCHBOARD RECEPTIONIST Mason Rico MD LAB - CHEMISTRY NATALIA BOWSER [facility] [place] [address] [place] [address], [facility] [phone] * XR CHEST 2VW (07/20/2023 2:59 PM SWITCHBOARD RECEPTIONIST) Only the most recent of3 resultswithin the time period is included. Anatomical Region Laterality Modality Chest Radiographic Nelly ging 07/21/2023 11:0 5 AM SWITCHBOARD RECEPTIONIST Narrative 07/22/2023 7:16 AM SWITCHBOARD RECEPTIONIST PROCEDURE: XR CHEST 2VW, DATE/TIME OF EXAM: 07/20/2023 3:00 PM, LOCATION [facility] INDICATION: D49.89: Intra-abdominal tumor COMPARISON: None. TECHNIQUE: Frontal and lateral radiograph of the chest. FINDINGS/IMPRESSION: Mild bibasilar atelectatic changes. There is no focal consolidation, pleural effusion, or pneumothorax. The cardiac silhouette is a stable. There is atherosclerotic calcification of the aorta. The visible bony thorax is intact. Cholecystectomy clips. Report dictated by Andrew Jarvis MD, (Respiratory Scientist). Gustavo Jackson MD have personally reviewed and interpreted this examination/study. > Interpreting Provider: Gustavo Enriquez MD on 07/22/2023 7:16 AM Procedure Note Gustavo Enriquez MD - 07/22/2023 PROCEDURE: XR CHEST 2VW, DATE/TIME OF EXAM: 07/20/2023 3:00 PM, LOCATION [facility] INDICATION: D49.89: Intra-abdominal tumor COMPARISON: None. TECHNIQUE: Frontal and lateral radiograph of the chest. FINDINGS/IMPRESSION: Mild bibasilar atelectatic changes. There is no focal consolidation, pleural effusion, or pneumothorax. The cardiac silhouette is a stable. There is atherosclerotic calcification of the aorta. The visible bony thorax is intact. Cholecystectomy clips. Report dictated by Andrew Jarvis MD, (Respiratory Scientist). Gustavo Jackson MD have personally reviewed and interpreted this examination/study. > Interpreting Provider: Gustavo Enriquez MD on 07/22/2023 7:16 AM Mason Rico MD DIAGNOSTIC IMAGING O RDERABLES * EKG 12-LEAD (07/20/2023 1:12 PM SWITCHBOARD RECEPTIONIST) Only the most recent of2 resultswithin the time period is included. Ventricular Rate 71 BPM [facility] QRS Duration ms 92 ms [facility] Q-T Interval ms 396 ms [facility] QTC Calculation (Bezet) 430 ms [facility] Calculated R Kent 23 degrees [facility] Calculated T Kent -105 degrees [facility] Interpretation EKG ATRIAL FIBRILLATION INCOMPLETE RIGHT BUNDLE BRANCH BLOCK SEPTAL INFARCT , AGE UNDETERMINED ABNORMAL ECG WHEN COMPARED WITH ECG OF 17-FEB-2021 10:17, SEPTAL INFARCT IS NOW PRESENT Confirmed by [facility] ([id number]) on 07/24/2023 1:14:49 PM [facility] 07/20/2023 1:12 PM SWITCHBOARD RECEPTIONIST 07/24/2023 1:14 PM SWITCHBOARD RECEPTIONIST Mason Rico MD ECG ORDERABLES [facility] MUSE * CT ABDOMEN PELVIS [...] characterized. > Dictated by Quincy Mix D.O. (Respiratory Scientist) I, AVERY MACHUCA MD have personally reviewed and interpreted this examination/study. > Interpreting Provider: AVERY MACHUCA MD on 03/22/2022 2:16 PM Narrative 03/22/2022 2:16 PM CDT PROCEDURE: CT ABDOMEN PELVIS W CONTRAST, DATE/TIME OF EXAM: 03/22/2022 12:45 PM, LOCATION [facility] INDICATION: 81-year-old female with history of metastatic [...] DATE/TIME OF EXAM: 03/22/2022 12:45 PM, LOCATION [facility] INDICATION: 81-year-old female with history of metastatic [...] characterized. > Dictated by Quincy Mix D.O. (Respiratory Scientist) AVERY Jackson MD have personally reviewed and interpreted this examination/study. > Interpreting Provider: AVERY MACHUCA MD on 03/22/2022 2:16 PM Mason Rico MD CT ORDERABLES * Neuraxial Block (06/23/2021 11:56 AM SWITCHBOARD RECEPTIONIST) Wesley Beasley MD - 06/23/2021 11:56 AM SWITCHBOARD RECEPTIONIST Wesley Garcia MD 06/23/2021 11:58 AM Neuraxial Block Note Pre-Procedure: Procedure Name: Neuraxial Block Wesley Garcia MD GENERAL ANESTHESIA O ANA * ETT LINE PERFORMABLE (03/03/2021 8:35 AM CDT) Narrative Casey London Anes Asst - 03/03/2021 8:35 AM CDT Casey London Anes Asst 03/03/2021 8:38 AM Endotracheal Tube Placement: Patient Location: OR. Intubation Event Date/Time: 03/03/2021 7:49 AM Procedure: intubation (42190). Procedure Section: Sedation: under general anesthesia. Indications [...] 0 minutes. Staff Section Anesthesia Provider: Casey Lnodon Anes Asst, Performed the procedure Wesley Garcia [...] detected Not detected 02/27/2021 6:33 PM CDT [facility] MICRO[facility] Microbiology SPECIMEN FROM NASOPHARYNGEAL STRUCTURE / Unknown Collection / Unknown 02/27/2021 11:14 AM CDT 02/27/2021 11:20 AM CDT Narrative [facility] - 02/27/2021 6:33 PM CDT This nucleic acid amplification assay performance was validated by [facility]. This test has been authorized [...] Rico MD LAB - MICROBIOLOGY O RDERABLES [facility] MICRO[facility] [address] [place], [address] [phone] * CULTURE URINE (12/31/2019 11:53 AM CDT) Only the most recent of6 resultswithin the time period is included. Pathologist [facility] Culture [facility] Comment: CULTURE, URINE, ROUTINE Micro Number: [id number] Test Status: Final Specimen Source: URINE, CLEAN CATCH Specimen Quality: Adequate Result: Multiple organisms present, each less than 10,000 CFU/mL. These organisms, commonly found on external and internal genitalia, are considered to be colonizers. No further testing performed. Test Performed at: [facility] [address] [place] [address] SHRADDHA OCONNOR DO,MPH Urine MID-STREAM URINE SPECIMEN / Unknown 12/31/2019 11:53 AM CDT 12/31/2019 12:15 PM CDT Jacobo Clement MD LAB - MICROBIOLOGY O RDERABLES Performing Organization Address [facility] Co de Phone Number [facility] [address] [place] [address] * CARDIAC RHYTHM STRIP ORDER (07/16/2019 11:11 PM SWITCHBOARD RECEPTIONIST) Only the most recent of2 resultswithin the time period is included. Narrative 07/16/2019 11:11 PM SWITCHBOARD RECEPTIONIST Ordered by an unspecified provider. Scanned Document CARDIAC SERVICES ORD ERABLES * APHERESIS/TRANSFUSION ORDER (07/16/2019 11:10 PM SWITCHBOARD RECEPTIONIST) Narrative 07/16/2019 11:10 PM SWITCHBOARD RECEPTIONIST Ordered by an unspecified provider. Scanned Document NURSING - VITAL SIGN S AND ASSESSMENT * PT-INR (07/13/2019 6:55 AM SWITCHBOARD RECEPTIONIST) Only the most recent of2 resultswithin the time period is included. PT 13.2 12.1 - 14.8 sec 07/13/2019 7:10 AM SWITCHBOARD RECEPTIONIST [facility] INR 1.1 0.9 - 1.1 07/13/2019 7:10 AM SWITCHBOARD RECEPTIONIST [facility] Blood BLOOD SPECIMEN / Unknown Venipuncture / Unknown 07/13/2019 6:55 AM SWITCHBOARD RECEPTIONIST 07/13/2019 6:57 AM SWITCHBOARD RECEPTIONIST Narrative [facility] - 07/13/2019 7:10 AM SWITCHBOARD RECEPTIONIST Conventional Warfarin Anticoagulant Therapy: INR Reference Range: 2.0-3.0 Intensive Warfarin Anticoagulant Therapy: INR Reference Range: 2.5-3.5 Sriram Shannon MD LAB - COAGULATION ORDERABLES Performing Organization Address City/[facility] Co de Phone Number [facility] [address] [place] [address] * (ABNORMAL) CREATININE BLOOD - POCT (IP) [facility] (05/28/2019 11:51 AM SWITCHBOARD RECEPTIONIST) Only the most recent of6 resultswithin the time period is included. Creatinine POCT 1.04 0.3 - 1.3 mg/dL [facility] eGFR POCT 54(A) 60 ml/min [facility] Blood BLOOD SPECIMEN / Unknown 05/28/2019 11:51 AM SWITCHBOARD RECEPTIONIST Mason Rico MD LAB - POINT OF CARE ORDERABLES Performing Organization Address City/[facility]/ZIP Co de Phone Number [facility] [address] [phone] * MAMMOGRAM (04/16/2019) Anatomical Region Laterality Modality Other Historical Provider MD SCANNING ONLY * URINALYSIS - POINT OF CARE (AMB) [facility] (11/27/2018) Specific [place] UA 1.015 pH UA 6 WBC UA [...] TO FOLLOW [facility] Comment: Test Performed at: [facility] [id number] [place] [phone] SHRADDHA OCONNOR DO,MPH 01/12/2018 1:20 PM CDT 01/12/2018 1:20 PM CDT Jacobo Clement MD LAB - MICROBIOLOGY O RDERABLES Performing Organization Address City/[facility]/ZIP Co de Phone Number [facility] [address] [place] [address] * (ABNORMAL) URINALYSIS W/MICROSCOPIC REFLEX TO CULTURE (01/12/2018 1:20 PM CDT) Color UA YELLOW YELLOW [facility] Appearance CLEAR CLEAR [facility] Specific [place] UA 1.008 1.001 - 1.035 [facility] pH [...] SEEN /LPF [facility] Comment: Test Performed at: [facility] [address] [place] [address] SHRADDHA OCONNOR DO,MPH Urine URINE SPECIMEN OBTAINED BY CLEAN CATCH PROCEDURE / Unknown 01/12/2018 1:20 PM CDT 01/12/2018 1:20 PM CDT Jacobo Clement MD LAB - URINALYSIS ORD ERABLES [facility] [address] [place] [address] * (ABNORMAL) URINALYSIS ROUTINE W/REFLEX TO CULTURE (12/19/2016 5:29 PM CDT) Color UA Yellow Straw, Yellow, Dark Yellow 12/19/2016 5:49 PM CDT [facility] Clarity UA Cloudy 12/19/2016 5:49 PM CDT [facility] Specific [place] UA 1.013 1.005 - 1.030 12/19/2016 5:49 PM CDT [facility] pH UA 6.5 5.0 - 8.0 pH 12/19/2016 5:49 PM CDT [facility] Protein UA Negative Negative 12/19/2016 5:49 PM CDT [facility] Blood UA 1+(A) Negative 12/19/2016 5:49 PM CDT [facility] Leukocyte UA 3+(A) Negative 12/19/2016 5:49 PM CDT [facility] Nitrite UA Negative Negative 12/19/2016 5:49 PM CDT [facility] Glucose UA Negative Negative 12/19/2016 5:49 PM CDT [facility] Ketone UA 3+(A) Negative 12/19/2016 5:49 PM CDT [facility] Bilirubin UA Negative Negative 12/19/2016 5:49 PM CDT [facility] Urobilinogen UA 1.0 0.1 - 1.0 EU/dL 12/19/2016 5:49 PM CDT [facility] WBC UA Auto >100(A) 0-2, 2-5 # /hpf 12/19/2016 5:49 PM CDT [facility] RBC UA Auto 10-20(A) 0-2, 2-5 # /hpf 12/19/2016 5:49 PM CDT [facility] Epithelial Cell UA Auto 20-50(A) 0-2, 2-5 # /hpf 12/19/2016 5:49 PM CDT [facility] Bacteria UA Auto 2+(A) None seen 12/20/19 17 5:49 PM CDT [facility] Hyaline Casts UA Auto 2-5(A) 0 - 2 #/lpf 12/19/2016 5:49 PM CDT [facility] Reflex Status Culture to follow 12/19/2016 5:49 PM CDT [facility] Urine URINE SPECIMEN OBTAINED BY CLEAN CATCH PROCEDURE / Unknown Collection / Unknown 12/19/2016 5:29 PM CDT 12/19/2016 5:36 PM CDT Olivia Mckeon MD LAB - URINALYSIS ORD ERABLES Performing Organization Address City/State/[facility] Co de Phone Number [facility] [address] [place] [address] * XR ABDOMEN 1 VW (12/18/2016 4:20 [...] Urine 149 mmol/L 12/17/2016 12:02 PM CDT [facility] Urine URINE SPECIMEN OBTAINED BY CLEAN CATCH PROCEDURE / Unknown Collection / Unknown 12/17/2016 11:18 AM CDT 12/17/2016 11:34 AM CDT Maura Lobo MD LAB - URINE CHEMISTR Y ORDERABLES Performing Organization Address [facility] Co de Phone Number [facility] [address] [place] [address] * CREATININE URINE RANDOM (12/17/2016 11:18 AM CDT) Creatinine Urine 140 mg/dL 12/17/2016 12:02 PM CDT [facility] Urine URINE SPECIMEN OBTAINED BY CLEAN CATCH PROCEDURE / Unknown Collection / Unknown 12/17/2016 11:18 AM CDT 12/17/2016 11:34 AM CDT Maura Lobo MD LAB - URINE CHEMISTR Y ORDERABLES Performing Organization Address City/[facility] Co de Phone Number [facility] [address] [place] [address] * GROSS + MICRO EXAM (STL) (12/16/2016 11:26 AM CDT) Case Report Surgical Pathology Report Case: [id number] Authorizing Provider: Jacobo Clement MD Collected: 12/16/2016 11:26 AM Ordering Location: [facility] Received: 12/16/2016 03:25 PM Pathologist: Mree Calderon MD Specimen: Tumor, Pelvic Tumor 12/20/2016 12:48 PM [facility] Final Diagnosis 1. 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 Wood Tile Installer sections of the membranous portion of the specimen are submitted as A1 through A3. Wood Tile Installer sections of the fat are submitted as A4. IA/n 12/20/2016 12:48 PM [facility] Microscopic Description Sections of the pelvic [...] granulosa cell tumor. IA/kf 12/20/2016 12:48 PM [facility] Disclaimer All histochemical and/or immunohistochemical results are interpreted with controls that demonstrate appropriate staining reactions before reporting results. Note on use of immunocytochemistry reagents: This test was developed and its performance characteristic determined by [facility], Department of Laboratory Medicine. It has not been cleared or approved by the U.S. Food and Drug Administration (FDA). The FDA has determined that such clearance or approval is not necessary. The test is used for clinical purpose. It should not be regarded as investigational or for research. This laboratory is certified to perform high complexity testing. 12/20/2016 12:48 PM [facility] Embedded Images 12/20/2016 12:48 PM [facility] Pathology/Cytolo gy TUMOR TISSUE SPECIMEN / Unknown 12/16/2016 11:26 AM CDT 12/16/2016 3:25 PM CDT Jacobo Clement MD LAB - PATHOLOGY/CYTO LOGY ORDERABLES [facility] [address] [place], [place] [id number] * CYTOLOGY NON-SVP RESEARCH AND STRATEGIC ANALYSIS PANEL (STL) (12/16/2016 10:18 AM CDT) Case Report Cytology Non Powder Truck Driver Report Case: [id number] Authorizing Provider: Jacobo Clement MD Collected: 12/16/2016 10:18 AM Ordering Location: [facility] Received: 12/16/2016 03:32 PM Pathologist: Sandra Washington MD Specimen: Urine Cath, Urine 12/17/2016 2:49 PM CDT [facility] Final Diagnosis 1. Urine from catheter, smear and cell block: -- Benign urothelial cells admixed with numerous mixed inflammatory cells -- No diagnostic evidence of malignancy SD/ 12/17/2016 2:49 PM CDT [facility] Gross Description Received is 35 mL of gold fluid. SD/ 12/17/2016 2:49 PM CDT [facility] Microscopic Description The smear and the cell block are cellular, and are comprised of predominantly neutrophils, admixed with rare lymphocytes and histiocytes. Rare urothelial cells, some with degenerative changes are seen. There is no diagnostic evidence of malignancy. SD/ 12/17/2016 2:49 PM CDT [facility] Embedded Images 12/17/2016 2:49 PM CDT [facility] Pathology/Cytolo gy URINE SPECIMEN COLLECTION, CATHETERIZED / Unknown 12/16/2016 10:18 AM CDT 12/16/2016 3:32 PM CDT Jacobo Clement MD LAB - PATHOLOGY/CYTO LOGY ORDERABLES Performing Organization Address City/[facility]/ZIP Co de Phone Number [facility] [address] [place], [place] [phone] * BLOOD TYPE VERIFICATION (12/16/2016 8:36 AM CDT) ABO A 12/16/2016 9:14 AM CDT [facility] Rh Type Positive 12/16/2016 9:14 AM CDT [facility] Blood Bank BLOOD SPECIMEN / Unknown Lab Venipuncture / Unknown 12/16/2016 8:36 AM CDT 12/16/2016 8:36 AM CDT Jacobo Clement MD LAB - BLOOD BANK ORD ERABLES [facility] [address] * (ABNORMAL) URINALYSIS ROUTINE AUTO (12/16/2016 7:33 AM CDT) Color UA Yellow Straw, Yellow, Dark Yellow 12/16/2016 2:18 PM CDT [facility] Clarity UA Turbid 12/16/2016 2:18 PM CDT [facility] Specific [place] UA 1.022 1.005 - 1.030 12/16/2016 2:18 PM CDT [facility] pH UA 6.0 5.0 - 8.0 pH 12/16/2016 2:18 PM CDT [facility] Protein UA 1+(A) Negative 12/16/2016 2:18 PM CDT [facility] Blood UA 2+(A) Negative 12/16/2016 2:18 PM CDT [facility] Leukocyte UA 3+(A) Negative 12/16/2016 2:18 PM CDT [facility] Nitrite UA Negative Negative 12/16/2016 2:18 PM CDT [facility] Glucose UA Negative Negative 12/16/2016 2:18 PM CDT [facility] Ketone UA 2+(A) Negative 12/16/2016 2:18 PM CDT [facility] Bilirubin UA Negative Negative 12/16/2016 2:18 PM CDT [facility] Urobilinogen UA 0.2 0.1 - 1.0 EU/dL 12/16/2016 2:18 PM CDT [facility] WBC UA Auto Reflex to manual(A) 0-2, 2-5 # /hpf 12/16/2016 2:18 PM CDT [facility] RBC UA Auto Reflex to manual(A) 0-2, 2-5 # /hpf 12/16/2016 2:18 PM CDT [facility] Epithelial Cell UA Auto Reflex to manual(A) 0-2, 2-5 # /hpf 12/16/2016 2:18 PM CDT [facility] Bacteria UA Auto Reflex to manual(A) None seen 12/16/2016 2:18 PM CDT [facility] Hyaline Casts UA Auto Reflex to manual(A) 0 - 2 #/lpf 12/16/2016 2:18 PM CDT [facility] Urine URINE SPECIMEN OBTAINED BY CLEAN CATCH PROCEDURE / Unknown Collection / Unknown 12/16/2016 7:33 AM CDT 12/16/2016 1:47 PM CDT Jacobo Clement MD LAB - URINALYSIS ORD ERABLES Performing Organization Address [facility] Co de Phone Number [facility] [address] [place] [phone] * (ABNORMAL) URINALYSIS MICROSCOPIC ONLY (12/16/2016 7:33 AM CDT) RBC UA 20-50(A) 0-2, 2-5 # /hpf 12/16/2016 2:53 PM CDT [facility] WBC UA >100(A) 0-2, 2-5 # /hpf 12/16/2016 2:53 PM CDT [facility] Bacteria UA 2+(A) None Seen 12/16/2016 2:53 PM CDT [facility] Epithelial Cell UA 0-2 0-2, 2-5 # /hpf 12/16/2016 2:53 PM CDT [facility] Hyaline Casts 0-2 0 - 2 # /lpf 12/16/2016 2:53 PM CDT [facility] Amorphous Phosphate Crystals 1+(A) None Seen 12/16/2016 2:53 PM CDT [facility] Urine URINE SPECIMEN OBTAINED BY CLEAN CATCH PROCEDURE / Unknown Collection / Unknown 12/16/2016 7:33 AM CDT 12/16/2016 1:47 PM CDT Jacobo Clement MD LAB - URINALYSIS ORD ERABLES Performing Organization Address City/[facility]/ZIP Co de Phone Number [facility] [address] [place] [address] * PT PTT PANEL (12/16/2016 7:33 AM CDT) PT 10.9 9.5 - 11.6 sec 12/16/2016 10:07 AM CDT [facility] INR 1.1 0.9 - 1.1 12/16/2016 10:07 AM CDT [facility] PTT 22.5 21.0 - 32.0 sec 12/16/2016 10:07 AM CDT [facility] Blood BLOOD SPECIMEN / Unknown Venipuncture / Unknown 12/16/2016 7:33 AM CDT 12/16/2016 8:24 AM CDT Narrative [facility] - 12/16/2016 10:07 AM CDT Conventional Warfarin Anticoagulant Therapy: INR Reference Range: 2.0-3.0 Intensive Warfarin Anticoagulant Therapy: INR Reference Range: 2.5-3.5 Heparin Therapeutic Range for PTT: 47.7 - 68.6 seconds. Jacobo Clement MD LAB - COAGULATION OR DERABLES Performing Organization Address City/[facility] Co de Phone Number [facility] [address] [place] [address] * PATHOLOGY/GENETICS HISTORICAL-ONBASE (12/16/2016) Only the most recent of2 resultswithin the time period is included. 12/16/2016 Historical Provider LAB - CHEMISTRY O RDERABLES Performing Organization Address City/[facility]/ZIP Co de Phone Number [place] [phone] [address] * LAB HISTORICAL RESULTS-ONBASE (12/16/2016) Only the most recent of6 resultswithin the time period is included. 12/16/2016 Historical Provider LAB - CHEMISTRY O RDERABLES Performing Organization Address [facility] Co de Phone Number [place] [phone] [address] * XR CHEST 1VW PORTABLE (07/24/2015 5:53 AM SWITCHBOARD RECEPTIONIST) Only the most recent of3 resultswithin the time period is included. Anatomical Region Laterality Modality Chest Other Impressions 07/24/2015 2:22 PM SWITCHBOARD RECEPTIONIST Impression: There has been interval removal of the enteric tube. A small right apical pneumothorax is slightly decreased. There is bibasilar atelectasis/airspace disease, right greater than left, increased from the prior exam. There are small bilateral pleural effusions, unchanged. No left pneumothorax is seen. The cardiomediastinal silhouette is normal. Dictated by Donald Gautam MD (presidential support specialist) This report was approved by Omero Gautam on 07/24/2015 2:[address] MEY Jackson M.D. have personally reviewed and interpreted this examination/study. This report was electronically signed by MEY CALDERON M.D. on 07/24/2015 2:22 PM . Narrative 07/24/2015 2:22 PM SWITCHBOARD RECEPTIONIST Exam: Portable Chest X-ray, 1 view Date: [...] is normal. Dictated by Donald Gautam MD (presidential support specialist) This report was approved by Omero Gautam on 07/24/2015 2:[address] MEY Jackson M.D. have personally reviewed and interpreted thisexamination/study. This report was electronically signed by MEY CALDERON M.D. on07/24/2015 2:22 PM . Mason Rico MD DIAGNOSTIC IMAGING O RDERABLES * (ABNORMAL) BLOOD GASES ART COMPLETE [facility] OR (07/22/2015 8:22 AM SWITCHBOARD RECEPTIONIST) pH Arterial 7.38 7.35 - 7.45 [facility] pCO2 Arterial 36 35 - [address] [facility] pO2 Arterial 222(H) 71 - [address] [facility] HCO3 Arterial 20.4(L) 22.0 - 26.0 mmol/L [facility] TCO2 Arterial 21.5(L) 25.0 - 29.0 mmol/L [facility] Base Excess Arterial -4.1(L) -2.0 - 2.0 mmol/L [facility] Hemoglobin Arterial 12.3 12.0 - 15.5 g/dL [facility] Oxyhemoglobin Arterial 98.4 95.0 - 100.0 % [facility] Carboxyhemoglobin 0.3 0.0 - 3.0 % [facility] Methemoglobin 0.5 0.0 - 2.0 % [facility] Ionized Calcium Whole Blood 1.14 mmol/L [facility] Adjusted Ionized Calcium 1.13(L) 1.19 - 1.34 mmol/L [facility] Sodium Whole Blood 131(L) 135 - 145 mmol/L [facility] Potassium Whole Blood 3.9 3.5 - 5.5 mmol/L [facility] Chloride Whole Blood 102 101 - 111 mmol/L [facility] Glucose Whole Blood 115(H) 70 - 110 mg/dL [facility] Lactic Acid Whole Blood 1.1 0.5 - 3.4 mmol/L [facility] Blood specimen (specimen) 07/22/2015 8:22 AM SWITCHBOARD RECEPTIONIST 07/22/2015 8:22 AM SWITCHBOARD RECEPTIONIST Mason Rico MD LAB - BLOOD GASES OR DERABLES [address] [phone] * CROSSMATCH RBC LEUKOREDUCED (07/22/2015 7:29 AM SWITCHBOARD RECEPTIONIST) Unit RBC-WBCD [id number] [address] [facility] BLOOD B[facility] PRODUCTS (BEAKER) Unit RBC-WBCD [id number] [address] [facility] BLOOD BANK PRODUCTS (BEAKER) 07/22/2015 7:29 AM SWITCHBOARD RECEPTIONIST 07/22/2015 7:29 AM SWITCHBOARD RECEPTIONIST Narrative [facility] BLO[facility] B[facility] PRODUCTS (BEAKER) - 07/22/2015 7:29 AM SWITCHBOARD RECEPTIONIST # of Units->4 Mason Rico MD LAB - BLOOD BANK ORD ERABLES [facility] BLOOD BANK PRODUCTS (BEAKER) * ENDOSCOPIC ULTRASOUND, UPPER (06/27/2015 11:07 AM SWITCHBOARD RECEPTIONIST) Report Endoscopy POC _ Patient Name: Mary So Procedure Date: 06/27/2015 11:07 AM Date of : 1940 Admit Type: Outpatient Age: 74 Gender: Female Attending MD: Sriram Ambriz MD _ Procedure: Upper EUS Indications: Suspected mass in esophagus on CT scan Providers: Sriram Ambriz MD (Doctor), Rhiannon Elliott RN, Billy Guerrero, Bead Picker Referring MD: Giuseppe Urbina MD (Referring MD), [...] by the physician, the nurse and the warehouse engineer. The procedure was verified in the endoscopy [...] as scheduled Procedure Code(s): --- Professional --- 12081, Esophagogastroduoden oscopy, flexible, transoral; with endoscopic ultrasound examination limited to the esophagus, stomach or duodenum, and adjacent structures --- Technical --- 18742, Esophagogastroduoden oscopy, flexible, transoral; with endoscopic ultrasound examination limited to the esophagus, stomach or duodenum, and adjacent structures Diagnosis Code(s): --- Professional --- R93.3, Abnormal findings on diagnostic imaging of other parts of digestive tract --- Technical --- R93.3, Abnormal findings on diagnostic imaging of other parts of digestive tract CPT copyright 2014 [employer]. All rights reserved. The codes documented in this report are preliminary and upon blurb writer review may be revised to meet current compliance requirements. Attending Participation: I personally performed the entire procedure. Sriram Ambriz MD 06/27/2015 11:30:34 AM This report has been signed electronically. Number of Addenda: 0 Note Initiated On: 06/27/2015 11:07 AM [facility] 06/27/2015 11:0 7 AM SWITCHBOARD RECEPTIONIST Sriram Ambriz MD GI PROCEDURE ORDERAB LES [facility] * PET CT SKULL TO MID THIGH (06/13/2015 11:04 AM SWITCHBOARD RECEPTIONIST) Anatomical Region Laterality Modality Head, Lower Extremity Nuclear Me dicine 06/13/2015 11:1 0 AM SWITCHBOARD RECEPTIONIST Impressions 06/13/2015 11:44 AM SWITCHBOARD RECEPTIONIST No definite PET/CT evidence of malignancy. The reported mass above the liver and left thoracic mass are not apparent on this exam. However, evaluation is limited with this noncontrast CT. Recommend correlation with the prior CT. Narrative 06/13/2015 11:44 AM SWITCHBOARD RECEPTIONIST Procedure: PET/CT study Referring physician: Dr. Hart [...] sigmoid colon, biopsy -- Tubular adenoma MC/db [place] db Pathologist Carol Calderon M.D. [place]. 01/27/2006 1135 <1> CPT code 41907 MISCELLANEOUS SAMPLES / Unknown 01/26/2006 2:34 PM CDT 01/26/2006 2:34 PM CDT Historical Provider LAB - PATHOLOGY/C YTOLOGY ORDERABLES * FROZEN SECTION (07/09/2003 2:58 PM SWITCHBOARD RECEPTIONIST) Result CASE NUMBER [id number] Comment: ORDERING [...] and necrosis. The cystic fluid is serosanguinous. Wood Tile Installer sections through the heterogenous areas are submitted for FSA and FSB. Additional sales and marketing representative sections are submitted in cassettes C through J sales and marketing representative section of the fallopian tube are [...] smooth. The fallopian tube is grossly unremarkable. Wood Tile Installer sections of the ovary and fallopian tube are submitted in cassette N. Cross section through the fragment of fibroadipose tissue doesn't reveal any lesions or nodules. Wood Tile Installer sections are submitted in cassette O. The [...] serially sectioned and no lesion is identified. Wood Tile Installer sections are submitted in cassettes Q and [...] Many mesothelial cells and blood present. GM/ [place] [facility] Pathologist Anastasia Mckenzie M.D. [place]. 07/11/2003 1305 <3> CPT code 03311 x2, 28370, 70143 x4, 83831, 56604 MISCELLANEOUS SAMPLES / Unknown 07/09/2003 2:58 PM SWITCHBOARD RECEPTIONIST 07/09/2003 2:58 PM SWITCHBOARD RECEPTIONIST Historical Provider LAB - PATHOLOGY/C YTOLOGY ORDERABLES * CYTOLOGY NON-SVP RESEARCH AND STRATEGIC ANALYSIS PANEL (07/09/2003 12:00 AM SWITCHBOARD RECEPTIONIST) Result CASE NUMBER [id number] Comment: ORDERING PHYSICIAN MARGUERITE CLEMENT SPECIMEN TYPE Ascitic Fluid Date 07/11/[address] Clement Specimen Adequacy Satisfactory for evaluation. Cell Pathology single and small groups of benign mesothelial cells present, there is no evidence of malignancy. *Diagnosis negative for malignancy [place]. 07/11/2003 1241 <1> Pathologist Carol Calderon M.D. CPT code 49142 MISCELLANEOUS SAMPLE S / Unknown 07/09/2003 07/10/2003 7:56 AM SWITCHBOARD RECEPTIONIST Historical Provider LAB - PATHOLOGY/C YTOLOGY ORDERABLES Care Teams Oil And Gas Exploration Technician Relationship Specialty Start Date End Date Charlette Lentz MD [address] [place] [address] PCP - General 04/01/22 Lexie Lynn, RN Registered Nurse 12/16/16
--- OUTSIDE RECORDS SUMMARY | 2024-08-01 00:08 | XMS_ITS | Referral Summary ---
Author Organization [facility] D Address [address] [place] [address] Care Team Providers Care Client Technical Professional Name Role Phone Charltete Lentz MD Primary Care Provider [phone] Encounters Date Type Department Care Team Description 06/22/2024 Telephone [facility] Cardiology [address] [place] [address] Casey Lozano MD 06/19/2024 3:00 PM VENEER GLUER Office Visit [facility] Cardiology [address] [facility] [address] [place] [address] Casey Lozano MD Benign hypertension (Primary Dx); Paroxysmal atrial fibrillation (HCC); Coronary artery disease involving [place] coronary artery of [place] heart without angina pectoris; H/O cardiomyopathy; Mixed [...] 06/16/2021 Assessment & Plan (06/16/2021 2:49 PM VENEER GLUER): Remote history of takotsubo cardiomyopathy, fully recovered. [...] fibrillation Assessment & Plan (06/16/2021 2:47 PM VENEER GLUER): Permanent atrial fibrillation, with controlled ventricular response despite no rate controlling therapy. She is chronically anticoagulated with Xarelto which she should continue. Assessment & Plan (06/16/2020 5:37 PM VENEER GLUER): Rate controlled and anticoagulated. No change in therapy. Assessment & Plan (06/11/2019 9:41 AM VENEER GLUER): Rate controlled and anticoagulated. Previous Holter has shown that her rate control is good. Assessment & Plan (06/16/2018 10:31 AM VENEER GLUER): Rate controlled and anticoagulated. Continue current medications. Assessment & Plan (06/17/2017 12:06 PM VENEER GLUER): Rate controlled and anticoagulated. For insurance reasons, will switch to Xarelto. Mixed hyperlipidemia 03/31/2012 Overview (08/25/2016): Hyperlipidemia Assessment & Plan (06/16/2021 2:48 PM VENEER GLUER): Lipids are well controlled on simvastatin 20 mg daily. No change. Assessment & Plan (06/16/2020 5:38 PM VENEER GLUER): On chronic lipid lowering therapy with good control. No changes made. Assessment & Plan (06/11/2019 9:41 AM VENEER GLUER): On chronic lipid lowering therapy with good control. No changes made. LDL is 53 today. Assessment & Plan (06/17/2017 12:06 PM VENEER GLUER): On chronic lipid lowering therapy with good control. No changes made. Coronary artery disease invo lving ewi[place]ayp coronary artery of [place] heart without angina pectoris 03/31/2012 Overview (08/27/2016): Coronary atherosclerosis of [place] coronary artery Assessment & Plan (06/11/2019 9:41 AM VENEER GLUER): Mild and asymptomatic. Continue low-dose aspirin. Assessment & Plan (06/17/2017 12:07 PM VENEER GLUER): Minor luminal irregularities noted at cardiac catheterization in 2010, done at the time of her episode of stress cardiomyopathy Benign hypertension 03/31/2012 Overview (08/27/2016): Hypertension, benign Assessment & Plan (06/16/2021 2:48 PM VENEER GLUER): Blood pressure is well controlled with Accupril 40 mg daily and amlodipine 10 mg daily which she should continue Assessment & Plan (06/16/2020 5:37 PM VENEER GLUER): Blood pressure is adequately controlled on current regimen. No change was made. Assessment & Plan (06/11/2019 9:41 AM VENEER GLUER): Blood pressure is adequately controlled on current regimen. No change was made. Assessment & Plan (06/16/2018 10:33 AM VENEER GLUER): Blood pressure is well controlled. No change. Mild edema is consistent with her being on amlodipine. I reassured her that this is benign. Assessment & Plan (06/17/2017 12:06 PM VENEER GLUER): Blood pressure is adequately controlled on current [...] on file Legal Sex Female 1:53 PM VENEER GLUER Gender Identity Female 10/03/2023 12:43 PM CDT Sexual Orientation Straight 10/03/2023 12 :43 PM CDT Last Filed Vital Signs Vital Sign Reading Time Taken Comments Blood Pressure 116/52 06/19/2024 3:22 PM VENEER GLUER Pulse 70 06/19/2024 3:22 PM VENEER GLUER Temperature 36.7 C (98.1 F) 12/06/2018 4:00 PM CDT Respiratory Rate 20 12/06/2018 4:00 PM CDT Oxygen Saturation 95% 06/19/2024 3:22 PM VENEER GLUER Inhaled Oxygen Concentration - - Weight 68 kg (150 lb) 06/19/2024 3:22 PM VENEER GLUER Height 157.5 cm (5' 2 ) 06/19/2024 3:22 PM VENEER GLUER Body Mass Index 27.44 06/19/2024 3:22 PM VENEER GLUER Plan of Treatment Not on file Insurance [facility] [place] Care Teams Client Technical Professional Relationship Specialty Start Date End Date Charlette Lentz MD PCP - General Family Medicine 06/16/21
--- OUTSIDE RECORDS SUMMARY | 2024-08-01 00:08 | XMS_ITS | Clinical Summary ---
Author Organization [facility] Address [address] [place] [address] Care Team Providers Care Cafeteria Food Server Name Role Phone Unavailable Primary Care Provider [...]
--- OUTSIDE RECORDS SUMMARY | 2024-08-01 00:08 | XMS_ITS | Encounter Summary ---
Author Organization [facility] Address [address] [facility] [place] [address] Care Team Providers Care Direct Service Worker Name Role Phone Lexie Lynn RN Unavailable Unavailable Charlette Lentz MD Primary Care Provider [phone] Encounter Details Date Type Department Care Team (Late st Contact Info) Description 08/31/2023 Telephone [facility] - AOC DIRECTOR COMBAT PLANS OFFICER [address] [facility] [address] [place] [address] Marlo Jeter MD [address] [facility] [address] [place], [place] [id number] Social History Tobacco Use Types Packs/Day Years [...] CDT Office Visit [facility] - AOC DIRECTOR COMBAT PLANS OFFICER [address] [facility] [address] [place] [address] Marlo Jeter MD [address] [facility] [address] [place] [address] documented as of this encounter Visit Diagnoses Not on filedocumented in this encounter Care Teams Direct Service Worker Relationship Specialty Start Date End Date Charlette Lentz MD [address] [place] [address] PCP - General 04/01/22 Lexie Lynn, RN Registered Nurse 12/16/16 documented as of this encounter
--- OUTSIDE RECORDS SUMMARY | 2024-08-01 00:08 | XMS_ITS | Encounter Summary ---
Author Organization 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 Op Ct Scan [address], [address] [place] [address] Referral ID Status Reason Start Date Expiration Date Visits Re quested Visits Authorized [id number] Closed 07/09/2024 07/09/2025 1 1 Encounter Details Date Type Department Care Team (Latest Contact Info) Description 07/30/2024 11:12 AM CDT - 07/30/2024 11:59 PM CDT Hospital Encounter [facility] Health Imaging Services - CT Scan [address], [address] [place] [address] Marlo Jeter MD [address] [place] [address] Discharge Disposition: Home or Self Care Social [...] Description 08/06/2024 11:30 AM CDT Office Visit [facility] - REEL CUTTER [address] [place] [address] Marlo Jeter MD [address] [place] [address] documented as of this encounter Procedures Procedure [...] 18 mm on the previous examination, remeasuredby sc. None of these lymph nodes are calcified [...] - POCT INTERFACED (07/30/2024 11:24 AM CDT) [facility] Creatinine POCT 0.39(L) 0.70 - 1.20 mg/dL 07/30/2024 11:35 AM CDT [facility] eGFR >90 >=90 mL/min/1.7 3 m2 07/30/2024 11:35 AM CDT [facility] Blood BLOOD SPECIMEN / Unknown 07/30/2024 11:24 AM CDT 07/30/2024 11:35 AM CDT Marlo Jeter MD LAB - POINT OF CARE ORDERABLES Performing Organization Address City/State/[facility] Co de Phone Number [facility] [address] [place] [address] documented in this encounter Visit Diagnoses Diagnosis [...] mL documented in this encounter Care Teams Iron Miner Relationship Specialty Start Date End Date Charlette Lentz MD [address] [place] [address] PCP - General 04/01/22 Lexie Lynn, RN Registered Nurse 12/16/16 documented as of this encounter
--- OUTSIDE RECORDS SUMMARY | 2024-08-01 00:08 | XMS_ITS | Referral Summary ---
Author Organization [facility] Address [address] [facility] [place] [place] [address] Care Team Providers Care Transport Operations Inspector Name Role Phone Lexie Lynn RN Unavailable Unavailable Charlette Lentz MD Primary Care Provider [phone] Source Comments [facility],non-[facility] Affiliates and Associated Physician Practices is amultiple site organization consisting of ambulatory clinics and hospital sitesin [place] and [place]. This disclosure is being madepursuant to the Care Everywhere program and may not contain all information available regarding this patient. 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) ; Carcinomatosis (HCC) 07/09/2024 Travel 07/09/2024 11:00 AM PAPER COATER Office Visit [facility] - PHARMACEUTICAL COMPOUNDING SUPERVISOR [address] [place] [address] Marlo Jeter MD 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); Use of letrozole (Femara) 07/02/2024 Orders Only [facility] - PHARMACEUTICAL COMPOUNDING SUPERVISOR [address] [place] [address] Marlo Jeter MD 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); Carcinomatosis (HCC); Use of letrozole (Femara) 06/20/2024 Telephone [facility] - PHARMACEUTICAL COMPOUNDING SUPERVISOR [address], [address] [place] [address] Marlo Jeter MD Med Question [...] Immunizations Name Administration Dates Next Due [employer] primary monoval ent 12+ yr 0.3mL Purple [...] Comments Blood Pressure 150/64 07/09/2024 10:59 AM PAPER COATER Pulse 77 02/08/2024 10:34 AM CDT Temperature 36.1 C (97 F) 02/08/2024 10:34 AM CDT Respiratory Rate 16 07/30/2023 8:03 AM PAPER COATER Oxygen Saturation 98% 02/08/2024 10: 34 AM CDT Inhaled Oxygen Concentration - - Weight 67.5 kg (148 lb 12.8 oz) 025 10:59 AM PAPER COATER Height 157.5 cm (5' 2 ) 07/09/2024 10:5 9 AM PAPER COATER Body Mass Index 27.22 07/09/2024 10:59 AM PAPER COATER Functional Status Functional Status Response Date of [...] CDT Office Visit [facility] - PHARMACEUTICAL COMPOUNDING SUPERVISOR [address] [facility] [address] [place] [phone] Marlo Jeter MD [address] [facility] [address] [place] [address] Medical Devices Implanted Type Area Radiation Protection Engineer Device Identifier Shelf Expiration Date Model / Serial / Lot Mesh Srg Ventralight St Sepra Echo Implanted:Qty: 1 on 07/13/2019 by Omer Ponce MD at [facility] Abdomen [employer] 03/19/2020 [id number] / / [id number] Procedures Procedure Name Priority Date/Time Associated Diagnosis [...] 18 mm on the previous examination, remeasuredby mo. None of these lymph nodes are calcified [...] 1.20 mg/dL 07/30/2024 11:35 AM CDT [facility] eGFR >90 >=90 mL/min/1.7 3 m2 07/30/2024 11:35 AM CDT [facility] Blood BLOOD SPECIMEN / Unknown 07/30/2024 11:24 AM CDT 07/30/2024 11:35 AM CDT Marlo Jeter MD LAB - POINT OF CARE ORDERABLES Performing Organization Address City/State/[facility] Co de Phone Number [facility] [address] [place] [address] from Last 3 Months Advance Directives Documents on File Type Date Recorded Patient Shell Maker Lockstitch Expl anation Advance Directives and Livin g [...] 1:40 PM 12/20/2016 6:00 PM Care Teams Transport Operations Inspector Relationship Specialty Start Date End Date Charlette Lentz MD [address] [place], [place] [id number] PCP - General 04/01/22 Lexie Lynn, RN Registered Nurse 12/16/16
--- OUTSIDE RECORDS SUMMARY | 2024-08-01 00:08 | XMS_ITS | Clinical Summary ---
Author Organization [facility] D Address [address] [place] [address] Care Team Providers Care Window And Siding Craftsman Name Role Phone Charlette Lentz MD Primary Care Provider [phone] Allergies Active Allergy Reactions Criticality Noted Date [...] 06/16/2021 Assessment & Plan (06/16/2021 2:49 PM AIRCRAFT SEAT UPHOLSTERER): Remote history of takotsubo cardiomyopathy, fully recovered. [...] fibrillation Assessment & Plan (06/16/2021 2:47 PM AIRCRAFT SEAT UPHOLSTERER): Permanent atrial fibrillation, with controlled ventricular response despite no rate controlling therapy. She is chronically anticoagulated with Xarelto which she should continue. Assessment & Plan (06/16/2020 5:37 PM AIRCRAFT SEAT UPHOLSTERER): Rate controlled and anticoagulated. No change in therapy. Assessment & Plan (06/11/2019 9:41 AM AIRCRAFT SEAT UPHOLSTERER): Rate controlled and anticoagulated. Previous Holter has shown that her rate control is good. Assessment & Plan (06/16/2018 10:31 AM AIRCRAFT SEAT UPHOLSTERER): Rate controlled and anticoagulated. Continue current medications. Assessment & Plan (06/17/2017 12:06 PM AIRCRAFT SEAT UPHOLSTERER): Rate controlled and anticoagulated. For insurance reasons, will switch to Xarelto. Mixed hyperlipidemia 03/31/2012 Overview (08/25/2016): Hyperlipidemia Assessment & Plan (06/16/2021 2:48 PM AIRCRAFT SEAT UPHOLSTERER): Lipids are well controlled on simvastatin 20 mg daily. No change. Assessment & Plan (06/16/2020 5:38 PM AIRCRAFT SEAT UPHOLSTERER): On chronic lipid lowering therapy with good control. No changes made. Assessment & Plan (06/11/2019 9:41 AM AIRCRAFT SEAT UPHOLSTERER): On chronic lipid lowering therapy with good control. No changes made. LDL is 53 today. Assessment & Plan (06/17/2017 12:06 PM AIRCRAFT SEAT UPHOLSTERER): On chronic lipid lowering therapy with good control. No changes made. Coronary artery disease invo lving [place] coronary artery of [place] heart without angina pectoris 03/31/2012 Overview (08/27/2016): Coronary atherosclerosis of [place] coronary artery Assessment & Plan (06/11/2019 9:41 AM AIRCRAFT SEAT UPHOLSTERER): Mild and asymptomatic. Continue low-dose aspirin. Assessment & Plan (06/17/2017 12:07 PM AIRCRAFT SEAT UPHOLSTERER): Minor luminal irregularities noted at cardiac catheterization in 2010, done at the time of her episode of stress cardiomyopathy Benign hypertension 03/31/2012 Overview (08/27/2016): Hypertension, benign Assessment & Plan (06/16/2021 2:48 PM AIRCRAFT SEAT UPHOLSTERER): Blood pressure is well controlled with Accupril 40 mg daily and amlodipine 10 mg daily which she should continue Assessment & Plan (06/16/2020 5:37 PM AIRCRAFT SEAT UPHOLSTERER): Blood pressure is adequately controlled on current regimen. No change was made. Assessment & Plan (06/11/2019 9:41 AM AIRCRAFT SEAT UPHOLSTERER): Blood pressure is adequately controlled on current regimen. No change was made. Assessment & Plan (06/16/2018 10:33 AM AIRCRAFT SEAT UPHOLSTERER): Blood pressure is well controlled. No change. Mild edema is consistent with her being on amlodipine. I reassured her that this is benign. Assessment & Plan (06/17/2017 12:06 PM AIRCRAFT SEAT UPHOLSTERER): Blood pressure is adequately controlled on current regimen. No change was made. 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 Encounters Date Type Department Care Team Description 06/22/2024 Telephone [facility] Cardiology [address] [place] [address] Casey Lozano MD 06/19/2024 3:00 PM AIRCRAFT SEAT UPHOLSTERER Office Visit [facility] Cardiology [address] [place] [address] Casey Lozano MD Benign hypertension (Primary Dx); Paroxysmal atrial fibrillation (HCC); Coronary artery disease involving [place] coronary artery of [place] heart without angina pectoris; H/O cardiomyopathy; Mixed [...] on file Legal Sex Female 1:53 PM AIRCRAFT SEAT UPHOLSTERER Gender Identity Female 10/03/2023 12:43 PM CDT Sexual Orientation Straight 10/03/2023 12 :43 PM CDT Obstetrics History Last Filed Vital Signs Vital Sign Reading Time Taken Comments Blood Pressure 116/52 06/19/2024 3:22 PM AIRCRAFT SEAT UPHOLSTERER Pulse 70 06/19/2024 3:22 PM AIRCRAFT SEAT UPHOLSTERER Temperature 36.7 C (98.1 F) 12/06/2018 4:00 PM CDT Respiratory Rate 20 12/06/2018 4:00 PM CDT Oxygen Saturation 95% 06/19/2024 3:22 PM AIRCRAFT SEAT UPHOLSTERER Inhaled Oxygen Concentration - - Weight 68 kg (150 lb) 06/19/2024 3:22 PM AIRCRAFT SEAT UPHOLSTERER Height 157.5 cm (5' 2 ) 06/19/2024 3:22 PM AIRCRAFT SEAT UPHOLSTERER Body Mass Index 27.44 06/19/2024 3:22 PM AIRCRAFT SEAT UPHOLSTERER Plan of Treatment Health Maintenance Due Date Last Done Comments Depression Screening 1938 Fall Risk Assessment 1938 Osteoporosis Screening-Bone Density Scan 1938 Hepatitis B Screening 1956 Zoster Vaccine (1 of 2) 1957 Well Visit 65+ 11/06/2003 DTaP/Tdap/Td Vaccine (1 - Tdap) 09/11/2016 7, 09/20/2006 Influenza Vaccine (#1) 2024 1, 02/05/2020, 02/08/2019, Additional history exists Pneumococcal vaccine 65+ Completed 017, 07/23/2015, 05/23/2005 Insurance [facility] Care Teams Window And Siding Craftsman Relationship Specialty Start Date End Date Charlette Lentz MD PCP - General Family Medicine 06/16/21
== END 2024-08-01 00:14 | disposition home or self-care (01) ==
LOC: ANHED 08-01 00:06
PROVIDERS: Student in an Organized Health Care Education/Training Program; Emergency Provider Emergency Medicine; PCP Family Medicine
DX: N39.0 Urinary tract infection, site not specified (principal); I48.91 Unspecified atrial fibrillation; F41.9 Anxiety disorder, unspecified; E78.5 Hyperlipidemia, unspecified; I10 Essential (primary) hypertension; M47.812 Spondylosis without myelopathy or radiculopathy, cervical region
CPT/HCPCS: 81001; 99283; A9270

== ENCOUNTER 2024-11-20 13:17 | Outpatient (CLI) | payer OTHER, SELFPAY ==
--- OUTSIDE RECORDS SUMMARY | 2024-11-20 13:23 | XMS_ITS | Clinical Summary ---
Author Organization [facility] Address [address] [place] [address] Care Team Providers Care Supervisor Final Name Role Phone Unavailable Primary Care Provider [...] Td Vaccines ( 1 - Tdap) 1957 Pneumococcal Vaccine: 50+ Ye ars (1 of 1 - PCV) 1988 Zoster Vaccines (1 of 2) 1988 RSV Immunization or 60+ Years (1 - 1-dose 75+ series) 2013 COVID-19 Vaccine (2023-2 5 season) 2024 Meningococcal B Vaccine Aged Out No l onger eligible based on patient's age to complete this topic Meningococcal Vaccine Aged Out No dov jose eligible based on patient's age to complete this topic RSV Immunizations Under 20 Months Aged Out No longer eligible based on patient's age to complete this topic
--- OUTSIDE RECORDS SUMMARY | 2024-11-20 13:23 | XMS_ITS | Clinical Summary ---
Author Organization [facility] Address [address] [place] [address] Care Team Providers Care Special Weapons And Tactics Officer Name Role Phone Charlette Lentz MD Primary Care Provider [phone] Allergies Active Allergy Reactions Criticality Noted Date [...] (2.5 mg total) by mouth daily Active simvastatin (ZOCOR) 10 mg tablet Take 1 tablet (10 mg total) by mouth nightly 90 tablet Active busPIRone (BUSPAR) 15 mg tabletIndicati ons:Generalize d Anxiety Disorder Take 1 tablet (15 mg total) by mouth 3 (three) times a day Active rivaroxaban (Xarelto) 20 mg tablet Take 1 tablet (20 mg total) by mouth daily 90 tablet 2 025 Active amLODIPine (NORVASC) 5 mg tablet Take 1 tablet (5 mg total) by mouth daily 90 tablet 3 025 2025 Active isosorbide mononitrate ER (IMDUR) 30 mg 24 hr tablet TAKE 1 TABLET BY MOUTH EVERY DAY 90 tablet 025 Active isosorbide mononitrate ER (IMDUR) 30 mg 24 hr tablet TAKE 1 TABLET BY MOUTH EVERY DAY 90 tablet 025 2024 Discontinued Active Problems Problem Noted Date Diagnosed Date H/O cardiomyopathy 09/09/2023 Chronic anticoagulation 08/25/2022 Palpitations 08/25/2022 Takotsubo cardiomyopathy 06/16/2021 Assessment & Plan (06/16/2021 2:49 PM POMOLOGIST): Remote history of takotsubo cardiomyopathy, fully recovered. [...] fibrillation Assessment & Plan (06/16/2021 2:47 PM POMOLOGIST): Permanent atrial fibrillation, with controlled ventricular response despite no rate controlling therapy. She is chronically anticoagulated with Xarelto which she should continue. Assessment & Plan (06/16/2020 5:37 PM POMOLOGIST): Rate controlled and anticoagulated. No change in therapy. Assessment & Plan (06/11/2019 9:41 AM POMOLOGIST): Rate controlled and anticoagulated. Previous Holter has shown that her rate control is good. Assessment & Plan (06/16/2018 10:31 AM POMOLOGIST): Rate controlled and anticoagulated. Continue current medications. Assessment & Plan (06/17/2017 12:06 PM POMOLOGIST): Rate controlled and anticoagulated. For insurance reasons, will switch to Xarelto. Mixed hyperlipidemia 03/31/2012 Overview (08/25/2016): Hyperlipidemia Assessment & Plan (06/16/2021 2:48 PM POMOLOGIST): Lipids are well controlled on simvastatin 20 mg daily. No change. Assessment & Plan (06/16/2020 5:38 PM POMOLOGIST): On chronic lipid lowering therapy with good control. No changes made. Assessment & Plan (06/11/2019 9:41 AM POMOLOGIST): On chronic lipid lowering therapy with good control. No changes made. LDL is 53 today. Assessment & Plan (06/17/2017 12:06 PM POMOLOGIST): On chronic lipid lowering therapy with good control. No changes made. Coronary artery disease invo lving [place] coronary artery of [place] heart without angina pectoris 03/31/2012 Overview (08/27/2016): Coronary atherosclerosis of [place] coronary artery Assessment & Plan (06/11/2019 9:41 AM POMOLOGIST): Mild and asymptomatic. Continue low-dose aspirin. Assessment & Plan (06/17/2017 12:07 PM POMOLOGIST): Minor luminal irregularities noted at cardiac catheterization in 2010, done at the time of her episode of stress cardiomyopathy Benign hypertension 03/31/2012 Overview (08/27/2016): Hypertension, benign Assessment & Plan (06/16/2021 2:48 PM POMOLOGIST): Blood pressure is well controlled with Accupril 40 mg daily and amlodipine 10 mg daily which she should continue Assessment & Plan (06/16/2020 5:37 PM POMOLOGIST): Blood pressure is adequately controlled on current regimen. No change was made. Assessment & Plan (06/11/2019 9:41 AM POMOLOGIST): Blood pressure is adequately controlled on current regimen. No change was made. Assessment & Plan (06/16/2018 10:33 AM POMOLOGIST): Blood pressure is well controlled. No change. Mild edema is consistent with her being on amlodipine. I reassured her that this is benign. Assessment & Plan (06/17/2017 12:06 PM POMOLOGIST): Blood pressure is adequately controlled on current regimen. No change was made. 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 Encounters Date Type Department Care Team Description 11/06/2024 10:30 AM CDT Office Visit [facility] Dermatology [facility] [address] [place] [address] Betsy Valdez MD Seborrheic keratosis (Primary Dx); Solar purpura; Lentigines; Multiple benign nevi; History of dysplastic nevus 08/27/2024 Telephone [facility] Cardiology [address] [place] [address] Casey Lozano MD from Last 3 Months Immunizations Immunization Administration [...] on file Legal Sex Female 1:53 PM POMOLOGIST Gender Identity Female 10/03/2023 12:43 PM CDT Sexual Orientation Straight 10/03/2023 12 :43 PM CDT Obstetrics History Last Filed Vital Signs Vital Sign Reading Time Taken Comments Blood Pressure 116/52 06/19/2024 3:22 PM POMOLOGIST Pulse 70 06/19/2024 3:22 PM POMOLOGIST Temperature 36.7 C (98.1 F) 12/06/2018 4:00 PM CDT Respiratory Rate 20 12/06/2018 4:00 PM CDT Oxygen Saturation 95% 06/19/2024 3:22 PM POMOLOGIST Inhaled Oxygen Concentration - - Weight 68 kg (150 lb) 06/19/2024 3:22 PM POMOLOGIST Height 157.5 cm (5' 2) 06/19/2024 3:22 PM POMOLOGIST Body Mass Index 27.44 06/19/2024 3:22 PM POMOLOGIST Plan of Treatment Health Maintenance Due Date Last Done Comments Depression Screening 1938 Fall Risk Assessment 1938 Osteoporosis Screening-Bone Density Scan 1938 Hepatitis B Screening 1956 Zoster Vaccine (1 of 2) 1957 Well Visit 65+ 11/06/2003 DTaP/Tdap/Td Vaccine (1 - Tdap) 09/11/2016 7, 09/20/2006 Influenza Vaccine (Season Ended) 2025 02/06/2021, 02/05/2020, 02/08/2019, Additional history exists Pneumococcal vaccine 65+ Completed 017, 07/23/2015, 05/23/2005 Insurance [facility] [place] [address] [facility] Care Teams Special Weapons And Tactics Officer Relationship Specialty Start Date End Date Charlette Lentz MD PCP - General Family Medicine 06/16/21
--- OUTSIDE RECORDS SUMMARY | 2024-11-20 13:23 | XMS_ITS | Clinical Summary ---
Author Organization [facility] Address [address] [place] [address] Care Team Providers Care Vice President Of Business Development Name Role Phone Lexie Lynn RN Unavailable Unavailable Charlette Lentz MD Primary Care Provider [phone] Source Comments [facility],non-owned Affiliates and Associated Physician Practices is amultiple site organization consisting of ambulatory clinics and hospital sitesin [place], [place], [place] and [place]. This disclosure is being madepursuant to the Care Everywhere program and may not contain all information available regarding this patient. Last updated 18.[facility] Allergies Active Allergy Reactions Criticality Noted Date Comments Penicillins 06/02/2015 ? PCN. Reaction when child. Medications * Be aware that medications may not be up to date on this document. Alwaysverify current medications with the patient. amLODIPine (NORVASC) 10 MG tablet Take 1 (one) tablet by mouth once daily 3 03/12/20 15 Active isosorbide mononitrate CR 24hr (IMDUR) 30 MG tablet Take 1 (one) tablet by mouth once daily 4 05/12/20 15 Active LORazepam (ATIVAN) 1 MG tablet Take 1 (one) tablet by mouth every 12 hours as needed 5 05/12/20 15 Active omeprazole (PRILOSEC) 20 MG capsule Take 1 (one) capsule by mouth daily before breakfast 3 05/06/20 15 Active simvastatin (ZOCOR) 20 MG tablet Take 1 (one) tablet by mouth at bedtime 2 03/26/20 15 Active Cholecalcifero l (VITAMIN D) 2000 UNITS capsule Take 1 (one) capsule by mouth once daily Daily. Active Aspirin (ASPIR-81 PO) Take by mouth at bedtime Active XARELTO 20 MG tablet Take 1 (one) tablet by mouth daily with food 3 02/02/20 18 Active clobetasol (TEMOVATE) 0.05 % ointment Apply to affected area 2 times daily 60 g 1 08/19/19 21 Active Additional Information Patient not taking.Reported on 12/01/2023 cyanocobalamin (VITAMIN B-12) 500 MCG tablet Take 1 (one) tablet by mouth once daily Active lisinopril (Prinivil; Zestril) 40 MG tablet Take 1 (one) tablet by mouth once daily 04/25/20 23 Active Probiotic Product (Align) 4 MG 4 mg Active oxyCODONE, immediate release, (Roxicodone) 5 MG tabletIndicati ons:Granulosa cell tumor Take 1 (one) tablet by mouth every 6 hours as needed 12 tablet 07/30/19 24 Active Additional Information Patient not taking.Reported on 12/01/2023 pantoprazole EC (Protonix) 40 MG tablet Take 1 (one) tablet by mouth once daily for 30 days 30 tablet 07/30/19 24 Active CRANBERRY PO Active psyllium (Metamucil) 58.6 % powder Take 1 (one) packet by mouth 3 times daily as needed for Constipation Active busPIRone (Buspar) 15 MG tablet Take 1 (one) tablet by mouth 3 times daily Active cephalexin (Keflex) 500 MG capsule TAKE 1 CAPSULE BY MOUTH EVERY 12 HOURS FOR 7 DAYS 08/02/19 25 Active letrozole (Femara) 2.5 MG tablet TAKE 1 TABLET BY MOUTH EVERY DAY 90 tablet 4 10/30/19 25 Active letrozole (Femara) 2.5 MG tablet Take 1 (one) tablet by mouth once daily 90 tablet 4 09/05/19 24 025 Discontinued Active Problems Problem Noted Date Diagnosed Date 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 Post-op pain Encounters Date Type Department Care Team Description 10/29/2024 Refill [facility] - IMAGING CLERK [address] [place] [address] Marlo Jeter MD Refill Request from Last 3 Months Immunizations Immunization Administration Dates Next Due [employer] primary monoval ent 12+ yr 0.3mL [...] Recorded Patient Health Questionnaire-2 Score 2 07/30/2024 Comments No Sex and Gender Information Value Date Recorded Sex Assigned at Female 07/29/2024 3:29 PM CDT Legal Sex Female 6:27 AM MEMBERSHIP COUNSELOR Gender Identity Female 07/29/2024 3:29 PM CDT Sexual Orientation Straight 07/29/2024 3: 29 PM CDT Last Filed Vital Signs Vital Sign Reading Time Taken Comments Blood Pressure 146/80 08/06/2024 12:07 PM CDT Pulse 77 02/08/2024 10:34 AM CDT Temperature 36.1 C (97 F) 02/08/2024 10:34 AM CDT Respiratory Rate 16 07/30/2023 8:03 AM MEMBERSHIP COUNSELOR Oxygen Saturation 98% 02/08/2024 10:34 AM CDT Inhaled Oxygen Concentration - - Weight 65 kg (143 lb 3.2 oz) 08/06/2024 12:07 PM CDT Height 157.5 cm (5' 2) 08/06/2024 12:07 PM CDT Body Mass Index 26.19 08/06/2024 12:07 PM CDT Plan of Treatment Upcoming Encounters Date Type Department Care Team (Late st Contact Info) Description 12/06/2024 11:30 AM CDT Office Visit [facility] - IMAGING CLERK [address] [place] [address] Marlo Jeter MD [address] [place] [address] Health Maintenance Due Date Last Done Comments [...] 03/01/2022, 10/03/2021, Additional history exists INFLUENZA VACCINE (Season Ended) 2025 03/05/2023, 03/01/2022, 02/12/2021, Additional history exists DEPRESSION SCREENING Completed 07/09/2024 HIB VACCINE Aged Out No longer eligi ble based on patient's age to complete this topic HPV VACCINE Aged Out No longer eligi ble based on patient's age to complete this topic MENINGOCOCCAL (Group B) VACCINE SHARED DECISION-MAKING Aged Out No longer eligible based on patient's age to complete this topic MENINGOCOCCAL GROUPS A/C/Y/W VACCINE Aged Out No longer eligible based on patient's age to complete this topic Medical Devices Implanted Type Area Electronics Parts Sales Representative Device Identifier Shelf Expiration Date Model / Serial / Lot Mesh Srg Ventralight St Sepra Echo Implanted:Qty: 1 on 07/13/2019 by Omer Ponce MD at [facility] Abdomen [employer] 03/19/2020 [id number] / / [id number] Insurance [facility] MED[facility] MEDICARE [facility] MEDICARE SELF PAY NO INSURANCE Member Subscriber Plan / Payer (Ef fective for All Dates) Name:Anthony So Member ID:Not on file Relation to Subscriber:Not on file Name:ANTHONY SO Subscriber ID:Not on file (Home) Address: [address] [place] [address] Payer ID:Not on file Group ID:Not on file Type:Self Pay Address: [place], [place] [facility] MEDICARE SELF PAY NO INSURANCE Member Subscriber Plan / Payer (Ef fective for All Dates) Name:Anthony So Member ID:Not on file Relation to Subscriber:Not on file Name:ANTHONY SO Subscriber ID:Not on file (Home) Address: [address] [place] [address] Payer ID:Not on file Group ID:Not on file Type:Self Pay Address: [place], [place] Advance Directives Documents on File Type Date Recorded Patient State Farm Agent Team Member Expl anation Advance Directives and Livin g [...] 1:40 PM 12/20/2016 6:00 PM Care Teams Vice President Of Business Development Relationship Specialty Start Date End Date Charlette Lentz MD [address] [place] [address] PCP - General 04/01/22 Lexie Lynn, RN Registered Nurse 12/16/16
--- OUTSIDE RECORDS SUMMARY | 2024-11-20 13:23 | XMS_ITS | Referral Summary ---
Author Organization [facility] Address [address] [place] [address] Care Team Providers Care Insurance Case Manager Name Role Phone Charlette Lentz MD Primary Care Provider [phone] Encounters Date Type Department Care Team Description 11/06/2024 10:30 AM CDT Office Visit [facility] Dermatology [address] [facility] [address] [place] [address] Betsy Valdez MD Seborrheic keratosis (Primary Dx); Solar purpura; Lentigines; Multiple benign nevi; History of dysplastic nevus 08/27/[address] [facility] Cardiology [address] [address] [place] [address] Casey Lozano MD from Last 3 Months Allergies Active Allergy [...] 06/16/2021 Assessment & Plan (06/16/2021 2:49 PM NET FRONT END DEVELOPER): Remote history of takotsubo cardiomyopathy, fully recovered. [...] fibrillation Assessment & Plan (06/16/2021 2:47 PM NET FRONT END DEVELOPER): Permanent atrial fibrillation, with controlled ventricular response despite no rate controlling therapy. She is chronically anticoagulated with Xarelto which she should continue. Assessment & Plan (06/16/2020 5:37 PM NET FRONT END DEVELOPER): Rate controlled and anticoagulated. No change in therapy. Assessment & Plan (06/11/2019 9:41 AM NET FRONT END DEVELOPER): Rate controlled and anticoagulated. Previous Holter has shown that her rate control is good. Assessment & Plan (06/16/2018 10:31 AM NET FRONT END DEVELOPER): Rate controlled and anticoagulated. Continue current medications. Assessment & Plan (06/17/2017 12:06 PM NET FRONT END DEVELOPER): Rate controlled and anticoagulated. For insurance reasons, will switch to Xarelto. Mixed hyperlipidemia 03/31/2012 Overview (08/25/2016): Hyperlipidemia Assessment & Plan (06/16/2021 2:48 PM NET FRONT END DEVELOPER): Lipids are well controlled on simvastatin 20 mg daily. No change. Assessment & Plan (06/16/2020 5:38 PM NET FRONT END DEVELOPER): On chronic lipid lowering therapy with good control. No changes made. Assessment & Plan (06/11/2019 9:41 AM NET FRONT END DEVELOPER): On chronic lipid lowering therapy with good control. No changes made. LDL is 53 today. Assessment & Plan (06/17/2017 12:06 PM NET FRONT END DEVELOPER): On chronic lipid lowering therapy with good control. No changes made. Coronary artery disease invo lving [place] coronary artery of [place] heart without angina pectoris 03/31/2012 Overview (08/27/2016): Coronary atherosclerosis of [place] coronary artery Assessment & Plan (06/11/2019 9:41 AM NET FRONT END DEVELOPER): Mild and asymptomatic. Continue low-dose aspirin. Assessment & Plan (06/17/2017 12:07 PM NET FRONT END DEVELOPER): Minor luminal irregularities noted at cardiac catheterization in 2010, done at the time of her episode of stress cardiomyopathy Benign hypertension 03/31/2012 Overview (08/27/2016): Hypertension, benign Assessment & Plan (06/16/2021 2:48 PM NET FRONT END DEVELOPER): Blood pressure is well controlled with Accupril 40 mg daily and amlodipine 10 mg daily which she should continue Assessment & Plan (06/16/2020 5:37 PM NET FRONT END DEVELOPER): Blood pressure is adequately controlled on current regimen. No change was made. Assessment & Plan (06/11/2019 9:41 AM NET FRONT END DEVELOPER): Blood pressure is adequately controlled on current regimen. No change was made. Assessment & Plan (06/16/2018 10:33 AM NET FRONT END DEVELOPER): Blood pressure is well controlled. No change. Mild edema is consistent with her being on amlodipine. I reassured her that this is benign. Assessment & Plan (06/17/2017 12:06 PM NET FRONT END DEVELOPER): Blood pressure is adequately controlled on current [...] on file Legal Sex Female 1:53 PM NET FRONT END DEVELOPER Gender Identity Female 10/03/2023 12:43 PM CDT Sexual Orientation Straight 10/03/2023 12 :43 PM CDT Last Filed Vital Signs Vital Sign Reading Time Taken Comments Blood Pressure 116/52 06/19/2024 3:22 PM NET FRONT END DEVELOPER Pulse 70 06/19/2024 3:22 PM NET FRONT END DEVELOPER Temperature 36.7 C (98.1 F) 12/06/2018 4:00 PM CDT Respiratory Rate 20 12/06/2018 4:00 PM CDT Oxygen Saturation 95% 06/19/2024 3:22 PM NET FRONT END DEVELOPER Inhaled Oxygen Concentration - - Weight 68 kg (150 lb) 06/19/2024 3:22 PM NET FRONT END DEVELOPER Height 157.5 cm (5' 2) 06/19/2024 3:22 PM NET FRONT END DEVELOPER Body Mass Index 27.44 06/19/2024 3:22 PM NET FRONT END DEVELOPER Plan of Treatment [place] [address] [facility] Member Subscriber Plan / Payer (Ef fective 2022-Present) Name:Mary So Relation to Subscriber:Self Name:Mary So Payer ID:[id number] (NAIC) Type:MEDICARE RISK OTHER Address: [facility] Member Subscriber Plan / Payer ( fective 2022-Present) Name:Jduah Mary A Relation to Subscriber:Self Name:Mary So Payer ID:[id number] (NAIC) Type:MEDICARE RISK OTHER [address] [facility] [place] [id number] Care Teams Insurance Case Manager Relationship Specialty Start Date End Date Charlette Lentz MD PCP - General Family Medicine 06/16/21
--- OUTSIDE RECORDS SUMMARY | 2024-11-20 13:23 | XMS_ITS | Encounter Summary ---
Author Organization [facility] Address [address] [facility] [place] [address] Care Team Providers Care Planning Specialist Name Role Phone Lexie Lynn RN Unavailable Unavailable Charlette Lentz MD Primary Care Provider [phone] Encounter Details Date Type Department Care Team (Late st Contact Info) Description 08/31/2023 Telephone [facility] - [facility] MILLING MACHINIST [address] [facility] [address] [place] [address] Marlo Jeter MD [address] [facility] [address] [place], [place] [id number] Social History Tobacco Use Types Packs/Day Years [...] more drinks on one occasion? Never 07/28/2023 Comments No Sex and Gender Information Value Date Recorded Sex Assigned at Female 07/29/2024 3:29 PM CDT Legal Sex Female 6:27 AM CAR ESCORT Gender Identity Female 07/29/2024 3:29 PM CDT Sexual Orientation Straight 07/29/2024 3: 29 PM CDT documented as of this encounter Functional Status * Is person deaf or have serious hearing difficulty? Answer Date of Assessment Author No 03/03/2021 12:15 PM CDT Yesenia Garcia RN * Is person blind or have serious difficulty seeing? Answer Date of Assessment Author No 03/03/2021 12:15 PM CDT Yesenia Garcia RN * Does person have serious difficulty walking/climbing stairs? Answer Date of Assessment Author Yes 03/03/2021 12:15 PM CDT Yesenia Garcia RN * Does person have difficulty dressing/bathing? Answer Date of Assessment Author No 03/03/2021 12:15 PM CDT Yesenia Garcia RN * Does person have difficulty doing errands alone? Answer Date of Assessment Author No 03/03/2021 12:15 PM CDT Yesenia Garcia RN documented as of this encounter Mental Status * Does person have difficulty concentrating/remembering/making decisions? Answer Entry Date Author No 03/03/2021 12:15 PM CDT Yesenia Garcia RN documented in this encounter Plan of Treatment Upcoming Encounters Date Type Department Care Team (Late st Contact Info) Description 12/06/2024 11:30 AM CDT Office Visit [facility] - [facility] MILLING MACHINIST [address] [facility] [address] [place] [id number] Marlo Jeter MD [address] [facility] [address] [place] [address] documented as of this encounter Visit Diagnoses Not on filedocumented in this encounter Care Teams Planning Specialist Relationship Specialty Start Date End Date Charlette Lentz MD [address] [place] [address] PCP - General 04/01/22 Lexie Lynn, [facility] Registered Nurse 12/16/16 documented as of this encounter
[2024-11-21 07:23] LABS: CA-125. 14 U/mL (<35)
== END 2024-11-20 13:18 | disposition home or self-care (01) ==
LOC: ANHGOSHLAB 13:19
PROVIDERS: PCP Family Medicine
DX: C56.2 Malignant neoplasm of left ovary (principal)
CPT/HCPCS: 36415; 83520; 86304; 86336